=== PATIENT | female | born 1945 | race Caucasian/White ===

== ENCOUNTER 2018-03-18 11:15 | Day surgery (SDC) | payer OTHER ==
--- OUTSIDE RECORDS SUMMARY | 2018-03-18 11:26 | XMS REPORT | Continuity of Care Document ---
:1945 Author Organization Interface Problems Problem Status Onset Classification Date Comments Source Date Reported ACUTE ASTHMA Active 01/16/20 EX[facility]ATION [facility] SOB Active 01/16/20 [facility] DX: Active 07/14/19 [id number] [facility] ED OVARIAN CYST, [place] ABNORMAL LABS Active 07/01/19 17 [facility] ACUTE Active 07/01/19 PANCREATITIS 17 [facility] R10.13 Active 07/01/19 17 [facility] Discharge 03/31/20 04/03/2016 Diagnosis: 16 [facility] Allergic reaction Discharge 03/31/20 04/03/2016 Diagnosis: 16 [facility] Stridor Discharge 03/31/20 04/03/2016 Diagnosis: Acute 16 [facility] dyspnea RASH Active 03/31/20 16 [facility] Esophageal reflux Active Problem 10/09/2017 [facility] Essential Active Problem 10/09/2017 [facility] hypertension [facility] Migraine Active Problem 10/21/2016 [facility] Other and Active Diagnosis 10/09/2017 [facility] unspecified [facility] Peptic ulcer Active Problem 10/09/2017 [facility] disease [facility] Duodenitis Active Problem 10/09/2017 [facility] Mild persistent Active Problem 10/09/2017 [facility] asthma without [facility] complication [facility] Hernia, hiatal Active Problem 10/21/2016 [facility] Seasonal allergic Active Problem 10/21/2016 [facility] conjunctivitis [facility] Hx of colonic Active Problem 10/09/2017 [facility] polyp [facility] BMI Active Problem 10/09/2017 [facility] Migraines Active Problem 04/14/2015 [facility] GERD Active Problem 04/14/2015 [facility] Hypertension Active Problem 04/14/2015 [facility] Hyperlipidemia Active Problem 04/14/2015 [facility] Cough Active Diagnosis 05/03/2017 [facility] Right foot pain Active Diagnosis 05/03/2017 [facility] Right anterior Active Diagnosis 05/03/2017 [facility] Right elbow pain Active Diagnosis 05/03/2017 [facility] Chest pain in Active Diagnosis 05/03/2017 [facility] Bronchitis Active Diagnosis 01/31/2017 [facility] Hospital Active Diagnosis 01/31/2017 [facility] discharge [facility]up [facility] Age-related Active Problem 10/09/2017 [facility] osteoporosis [facility] without current Internal pathological [facility] fracture Frequent falls Active Diagnosis 10/09/2017 [facility] Abdominal aortic Active Problem 10/09/2017 [facility] aneurysm without [facility] rupture [facility] Osteopenia, Active Diagnosis 10/09/2017 [facility] unspecified [facility] location [facility] Screening for Active Diagnosis 10/09/2017 [facility] breast cancer [facility] Screening for Active Diagnosis 10/09/2017 [facility] colon cancer [facility] Encntr for Active Diagnosis 10/09/2017 [facility] adult [facility] medical exam w/o Internal abnormal findings [facility] Rash Active Diagnosis 04/04/2016 [facility] SOB Active Diagnosis 04/04/2016 [facility] Right wrist pain Active Diagnosis 11/17/2015 [facility] Abnormal chest Active Diagnosis 11/17/2015 [facility] Right shoulder Active Diagnosis 11/17/2015 [facility] pain [facility] Hyperlipidemia Active Diagnosis 11/17/2015 [facility] Prediabetes Active Diagnosis 02/22/2016 [facility] Lower respiratory Active Diagnosis 07/02/2016 [facility] infection [facility] Epigastric pain Active Diagnosis 07/02/2016 [facility] Obesity Active Diagnosis 06/23/2015 [facility] Aortic aneurysm Active Diagnosis 06/23/2015 [facility] GERD Active Diagnosis 06/23/2015 [facility] 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 [facility] Acute left-sided Active Diagnosis 08/04/2016 [facility] thoracic back [facility] Breast cancer Active Diagnosis 07/20/2016 [facility] screening [facility] Encntr for shear helper Active Diagnosis 07/20/2016 [facility] exam (routine) Family & w/o abn findings [facility] Cyst of right Active Diagnosis 07/14/2016 [facility] ovary [facility] Acute gastritis Active Diagnosis 07/14/2016 [facility] without Family & hemorrhage, Internal unspecified [facility] gastritis type Acute abdominal Active Diagnosis 07/14/2016 [facility] pain [facility] Brain concussion Resolved Problem 01/21/2017 [facility] hiatal hernia Resolved Problem 01/21/2017 [facility] H/O completed Resolved Problem 01/21/2017 stroke [facility] Asthma Resolved Problem 01/21/2017 [facility] Hypertension Resolved Problem 01/21/2017 [facility] Migraine Resolved Problem 01/21/2017 [facility] ACUTE Active PANCREATITIS [facility] WITHOUT NECROSIS OR I EPIGASTRIC PAIN Active [facility] UNSPECIFIED Active [facility] OVARIAN CYST, [facility] RIGHT SIDE UNSPECIFIED Active ASTHMA WITH [facility] (ACUTE) EXACERBA Medications Medication Details Route Status Patient Ordering Order Source Instructions Provider Date Raloxifene HCl 1 tablet Orally Active 60 MG Orally Martin 10/08/ [facility] Once a day [facility] Pantoprazole 1 tablet Orally Active 40 mg Orally Martin 10/08/ Yadav Sodium Once a day 2018 [facility] Zofran 1-2 tablets Orally Active 4 mg Orally Martin 06/29/ Yadav Q8 PRN 2018 [facility] Levaquin 1 tablet Orally Active 500 MG Orally Martin 04/30/ [facility] Once a day 2018 [facility] predniSONE 10 See Special Active mg oral tablet Instruction 2017 [facility] s, PO, Daily, 12 day regimen: Days 1-4 - 20 mg (2 tabs) daily Days 5-8 - 10 mg (1 tab) daily Days 9-12 - 5 mg (1/2 tab) daily, X 12 day, # 14 tab, 0 Refill(s) Amoxicillin 875 1 tab, PO, Active MG / [id number], X 2017 [facility] Clavulanate 125 7 day, # 14 MG Oral Tablet tab, 0 Refill(s) 120 ACTUAT 2 puff, Active Fluticasone INHALATION, 2017 propionate 0.11 Daily, MG/ACTUAT rinse mouth Metered Dose and throat Inhaler after use, [Flovent] # 12 gm, 0 Refill(s) Tylenol 650 mg, 2 Inactive tab, Route: 2016 [facility] PO, Drug form: TAB, ONCE, Dosing Weight 65.8, kg, PRN Pain Score 1-5, Start date: 01/18/17 0:15:00 CDTNotes: Do not exceed 4 gm/day. (Same as: Tylenol) Tylenol 650 mg, Inactive Route: PO, 2016 [facility] Drug form: TAB, Q6H, Dosing Weight 65.8, kg, PRN Pain Score 1-3, Priority: NOW, Start date: 01/18/17 0:13:00 CDT, Duration: 30 day, Stop date: 02/17/17 0:12:00 CDT Hydrochlorothia 25 mg, 1 No Longer zide 25 MG Oral tab, Route: Active 2016 [facility] Tablet PO, Drug form: TAB, Daily, Dosing Weight 65.8, kg, Start date: 01/17/17 9:00:00 CDT, Duration: 30 day, Stop date: 02/15/17 9:00:00 CDTNotes: (Same as: Hydrodiuril ) With food. Amlodipine 5 mg, 1 No Longer tab, Route: Active 2016 [facility] PO, Drug form: TAB, Daily, Dosing Weight 65.8, kg, Start date: 01/17/17 9:00:00 CDT, Duration: 30 day, Stop date: 02/15/17 9:00:00 CDTNotes: (Same as: Norvasc) Crestor 10 mg, 2 No Longer tab, Route: Active 2016 [facility] PO, Drug form: TAB, Bedtime, Dosing Weight 65.8, kg, Start date: 01/16/17 21:00:00 CDT, Duration: 30 day, Stop date: 02/14/17 21:00:00 CDTNotes: Same as Crestor phenol 1 spray, No Longer Route: TOP, Active 2016 [facility] TID, Drug form: SPRY, PRN Sore Throat, Start date: 01/16/17 20:02:00 CDT, Duration: 30 day, Stop date: 02/15/17 20:01:00 CDTNotes: Chlorasepti c [place] (Same as: Chlorasepti c, Sore Throat [place]) WASTE: F/P - Black; E - Municipal Trash Bin pantoprazole 40 mg, 1 No Longer tab, Route: Active 2016 [facility] PO, Drug form: ECTAB, BID, Dosing Weight 65.8, kg, Start date: 01/16/17 17:00:00 CDT, Duration: 30 day, Stop date: 02/15/17 9:00:00 CDTNotes: Tablet should not be chewed or crushed. (Same as: Protonix) methylPREDNISol 40 mg, 1 No Longer one SODium mL, Route: Active 2016 [facility] SUCCinate IVP, Drug form: INJ, Q8H, Dosing Weight 65.8, kg, Start date: 01/16/17 16:00:00 CDT, Duration: 30 day, Stop date: 02/15/17 8:00:00 CDTNotes: (Same as:Solu-MED ROL, A-Methapred ) Carafate 1 gm, 1 No Longer tab, Route: Active 2016 [facility] PO, Drug form: TAB, QID-Before Meals, Dosing Weight 65.8, kg, Start date: 01/16/17 13:00:00 CDT, Duration: 30 day, Stop date: 02/15/17 11:30:00 CDTNotes: May interfere w/enteral feeds - Take 1 hr before or 2 hr after antacids, dairy pdt, meals & minerals - On empty stomach. For patients unable to swallow tablet, dissolve in 10mL - 30mL of water or juice and stir before giving. (Same As: Carafate) Ventolin HFA 90 2 puff, No Longer mcg/inh Route: Active 2016 [facility] inhalation INHALATION, aerosol with Drug Form: adapter AERO/A, Dosing Weight 65.8, kg, QID, PRN Shortness of breath, Start date: 01/16/17 13:00:00 CDT, Duration: 30 day, Stop date: 02/15/17 12:59:00 CDTNotes: Same as: Ventolin HFA WASTE: Aerosol - Return to Pharmacy potassium 40 mEq, 2 Inactive chloride 20 mEq tab, Route: 2016 [facility] oral tablet, PO, Drug extended form: release ERTAB, ONCE, Dosing Weight 65.8, kg, Start date: 01/16/17 12:47:00 CDT, Stop date: 01/16/17 12:47:00 CDTNotes: (Same as: K-Dur 20) "Do Not Crush" With food and full glass of water Sumatriptan 50 50 mg, 2 Inactive MG Oral Tablet tab, Route: 2016 [facility] [Imitrex] PO, Drug form: TAB, ONCE, Dosing Weight 65.8, kg, PRN Headache 4-6, Start date: 01/16/17 12:45:00 CDT, MIGRAINNote s: (Same As: Imitrex) Tylenol 650 mg, 1 No Longer supp, Active 2016 [facility] Route: GA, Drug form: SUPP, Q6H, Dosing Weight 65.8, kg, PRN For Temp > 100.4 F, Start date: 01/16/17 12:44:00 CDT, Duration: 30 day, Stop date: 02/15/17 12:43:00 CDTNotes: Max acetaminoph zz=[id number] mg/day (4 gm/day). (Same as: Tylenol) Promethazine 25 mg, 1 No Longer tab, Route: Active 2016 [facility] PO, Drug form: TAB, Q4H, Dosing Weight 65.8, kg, PRN as needed for nausea/vomi ting, Start date: 01/16/17 12:44:00 CDT, Duration: 30 day, Stop date: 02/15/17 12:43:00 CDTNotes: (Same as: Phenergan) Prednisone 40 mg, 2 Inactive tab, Route: 2017 [facility] PO, Drug form: TAB, Daily, Dosing Weight 65.909, kg, Start date: 01/16/17 9:00:00 CDT, Duration: 30 day, Stop date: 02/14/17 9:00:00 CDTNotes: Take with food. pneumococcal 0.5 mL, Inactive capsular Route: IM, 2016 [facility] polysaccharide Drug Form: type 1 vaccine INJ, Daily, / pneumococcal Start date: capsular 01/16/17 polysaccharide 9:00:00 type 10A CDT, vaccine / Duration: 1 pneumococcal doses or capsular times, Stop polysaccharide date: type 11A 01/16/17 vaccine / 9:00:00 pneumococcal CDTNotes: capsular (Same as: polysaccharide Pneumovax type 12F 23) vaccine / Refrigerate pneumococcal capsular polysacchar Albuterol 0.833 3 mL, No Longer 10/03/ MH MG/ML / Route: NEB, Active 2016 [facility] Ipratropium Drug Form: [place] 0.167 SOLN, MG/ML Inhalant Dosing Solution Weight 65.909, kg, RQ6H, Start date: 01/16/17 8:00:00 CDT, Duration: 30 day, Stop date: 02/15/17 2:00:00 CDTNotes: (Same as: Duoneb) Amoxicillin 875 1 tab, No Longer 10/ MH MG / Route: PO, Active 2016 [facility] Clavulanate 125 Drug Form: MG Oral Tablet TAB, Dosing Weight 65.909, kg, [id number], For CrCl >/=30, Start date: 01/16/17 3:00:00 CDT, Duration: 30 day, Stop date: 02/14/17 15:00:00 CDTNotes: With food. (Same as: Augmentin 875) Calcium 3 gm, 30 No Longer 10/ MH Gluconate mL, Route: Active 2016 [facility] IVPB, PRN, Dosing Weight 65.909, kg, PRN Abnormal Lab Result, For NON-ICU Patients Only., Start date: 01/16/17 2:29:00 CDT, Duration: 30 day, Stop date: 02/15/17 2:28:00 CDTNotes: WASTE: F/P - Sink; E - [employer] Trash [employer] sodium 15 mmol, 5 No Longer 10/ MH phosphate mL, Route: Active 2016 [facility] IVPB, PRN, Dosing Weight 65.909, kg, PRN Abnormal Lab Result, For NON-ICU Patients Only., Start date: 01/16/17 2:29:00 CDT, Duration: 30 day, Stop date: 02/15/17 2:28:00 CDT Potassium 20 mEq, 15 No Longer 10/03/ MH Chloride mL, Route: Active 2016 [facility] NJ, Drug form: LIQ, PRN, Dosing Weight 65.909, kg, PRN Abnormal Lab Result, For NON-ICU Patients Only, Start date: 01/16/17 2:29:00 CDT, Duration: 30 day, Stop date: 02/15/17 2:28:00 CDTNotes: (Same as: Potassium Chloride) Magnesium 1 gm, 100 No Longer Sulfate mL, Route: Active 2016 [facility] IVPB, Drug form: INJ, PRN, Dosing Weight 65.909, kg, PRN Abnormal Lab Result, For NON-ICU Patients Only., Start date: 01/16/17 2:29:00 CDT, Duration: 30 day, Stop date: 02/15/17 2:28:00 CDTNotes: WASTE: F/P - Sink; E - [employer] Trash Bin potassium 30 mmol, 10 No Longer phosphate mL, Route: Active 2016 [facility] IVPB, PRN, Dosing Weight 65.909, kg, PRN Abnormal Lab Result, For NON-ICU Patients Only., Start date: 01/16/17 2:29:00 CDT, Duration: 30 day, Stop date: 02/15/17 2:28:00 CDTNotes: (Same as: K Phosphate.) 1 mMol phoshate has 1.47 mEq potassium Infuse over 4 hours Magnesium Oxide 800 mg, 2 No Longer tab, Route: Active 2016 [facility] PO, Drug form: TAB, PRN, Dosing Weight 65.909, kg, PRN Abnormal Lab Result, For NON-ICU Patients Only., Start date: 01/16/17 2:29:00 CDT, Duration: 30 day, Stop date: 02/15/17 2:28:00 CDTNotes: (Same as: Mag-Ox 400) Magnesium oxide [id number] elemental magnesium Dose=____mg magnesium oxide (___mg elemental magnesium) potassium 2 pkt, No Longer phosphate-sodiu Route: PO, Active 2016 [facility] m phosphate 250 Drug Form: mg-280 mg-160 PDR/REC, mg oral powder Dosing for Weight reconstitution 65.909, kg, PRN, PRN Abnormal Lab Result, For NON-ICU Patients Only, Start date: 01/16/17 2:29:00 CDT, Duration: 30 day, Stop date: 02/15/17 2:28:00 CDTNotes: (Same as: Phos-NaK) Each 1.5 gm pkt has 250mg phosphorous . Mix w/2.5oz water and stir. Saline Flush 10 ml, No Longer 01/16/ MH 0.9% Route: IVP, Active 2016 [facility] Drug Form: INJ, Dosing Weight 65.909, kg, PRN, PRN Line Flush, Start date: 01/16/17 2:25:00 CDT, Duration: 30 day, Stop date: 02/15/17 2:24:00 CDTNotes: (Same as: BD Posiflush) Albuterol 0.83 2.49 mg, 3 No Longer 01/16/ MH MG/ML Inhalant mL, Route: Active 2016 [facility] Solution NEB, Drug form: SOLN, RQ2H, Dosing Weight 65.909, kg, PRN Wheezing, Priority: Routine, Start date: 01/16/17 2:25:00 CDT, Duration: 30 day, Stop date: 02/15/17 2:24:00 CDTNotes: SEE RT DOCUMENTATI ON (Same as: Proventil) methylPREDNISol 125 mg, 2 Inactive one SODium mL, Route: 2016 [facility] SUCCinate IVP, Drug form: INJ, ONCE, Dosing Weight 65.909, kg, Priority: STAT, Start date: 01/16/17 0:07:00 CDT, Stop date: 01/16/17 0:07:00 CDTNotes: (Same as:Solu-MED ROL, A-Methapred ) Albuterol 0.833 6 mL, Inactive 01/16/ MH MG/ML / Route: 2016 [facility] Ipratropium INHALATION, [place] 0.167 Dosing MG/ML Inhalant Weight Solution 65.909, kg, [DuoNeb] ONCE, Start date: 01/15/17 23:54:00 CDT, Stop date: 01/15/17 23:54:00 CDT Albuterol 0.833 6 mL, Inactive 01/16/ MH MG/ML / Route: 2016 [facility] Ipratropium INHALATION, [place] 0.167 Dosing MG/ML Inhalant Weight Solution 65.909, kg, [DuoNeb] ONCE, Start date: 01/15/17 23:43:00 CDT, Stop date: 01/15/17 23:43:00 CDT Saline Flush 10 mL, No Longer 0.9% Route: IVP, Active 2016 [facility] Drug Form: INJ, Dosing Weight 72.727, kg, PRN, PRN Line Flush, Start date: 01/15/17 23:11:00 CDT, Duration: 30 day, Stop date: 02/14/17 23:10:00 CDTNotes: (Same as: BD Posiflush) Flexeril 1 tablet as Orally Active 10 MG Orally [place] needed daily [facility] Sumatriptan 50 50 mg=1 Active MG Oral Tablet tab, PO, 2016 [Imitrex] ONCE, PRN Headache, may repeat one time after 2 hours, # 9 tab, 0 Refill(s), Pharmacy: [facility] [id number] pantoprazole 40 40 mg=1 Active mg oral enteric tab, PO, 2016 coated tablet BID, # 60 tab, 1 Refill(s), Pharmacy: [facility] [id number] amLODIPine 5 mg 5 mg=1 tab, Active oral tablet PO, Daily, 2016 # 30 tab, 2 Refill(s), Pharmacy: [place] [id number] Sucralfate 1000 1 gm=1 tab, Active MG Oral Tablet PO, QID, # 2017 [facility] [Carafate] 120 tab, 2 Refill(s), Pharmacy: [place] [id number] Imitrex 50 mg, 2 No Longer tab, Route: Active 2016 [facility] PO, Drug form: TAB, Q2H, Dosing Weight 72.727, kg, PRN Headache 4-6, Start date: 07/03/16 22:46:00 CDT, Duration: 30 day, Stop date: 08/02/16 22:45:00 CDTNotes: (Same As: Imitrex) Tylenol 650 mg, 2 No Longer tab, Route: Active 2016 [facility] PO, Drug form: TAB, Q6H, Dosing Weight 72.727, kg, PRN Pain Score 1-3, Start date: 07/03/16 22:36:00 CDT, Duration: 30 day, Stop date: 08/02/16 22:35:00 CDTNotes: Do not exceed 4 gm/day. (Same as: Tylenol) Protonix 40 mg, 1 No Longer tab, Route: Active 2016 [facility] PO, Drug form: ECTAB, BID, Dosing Weight 72.727, kg, Start date: 07/03/16 17:00:00 CDT, Duration: 30 day, Stop date: 08/02/16 9:00:00 CDTNotes: Tablet should not be chewed or crushed. (Same as: Protonix) Sucralfate 100 1 gm, 1 No Longer MG/ML Oral tab, Route: Active 2016 [facility] Suspension PO, Drug [Carafate] form: TAB, QID, Dosing Weight 72.727, kg, Start date: 07/03/16 17:00:00 CDT, Duration: 30 day, Stop date: 08/02/16 13:00:00 CDTNotes: May interfere w/enteral feeds - Take 1 hr before or 2 hr after antacids, dairy pdt, meals & minerals - On empty stomach. For patients unable to swallow tablet, dissolve in 10mL - 30mL of water or juice and stir before giving. (Same As: Carafate) Sodium Chloride 1,000 mL, Inactive [facility] 0.154 MEQ/ML Rate: 2016 [facility] Injectable ml/hr, Solution Infuse over: 40 hr, Route: IV, Dosing Weight 72.727 kg, Total Volume: 1,000, Start date: 07/03/16 13:52:00 CDT, Duration: 1 day, Stop date: 07/04/16 13:51:00 CDT pneumococcal 0.5 mL, Inactive 07/03/ MH 13-valent Route: IM, 2016 [facility] vaccine Drug Form: INJ, Daily, Start date: 07/03/16 12:00:00 CDT, Duration: 1 doses or times, Stop date: 07/03/16 12:00:00 CDTNotes: Lightly roll vial (DO NOT SHAKE) before administrat ion. (Same as: Prevnar 13) pneumococcal 0.5 mL, Inactive 07/03/ MH 13-valent Route: IM, 2016 [facility] vaccine Drug Form: INJ, Daily, Start date: 07/03/16 10:30:00 CDT, Duration: 1 doses or times, Stop date: 07/03/16 10:30:00 CDTNotes: Lightly roll vial (DO NOT SHAKE) before administrat ion. (Same as: Prevnar 13) Imitrex 6 mg, 0.5 Inactive mL, Route: 2016 [facility] SUB-Q, Drug form: INJ, ONCE, Dosing Weight 72.727, kg, PRN Headache 6-10, Start date: 07/02/16 14:39:00 CDTNotes: For SUBCUTANEOU S use only Crestor 10 mg, No Longer Route: PO, Active 2016 [facility] Drug form: TAB, Daily, Dosing Weight 72.727, kg, Start date: 07/02/16 9:00:00 CDT, Duration: 30 day, Stop date: 07/31/16 9:00:00 CDT Hydrochlorothia 25 mg, 1 No Longer zide 25 MG Oral tab, Route: Active 2016 [facility] Tablet PO, Drug form: TAB, Daily, Dosing Weight 72.727, kg, Start date: 07/02/16 9:00:00 CDT, Duration: 30 day, Stop date: 07/31/16 9:00:00 CDTNotes: (Same as: Hydrodiuril ) With food. aspirin 81 mg 81 mg, 1 No Longer tablet, enteric tab, Route: Active 2016 [facility] coated PO, Drug form: ECTAB, Daily, Dosing Weight 72.727, kg, Start date: 07/02/16 9:00:00 CDT, Duration: 30 day, Stop date: 07/31/16 9:00:00 CDTNotes: Do not crush or chew. (Same As: Ecotrin) Norvasc 5 mg, 1 No Longer tab, Route: Active 2016 [facility] PO, Drug form: TAB, Daily, Dosing Weight 72.727, kg, Start date: 07/02/16 9:00:00 CDT, Duration: 30 day, Stop date: 07/31/16 9:00:00 CDTNotes: (Same as: Norvasc) Protonix 40 mg, 1 No Longer tab, Route: Active 2016 [facility] PO, Drug form: ECTAB, Before Breakfast, Dosing Weight 72.727, kg, Start date: 07/02/16 7:30:00 CDT, Duration: 30 day, Stop date: 07/31/16 7:30:00 CDTNotes: Tablet should not be chewed or crushed. (Same as: Protonix) Lipitor 20 mg, 2 No Longer tab, Route: Active 2016 [facility] PO, Drug form: TAB, Bedtime, Start date: 07/01/16 21:00:00 CDT, Duration: 30 day, Stop date: 07/30/16 21:00:00 CDTNotes: (Same As: Lipitor) Acetaminophen 1 tab, No Longer 325 MG / Route: PO, Active 2016 [facility] Hydrocodone Drug Form: Bitartrate 5 MG TAB, Dosing Oral Tablet Weight [Belk 5/325] 72.727, kg, Q6H, PRN Pain Score 1-3, Start date: 07/01/16 17:38:00 CDT, Duration: 30 day, Stop date: 07/31/16 17:37:00 CDTNotes: (Same as: Belk 325/5) Do not exceed 4gm/day of acetaminoph en. Ventolin HFA 90 2 puff, No Longer mcg/inh Route: Active 2016 [facility] inhalation INHALATION, aerosol with Drug Form: adapter AERO/A, Dosing Weight 72.727, kg, QID, Start date: 07/01/16 17:00:00 CDT, Duration: 30 day, Stop date: 07/31/16 13:00:00 CDTNotes: Albuterol 90 microgram/i nh 8gm HFA WASTE: Aerosol - Return to Pharmacy Same as: Ventolin, Proventil Protonix 40 mg, Inactive Route: IV, 2016 [facility] Drug form: INJ, Q12H, Dosing Weight 72.727, kg, Start date: 07/01/16 9:00:00 CDT, Duration: 30 day, Stop date: 07/30/16 21:00:00 CDTNotes: For IV push reconstitut e with 10 ml 0.9% sodium chloride and push over 2 minutes. (Same as: Protonix) Streptococcus 0.5 mL, No Longer pneumoniae Route: IM, Active 2016 [facility] serotype 1 Drug Form: capsular INJ, Daily, antigen Start date: diphtheria 07/01/16 [id number] protein 9:00:00 conjugate CDT, vaccine / Duration: 1 Streptococcus doses or pneumoniae times, Stop serotype 14 date: capsular 07/01/16 antigen 9:00:00 diphtheria CDTNotes: [id number] protein Lightly conjugate roll vial vaccine / (DO NOT Streptococcus SHAKE) pneumoniae before serotype 18C administrat capsular ion. (Same antigen d as: Prevnar 13) Nitroglycerin 0.4 mg, 1 No Longer 0.4 MG tab, Route: Active 2016 [facility] Sublingual SL, Drug Tablet form: TAB, Q5Min, Dosing Weight 72.727, kg, PRN Chest Pain, Start date: 07/01/16 4:03:00 CDT, Duration: 30 day, Stop date: 07/31/16 4:02:00 CDTNotes: (Same as:Nitroqui ck, Nitrostat) "Do Not Crush" Sublingual tablet Atropine 0.5 mg, 5 No Longer mL, Route: Active 2016 [facility] IVP, Drug form: INJ, ONCE, Dosing Weight 72.727, kg, PRN Bradycardia , Start date: 07/01/16 4:03:00 CDT Saline Flush 10 ml, No Longer 0.9% Route: IVP, Active 2016 [facility] Drug Form: INJ, Dosing Weight 72.727, kg, PRN, PRN Line Flush, Start date: 06/30/16 23:56:00 CDT, Duration: 30 day, Stop date: 07/30/16 23:55:00 CDTNotes: (Same as: BD Posiflush) Sodium Chloride 1,000 mL, No Longer 0.154 MEQ/ML Rate: 150 Active 2016 [facility] Injectable ml/hr, Solution Infuse over: 6.7 hr, Route: IV, Dosing Weight 72.727 kg, Total Volume: 1,000, Start date: 06/30/16 23:56:00 CDT, Duration: 30 day, Stop date: 07/30/16 23:55:00 CDT Ondansetron 4 mg, 2 mL, No Longer Route: IVP, Active 2016 [facility] [facility] Drug form: INJ, Q6H, Dosing Weight 72.727, kg, PRN Nausea & Vomiting, Start date: 06/30/16 23:56:00 CDT, Duration: 30 day, Stop date: 07/30/16 23:55:00 CDTNotes: (Same as: Zofran) MEDICATION WASTE Product Size: 4 mg Product Wasted: ___ mg Morphine 4 mg, 1 mL, No Longer Route: IVP, Active 2016 [facility] Drug form: SOLN, Q4H, Dosing Weight 72.727, kg, PRN Pain Score 7-10, Start date: 06/30/16 23:56:00 CDT, Duration: 30 day, Stop date: 07/30/16 23:55:00 CDTNotes: (Same as:MORPhine Sulfate) Famotidine 20 mg, 2 Inactive mL, Route: 2016 [facility] IVP, Drug form: INJ, ONCE, Dosing Weight 72.727, kg, Priority: STAT, Start date: 06/30/16 19:48:00 CDT, Stop date: 06/30/16 19:48:00 CDTNotes: (Same as: Pepcid) Can be dilute in 5-10cc NS IVP: Slow IV push over at least 2 minutes. Ondansetron 4 mg, 2 mL, Inactive Route: IVP, 2016 [facility] Drug form: INJ, ONCE, Dosing Weight 72.727, kg, Priority: STAT, Start date: 06/30/16 19:47:00 CDT, Stop date: 06/30/16 19:47:00 CDTNotes: (Same as: Zofran) MEDICATION WASTE Product Size: 4 mg Product Wasted: ___ mg Sodium Chloride 1,000 mL, Inactive 0.154 MEQ/ML 1000 ml/hr, 2016 [facility] Injectable Infuse Solution Over: 1 hr, Route: IV, 1,000, Drug form: INJ, ONCE, Priority: STAT, Dosing Weight 72.727 kg, Start date: 06/30/16 19:47:00 CDT, Duration: 1 doses or times, Stop date: 06/30/16 19:47:00 CDT Morphine 4 mg, 1 mL, Inactive Route: IVP, 2016 [facility] Drug form: SOLN, ONCE, Dosing Weight 72.727, kg, Priority: STAT, Start date: 06/30/16 19:47:00 CDT, Stop date: 06/30/16 19:47:00 CDTNotes: (Same as:MORPhine Sulfate) Potassium 40 mEq, 30 Inactive Chloride 1.33 mL, Route: 2016 MEQ/ML Oral PO, Drug Solution form: LIQ, ONCE, Dosing Weight 72.727, kg, Priority: STAT, Start date: 06/30/16 19:24:00 CDT, Stop date: 06/30/16 19:24:00 CDTNotes: (Same as: Potassium Chloride) Saline Flush 10 mL, No Longer 0.9% Route: IVP, Active 2016 [facility] Drug Form: INJ, Dosing Weight 72.727, kg, PRN, PRN Line Flush, Start date: 06/30/16 18:01:00 CDT, Duration: 30 day, Stop date: 07/30/16 18:00:00 CDTNotes: (Same as: BD Posiflush) Bromfed DM 10 ml as Orally Active 30-2-10 Cyclone needed MG/5ML Orally 2016 [facility] 6 hrs [facility] Levaquin 1 tablet Orally Active 500 MG Orally Cyclone Yadav Once a day 2016 [facility] Medrol (Wilbert) as directed Orally Active 4 MG Orally Cyclone Yadav as directed 2015 [facility] Famotidine 10 10 mg=1 Active MG Oral Tablet tab, PO, 2015 BID, # 60 tab, 0 Refill(s) Diphenhydramine 25 mg=1 Active Hydrochloride cap, PO, 2015 25 MG Oral Q6H, PRN Capsule Allergic [Benadryl] reaction, X 8 day, # 30 cap, 0 Refill(s) 0.3 ML 0.3 mg, IM, Active Epinephrine 1 ONCE, # 1 2015 MG/ML Prefilled kit, 0 Syringe Refill(s) [Epipen] Albuterol 0.833 3 mL, Inactive MH MG/ML / Route: [facility]2015 [facility] Ipratropium Drug Form: [place] 0.167 SOLN, MG/ML Inhalant Dosing Solution Weight 63.636, kg, ONCE, STAT, Start date: 03/31/16 11:53:00 CUSTOMER SUPPORT COORDINATOR, Stop date: 03/31/16 11:53:00 CSTNotes: (Same as: Duoneb) Sodium Chloride 1,000 mL, Inactive 03/31/ MH 0.154 MEQ/ML 2,000 2015 [facility] Injectable ml/hr, Solution Infuse Over: 30 minutes, Route: IV, ONCE, Priority: STAT, Dosing Weight 63.636 kg, Start date: 03/31/16 11:53:00 CUSTOMER SUPPORT COORDINATOR, Duration: 1 doses or times, Stop date: 03/31/16 11:53:00 CUSTOMER SUPPORT COORDINATOR Saline Flush 10 mL, Inactive 0.9% Route: IVP2015 [facility] Drug Form: INJ, Dosing Weight 63.636, kg, PRN, PRN Line Flush, Start date: 03/31/16 11:53:00 CUSTOMER SUPPORT COORDINATOR, Duration: 30 day, Stop date: 04/30/16 11:52:00 CSTNotes: (Same as: BD Posiflush) Albuterol 0.833 3 mL, Inactive 03/31/ MH MG/ML / Route: 2015 [facility] Ipratropium Dosing [place] 0.167 Weight MG/ML Inhalant 63.636, kg, Solution ONCE, STAT, Start date: 03/31/16 11:50:00 CUSTOMER SUPPORT COORDINATOR, Stop date: 03/31/16 11:50:00 CUSTOMER SUPPORT COORDINATOR Diphenhydramine 50 mg, Inactive MH Route: IVP, 2015 [facility] ONCE, Dosing Weight 63.636, kg, Priority: STAT, Start date: 03/31/16 11:48:00 CUSTOMER SUPPORT COORDINATOR, Stop date: 03/31/16 11:48:00 CUSTOMER SUPPORT COORDINATOR EPINEPHrine 1 0.3 mg, Inactive MH mg/mL (1:1000) Route: IM, 2015 [facility] injectable ONCE, solution Dosing Weight 63.636, kg, Priority: STAT, Start date: 03/31/16 11:47:00 CUSTOMER SUPPORT COORDINATOR, Stop date: 03/31/16 11:47:00 CUSTOMER SUPPORT COORDINATOR methylPREDNISol 125 mg, Inactive one SODium Route: IVP, 2015 Samantha SUCCinate ONCE, Dosing Weight 63.636, kg, Priority: STAT, Start date: 03/31/16 11:47:00 CUSTOMER SUPPORT COORDINATOR, Stop date: 03/31/16 11:47:00 CUSTOMER SUPPORT COORDINATOR Famotidine 20 mg, Inactive Route: IVP, 2015 [place] ONCE, Dosing Weight 63.636, kg, Priority: STAT, Start date: 03/31/16 11:46:00 CUSTOMER SUPPORT COORDINATOR, Stop date: 03/31/16 11:46:00 CUSTOMER SUPPORT COORDINATOR Ventolin HFA 2 puffs as Inhalatio Active 108 (90 Base) Martin Leif needed n MCG/ACT 2016 [facility] Inhalation [facility] every 4 hrs [facility] PRN Ventolin HFA 2 puffs as Inhalatio Active 108 (90 Base) Sloan Leif needed n MCG/ACT 2015 [facility]ation [facility] every 4 hrs [facility] Levaquin 1 tablet Orally Active 500 mg Orally Cyclone Leif Once a day 2015 [facility] Crestor 1 tablet Orally Active 10 MG Orally Sloan Yadav Once a day 2014 [facility] Crestor 2 tablet Orally Active 20 mg Orally Guilherme Leif Once a day 2014 [facility] pneumococcal 0.5 ml, IM No Longer SYSTEM OPID 23-valent Route: IM, Active 2009 [place] vaccine Drug Form: INJ, ONCALL, Start date: 09/12/09 20:00:00, Duration: 1 doses or times Triamterene-HCT 1 capsule Orally Active 25-37.5 MG Martin Yadav Z in the Orally Once a [facility] morning day [facility] Amlodipine 1 tablet Orally Active 5 MG Orally Leif Yadav Besylate Once a day [facility] Sumatriptan 1 tablet as Orally Active 50 MG Orally Martin Yadav Succinate needed Twice a day [facility] Cyclobenzaprine TAKE ONE NA Active 10 Sasha Leif HCl TABLET BY Family & MOUTH DAILY Internal NEEDED [facility] Omeprazole 1 tablet Orally Active 10 MG Orally Martin Yadav Once a day [facility] Carafate 1 tablet on Orally Active 1 GM Orally Martin Yadav an empty four times a Family & stomach day (qid) [facility] Pantoprazole not defined Oral Active 40 MG Oral Martin Yadav Sodium [facility] Rosuvastatin 1 tablet Orally Active 20 mg Orally Martin Yadav Calcium Once a day [facility] EPINEPHrine 1 Injection Active 0.3 MG/DOSE Sasha Yadav Injection prn [facility] Amlodipine 1 tablet Orally Active 5 MG Orally Martin Yadav Besylate Once a day [facility] Crestor TAKE ONE NA Active 20 Sasha Yadav TABLET BY [facility] MOUTH DAILY [facility] Triamterene-HCT take one NA Active 37.5-25 Martin Yadav Z capsule by Family & mouth every Internal morning [facility] Adrianne Allergy 1 tablet Orally Active 180 MG Orally Mary Ellen Yadav Once a day [facility] Vitamin D not defined NA Active Mary Ellen Yadav [facility] Excedrin 2 tablets Orally Active 250-250-65 MG Mary Ellen Yadav Migraine as needed Orally PRN [facility] EPINEPHrine 1 Injection Active 0.3 MG/DOSE Martin Yadav Injection prn [facility] Amlodipine 1 tablet Orally Active 5 Orally Once Martin Yadav Besylate a day [facility] Excedrin 2 tablets Orally Active 250-250-65 MG Sloan Yadav Migraine as needed Orally PRN [facility] Omeprazole 1 tablet Orally Active 10 MG Orally Sloan Yadav Once a day [facility] Adrianne Allergy 1 tablet Orally Active 180 MG Orally Sloan Yadav Once a day [facility] Imitrex 1 tablet as Orally Active 100 MG Orally Cyclonebrandon Yadav needed one Once a day [facility] time [facility] Rosuvastatin 1 tablet Orally Active 20 MG Orally Sloan Yadav Calcium Once a day [facility] Sumatriptan 1 tablet as Orally Active 50 MG Orally Sloan Yadav Succinate needed Twice a day [facility] Carafate 1 tablet on Orally Active 1 GM Orally Sloan Yadav an empty four times a Family & stomach day (qid) [facility] Bromfed DM 5-10 ml as Orally Active 30-2-10 Sloan Yadav needed MG/5ML Orally Family & every 6 hrs, Internal PRN [facility] Hydrochlorothia 1 tablet Orally Active 25 MG Orally Sloan Yadav zide Once a day [facility] Imitrex 1 tablet as Orally Active 50 MG Orally Sloan Yadav needed Twice a day [facility] Levofloxacin 1 tablet Orally Active 500 MG Orally Sloan Yadav Once a day [facility] Pantoprazole 1 tablet Orally Active 40 MG Orally Sloan Yadav Sodium Once a day [facility] Sucralfate 1 tablet on Orally Active 1 GM Orally Sloan Yadav an empty Twice a day [facility] stomach [facility] Promethazine 1 tablet as Orally Active 25 MG Orally Sloan Yadav HCl needed every 12 hrs [facility] Rosuvastatin 1 tablet Orally Active 20 MG Orally Sloan Yadav Calcium Once a day [facility] Allergies, Adverse Reactions, Alerts Substance Category Reaction Severity Reaction Status Date Comments Source type Reported Iodine Adverse anaphylaxis Adverse Active Yadav Reaction Reaction 8 [facility] [place] Adverse rash Adverse Active Yadav Reaction Reaction 8 [facility] iodine Assertion Drug Active allergy [facility] Immunizations Immunization Date Site Status Last Comments Source Given Updated pneumococcal Not Given [facility] 23-valent 7 vaccine pneumococcal Left completed [facility] 13-valent 7 Deltoid vaccine pneumococcal Not Given Breanna OPID 23-valent 0 [place] vaccine Results Order Name Results Value Reference Date Interpretation Comments Source Range CHEM PANEL eGFR 46 01/17 Result Comment: The eGFR is calculated using the CKD-EPI formula. In most young, healthy individuals the eGFR will be >90 mL/ min/1.73m2. The eGFR declines with age. An eGFR of 60-89 may be normal in mL/min/1. some populations, particularly the elderly, for whom the CKD-EPI formula has not been extensively validated. Use of the eGFR is not recommended in the following populations: [facility] 3m2 Individuals with unstable creatinine concentrations, including patients and those with serious co-morbid conditions. Patients with extremes in muscle mass or diet. The data above are obtained from the National Kidney Disease Education Program (NKDEP) which additionally recommends that when the eGFR is used in patients with extremes of body mass index for purposes of drug dosing, the eGFR should be multiplied by the estimated BMI. CHEM PANEL Potassium 3.8 meq/L 3.5 - 5.1 01/17 Lvl /2016 [facility] CHEM PANEL Sodium Lvl 139 meq/L 135 - 145 01/17 [facility] CHEM PANEL Chloride Lvl 105 meq/L 95 - 109 01/17 [facility] CHEM PANEL Calcium Lvl 9.0 mg/dL 8.5 - 10.5 01/17 [facility] CHEM PANEL AGAP 12.8 meq/L 10.0 - 01/17 MH 20.0 /2016 [facility] CHEM PANEL CO2 25 meq/L 24 - 32 01/17 [facility] CHEM PANEL Creatinine 1.20 mg/dL 0.50 - 10 MH Lvl 1.40 /2016 [facility] CHEM PANEL BUN 24 mg/dL 7 - 22 01/17 [facility] CHEM PANEL Glucose Lvl 167 mg/dL 70 - 99 01/17 [facility] ELECTROLYT Potassium 3.2 meq/L 3.5 - 5.1 01/16 ES Lvl [facility] CARDIAC CK MB Index null 0.0 - 2.5 01/16 ENZYMES [facility] CARDIAC CK MB null 0.5 - 3.6 01/16 ENZYMES [facility] CARDIAC Troponin-I null 0.00 - 01/16 ENZYMES 0.40 [facility] CARDIAC Total CK 67 unit/L 12 - 191 01/16 ENZYMES [facility] CARDIAC BNP 1 pg/mL <=100 01/16 ENZYMES pg/mL /2016 [facility] CHEM PANEL eGFR 61 01/16 Result Comment: The eGFR is calculated using the CKD-EPI formula. In most young, healthy individuals the eGFR will be >90 mL/ min/1.73m2. The eGFR declines with age. An eGFR of 60-89 may be normal in mL/min/1.7 /2017 some populations, particularly the elderly, for whom the CKD-EPI formula has not been extensively validated. Use of the eGFR is not recommended in the following populations: [facility] 3m2 Individuals with unstable creatinine concentrations, including patients and those with serious co-morbid conditions. Patients with extremes in muscle mass or diet. The data above are obtained from the National Kidney Disease Education Program (NKDEP) which additionally recommends that when the eGFR is used in patients with extremes of body mass index for purposes of drug dosing, the eGFR should be multiplied by the estimated BMI. CHEM PANEL A/G Ratio 1.1 0.7 - 1.6 01/16 [facility] CHEM PANEL Globulin 3.8 g/dL 2.7 - 4.2 01/16 [facility] CHEM PANEL Potassium 3.1 meq/L 3.5 - 5.1 01/16 [facility] Lvl [facility] CHEM PANEL Sodium Lvl 140 meq/L 135 - 145 01/16 [facility] CHEM PANEL Chloride Lvl 101 meq/L 95 - 109 01/16 [facility] CHEM PANEL Albumin Lvl 4.1 g/dL 3.5 - 5.0 01/16 [facility] CHEM PANEL ALT 23 unit/L 0 - 65 01/16 [facility] CHEM PANEL Total 7.9 g/dL 6.4 - 8.4 01/16 [facility] CHEM PANEL AGAP 13.1 meq/L 10.0 - 01/16 MH 20.0 /2016 [facility] CHEM PANEL B/C Ratio 25 6 - 25 01/16 [facility] CHEM PANEL Calcium Lvl 8.9 mg/dL 8.5 - 10.5 01/16 [facility] CHEM PANEL CO2 29 meq/L 24 - 32 01/16 [facility] CHEM PANEL AST 14 unit/L 0 - 37 01/16 [facility] CHEM PANEL Alk Phos 69 unit/L 39 - 136 01/16 [facility] CHEM PANEL Bili Total 0.2 mg/dL 0.2 - 1.3 01/16 [facility] CHEM PANEL Glucose Lvl 142 mg/dL 70 - 99 01/16 [facility] CHEM PANEL BUN 24 mg/dL 7 - 22 01/16 [facility] CHEM PANEL Creatinine 0.96 mg/dL 0.50 - 01/16 Lvl 1.40 /2016 [facility] HEMATOLOGY Basophils # 0.1 K/CMM 0.0 - 0.2 01/16 [facility] HEMATOLOGY Eosinophils 0.3 K/CMM 0.0 - 0.5 01/16 MH /2016 [facility] HEMATOLOGY Eosinophils 3.1 % 0.0 - 4.0 01/16 [facility] HEMATOLOGY Basophils 1.0 % 0.0 - 1.0 01/16 [facility] HEMATOLOGY Segs-Bands # 4.1 K/CMM 1.5 - 8.1 01/16 [facility] HEMATOLOGY Monocytes 6.2 % 2.0 - 12.0 01/16 [facility] HEMATOLOGY Monocytes # 0.6 K/CMM 0.0 - 0.8 01/16 [facility] HEMATOLOGY Segs 41.6 % 45.0 - 01/16 MH 75.0 /2017 [facility] HEMATOLOGY Lymphocytes 4.8 K/CMM 1.0 - 5.5 10 # /2016 [facility] HEMATOLOGY Lymphocytes 48.1 % 20.0 - 01/16 40.0 /2016 [facility] HEMATOLOGY MCV 81.0 fL 80.0 - 01/16 98.0 /2017 [facility] MCH 27.0 pg 27.0 - 01/16 31.0 /2016 [facility] HEMATOLOGY MCHC 33.4 g/dL 32.0 - 01/16 36.0 /2016 [facility] RDW 13.8 % 11.5 - 01/16 14.5 /2016 [facility] MPV 7.7 fL 7.4 - 10.4 01/16 [facility] Platelet 345 K/CMM 133 - 450 01/16 [facility] WBC 9.9 K/CMM 3.7 - 10.4 01/16 [facility] RBC 4.93 M/CMM 4.20 - 01/16 5.40 /2016 [facility] Hgb 13.3 g/dL 12.0 - 01/16 16.0 [facility] Hct 39.9 % 36.0 - 01/16 48.0 [facility] Chest Chest 1view EXAM: XR CHEST 1 VIEW 01/15 1view DX [facility] DATE: 01/15/2017 11:11 PM CDT Read by: Jose Escobar MD Dictated Date/time: 01/15/17 23:53 Electronically Signed by: Jose Escobar MD 01/15/17 23:53 FINAL REPORT INDICATION: Chest pain. COMPARISON: 03/31/2016 TECHNIQUE: A single AP view of the chest was obtained. FINDINGS: The examination is limited by low lung volumes, with bibasilar subsegmental atelectasis and crowding of the central pulmonary vasculature. No focal consolidation or pneumothorax is identified. The cardi omediastinal silhouette is within normal limits. The costophrenic recesses are sharp and without effusion. No acute osseous abnormality is noted. There is gaseous distention of the stomach. IMPRESSION: No acute cardiopulmonary abnormality. SL: [id number] Pelvis w Pelvis w Patient Name: DWIGHT HUMPHREY 07/18 - Pelvis Pelvis - [facility] Transvagin Transvaginal : 1945; Age: 71 years y/o Female al US US MR: [id number] Read by: Guy Philip MD Dictated Date/time: 07/19/16 07:38 Electronically Signed by: Guy Philip MD 07/19/16 07:45 FINAL REPORT Study: Pelvis w Pelvis Transvaginal US 07/18/2016 6:03 PM CDT Ordering Physician: Sammy Hyde MD Clinical Indication: right pelvic pain, cyst in ovary; Comparison: CT abdomen pelvis 06/30/2016 Transabdominal and transvaginal pelvic ultrasound exam Transabdominal series demonstrates uterus of 5 x 3 x 4.5 cm. Uterus grossly normal. Neither ovary is seen. No adnexal mass or pathologic fluid is demonstrated however. Transvaginal study demonstrates endometrial thickness of 4 mm. There is minimal fluid within the endometrium and there is an oval echogenic nodule within the endometrium measuring 2 x 5 mm. This may rep resent small submucosal leiomyoma or endometrial polyp. Regardless, there is no pathologic endometrial thickening noted currently. Additionally noted is a 9 x 11 mm subserosal leiomyoma in the left side of the uterine body. Right ovary never visualized. Left ovary 2 x 1.6 x 1.2 cm appearing normal. IMPRESSION: No adnexal mass or pathologic fluid. Right ovary is never visualized. Small uterine serosal leiomyoma. Additional small submucosal leiomyoma versus endometrial polyp. No pathologic endometrial thickening, otherwise. The SL: [id number] URINE AND UA Spec Grav 1.013 <=1.030 07/01 [facility] URINE AND UA Turbidity Slight Clear 07/01 [facility] *ABN* (07/01/16 5:58 AM) URINE AND UA Protein Negative Negative 07/01 [facility] mg/dL mg/dL [facility] URINE AND UA Glucose Negative Negative 07/01 [facility] mg/dL mg/dL [facility] URINE AND UA pH 5.0 5.0 - 8.0 07/01 [facility] URINE AND UA Color Ltyellow 07/01 [facility] URINE AND UA <=1.0 0.1 - 1.0 07/01 [facility] Urobilinogen mg/dL /2016 URINE AND UA RBC 1 /HPF 0 - 2 07/01 [facility] URINE AND UA WBC 3 /HPF 0 - 5 07/01 STOOL [facility] URINE AND UA Sq Epi Occasional Few /LPF 07/01 STOOL /LPF /2016 [facility] URINE AND UA Ketones Trace Negative 07/01 [facility] mg/dL mg/dL [facility] URINE AND UA Blood Negative Negative 07/01 [facility] (07/01/16 5:58 AM) URINE AND UA Bili Negative Negative 07/01 [facility] *NA* (07/01/16 5:58 AM) URINE AND UA Nitrite Negative Negative 07/01 [facility] (07/01/16 5:58 AM) URINE AND UA Leuk Est Negative Negative 07/01 STOOL [facility] (07/01/16 5:58 AM) Abdomen Abdomen Patient Name: DWIGHT HUMPHREY 07/01 - complete complete US - [facility] US : 1945; Age: 71 years y/o Female MR: [id number] Read by: Guy Philip MD Dictated Date/time: 07/01/16 11:33 Electronically Signed by: Guy Philip MD 07/01/16 11:35 FINAL REPORT Study: Abdomen complete US 07/01/2016 9:46 AM CDT Ordering Physician: Chey Frazire MD Clinical Indication: Abdominal pain, acute; Comparison: CT abdomen 06/30/2016 TECHNIQUE: Grayscale and limited color sonographic evaluation of the abdomen was performed with standard technique. FINDINGS: LIVER: The visualized liver shows normal contour, size, and morphology with normal parenchymal echo texture. BILE DUCTS: The intrahepatic and extrahepatic bile ducts are not dilated with the common bile duct measuring 5 mm. The distal common bile duct is not well seen. GALLBLADDER: There are no gallstones, gallbladder sludge, pericholecystic fluid or wall thickening. PANCREAS: The visualized pancreas appears unremarkable.. SPLEEN: The spleen is unremarkable and measures 10.8 x 2.4 x 2.7 cm. KIDNEY: The right kidney measures 8.7 x 4.4 x 4.0 cm. The left kidney measures 9.1 x 4.6 x 3.5 cm. No pelvocaliectasis, nephrolithiasis or renal mass lesion identified bilaterally. AORTA AND INFERIOR VENA CAVA: Visualized portions appear unremarkable. ASCITES: There is no abdominal ascites. IMPRESSION: 1. Unremarkable abdominal ultrasound. SL: [id number] CHEM PANEL B/C Ratio 22 6 - 25 07/01 [facility] CHEM PANEL A/G Ratio 1.1 0.7 - 1.6 07/01 [facility] CHEM PANEL Globulin 3.1 g/dL 2.7 - 4.2 07/01 [facility] CHEM PANEL AGAP 11.6 meq/L 10.0 - 07/01 MH 20.0 [facility] CHEM PANEL eGFR 72 07/01 Result Comment: The eGFR is calculated using the CKD-EPI formula. In most young, healthy individuals the eGFR will be >90 mL/ min/1.73m2. The eGFR declines with age. An eGFR of 60-89 may be normal in MH mL/min/1.7 some populations, particularly the elderly, for whom the CKD-EPI formula has not been extensively validated. Use of the eGFR is not recommended in the following populations: [facility] 3m2 Individuals with unstable creatinine concentrations, including patients and those with serious co-morbid conditions. Patients with extremes in muscle mass or diet. The data above are obtained from the National Kidney Disease Education Program (NKDEP) which additionally recommends that when the eGFR is used in patients with extremes of body mass index for purposes of drug dosing, the eGFR should be multiplied by the estimated BMI. CHEM PANEL Alk Phos 47 unit/L 39 - 136 07/01 [facility] CHEM PANEL Bili Total 0.2 mg/dL 0.2 - 1.3 07/01 [facility] CHEM PANEL Calcium Lvl 8.1 mg/dL 8.5 - 10.5 07/01 [facility] CHEM PANEL Total 6.4 g/dL 6.4 - 8.4 07/01 [facility] CHEM PANEL AST 14 unit/L 0 - 37 07/01 [facility] CHEM PANEL ALT 19 unit/L 0 - 65 07/01 [facility] CHEM PANEL Albumin Lvl 3.3 g/dL 3.5 - 5.0 07/01 [facility] CHEM PANEL Sodium Lvl 141 meq/L 135 - 145 07/01 [facility] CHEM PANEL Creatinine 0.83 mg/dL 0.50 - 07/01 MH Lvl 1.40 /2016 [facility] CHEM PANEL CO2 28 meq/L 24 - 32 07/01 [facility] CHEM PANEL Chloride Lvl 105 meq/L 95 - 109 07/01 [facility] CHEM PANEL Potassium 3.6 meq/L 3.5 - 5.1 07/01 MH Lvl /2016 [facility] CHEM PANEL BUN 18 mg/dL 7 - 22 07/01 [facility] CHEM PANEL Glucose Lvl 113 mg/dL 70 - 99 07/01 [facility] CHEM PANEL Magnesium 2.0 mg/dL 1.8 - 2.4 07/01 MH Lvl /2016 [facility] HEMATOLOGY RBC 4.19 M/CMM 4.20 - 07/01 MH 5.40 /2016 [facility] HEMATOLOGY WBC 3.5 K/CMM 3.7 - 10.4 07/01 [facility] HEMATOLOGY Hgb 11.2 g/dL 12.0 - 07/01 MH 16.0 [facility] HEMATOLOGY MCH 26.8 pg 27.0 - 07/01 MH 31.0 [facility] HEMATOLOGY Hct 33.9 % 36.0 - 07/01 MH 48.0 [facility] HEMATOLOGY MCV 81.0 fL 80.0 - 07/01 98.0 [facility] [facility] HEMATOLOGY Platelet 235 K/CMM 133 - 450 07/01 [facility] HEMATOLOGY MCHC 33.1 g/dL 32.0 - 07/01 MH 36.0 /2016 [facility] HEMATOLOGY MPV 7.2 fL 7.4 - 10.4 07/01 [facility] HEMATOLOGY RDW 14.5 % 11.5 - 07/01 MH 14.5 [facility] HEMATOLOGY Monocytes 9.6 % 2.0 - 12.0 07/01 [facility] HEMATOLOGY Monocytes # 0.3 K/CMM 0.0 - 0.8 07/01 [facility] HEMATOLOGY Lymphocytes 29.5 % 20.0 - 07/01 MH 40.0 [facility] HEMATOLOGY Segs 58.8 % 45.0 - 07/01 MH 75.0 [facility] HEMATOLOGY Segs-Bands # 2.1 K/CMM 1.5 - 8.1 07/01 [facility] HEMATOLOGY Eosinophils 1.1 % 0.0 - 4.0 07/01 [facility] HEMATOLOGY Lymphocytes 1.0 K/CMM 1.0 - 5.5 07/01 MH # /2016 [facility] HEMATOLOGY Basophils 1.0 % 0.0 - 1.0 07/01 [facility] URINE AND UA Color Yellow Yellow 07/01 STOOL /2016 [facility] *NA* (07/01/16 12:13 AM) URINE AND UA Protein Negative Negative 07/01 STOOL mg/dL mg/dL [facility] URINE AND UA Glucose Negative Negative 07/01 STOOL mg/dL mg/dL [facility] URINE AND UA pH 5.0 5.0 - 8.0 07/01 [facility] URINE AND UA Turbidity Clear Clear 07/01 [facility] (07/01/16 12:13 AM) URINE AND UA Spec Grav 1.018 <=1.030 07/01 [facility] URINE AND UA Ketones Trace Negative 07/01 STOOL mg/dL mg/dL URINE AND UA Nitrite Negative Negative 07/01 [facility] (07/01/16 12:13 AM) URINE AND UA Leuk Est Negative Negative 07/01 [facility] (07/01/16 12:13 AM) URINE AND UA Bili Negative Negative 07/01 [facility] *NA* (07/01/16 12:13 AM) URINE AND UA Blood Negative Negative 07/01 [facility] (07/01/16 12:13 AM) URINE AND UA Sq Epi Occasional Few /LPF 07/01 STOOL /LPF [facility] URINE AND UA Mucus Few /LPF None Seen 07/01 STOOL /LPF [facility] URINE AND UA <=1.0 0.1 - 1.0 07/01 [facility] Urobilinogen mg/dL [facility] URINE AND UA WBC 2 /HPF 0 - 5 07/01 [facility] URINE AND UA RBC 2 /HPF 0 - 2 07/01 [facility] CHEM PANEL Lipase Lvl 173 unit/L 73 - 393 06/30 [facility] CHEM PANEL eGFR 67 06/30 Result Comment: The eGFR is calculated using the CKD-EPI formula. In most young, healthy individuals the eGFR will be >90 mL/ min/1.73m2. The eGFR declines with age. An eGFR of 60-89 may be normal in mL/min/1.7 some populations, particularly the elderly, for whom the CKD-EPI formula has not been extensively validated. Use of the eGFR is not recommended in the following populations: [facility] 3m2 Individuals with unstable creatinine concentrations, including patients and those with serious co-morbid conditions. Patients with extremes in muscle mass or diet. The data above are obtained from the National Kidney Disease Education Program (NKDEP) which additionally recommends that when the eGFR is used in patients with extremes of body mass index for purposes of drug dosing, the eGFR should be multiplied by the estimated BMI. CHEM PANEL Alk Phos 53 unit/L 39 - 136 06/30 [facility] CHEM PANEL Calcium Lvl 8.7 mg/dL 8.5 - 10.5 06/30 [facility] CHEM PANEL CO2 29 meq/L 24 - 32 06/30 [facility] CHEM PANEL Chloride Lvl 102 meq/L 95 - 109 06/30 [facility] CHEM PANEL AST 18 unit/L 0 - 37 06/30 [facility] CHEM PANEL Potassium 3.2 meq/L 3.5 - 5.1 06/30 MH Lvl [facility] CHEM PANEL ALT 21 unit/L 0 - 65 06/30 [facility] CHEM PANEL Sodium Lvl 139 meq/L 135 - 145 06/30 [facility] CHEM PANEL Albumin Lvl 3.6 g/dL 3.5 - 5.0 06/30 [facility] CHEM PANEL Total 7.4 g/dL 6.4 - 8.4 06/30 [facility] CHEM PANEL Bili Total 0.3 mg/dL 0.2 - 1.3 06/30 [facility] CHEM PANEL BUN 18 mg/dL 7 - 22 06/30 [facility] CHEM PANEL Glucose Lvl 112 mg/dL 70 - 99 06/30 [facility] CHEM PANEL Creatinine 0.88 mg/dL 0.50 - 06/30 Lvl 1.40 [facility] CHEM PANEL A/G Ratio 0.9 0.7 - 1.6 06/30 [facility] CHEM PANEL Globulin 3.8 g/dL 2.7 - 4.2 06/30 [facility] CHEM PANEL B/C Ratio 20 6 - 25 06/30 [facility] CHEM PANEL AGAP 11.2 meq/L 10.0 - 06/30 20.0 [facility] HEMATOLOGY Basophils # 0.1 K/CMM 0.0 - 0.2 06/30 [facility] HEMATOLOGY Lymphocytes 1.9 K/CMM 1.0 - 5.5 06/30 MH /2016 [facility] HEMATOLOGY Segs-Bands # 3.5 K/CMM 1.5 - 8.1 06/30 [facility] HEMATOLOGY Eosinophils 0.1 K/CMM 0.0 - 0.5 06/30 MH # /2017 [facility] HEMATOLOGY Monocytes # 0.5 K/CMM 0.0 - 0.8 06/30 [facility] HEMATOLOGY RBC Morph Normal 06/30 [facility] (06/30/16 6:30 PM) HEMATOLOGY Plt Morph Normal 06/30 [facility] (06/30/16 6:30 PM) HEMATOLOGY Eosinophils 2.3 % 0.0 - 4.0 06/30 [facility] HEMATOLOGY Monocytes 7.6 % 2.0 - 12.0 06/30 [facility] HEMATOLOGY Lymphocytes 31.4 % 20.0 - 06/30 40.0 [facility] HEMATOLOGY Segs 57.7 % 45.0 - 06/30 75.0 [facility] HEMATOLOGY Basophils 1.0 % 0.0 - 1.0 06/30 [facility] HEMATOLOGY RDW 14.6 % 11.5 - 06/30 14.5 [facility] MCHC 27.3 g/dL 32.0 - 06/30 36.0 /2016 [facility] MPV 7.3 fL 7.4 - 10.4 06/30 [facility] HEMATOLOGY Platelet 270 K/CMM 133 - 450 06/30 [facility] MCH 22.0 pg 27.0 - 06/30 31.0 [facility] WBC 6.0 K/CMM 3.7 - 10.4 06/30 [facility] RBC 4.64 M/CMM 4.20 - 06/30 5.40 /2016 [facility] HEMATOLOGY Hgb 10.2 g/dL 12.0 - 06/30 16.0 [facility] HEMATOLOGY MCV 80.6 fL 80.0 - 06/30 98.0 /2016 [facility] HEMATOLOGY Hct 37.4 % 36.0 - 06/30 48.0 [facility] Abdomen Abdomen Patient Name: DWIGHT HUMPHREY 06/30 - acute acute series /2016 - [facility] series w w chest 1 : 1945; Age: 71 years y/o Female chest 1 view DX view DX MR: [id number] Read by: Yoel Esteves MD Dictated Date/time: 06/30/16 20:39 Electronically Signed by: Yoel Esteves MD 06/30/16 20:41 FINAL REPORT ABDOMINAL SERIES, 2 views with FRONTAL VIEW OF THE CHEST HISTORY: Acute generalized abdominal pain. A computed tomography scan of the abdomen and pelvis from today and a chest radiograph from 03/31/2016 were reviewed. TECHNIQUE: Supine and upright radiographs of the abdomen were obtained. A frontal examination chest was also obtained. FINDINGS: The soft tissue outlines and bowel gas pattern are unremarkable. There is no evidence of obstruction or ileus. Contrast material from the computed tomography scan performed earlier today has passed into the colon. There are no unusual intra-abdominal calcifications. A frontal examination of the chest was also obtained. The lungs are clear. There are no pleural effusions. The heart is normal in size. There is no evidence of failure. The regional skeleton is unremarkable. IMPRESSION: 1. Benign appearance the abdomen. 2. No evidence of an active or acute process within the chest. SL: [facility] Abdomen/Pe Abdomen/Pelv Clinical Indication: R10.13 Epigastric pain mid abd pain since Sunday today it got worst 06/30 - lvis wo IV is wo IV /2016 - [facility] contrast contrast CT Comparison: None CT Read by: Oz Rodriguez MD Dictated Date/time: 06/30/16 16:03 Electronically Signed by: Oz Rodriguez MD 06/30/16 16:18 FINAL REPORT TECHNIQUE: Noncontrasted helical imaging was performed from the lung bases through the symphysis. Axial and coronal reformations are available. IV contrast was not administered. CT Radiation Dose DLP: 669 mGy-cm FINDINGS: This examination is limited for the evaluation of solid organs and vascular structures due to lack of intravenous contrast. Lower thorax: Clear. Hepatobiliary: No focal hepatic lesion. No biliary ductal dilatation. Pancreas: No focal mass or ductal dilatation. Minimal fat stranding adjacent to the dorsal pancreatic neck/head Spleen: No splenomegaly. Adrenals: No nodules. Kidneys: No hydronephrosis or renal stones. Pelvic organs: Unremarkable. Peritoneum/Retroperitoneum: No free air or free fluid. Lymph nodes: No lymphadenopathy. Bowel: No significant bowel thickening or dilatation. The appendix is visualized and appears unremarkable. Bones and soft tissues: Unremarkable. IMPRESSION: Minimal nonspecific fat stranding adjacent to the dorsal pancreatic head/ neck, which could be indicative of mild pancreatitis. Correlation can be made with lipase level. SL: [id number] CHEM PANEL eGFR 58 03/31 Result Comment: The eGFR is calculated using the CKD-EPI formula. In most young, healthy individuals the eGFR will be >90 mL/ min/1.73m2. The eGFR declines with age. An eGFR of 60-89 may be normal in mL/min/1.2016 some populations, particularly the elderly, for whom the CKD-EPI formula has not been extensively validated. Use of the eGFR is not recommended in the following populations: [facility] 3m2 Individuals with unstable creatinine concentrations, including patients and those with serious co-morbid conditions. Patients with extremes in muscle mass or diet. The data above are obtained from the National Kidney Disease Education Program (NKDEP) which additionally recommends that when the eGFR is used in patients with extremes of body mass index for purposes of drug dosing, the eGFR should be multiplied by the estimated BMI. CHEM PANEL Calcium Lvl 9.0 mg/dL 8.5 - 10.5 03/31 [facility] CHEM PANEL Glucose Lvl 118 mg/dL 70 - 99 03/31 [facility] CHEM PANEL CO2 27 meq/L 24 - 32 03/31 [facility] CHEM PANEL Creatinine 1.00 mg/dL 0.50 - 03/31 MH Lvl 1.40 /2015 [facility] CHEM PANEL BUN 19 mg/dL 7 - 22 03/31 [facility] CHEM PANEL Potassium 2.9 meq/L 3.5 - 5.1 03/31 Result Lvl /2015 Comment: [facility] Critical Result(s) called to adria at 03/31/2016 12:34 by harish. Read back OK. CHEM PANEL Chloride Lvl 106 meq/L 95 - 109 03/31 [facility] CHEM PANEL Sodium Lvl 143 meq/L 135 - 145 03/31 [facility] CHEM PANEL AGAP 12.9 meq/L 10.0 - 03/31 MH 20.0 [facility] HEMATOLOGY Lymphocytes 4.1 K/CMM 1.0 - 5.5 03/31 MH # /2016 [facility] HEMATOLOGY Segs-Bands # 4.2 K/CMM 1.5 - 8.1 03/31 [facility] HEMATOLOGY Basophils # 0.1 K/CMM 0.0 - 0.2 03/31 [facility] HEMATOLOGY Monocytes # 0.6 K/CMM 0.0 - 0.8 03/31 /2015 [facility] HEMATOLOGY Eosinophils 0.6 K/CMM 0.0 - 0.5 03/31 MH # /2016 [facility] HEMATOLOGY Basophils 1.0 % 0.0 - 1.0 03/31 [facility] HEMATOLOGY Eosinophils 6.5 % 0.0 - 4.0 03/31 MH /2015 [facility] Monocytes 6.7 % 2.0 - 12.0 03/31 [facility] Lymphocytes 42.3 % 20.0 - 03/31 MH 40.0 /2016 [facility] HEMATOLOGY Segs 43.5 % 45.0 - 03/31 75.0 /2015 [facility] RBC 4.85 M/CMM 4.20 - 03/31 5.40 /2015 [facility] WBC 9.7 K/CMM 3.7 - 10.4 03/31 [facility] MCV 81.5 fL 80.0 - 03/31 98.0 /2015 [facility] Hgb 12.8 g/dL 12.0 - 03/31 16.0 [facility] Hct 39.5 % 36.0 - 03/31 48.0 /2015 [facility] Platelet 332 K/CMM 133 - 450 03/31 [facility] MPV 7.5 fL 7.4 - 10.4 03/31 [facility] MCHC 32.5 g/dL 32.0 - 03/31 36.0 /2015 [facility] RDW 14.3 % 11.5 - 03/31 14.5 /2015 [facility] MCH 26.5 pg 27.0 - 03/31 31.0 /2015 [facility] Chest Chest 1view Chest 1view DX 03/31 - 1view DX DX /2015 - [facility] 70 years old Female Clinical Indication: Dyspnea; Read by: Pa Alfredo MD Dictated Date/time: 03/31/16 12:16 Electronically Signed by: Pa Alfredo MD 03/31/16 12:19 FINAL REPORT Comparison: 04/19/2012 FINDINGS: Tubes and lines: None. LUNGS: The volume of the lungs is diminished by shallow inspiration. There is no evidence of consolidation. No pleural effusion is noted. The pulmonary vasculature is within normal limits. MEDIASTINUM: Cardiac silhouette is within normal limits of size. CHEST WALL: Unremarkable. SKELETON: The visualized osseous structures are unremarkable. IMPRESSION: 1. No radiographic evidence of acute cardiopulmonary disease. SL: [id number] Vital Signs Vital Sign Value Date Comments Source Weight 157 10/08/2017 [facility] Height 59 10/08/2017 [facility] Heart Rate 85 10/08/2017 [facility] Diastolic (mm Hg) 80 10/08/2017 [facility] Systolic (mm Hg) 118 10/08/2017 [facility] Weight 153 04/30/2017 [facility] Height 59 04/30/2017 [facility] Heart Rate 86 04/30/2017 [facility] Diastolic (mm Hg) 86 04/30/2017 [facility] Systolic (mm Hg) 120 04/30/2017 [facility] Weight 151 01/25/2017 [facility] Height 59 01/25/2017 [facility] Heart Rate 86 01/25/2017 [facility] Diastolic (mm Hg) 64 01/25/2017 [facility] Systolic (mm Hg) 108 01/25/2017 [facility] Respitory Rate 18 01/18/2017 [facility] Heart Rate 92 01/18/2017 [facility] Temperature Oral (F) 97.7 F 01/18/2017 [facility] Systolic (mm Hg) 116 01/18/2017 [facility] Diastolic (mm Hg) 73 01/18/2017 [facility] Respitory Rate 16 01/18/2017 [facility] Temperature Oral (F) 98.2 F 01/18/2017 [facility] Heart Rate 104 01/18/2017 [facility] Respitory Rate 18 01/18/2017 [facility] Systolic (mm Hg) 110 01/18/2017 [facility] Diastolic (mm Hg) 62 01/18/2017 [facility] Temperature Oral (F) 97.8 F 01/18/2017 [facility] Heart Rate 100 01/18/2017 [facility] Systolic (mm Hg) 112 01/18/2017 [facility] Diastolic (mm Hg) 70 01/18/2017 [facility] Weight 65.8 01/16/2017 [facility] BMI Calculated 24.9 01/16/2017 [facility] Height 162.56 cm 01/16/2017 [facility] Weight 65.909 01/16/2017 [facility] Weight 151 08/01/2016 [facility] Height 59 08/01/2016 [facility] Heart Rate 77 08/01/2016 [facility] Diastolic (mm Hg) 72 08/01/2016 [facility] Systolic (mm Hg) 118 08/01/2016 [facility] Weight 153 07/17/2016 [facility] Height 59 07/17/2016 [facility] Heart Rate 71 07/17/2016 [facility] Diastolic (mm Hg) 78 07/17/2016 [facility] Systolic (mm Hg) 130 07/17/2016 [facility] Weight 153 07/11/2016 [facility] Height 59 07/11/2016 [facility] Heart Rate 80 07/11/2016 [facility] Diastolic (mm Hg) 68 07/11/2016 [facility] Systolic (mm Hg) 116 07/11/2016 [facility] Systolic (mm Hg) 106 07/04/2016 [facility] Diastolic (mm Hg) 68 07/04/2016 [facility] Heart Rate 93 07/04/2016 [facility] Respitory Rate 16 07/04/2016 [facility] Temperature Oral (F) 98.5 F 07/04/2016 [facility] Respitory Rate 16 07/04/2016 [facility] Systolic (mm Hg) 140 07/04/2016 [facility] Diastolic (mm Hg) 83 07/04/2016 [facility] Temperature Oral (F) 98.4 F 07/04/2016 [facility] Heart Rate 70 07/04/2016 [facility] Temperature Oral (F) 98.8 F 07/04/2016 [facility] Heart Rate 65 07/04/2016 [facility] Systolic (mm Hg) 132 07/04/2016 [facility] Diastolic (mm Hg) 83 07/04/2016 [facility] Respitory Rate 16 07/04/2016 [facility] Height 149.86 cm 07/01/2016 [facility] BMI Calculated 32.38 07/01/2016 [facility] Weight 72.727 07/01/2016 [facility] BMI Calculated 32.38 06/30/2016 [facility] Height 149.86 cm 06/30/2016 [facility] Weight 72.727 06/30/2016 [facility] Weight 160 06/30/2016 [facility] Height 59 06/30/2016 [facility] Temperature Oral (F) 98.3 F 06/30/2016 [facility] Heart Rate 72 06/30/2016 [facility] Diastolic (mm Hg) 82 06/30/2016 [facility] Systolic (mm Hg) 110 06/30/2016 [facility] Systolic (mm Hg) 143 03/31/2016 [facility] Diastolic (mm Hg) 72 03/31/2016 [facility] Respitory Rate 18 03/31/2016 [facility] Systolic (mm Hg) 138 03/31/2016 [facility] Diastolic (mm Hg) 76 03/31/2016 [facility] Respitory Rate 19 03/31/2016 [facility] Temperature Oral (F) 97.9 F 03/31/2016 [facility] Respitory Rate 25 03/31/2016 [facility] Height 157.48 cm 03/31/2016 [facility] Weight 63.636 03/31/2016 [facility] BMI Calculated 25.66 03/31/2016 [facility] Heart Rate 106 03/31/2016 [facility] Systolic (mm Hg) 166 03/31/2016 [facility] Diastolic (mm Hg) 79 03/31/2016 [facility] Weight 161 03/31/2016 [facility] Height 59 03/31/2016 [facility] Heart Rate 72 03/31/2016 [facility] Weight 161 02/16/2016 [facility] Height 59 02/16/2016 [facility] Heart Rate 83 02/16/2016 [facility] Diastolic (mm Hg) 83 02/16/2016 [facility] Systolic (mm Hg) 140 02/16/2016 [facility] Weight 157 11/15/2015 [facility] Height 59 11/15/2015 [facility] Heart Rate 80 11/15/2015 [facility] Diastolic (mm Hg) 70 11/15/2015 [facility] Systolic (mm Hg) 118 11/15/2015 [facility] Weight 160 06/21/2015 [facility] Height 59 06/21/2015 [facility] Temperature Oral (F) 98.4 F 06/21/2015 [facility] Heart Rate 66 06/21/2015 [facility] Diastolic (mm Hg) 92 06/21/2015 [facility] Systolic (mm Hg) 154 06/21/2015 [facility] Encounters Location Location Encounter Encounter Reason Attending ADM DC Status Source Details Type Number For Provider Date Date Visit [facility] [id number] 08/13 08/13 [facility] [id number] /2014 [facility] [id number] & and d8d [facility] [id number] 08/13 08/13 [facility] Mc[facility] [id number] /2014 [facility] [id number] & and 365 [facility] [id number] 08/13 08/13 [facility] Mcke[facility] [id number] /2014 [facility] [id number] & and 691 [facility] [id number] 08/13 08/13 [facility] Mckeon [id number] /2014 [facility] [id number] & and 722 [facility] [id number] 08/13 08/13 [facility] Mc[facility] [id number] /2014 [facility] [id number] & and bd8 [facility] [id number] 08/13 08/13 [facility] Mc[facility] [id number] /2014 [facility] [id number] & and e0b [facility] [id number] 08/13 08/13 [facility] [id number] /2014 [facility] [id number] & and f50 [facility] [id number] 08/13 08/13 [facility] [id number] /2014 [facility] [id number] & and b98 [facility] [id number] 08/13 08/13 [facility] [id number] /2014 [facility] [id number] & and 57e [facility] [id number] 08/13 08/13 [facility] [id number] /2014 [facility] [id number] & and fb1 [facility] THYROID [id number] 08/26 08/26 [facility] [id number] /2014 Family Practice [id number] & and 0a5 [facility] THYROID [id number] 08/26 08/26 [facility] [id number] /2014 [facility] Practice [id number] & and carmina [facility] THYROID [id number] 08/26 08/26 [facility] [id number] /2014 [facility] [id number] & and 044 [facility] THYROID [id number] 08/26 08/26 [facility] [id number] /2014 [facility] [id number] & and 79e [facility] LARYNGITIS [id number] 08/26 08/26 [facility] FOLLOW UP [id number] /2014 Family Practice [id number] & and 6c9 [facility] LARYNGITIS [id number] 08/26 08/26 [facility] FOLLOW UP [id number] /2014 Family Practice [id number] & and 1da [facility] LARYNGITIS [id number] 08/26 08/26 [facility] FOLLOW UP [id number] /2014 [facility] Practice [id number] & and 003 [facility] LARYNGITIS [id number] 08/26 08/26 [facility] FOLLOW UP [id number] /2014 [facility] Practice [id number] & and 3e2 [facility] THYROID [id number] 08/26 08/26 [facility] [id number] /2014 [facility] Practice [id number] & and 0c6 [facility] THYROID [id number] 08/26 08/26 [facility] [id number] /2014 [facility] Practice [id number] & and 637 [facility] THYROID [id number] 08/26 08/26 [facility] [id number] /2014 Family Practice [id number] & and fac [facility] THYROID [id number] 08/26 08/26 [facility] [id number] /2014 [facility] Practice [id number] & and 1a8 [facility] THYROID [id number] 08/26 08/26 [facility] [id number] /2014 [facility] Practice [id number] & and 4fb [facility] THYROID [id number] 08/26 08/26 [facility] ac-0s4f-gc4 /2014 [facility] d-[id number] & and c22 [facility] LARYNGITIS [id number] 08/26 08/26 [facility] FOLLOW UP 91-48bc-808 /2014 [facility] 9-829i31827 & and cf8 [facility] LARYNGITIS [id number] 08/26 08/26 [facility] FOLLOW UP fb-3w3h-355 /2014 [facility] b-h7981au06 & and 545 [facility] LARYNGITIS [id number] 08/26 08/26 [facility] FOLLOW UP [id number] /2014 [facility] 5-6c96v9of3 & and 11b [facility] LARYNGITIS [id number] 08/26 08/26 [facility] FOLLOW UP 51-4735-8f7 /2014 [facility] b-nq528st0d & and de5 [facility] LARYNGITIS [id number] 08/26 08/26 [facility] FOLLOW UP [id number]-462a-85b /2014 [facility] e-7pn0583i5 & and ad4 [facility] LARYNGITIS [id number]-73 08/26 08/26 [facility] FOLLOW UP b9-4dad-90b /2014 [facility] 4-n0p826w2t & and 779 [facility] Update [id number] 08/27 08/27 [facility] 05-468a-bf1 /2014 [facility] s - 4-427y334m2 & and Personal a74 [facility] Update [id number] 08/27 08/27 [facility] 42-4883-b4b /2014 [facility] s - 5-q046a1457 & and Personal b44 [facility] Update [id number] 08/27 08/27 [facility] 2d-3ut2-g01 /2014 [facility] s - 9-q9n13wl06 & and Personal 219 [facility] Update [id number] 08/27 08/27 [facility] 94-13w4-450 /2014 [facility] s - 8-93vip3mbv & and Personal b86 [facility] Update [id number] 08/27 08/27 [facility] 22-6w34-833 /2014 [facility] s - d-yq1sb5905 & and Additional 92c [facility] Update [id number] 08/27 08/27 [facility] 59-43fd-927 /2014 [facility] s - b-55w36302k & and Additional 69b [facility] Update [id number] 08/27 08/27 [facility] ac-7we7-231 /2014 [facility] s - e-3m59535z2 & and Additional af5 [facility] Update [id number] 08/27 08/27 [facility] ae-0d12-ygd /2014 [facility] s - d-3i9jm3e3u & and Additional 55f [facility] Update [id number] 08/27 08/27 [facility] 61-47fd-980 /2014 [facility] s - d-356779024 & and Personal 169 [facility] Update [id number]-36 08/27 08/27 [facility]ographic 2f-4566-afb /2014 [facility] s - f-p02ad977g & and Personal jack [facility] Update [id number] 08/27 08/27 [facility] 03-42y6-472 /2014 [facility] s - 5-464470v35 & and Personal 65d [facility] Update [id number] 08/27 08/27 [facility] 5f-6ut4-905 /2014 [facility] s - 0-l99ii8522 & and Personal 1e6 [facility] Update [id number] 08/27 08/27 [facility] 45-4bdd-8f6 /2014 [facility] s - 6-19j2a6578 & and Personal 209 [facility] Update [id number] 08/27 08/27 [facility] 22-43ee-a5f /2014 [facility] s - c-16t807f2w & and Personal 253 [facility] Update [id number] 08/27 08/27 [facility] b4-0t8l-l5s /2014 [facility] s - b-208e9249g & and Additional 8b8 [facility] Update [id number] 08/27 08/27 [facility]ad[facility]ographic 74-4401-a56 /2014 [facility] s - 8-4599vpg71 & and Additional 580 [facility] Update [id number] 08/27 08/27 [facility]ographic 8a-96n5-t06 /2014 [facility] s - 0-ly580a0px & and Additional 3f3 [facility] Update [id number] 08/27 08/27 [facility] Demographic 39-6e1l-wv2 /2014 [facility] s - 6-6a6d1hy40 & and Additional 9b0 [facility] Update [id number] 08/27 08/27 [facility] Demographic 4a-39r6-879 /2014 [facility] s - 8-36d1s4030 & and Additional c03 [facility] Update [id number] 08/27 08/27 [facility] Demographic 13-3x23-i1u /2014 [facility] s - 4-m8ak3ij4e & and Additional 866 [facility] PHYS [id number] 09/17 09/17 [facility] 4e-0l99-22r /2014 [facility] 5-uu30717d4 & and 97b [facility] PHYS [id number] 09/17 09/17 [facility] 9e-95l0-3k4 /2014 [facility] a-m717548g7 & and 0f3 [facility] PHYS [id number] 09/17 09/17 [facility] 7f-4589-ad1 /2014 [facility] 6-7f30p7j7f & and 57b [facility] PHYS [id number] 09/17 09/17 [facility] 12-00q7-y17 /2014 [facility] b-64479u5d8 & and 26d [facility] PHYS [id number] 09/17 09/17 [facility] 5c-413b-8ba /2014 [facility] 1-ap4vn738y & and e43 [facility] PHYS [id number] 09/17 09/17 [facility] 49-9k08-us8 /2014 [facility] e-hy720241b & and c42 [facility] PHYS [id number] 09/17 09/17 [facility] c2-84g1-492 /2014 [facility] 0-3k3784117 & and fe6 [facility] TUNDE [id number] 09/17 09/17 [facility] b8-4490-8f5 /2014 [facility] d-852x8v06v & and 1e2 [facility] yadav [id number] 09/30 09/30 [facility] 87-4732-902 /2014 [facility] 2-57lbjhh80 & and da8 [facility] yadav [id number] 09/30 09/30 [facility] a8-4601-a51 /2014 [facility] a-7726zf80a & and a0f [facility] yadav [id number] 09/30 09/30 [facility] e8-8qm5-k8f /2014 [facility] 3-951z4mpk0 & and 860 [facility] yadav 6u4fr3p3-q3 09/30 09/30 [facility] c0-454e-a72 /2014 [facility] 4-g1fiwo74d & and 467 [facility] yadav [id number] 09/30 09/30 [facility] 72-6z14-rf0 /2014 [facility] 4-s902629a2 & and b80 [facility] yadav [id number] 09/30 09/30 [facility] b3-49df-bee /2014 [facility] f-2f9380876 & and a46 [facility] yadav [id number] 09/30 09/30 [facility] 3c-8z85-x1t /2014 [facility] f-vemk6k193 & and 558 [facility] yadav is00pls7-59 09/30 09/30 [facility] 9f-25o6-2x2 /2014 [facility] 0-x580q3cfh & and f94 [facility] i have a [id number] 10/07 10/07 [facility] problem bb-479e-a02 /2014 [facility] 7-x1x6259cs & and 7fb [facility] i have a [id number] 10/07 10/07 [facility] problem 31-4847-a5d /2014 [facility] c-3okb513h4 & and 0a9 [facility] how do i [id number]-tl 10/07 10/07 [facility] know when 69-469d-a2b /2014 [facility] Practice you get my 7-1362671y4 & and message? de2 [facility] how do i [id number]-n9 10/07 10/07 [facility] know when 75-4fed-ba3 /2014 [facility] Practice you get my 2-v7i1521wn & and message? 93e [facility] i have a [id number] 10/07 10/07 [facility] problem e0-479b-a7c /2014 [facility] 8-19hk18504 & and 29b [facility] i have a 1x7t5l11-df 10/07 10/07 [facility] problem 9f-95g0-x78 /2014 [facility] 7-q4637o7kc & and fc9 [facility] i have a [id number] 10/07 10/07 [facility] problem 83-2r8h-47h /2014 [facility] d-p5272uag7 & and 6eb [facility] i have a [id number] 10/07 10/07 [facility] problem cd-4316-bec /2014 [facility] 7-54e21479t & and 009 [facility] i have a 70av28py-05 10/07 10/07 [facility] problem 46-4934-8ca /2014 [facility] f-5983v98p7 & and 656 [facility] i have a 8w326q27-nr 10/07 10/07 [facility] problem 8f-9e5a-5a9 /2014 [facility] 8-pl9s82x4f & and 286 [facility] how do i 9a9254ce-z6 10/07 10/07 [facility] know when 71-30v6-h2b /2014 [facility] Practice you get my 7-9h76kq015 & and message? 440 [facility] how do i [id number] 10/07 10/07 [facility] know when 87-4903-b50 /2014 [facility] Practice you get my f-9c9by5336 & and message? 1a8 [facility] how do i 42749hr0-75 10/07 10/07 [facility] know when f9-470d-a51 /2014 [facility] you get my 0-879gsooc0 & and message? f2d [facility] how do i [id number] 10/07 10/07 [facility] know when 25-4901-b51 /2014 [facility] Practice you get my a-a31322u85 & and message? lana [facility] how do i hf1986bb-11 10/07 10/07 [facility] know when 83-1qq6-d07 /2014 [facility] Practice you get my 7-wmh577401 & and message? be1 [facility] how do i 16r2k7ta-o3 10/07 10/07 [facility] know when 49-76h8-64x /2014 [facility] Practice you get my 1-n4h14v52j & and message? 1b4 [facility] I wanted to s40sh1t5-7p 10/07 10/07 [facility] know if i 26-2b1a-238 /2014 [facility] should do. f-2wp838yj9 & and 27d [facility] I wanted to xstf4074-07 10/07 10/07 [facility] know if i 24-73s6-76c /2014 [facility] should do. 9-262qd46k3 & and carmina [facility] I wanted to q2hglpjn-w8 10/07 10/07 [facility] know if i 7b-62r1-v9i /2014 [facility] should do. b-jjj2qe1h6 & and ecb [facility] I wanted to [id number] 10/07 10/07 [facility] know if i f7-4730-ae7 /2014 [facility] should do. c-w6u41y5t3 & and 8c0 [facility] I wanted to [id number] 10/07 10/07 [facility] know if i d3-40fd-91b /2014 [facility] should do. 1-337m22d07 & and e62 [facility] I wanted to 0b4772h7-8h 10/07 10/07 [facility] know if i 0b-444d-a03 /2014 [facility] should do. 4-f85vel4h5 & and 268 [facility] I wanted to ad0e2193-eo 10/07 10/07 [facility] know if i 0d-1a3m-sj4 /2014 [facility] should do. f-r910b15rj & and 1c2 [facility] I wanted to [id number]-5n 10/07 10/07 [facility] know if i dc-4656-820 /2014 [facility] Practice should do. 4-2405014hi & and 8ba [facility] Needs call [id number] 01/22 01/22 [facility] back from 41-84p9-2g1 [facility] b-7323m5w81 & and Staff 3e2 [facility] Needs call [id number] 01/22 01/22 [facility] back from 07-4499-a99 /2014 [facility] 7-161w41hdo & and Staff ac1 [facility] Needs call [id number] 01/22 01/22 [facility] back from 0d-1nh7-e7z /2014 [facility] b-5rs09if84 & and Staff 16e [facility] Needs call [id number]-10 01/22 01/22 [facility] back from a5-4111-af9 /2014 [facility] e-5vp5hj2e1 & and Staff 2bf [facility] Needs call [id number] 01/22 01/22 [facility] back from 5f-4061-881 /2014 [facility] c-0t9y6kmw3 & and Staff b13 [facility] Needs call [id number] 01/22 01/22 [facility] back from a2-39a9-188 /2014 [facility] Medical f-7768daafb & and Staff 946 [facility] Needs call [id number] 01/22 01/22 [facility] back from 13-1d88-x47 /2014 [facility] a-359xs1532 & and Staff 388 [facility] Needs call [id number] 01/22 01/22 [facility] back from ac-425c-b21 /2014 [facility] e-1o56199al & and Staff da6 [facility] Statement aadbbda7-00 04/13 04/13 [facility] 90-4497-b5a /2014 [facility] 0-3rh6f9mn0 & and 976 [facility] Statement [id number] 04/13 04/13 [facility] af-4596-aa6 /2014 [facility] 6-060451v84 & and e51 [facility] Statement [id number] 04/13 04/13 [facility] 4b-413e-a6d /2014 [facility] 4-8o22jf45q & and 092 [facility] Statement [id number] 04/13 04/13 [facility] ab-8n83-lb7 /2014 [facility] f-6f388x0ch & and a65 [facility] Statement [id number]-[id number] 04/13 04/13 [facility] e5-479b-a94 /2014 [facility] 2-os31q83ul & and ac7 [facility] Statement [id number] 04/13 04/13 [facility] b7-404c-91d /2014 [facility] f-1400787g5 & and 719 [facility] Statement [id number] 04/13 04/13 [facility] af-473f-b4b /2014 [facility] 3-9u026r371 & and efb [facility] Statement [id number]-96 04/13 04/13 [facility] dc-4735-98d /2014 [facility] a-291262g56 & and 074 [facility] Statement [id number] 04/13 04/13 [facility] a1-4872-aa8 /2014 [facility] 3-235yd8714 & and 044 [facility] Statement [id number] 04/13 04/13 [facility] b3-4717-904 /2014 [facility] f-5125m95ki & and bd9 [facility] Statement [id number] 04/13 04/13 [facility] ac-4cfc-ba3 /2014 [facility] 1-fj7sfu59c & and d92 [facility] Statement [id number]-o1 04/13 04/13 [facility] a8-79e6-wdz /2014 [facility] 1-4o31w5a8e & and 3f7 [facility] Statement nubhz9w2-vg 04/13 04/13 [facility] a0-4375-bb6 /2014 [facility] f-i2k447145 & and 477 [facility] Statement [id number] 04/13 04/13 [facility] 74-42ba-8d8 /2014 [facility] 4-2196dk804 & and 35e [facility] Statement [id number] 04/13 04/13 [facility] 28-9s73-y95 /2014 [facility] c-51ok147sa & and 43c [facility] Statement [id number] 04/13 04/13 [facility] 46-4360-857 /2014 [facility] 9-h4i24uit2 & and 849 [facility] Sinus 9v7l6gc5-86 06/20 06/20 [facility] 53-41bb-8d8 /2015 [facility] 5-4562600h4 & and 877 [facility] Sinus [id number]-[id number] 06/20 06/20 [facility] 32-3hv0-8ay /2015 [facility] 3-48498448j & and 809 [facility] Sinus 69m70r3s-6k 06/20 06/20 [facility] 3c-4843-9ab /2015 [facility] f-n39o5w37j & and 7cc [facility] Sinus 4rt9055k-s6 06/20 06/20 [facility] 12-18p2-8gg /2015 [facility] 6-6duj6q910 & and c7f [facility] Sinus [id number] 06/20 06/20 [facility] 1e-4597-982 /2015 [facility] 7-3s01rz8e0 & and danny [facility] Sinus [id number]-z3 06/20 06/20 [facility] cb-7c24-w88 /2015 [facility] 5-o5wo0b763 & and c06 [facility] right wrist 92599jk3-8z 11/14 11/14 [facility] pain 71-8l93-o6f /2015 [facility] 0-5446dc5cw & and 4fa [facility] right wrist t692p9v2-z5 11/14 11/14 [facility] pain 8d-6k14-am4 /2015 [facility] 0-508200oj2 & and 6f7 [facility] right wrist 47zo7l30-94 11/14 11/14 [facility] pain 6c-8f3f-eit /2015 [facility] a-xfi90m901 & and be8 [facility] right wrist 1yfp9513-f8 11/14 11/14 [facility] pain 0f-4657-bb7 /2015 [facility] b-3y6q55kr4 & and 36f [facility] right wrist 6497bbbb-06 11/14 11/14 [facility] pain f1-4260-900 /2015 [facility] 8-47x9ro23s & and 4ed [facility] medication 39kv0p46-15 02/15 02/15 [facility] refill d4-9qe5-sfg /2015 [facility] b-74jn590w1 & and 555 [facility] medication ek30i4b3-f2 02/15 02/15 [facility] refill 1c-43ff-8aa /2015 [facility] c-5f0155401 & and 00d [facility] medication ync064k9-05 02/15 02/15 [facility] refill 97-7a4d-hc0 /2015 [facility] 7-4sc442k36 & and e33 [facility] medication [id number] 02/15 02/15 [facility] refill 98-7wr3-4p7 /2015 [facility] e-17n7r2omm & and ed0 [facility] Unknown [id number] 02/20 02/20 [facility] f1-45s5-ge9 /2015 [facility] 5-80o2w282v & and aa2 [facility] Unknown [id number] 02/20 02/20 [facility] c3-6g2a-p08 /2015 [facility] 1-dbd2g5eb5 & and e07 [facility] Unknown [id number] 02/20 02/20 [facility] 09-8lo0-80t /2015 [facility] 8-7f9o93p8z & and 1b8 [facility] rash on 9urqoz46-p3 03/31 03/31 [facility] neck and b5-49fb-bf0 /2015 Family Practice chest- pt e-r3t735kzd & and believes it dcb Internal [facility] is poison [facility] Emergency [id number] Juana Smith 03/31 03/31 Adrian [facility] Needs call [id number] 04/03 04/03 [facility] back from 18-26h2-9fi [facility] Medical 8-1z71zo926 & and Staff 434 [facility] Needs call [id number] 04/03 04/03 [facility] back from 2e-4cbe-9de [facility] Medical 9-1g14ea12y & and Staff fe0 [facility] Outpatient [id number] Shiela 06/30 07/01 BOOGIE Campbell 5 Yadav-Fo /2016 [facility] Inpatient [id number] Amir 06/30 07/04 [facility] [id number] Amir 07/18 07/19 BOOGIE Campbell 7 ebranious /2016 [facility] Observation [id number] Amir 01/16 01/18 [facility]IE [facility] Procedures Procedure Code Date Perfomer Comments Source Diagnostic [id number] [facility]
--- OUTSIDE RECORDS SUMMARY | 2018-03-18 11:28 | XMS REPORT ---
:1945 Author Organization [employer] Care Team Providers Name Role Phone Dakotah Lisa Provider Role Unavailable Allergies, Adverse Reactions, Alerts Substance Reaction Event Type Iodine anaphylaxis Drug Allergy poison oak rash Non Drug Allergy Problems Problem Type Condition Code Onset Dates Condition Status Problem Other and unspecified E78.5 Active hyperlipidemia Problem Migraine G43.909 Active Problem Esophageal reflux K21.9 Active Problem Duodenitis K29.80 Active Problem Hx of colonic polyp Z86.010 Active Problem Peptic ulcer disease K27.9 Active Problem Seasonal allergic conjunctivitis 372.14 Active Problem Essential hypertension I10 Active Problem BMI 32.0-32.9,adult Z68.32 Active Problem Hernia, hiatal 553.3 Active Assessment Colon cancer screening Z12.11 Active Assessment Breast cancer screening Z12.39 Active Assessment Encntr for ob gyn exam (general) Z01.419 Active (routine) w/o abn findings Medications Medication Code Code Instructions Start End Status Dosage System Date Date Crestor [facility] 93918-4 10 MG Orally August 26, Active 1 tablet 751-39 Once a day 2014 EPINEPHrine [facility] 94413-3 0.3 MG/DOSE Active not 911-01 Injection defined Bromfed DM [facility] 72790-0 30-2-10 MG/5ML Active 5-10 ml as 978-01 Orally every 6 needed hrs, [place] [address]-2 25 MG Orally Active 1 tablet 083-60 [place] [address]-2 250-250-65 MG Active 2 tablets 128-02 Orally [place] [address]-2 25-37.5 MG Active 1 capsule 537-01 Orally [place] [address]-3 50 MG Orally Active 1 tablet 736-01 Twice [place] [address]-2 500 MG Orally Active 1 tablet 292-53 [place] [address]-4 40 MG Orally Active 1 tablet 607-01 Once a day Sucralfate NDC 40323-3 1 GM Orally Active 1 tablet 210-01 Twice a day on an empty stomach Carafate NDC 42842-1 1 GM Orally Active 1 tablet 534-60 four times a on an day (qid) empty stomach Adrianne Allergy NDC 35822-9 180 MG Orally Active 1 tablet 1214 Once a day Omeprazole NDC 20185-9 10 MG Orally Active 1 tablet 211-93 Once a day Ventolin HFA NDC 38347-0 108 (90 Base) June Active 2 puffs as 682-20 MCG/ACT 2015 needed Inhalation every 4 hrs Vitamin D NDC 17018-3 Active not 7- defined Promethazine HCl NDC 64938-7 25 MG Orally Active 1 tablet 029-01 every 12 hrs as needed Amlodipine Besylate NDC 08609-1 5 MG Orally Active 1 tablet 101-22 Once a day Sumatriptan Succinate NDC 89266-2 50 MG Orally Active 1 tablet 631-59 Twice a day as needed Rosuvastatin Calcium NDC 20102-2 20 MG Orally Active 1 tablet 752-39 Once a day Vital Signs Date/Time: July 17, 2016 BMI 30.90 Index Weight 153 lbs Height 59 in Cardiac Monitoring Heart Rate 71 /min Blood Pressure Diastolic 78 mm Hg Blood Pressure Systolic 130 mm Hg Results No Known Results Summary Purpose [employer] Submission
--- OUTSIDE RECORDS SUMMARY | 2018-03-18 11:28 | XMS REPORT ---
:1945 Author Organization eClinicalWorks Care Team Providers Name Role Phone aDkotah Lisa Provider Role Unavailable Allergies, Adverse Reactions, Alerts Substance Reaction Event Type Iodine anaphylaxis Drug Allergy poison oak rash Non Drug Allergy Problems Problem Type Condition Code Onset Dates Condition Status Problem Esophageal reflux K21.9 Active Problem Essential hypertension I10 Active Problem Migraine G43.909 Active Problem Peptic ulcer disease K27.9 Active Problem Duodenitis K29.80 Active Problem Mild persistent asthma without J45.30 Active complication Problem Hernia, hiatal 553.3 Active Problem Seasonal allergic conjunctivitis 372.14 Active Problem Hx of colonic polyp Z86.010 Active Problem BMI 32.0-32.9,adult Z68.32 Active Assessment Submucous leiomyoma of uterus D25.0 Active Assessment Acute left-sided thoracic back pain M54.6 Active Assessment Mild persistent asthma without J45.30 Active complication Problem Other and unspecified E78.5 Active hyperlipidemia Medications Medication Code Code Instructions Start End Date Status D[place] [address]-53 20 MG Orally Active 1 tablet Calcium 72-98 [place] [address]-75 50 MG Orally Active 1 tablet as Succinate 31-59 [place] [address]-90 250-250-65 MG Active 2 tablets Migraine 28-02 Orally PRN as [place] [address]-93 25-37.5 MG Active 1 capsule 37-01 Orally Once a in [place] [address]-78 108 (90 Base) June 20, Active 2 puffs as 82-20 MCG/ACT 2015 needed Inhalation every 4 hrs Flexeril NDC 0 10 MG Orally August 01, August 31, Active 1 tablet as daily 2016 2016 [place] [address]-12 5 MG Orally Once Active 1 tablet Besylate -22 [place] [address]-33 1 GM Orally four Active 1 tablet on 34-60 times a day an empty (qid) [place] [address]-04 180 MG Orally Active 1 tablet 214 Once a day Vitamin D [facility] 09770-72 Active not defined Omeprazole [facility] 31819-86 10 MG Orally Active 1 tablet Once a day EPINEPHrine [facility] 96755-36 0.3 MG/DOSE Active not defined 02-14 Injection Vital Signs Date/Time: August 01, 2016 BMI 30.49 Index Weight 151 lbs Height 59 in Cardiac Monitoring Heart Rate 77 /min Blood Pressure Diastolic 72 mm Hg Blood Pressure Systolic 118 mm Hg Results No Known Results Summary Purpose eClinicalWorks Submission
--- OUTSIDE RECORDS SUMMARY | 2018-03-18 11:28 | XMS REPORT ---
:1945 Author Organization eClinicalWorks Care Team Providers Name Role Phone Sammy Hyde Provider Role Unavailable Allergies, Adverse Reactions, Alerts Substance Reaction Event Type Iodine anaphylaxis Drug Allergy poison oak rash Non Drug Allergy Problems Problem Type Condition Code Onset Dates Condition Status Assessment Bronchitis J40 Active Problem Other and unspecified E78.5 Active hyperlipidemia Assessment Hospital discharge follow-up Z09 Active Problem Peptic ulcer disease K27.9 Active Problem Duodenitis K29.80 Active Problem Mild persistent asthma without J45.30 Active complication Problem Essential hypertension I10 Active Problem Esophageal reflux K21.9 Active Problem Hx of colonic polyp Z86.010 Active Problem BMI 32.0-32.9,adult Z68.32 Active Medications Medication Code Code Instructions Start End Status Dosage System Date Date Triamterene-HCTZ [facility] [address]-75 25-37.5 MG Active 1 capsule Orally Once a in the day morning Triamterene-HCTZ [facility] 24655031022 37.5-25 Active TAKE ONE CAPSULE BY MOUTH EVERY MORNING Carafate [facility] 04256844537 1 GM Orally Active 1 tablet four times a on an day (qid) empty stomach Crestor [facility] 25759794370 20 Active TAKE ONE TABLET BY MOUTH DAILY Omeprazole ND 12608298274 10 MG Orally Active 1 tablet Once a day Cyclobenzaprine [facility] 78465558851 10 Active TAKE ONE HCl TABLET BY MOUTH DAILY NEEDED Amlodipine [facility] 26776835935 5 MG Orally Active 1 tablet Besylate Once a day Sumatriptan ND 35471103359 50 MG Orally Active 1 tablet Succinate Twice a day as needed Rosuvastatin [facility] 36733615409 20 MG Orally Active 1 tablet Calcium Once a day Ventolin HFA [facility] 62150156774 108 (90 Base) June Active 2 puffs MCG/ACT 07, as needed Inhalation 2016 every 4 hrs [address]ne Allergy [facility] 22665707018 180 MG Orally Active 1 tablet Once a day Vitamin D [facility] [address]-45 Active not defined Excedrin Migraine [facility] 37192218451 250-250-65 MG Active 2 tablets Orally PRN as needed EPINEPHrine [facility] [address]-19 0.3 MG/DOSE Active not Injection defined Vital Signs Date/Time: Jan 25, 2017 BMI 30.49 Index Weight 151 lbs Height 59 in Cardiac Monitoring Heart Rate 86 /min Blood Pressure Diastolic 64 mm Hg Blood Pressure Systolic 108 mm Hg Results No Known Results Summary Purpose eClinicalWorks Submission
--- OUTSIDE RECORDS SUMMARY | 2018-03-18 11:28 | XMS REPORT ---
:1945 Author Organization eClinicalWorks Care Team Providers Name Role Phone Dakotah Lisa Provider Role Unavailable Allergies No Known Allergies Problems Problem Type Condition Code Onset Dates Condition Status Problem Esophageal reflux K21.9 Active Problem Essential hypertension I10 Active Problem Migraine G43.909 Active Problem Other and unspecified E78.5 Active hyperlipidemia Problem Peptic ulcer disease K27.9 Active Problem Duodenitis K29.80 Active Problem Mild persistent asthma without J45.30 Active complication Problem Hernia, hiatal 553.3 Active Problem Seasonal allergic conjunctivitis 372.14 Active Problem Hx of colonic polyp Z86.010 Active Problem BMI 32.0-32.9,adult Z68.32 Active Medications No Known Medications Results No Known Results Summary Purpose eClinicalRevivn Submission
--- OUTSIDE RECORDS SUMMARY | 2018-03-18 11:28 | XMS REPORT ---
:1945 Author Organization eClinicalWorks Care Team Providers Name Role Phone Shiela Irwin Provider Role Unavailable Allergies No Known Allergies [...] BMI 32.0-32.9,adult Z68.32 Active Medications Medication Code System Code Instructions Start End Date Status Dosage Date Amlodipine [facility] 47592-238 5 MG Orally Once Active 1 tablet Besylate 1-22 a day Results No Known Results Summary Purpose eClinicalWorks Submission
--- OUTSIDE RECORDS SUMMARY | 2018-03-18 11:28 | XMS REPORT ---
[...] Active Problem Hernia, hiatal 553.3 Active Assessment Cyst of right ovary N83.201 Active Assessment Hx of colonic polyp Z86.010 Active Assessment Duodenitis K29.80 Active Assessment Peptic ulcer disease K27.9 Active Assessment Breast cancer screening Z12.39 Active Assessment Acute gastritis without hemorrhage, K29.00 Active unspecified gastritis type Assessment Acute abdominal pain R10.9 Active Assessment Hospital discharge follow-up Z09 Active Medications Medication Code Code Instructions Start End Status Dosage System Date Date Vitamin D [facility] 11671-2 Active not defined Ventolin HFA [facility] 79024-6 108 (90 Base) June Active 2 puffs as 682-20 MCG/ACT 2015 needed Inhalation every 4 hrs EPINEPHrine [facility] 26130-6 0.3 MG/DOSE Active not 911- Injection defined Carafate [facility] 85440-6 1 GM Orally Active 1 tablet 534-60 four times a on an day (qid) [place] [address]-6 25 MG Orally Active 1 tablet 083-60 [place] [address]-5 10 MG Orally August 26, Active 1 tablet 751-39 Once a day 2014 Bromfed DM [facility] 79930-4 30-2-10 MG/5ML Active 5-10 ml as 978-01 Orally every 6 needed hrs, PRN Imitrex NDC 83825-1 50 MG Orally Active 1 tablet 736-01 Twice a day as needed Rosuvastatin Calcium NDC 35352-8 20 MG Orally Active 1 tablet 752-39 Once a day Levofloxacin NDC 97730-2 500 MG Orally Active 1 tablet 292-53 Once a day Sumatriptan Succinate NDC 38101-1 50 MG Orally Active 1 tablet 631-59 Twice a day as needed Promethazine HCl NDC 71739-6 25 MG Orally Active 1 tablet 029-01 every 12 hrs as needed Adrianne Allergy NDC 66375-1 180 MG Orally Active 1 tablet 1214 Once a day Excedrin Migraine NDC 23646-8 250-250-65 MG Active 2 tablets 128-02 Orally PRN as needed Pantoprazole Sodium NDC 95096-4 40 MG Orally Active 1 tablet 607-01 Once a day Sucralfate NDC 29978-0 1 GM Orally Active 1 tablet 210-01 Twice a day on an empty stomach Triamterene-HCTZ NDC 82496-2 25-37.5 MG Active 1 capsule 537-01 Orally Once a in the day morning Omeprazole NDC 57023-0 10 MG Orally Active 1 tablet 211-93 Once a day Amlodipine Besylate NDC 43006-1 5 MG Orally Active 1 tablet 101-22 Once a day Vital Signs Date/Time: July 11, 2016 BMI 30.90 Index Weight 153 lbs Height 59 in Cardiac Monitoring Heart Rate 80 /min Blood Pressure Diastolic 68 mm Hg Blood Pressure Systolic 116 mm Hg Results No Known Results Summary Purpose eClinicalWorks Submission
--- OUTSIDE RECORDS SUMMARY | 2018-03-18 11:28 | XMS REPORT ---
[...] Medications Results No Known Results Summary Purpose eClinicalIdeaxis Submission
--- OUTSIDE RECORDS SUMMARY | 2018-03-18 11:28 | XMS REPORT ---
:1945 Author Organization eClinicalWorks Care Team Providers Name Role Phone Sayra Vanegas Provider Role Unavailable Allergies, Adverse Reactions, Alerts Substance Reaction Event Type Iodine anaphylaxis Drug Allergy poison oak rash Non Drug Allergy Problems Problem Type Condition Code Onset Dates Condition Status Assessment Lower respiratory tract infection J22 Active Assessment Cough R05 Active Assessment Epigastric pain R10.13 Active Problem Hernia, hiatal 553.3 Active Problem Seasonal allergic conjunctivitis 372.14 Active Problem BMI 32.0-32.9,adult Z68.32 Active Problem Esophageal reflux K21.9 Active Problem Other and unspecified E78.5 Active hyperlipidemia Problem Essential hypertension I10 Active Problem Migraine G43.909 Active Medications Medication Code Code Instructions Start End Date Status Dosage System Date Bromfed DM [facility] 16625-95 30-2-10 MG/5ML June 30July 10, Active 10 ml as 78-01 Orally every 6 2016 2016 needed hrs Ventolin HFA [facility] 00052-06 108 (90 Base) June 20, Active 2 puffs as 82-20 MCG/ACT 2016 needed Inhalation every 4 hrs Excedrin [facility] 79741-12 250-250-65 MG Active 2 tablets Migraine 28-02 Orally PRN as needed Adrianne Allergy [facility] 08118-23 180 MG Orally Active 1 tablet 214 Once a day Omeprazole [facility] 45389-09 10 MG Orally Active 1 tablet 11-93 Once a day Crestor [facility] 44772-02 10 MG Orally August 26, Active 1 tablet 51-39 Once a day 2014 Triamterene-HCT [facility] 14943-63 25-37.5 MG Active 1 capsule Z 37-01 Orally Once a in the day morning Vitamin D [facility] 67152-92 Active not defined Levaquin [facility] 15148-50 500 MG Orally June 30July 10, Active 1 tablet 26-02 Once a day 2016 2016 Vital Signs Date/Time: June 30, 2016 BMI 32.31 Index Weight 160 lbs Height 59 in Temperature 98.3 F Cardiac Monitoring Heart Rate 72 /min Blood Pressure Diastolic 82 mm Hg Blood Pressure Systolic 110 mm Hg Results Name Result Date Reference Range Unit Abnormality Flag AMYLASE ----AMYLASE 43 [id number] 21-101 U/L N CBC (INCLUDES DIFF/PLT) ----ABSOLUTE 180 [id number] 15-500 cells/uL N EOSINOPHILS ----MCV 82.2 92860322 80.0-100.0 fL N ----HEMATOCRIT 37.8 20241853 35.0-45.0 % N ----ABSOLUTE 508 17147244 200-950 cells/uL N MONOCYTES ----MCHC 33.5 47603507 32.0-36.0 g/dL N ----ABSOLUTE 1548 78501198 850-3900 cells/uL N LYMPHOCYTES ----MCH 27.5 52980993 27.0-33.0 pg N ----ABSOLUTE 1736 64991489 6462-2515 cells/uL N NEUTROPHILS ----MONOCYTES 12.7 72067875 % N ----WHITE BLOOD 4.0 41230295 3.8-10.8 Thousand/u N CELL COUNT L ----LYMPHOCYTES 38.7 18420718 % N ----NEUTROPHILS 43.4 53694409 % N ----HEMOGLOBIN 12.6 97549373 11.7-15.5 g/dL N ----ABSOLUTE 28 28236152 0-200 cells/uL N BASOPHILS ----RED BLOOD CELL 4.59 82167348 3.80-5.10 Million/uL N COUNT ----BASOPHILS 0.7 98734708 % N ----MPV 8.0 39527753 7.5-12.5 fL N ----EOSINOPHILS 4.5 29738558 % N ----RDW 14.6 00012353 11.0-15.0 % N ----PLATELET COUNT 260 79029396 140-400 Thousand/u N L PULSE OXIMETRY Chest 2 views- Xray LIPASE ----LIPASE 23 84025965 7-60 U/L N COMPREHENSIVE METABOLIC PANEL ----CREATININE 0.90 83697223 0.50-0.99 mg/dL N ----UREA NITROGEN 22 68632241 7-25 mg/dL N (BUN) ----eGFR 76 06449216 > OR=60 mL/min/1.7 N TUNISIAN 3m2 ----eGFR NON-AFR. 65 20160630 > OR=60 mL/min/1.7 N TUNISIAN 2 ----SODIUM 142 20160630 135-146 mmol/L N ----BUN/CREATININE NOT APPLICABLE 20160630 6-22 (calc) RATIO ----CHLORIDE 104 20160630 98-110 mmol/L N ----POTASSIUM 4.5 43474278 3.5-5.3 mmol/L N ----CARBON DIOXIDE 29 20160630 20-31 mmol/L N ----PROTEIN, TOTAL 6.8 94858739 6.1-8.1 g/dL N ----CALCIUM 9.2 65017660 8.6-10.4 mg/dL N ----GLOBULIN 2.6 15368157 1.9-3.7 g/dL N (calc) ----ALBUMIN 4.2 53595916 3.6-5.1 g/dL N ----BILIRUBIN, 0.3 77279502 0.2-1.2 mg/dL N TOTAL ----GLUCOSE 95 70029106 65-99 mg/dL N ----ALBUMIN/GLOBULI 1.6 18904899 1.0-2.5 (calc) N N RATIO ----ALT 17 20160630 6-29 U/L N ----ALKALINE 49 20160630 33-130 U/L N PHOSPHATASE ----AST 19 20160630 10-35 U/L N Summary Purpose eClinicalWorks Submission
--- OUTSIDE RECORDS SUMMARY | 2018-03-18 11:29 | XMS REPORT ---
:1945 Author Organization eClinicalWorks Care Team Providers Name Role Phone Martin Yeimi Provider Role Unavailable Allergies, Adverse Reactions, Alerts Substance Reaction Event Type Iodine anaphylaxis Drug Allergy poison oak rash Non Drug Allergy Problems Problem Type Condition Code Onset Dates Condition Status Problem Esophageal reflux K21.9 Active Problem BMI 32.0-32.9,adult Z68.32 Active Problem Essential hypertension I10 Active Problem Age-related osteoporosis without M81.0 Active current pathological fracture Assessment Frequent falls R29.6 Active Problem Abdominal aortic aneurysm (AAA) I71.4 Active without rupture Assessment Abdominal aortic aneurysm (AAA) I71.4 Active without rupture Assessment Osteopenia, unspecified location M85.80 Active Problem Frequent falls R29.6 Active Problem Duodenitis K29.80 Active Problem Hx of colonic polyp Z86.010 Active Problem Mild persistent asthma without J45.30 Active complication Problem Peptic ulcer disease K27.9 Active Assessment Peptic ulcer disease K27.9 Active Assessment Esophageal reflux K21.9 Active Assessment Mild persistent asthma without J45.30 Active complication Assessment Duodenitis K29.80 Active Assessment Screening for breast cancer Z12.39 Active Assessment Screening for colon cancer Z12.11 Active Assessment Other and unspecified E78.5 Active hyperlipidemia Assessment Encntr for general adult medical Z00.00 Active exam w/o abnormal findings Assessment Age-related osteoporosis without M81.0 Active current pathological fracture Assessment Essential hypertension I10 Active Problem Other and unspecified E78.5 Active hyperlipidemia Medications Medication Code Code Instructions Start End Status Dosage System Date Date Levaquin [facility] 44754377821 500 MG Orally Apr 30, Active 1 tablet Once a day 2017 Omeprazole [facility] 39179315544 10 MG Orally Active 1 tablet Once a day Sumatriptan [facility] 20752978692 50 MG Orally Active 1 tablet Succinate Twice a day as needed Triamterene-HCT [facility] [address]-57 25-37.5 MG Active 1 capsule Z Orally Once a in the day morning Raloxifene HCl [facility] 44266869730 60 MG Orally Keerthi 25, Active 1 tablet Once a day 2017 Triamterene-HCT [facility] 92954936390 37.5-25 Active take one Z capsule by mouth every morning EPINEPHrine ND 0 0.3 MG/DOSE Active 1 Injection prn Pantoprazole [facility] 76859452347 40 mg Orally October 08, Active 1 tablet Sodium Once a day 2017 Rosuvastatin [facility] 18615918407 20 mg Orally Active 1 tablet Calcium Once a day Zofran [facility] 98048143642 4 mg Orally Q8 June Active 1-2 PRN 2017 tablets Pantoprazole [facility] 59696758075 40 MG Oral Active not Sodium defined Ventolin HFA [facility] 03337524626 108 (90 Base) June Active 2 puffs as MCG/ACT 2015 needed Inhalation every 4 hrs PRN Carafate [facility] 33164831576 1 GM Orally Active 1 tablet four times a on an day (qid) empty stomach Amlodipine [facility] 48254646766 5 MG Orally Active 1 tablet Besylate Once a day Amlodipine [facility] 34333987250 5 Orally Once a Active 1 tablet Besylate day Vital Signs Date/Time: October 08, 2017 BMI 31.71 Index Weight 157 lbs Height 59 in Cardiac Monitoring Heart Rate 85 /min Blood Pressure Diastolic 80 mm Hg Blood Pressure Systolic 118 mm Hg Results Name Result Date Reference Range Unit Abnormality Flag Chest 2 views- Xray BONE DENSITY EKG Summary Purpose eClinicalWorks Submission
--- OUTSIDE RECORDS SUMMARY | 2018-03-18 11:29 | XMS REPORT ---
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 [facility] I wanted to know if i should do. [facility] and October 07, 2014 [facility] Statement [facility] and Apr 12, 2015 [facility] Needs call back from Medical Staff [facility] and Jan 22, 2015 [facility] Statement [facility] and Apr 12, 2015 [facility] Problems Problem Type Condition ICD-9 Code Onset Dates Condition Status Problem Migraines 346.90 Active Problem GERD (gastroesophageal reflux 530.81 Active disease) Problem Hypertension 401.9 Active Problem Hyperlipidemia 272.4 Active Problem Hernia, hiatal 553.3 Active Problem Seasonal allergic conjunctivitis 372.14 Active Social History Social History Element Qualifiers Date 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 02/2014September 17, 2014 Depression Screening: . negative (2014) September 17, 2014 Ethnicity . Status , Is bahamian September 17, 2014 your primary language? Yes Fall Risk: . 2+ in past year w/o injury September 17, 2014 Tobacco Use: . Are you a: never smoker Former - September 17, 2014 2nd hand smoke (copd) Use of recreational / street drugs? . Answer: No September 17, 2014 Flu Vaccine: . does get flu vaccine but does September 17, 2014 not remember if she got one last year Marital Status: . September 17, 2014 Caffeine intake? . Status: Yes, What type: Coffee 1 September 17, 2014 cup per week Do you exercise? . Answer: Yes, Type: walking September 17, 2014 Last Bone Density: . 2012, Osteopenia September 17, 2014 Pneumoccocal Vaccine . Yes, 2012September 17, 2014 Do you drink alcohol? . Status: No September 17, 2014 Summary Purpose eClinicalWorks Submission
--- OUTSIDE RECORDS SUMMARY | 2018-03-18 11:29 | XMS REPORT ---
[...] Instructions Start End Date Status Dosage Date Zofran [facility] 56620449716 4 mg Orally Q8 June 29, Active 1-2 tablets PRN 2018 Results No Known Results Summary Purpose eClinicalWorks Submission
--- OUTSIDE RECORDS SUMMARY | 2018-03-18 11:29 | XMS REPORT ---
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 [facility] and August 13, 2014 [facility] THYROID US/MCF [facility] and August 26, 2014 [facility] LARYNGITIS FOLLOW UP [facility] and August 26, 2014 [facility] Problems Problem Type Condition ICD-9 Code Onset Dates Condition Status Problem Migraines 346.90 Active Problem GERD (gastroesophageal reflux 530.81 Active disease) Problem Hypertension 401.9 Active Problem Hyperlipidemia 272.4 Active Problem Hernia, hiatal 553.3 Active Problem Seasonal allergic conjunctivitis 372.14 Active Social History Social History Element Qualifiers Date Reported Fall Risk: . 2+ in past year w/o injury August 26, 2014 Depression Screening: . negative (2014) August 26, 2014 Ethnicity . Status , Is tristanian your primary August 26, 2014 language? Yes Tobacco Use: . Are you a: never smoker 2nd hand smoke (copd) August 26, 2014 Marital Status: . 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
--- OUTSIDE RECORDS SUMMARY | 2018-03-18 11:29 | XMS REPORT ---
:1945 Author Organization eClinicalWorks Care Team Providers Name Role Phone Shiela Irwin Provider Role Unavailable Allergies No Known Allergies Problems Problem Type Condition Code Onset Dates Condition Status Problem Other and unspecified E78.5 Active hyperlipidemia Assessment Essential hypertension I10 Active Problem Peptic ulcer disease K27.9 Active Problem Duodenitis K29.80 Active Problem Mild persistent asthma without J45.30 Active complication Problem Essential hypertension I10 Active Problem Esophageal reflux K21.9 Active Problem Hx of colonic polyp Z86.010 Active Problem BMI 32.0-32.9,adult Z68.32 Active Medications Medication Code System Code Instructions Start End Date Status Dosage Date Triamterene-HCT [facility] 15342-18 25-37.5 MG Active 1 capsule Z 37-01 Orally Once a in the day morning Results No Known Results Summary Purpose [employer] Submission
--- OUTSIDE RECORDS SUMMARY | 2018-03-18 11:29 | XMS REPORT ---
[...] Medications Results No Known Results Summary Purpose [employer] Submission
--- OUTSIDE RECORDS SUMMARY | 2018-03-18 11:29 | XMS REPORT ---
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 Status , Is brit[place] island[place] your primary August 26, 2014 language? Yes Tobacco Use: . Are you a: never smoker 2nd hand smoke (copd) August 26, 2014 Marital Status: . 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
--- OUTSIDE RECORDS SUMMARY | 2018-03-18 11:29 | XMS REPORT ---
:1945 Author Organization eClinicalWorks Care Team Providers Name Role Phone Shiela Bell Provider Role Unavailable Encounters Encounter Location Date Update Demographics - Additional [facility] and August 27, 2014 [facility] Update Demographics - Personal Info [facility] and August 27, 2014 [facility] PHYS [facility] and September 17, [address] [facility] [address] correa [facility] and September 30, 2014 [facility] 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 [facility] I wanted to know if i should do. [facility] and October 07, 2014 [facility] Statement [facility] and Apr 12, 2015 [facility] Needs call back from Medical Staff [facility] and Jan 22, 2015 [facility] Statement [facility] and Apr 12, 2015 [facility] [...] 17, 2014 Ethnicity . Status , Is kosovan September 17, 2014 your primary language? Yes [...]
--- OUTSIDE RECORDS SUMMARY | 2018-03-18 11:29 | XMS REPORT ---
:1945 Author Organization eClinicalWorks Care Team Providers Name Role Phone Diamond Baez Provider Role Unavailable Allergies, Adverse Reactions, Alerts Substance Reaction Event Type Iodine anaphylaxis Drug Allergy poison oak rash Non Drug Allergy Problems Problem Type Condition Code Onset Dates Condition Status Assessment Essential hypertension I10 Active Problem Other and unspecified E78.5 Active hyperlipidemia Assessment Cough R05 Active Problem Peptic ulcer disease K27.9 Active Problem Duodenitis K29.80 Active Problem Mild persistent asthma without J45.30 Active complication Problem Essential hypertension I10 Active Problem Esophageal reflux K21.9 Active Problem Hx of colonic polyp Z86.010 Active Problem BMI 32.0-32.9,adult Z68.32 Active Assessment Right foot pain M79.671 Active Assessment Right anterior knee pain M25.561 Active Assessment Right elbow pain M25.521 Active Assessment Chest pain in adult R07.9 Active Medications Medication Code Code Instructions Start End Status Dosage System Date Date Sumatriptan [facility] 40167788875 50 MG Orally Active 1 tablet Succinate Twice a day as needed Cyclobenzaprine [facility] 35571486140 10 Active TAKE ONE HCl TABLET BY MOUTH DAILY NEEDED Omeprazole ND 93320240183 10 MG Orally Active 1 tablet Once a day Ventolin HFA [facility] 69144138591 108 (90 Base) June Active 2 puffs MCG/ACT 07, as needed Inhalation 2015 every 4 hrs Carafate [facility] 37753933045 1 GM Orally Active 1 tablet four times a on an day (qid) empty stomach Levaquin ND 92532116382 500 MG Orally Apr 30, Active 1 tablet Once a day 2017 Pantoprazole [facility] 30151790438 40 MG Oral Active not Sodium defined Rosuvastatin [facility] 90075095565 20 MG Orally Active 1 tablet Calcium Once a day EPINEPHrine [facility] [address]-53 0.3 MG/DOSE Active 1 Injection prn Triamterene-HCTZ [facility] [address]-94 25-37.5 MG Active 1 capsule Orally Once a in the day morning Amlodipine [facility] 00736315708 5 MG Orally Active 1 tablet Besylate Once a day Crestor [facility] 14331554506 20 Active TAKE ONE TABLET BY MOUTH DAILY Vital Signs Date/Time: Apr 30, 2017 BMI 30.90 Index Weight 153 lbs Height 59 in Cardiac Monitoring Heart Rate 86 /min Blood Pressure Diastolic 86 mm Hg Blood Pressure Systolic 120 mm Hg Results Name Result Date Reference Range Unit Abnormality Flag CBC ----Platelets 20170430 ----NEUTROPHILS MID% 10.5 GRA%54.2 20170430 ----MCHC 31.3 20170430 ----MCH 26.1 L 20170430 ----MCV 83.3 20170430 ----WBC 5.7 20170430 ----RDW 13.3 20170430 ----RBC 4.82 20170430 ----Hemoglobin 12.6 20170430 ----Hematocrit 40.2 20170430 Summary Purpose eClinicalWorks Submission
--- OUTSIDE RECORDS SUMMARY | 2018-03-18 11:29 | XMS REPORT ---
:1945 Author Organization eClinicalWorks Care Team Providers Name Role Phone Diamond Baez Provider Role Unavailable Allergies No Known Allergies [...] Start End Date Status Dosage Date Triamterene-HCT [facility] 66339-34 25-37.5 MG Active 1 capsule Z 37-01 Orally Once a in the day morning Results No Known Results Summary Purpose eClinicalWorks Submission
--- OUTSIDE RECORDS SUMMARY | 2018-03-18 11:30 | XMS REPORT ---
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 [facility] I wanted to know if i should do. [facility] and October 07, 2014 [facility] Statement [facility] and Apr 12, 2015 [facility] Sinus [facility] and June 21, 2015 [facility] Needs call back from Medical Staff [facility] and Jan 22, 2015 [facility] Statement [facility] and Apr 12, 2015 [facility] Problems Problem Type Condition ICD-9 Code Onset Dates Condition Status Assessment Hyperlipidemia E78.5 Active Assessment BMI 32.0-32.9,adult Z68.32 Active Assessment Obesity E66.9 Active Problem Seasonal allergic conjunctivitis 372.14 Active Problem Essential hypertension I10 Active Problem Hernia, hiatal 553.3 Active Problem Other and unspecified E78.5 Active hyperlipidemia Assessment Essential hypertension I10 Active Problem Migraine G43.909 Active Problem Esophageal reflux K21.9 Active Assessment Aortic aneurysm I71.9 Active Assessment GERD (gastroesophageal reflux K21.9 Active disease) Assessment Bronchitis J40 Active Medications Medication Code System Code Instructions Start End Date Status Dosage Date Levaquin [facility] 72506-53 500 mg Orally June 20, June 30, Active 1 tablet 26- Once a day 2015 2015 Ventolin HFA [facility] 81716-13 108 (90 Base) June 20, Active 2 puffs as 82-20 MCG/ACT 2016 needed Inhalation every 4 hrs [facility]ced[facility] 06309-78 250-250-65 MG Active 2 tablets Migraine 28- Orally PRN as needed Crestor [facility] 86014-28 20 mg Orally August 26, Active 2 tablet 52-39 Once a day 2014 Triamterene-HC [facility] 19865-47 25-37.5 MG Active 1 capsule TZ 37-01 Orally Once a in the day morning Omeprazole [facility] 97071-26 10 mg Orally Active 1 tablet 11-93 Once a day [facility] 68531-34 180 MG Orally Active 1 tablet Allergy 214 Once a day Triamterene-HC [facility] 71249-97 25-37.5 MG Active 1 capsule TZ 37-01 Orally Once a in the day morning Crestor [facility] 90812-99 20 mg Orally August 26, Active 2 tablet 52-39 Once a day 2014 Omeprazole [facility] 35915-78 10 mg Orally Active 1 tablet 11-93 Once a day Imitrex [facility] 16516-86 100 MG Orally Active 1 tablet 37-01 Once a day as needed one time Social History Social History Element Qualifiers Date 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 02/2014June 21, 2015 Depression Screening: . negative (2014) June 21, 2015 Ethnicity . Status , Is yi June 21, 2015 your primary language? Yes Fall Risk: . 2+ in past year w/o injury June 21, 2015 Tobacco Use: . Are you a: never smoker Former June 21, 2015 - 2nd hand smoke (copd) Use of recreational / street drugs? . Answer: No June 21, 2015 Flu Vaccine: . No, Advised June 21, 2015 Marital Status: . June 21, 2015 Caffeine intake? . Status: Yes, What type: Coffee June 21, 2015 1 cup per week Do you exercise? . Answer: Yes, Type: walking June 21, 2015 Last Bone Density: . 09/2014June 21, 2015 Pneumoccocal Vaccine . Yes, 2012June 21, 2015 Do you drink alcohol? . Status: No June 21, 2015 Vital Signs Date/Time: June 21, 2015 Weight 160 lbs Height 59 in Temperature 98.4 F Cardiac Monitoring Heart Rate 66 /min Blood Pressure Diastolic 92 mm Hg Blood Pressure Systolic 154 mm Hg Results CBC Summary Purpose eClinicalWorks Submission
--- OUTSIDE RECORDS SUMMARY | 2018-03-18 11:30 | XMS REPORT ---
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 [facility] and August 13, 2014 [...] and October 07, 2014 [facility] Unknown [facility] and Feb 21, 2016 [facility] Needs call back from Medical Staff [facility] and Apr 03, 2016 [facility] right wrist pain [facility] and Nov 15, 2015 [facility] medication refill [facility] and Feb 16, 2016 [facility] Statement [facility] and Apr 12, 2015 [facility] Sinus [facility] and June 21, 2015 [facility] Needs call back from Medical Staff [facility] and Jan 22, 2015 [facility] Statement [facility] and Apr 12, 2015 [facility] Problems Problem Type Condition ICD-9 Code Onset Dates Condition Status Problem Hernia, hiatal 553.3 Active Problem Seasonal allergic conjunctivitis 372.14 Active Problem BMI 32.0-32.9,adult Z68.32 Active Problem Esophageal reflux K21.9 Active Problem Other and unspecified E78.5 Active hyperlipidemia Problem Essential hypertension I10 Active Problem Migraine G43.909 Active Medications Medication Code System Code Instructions Start Date End Date Status Dosage Medrol (Wilbert) Unknown 0 4 MG Orally as Apr 03, Apr 09, Active as directed directed 2015 2015 Social History Social History Element Qualifiers Date 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 02/2014Mar 31, 2016 Depression Screening: . negative (2014) Mar 31, 2016 Ethnicity . Status , Is kyrgyz Mar 31, 2016 your primary language? Yes Fall Risk: . 2+ in past year w/o injury Mar 31, 2016 Tobacco Use: . Are you a: never smoker Former - Mar 31, 2016 2nd hand smoke (copd) Use of recreational / street drugs? . Answer: No Mar 31, 2016 Flu Vaccine: . No, Advised Mar 31, 2016 Marital Status: . Mar 31, 2016 Caffeine intake? . Status: Yes, What type: Coffee 1 Mar 31, 2016 cup per week Do you exercise? . Answer: Yes, Type: walking Mar 31, 2016 Last Bone Density: . 09/2014Mar 31, 2016 Pneumoccocal Vaccine . Yes, 2012Mar 31, 2016 Do you drink alcohol? . Status: No Mar 31, 2016 Summary Purpose eClinicalWorks Submission
--- OUTSIDE RECORDS SUMMARY | 2018-03-18 11:30 | XMS REPORT | Summary of Care ---
:1945 Author Organization [facility] Address [address] [place], [place] [address]- Encounter [facility] Patrickntr_karina(FIN) [id number] Date(s): 03/31/16 - 03/31/16 [facility] [address] [place] [address]- Discharge Diagnosis: Allergic reaction Discharge Diagnosis: Stridor Discharge Diagnosis: Acute dyspnea Discharge Disposition: Home or Self Care Attending Physician: Juana Smith MD Vital Signs Most recent to oldest 1 2 3 [Reference Range]: Height 157.48 cm (03/31/16 11:41 AM) Temperature Oral 97.9 DegF [96.4-99.1 DegF] (03/31/16 11:53 AM) Blood Pressure 143/72 mmHg 138/76 mmHg 166/79 mmHg [90-140/60-90 mmHg] *HI* (03/31/16 12:57 PM) *HI* (03/31/16 1:57 PM) (03/31/16 11:41 AM) Respiratory Rate [14-20 18 BRMIN 19 BRMIN 25 BRMIN BRMIN] (03/31/16 1:57 PM) (03/31/16 12:57 PM) *HI* (03/31/16 11:52 AM) Peripheral Pulse Rate 106 bpm [60-100 bpm] *HI* (03/31/16 11:41 AM) Weight 63.636 kg (03/31/16 11:41 AM) Body Mass Index 25.66 m2 (03/31/16 11:41 AM) Problem List Condition Effective Dates Status Health Status Informant Asthma(Confirmed) Resolved Hypertension(Confirmed) Resolved Migraine(Confirmed) Resolved Allergies, Adverse Reactions, Alerts Substance Reaction Severity Status NKDA Active Medications albuterol-ipratropium 2.5-0.5 mg inhalation solution 3 mL, Route: NEB, Drug Form: SOLN, Dosing Weight 63.636, kg, ONCE, STAT, Start date: 03/31/16 11:53:00 DIRECTOR TALENT ACQUISITION, Stop date: 03/31/16 11:53:00 DIRECTOR TALENT ACQUISITION Notes: (Same as: Duoneb) Start Date: 03/31/16 Stop Date: 03/31/16 Status: Orderedalbuterol-ipratropium 2.5-0.5 mg inhalation solution 3 mL, Route: NEB, Dosing Weight 63.636, kg, ONCE, STAT, Start date: 03/31/16 11: 50:00 DIRECTOR TALENT ACQUISITION, Stop date: 03/31/16 11:50:00 DIRECTOR TALENT ACQUISITION Start Date: 03/31/16 Stop Date: 03/31/16 Status: CompletedBenadryl 25 mg oral capsule 25 mg=1 cap, PO, Q6H, PRN Allergic reaction, X 8 day, # 30 cap, 0 Refill(s) Start Date: 03/31/16 Stop Date: 04/08/16 Status: OrdereddiphenhydrAMINE 50 mg, Route: IVP, ONCE, Dosing Weight 63.636, kg, Priority: STAT, Start date: 03/31/16 11:48:00 DIRECTOR TALENT ACQUISITION, Stop date: 03/31/16 11:48:00 DIRECTOR TALENT ACQUISITION Start Date: 03/31/16 Stop Date: 03/31/16 Status: CompletedEPINEPHrine 1 mg/mL (1:1000) injectable solution 0.3 mg, Route: IM, ONCE, Dosing Weight 63.636, kg, Priority: STAT, Start date: 03/31/16 11:47:00 DIRECTOR TALENT ACQUISITION, Stop date: 03/31/16 11:47:00 DIRECTOR TALENT ACQUISITION Start Date: 03/31/16 Stop Date: 03/31/16 Status: CompletedEpiPen Auto-Injector 0.3 mg injectable kit 0.3 mg, IM, ONCE, # 1 kit, 0 Refill(s) Start Date: 03/31/16 Status: Orderedfamotidine 20 mg, Route: IVP, ONCE, Dosing Weight 63.636, kg, Priority: STAT, Start date: 03/31/16 11:46:00 DIRECTOR TALENT ACQUISITION, Stop date: 03/31/16 11:46:00 DIRECTOR TALENT ACQUISITION Start Date: 03/31/16 Stop Date: 03/31/16 Status: Completedfamotidine 10 mg oral tablet 10 mg=1 tab, PO, BID, # 60 tab, 0 Refill(s) Start Date: 03/31/16 Status: OrderedmethylPREDNISolone SODium SUCCinate 125 mg, Route: IVP, ONCE, Dosing Weight 63.636, kg, Priority: STAT, Start date: 03/31/16 11:47:00 DIRECTOR TALENT ACQUISITION, Stop date: 03/31/16 11:47:00 DIRECTOR TALENT ACQUISITION Start Date: 03/31/16 Stop Date: 03/31/16 Status: CompletedSaline Flush 0.9% 10 mL, Route: IVP, Drug Form: INJ, Dosing Weight 63.636, kg, PRN, PRN Line Flush , Start date: 03/31/16 11:53:00 DIRECTOR TALENT ACQUISITION, Duration: 30 day, Stop date: 04/30/16 11:52 :00 DIRECTOR TALENT ACQUISITION Notes: (Same as: BD Posiflush) Start Date: 03/31/16 Stop Date: 03/31/16 Status: DiscontinuedSodium Chloride 0.9% (Bolus) IV 1,000 mL, 2,000 ml/hr, Infuse Over: 30 minutes, Route: IV, ONCE, Priority: STAT , Dosing Weight 63.636 kg, Start date: 03/31/16 11:53:00 DIRECTOR TALENT ACQUISITION, Duration: 1 doses or times, Stop date: 03/31/16 11:53:00 DIRECTOR TALENT ACQUISITION Start Date: 03/31/16 Stop Date: 03/31/16 Status: Completed Results ELECTROLYTES Most recent to oldest [Reference Range]: 1 Sodium Lvl [135-145 mEq/L] 143 mEq/L (03/31/16 11:54 AM) Potassium Lvl [3.5-5.1 mEq/L] 2.9 mEq/L 1 *CRIT* (03/31/16 11:54 AM) Chloride Lvl [95-109 mEq/L] 106 mEq/L (03/31/16 11:54 AM) CO2 [24-32 mEq/L] 27 mEq/L (03/31/16 11:54 AM) AGAP [10.0-20.0 mEq/L] 12.9 mEq/L (03/31/16 11:54 AM) 1Result Comment: Critical Result(s) called to adria at 03/31/2016 12:34 by harish. Read back OK.CHEM PANEL Most recent to oldest [Reference Range]: 1 Creatinine Lvl [0.50-1.40 mg/dL] 1.00 mg/dL (03/31/16 11:54 AM) eGFR 58 mL/min/1.73m2 1 *NA* (03/31/16 11:54 AM) BUN [7-22 mg/dL] 19 mg/dL (03/31/16 11:54 AM) Glucose Lvl [70-99 mg/dL] 118 mg/dL *HI* (03/31/16 11:54 AM) Calcium Lvl [8.5-10.5 mg/dL] 9.0 mg/dL (03/31/16 11:54 AM) 1Result Comment: The eGFR is calculated using the CKD-EPI formula. In most young , healthy individualsthe eGFR will be >90 mL/min/1.73m2. The eGFR declines with age. An eGFR of 60-89 may be normal in some populations, particularly the elderly, for whom the CKD-EPI formula has not been extensively validated. Use of the eGFR is not recommended in the following populations: Individuals with unstable creatinine concentrations, including patients and those with serious co-morbid conditions. Patients with extremes in muscle mass or diet. The data above are obtained from the National Kidney Disease Education Program ( NKDEP) which additionally recommends that when the eGFR is used in patients with extremes of body mass index for purposesof drug dosing, the eGFR should be multiplied by the estimated BMI.HEMATOLOGY Most recent to oldest [Reference Range]: 1 WBC [3.7-10.4 K/CMM] 9.7 K/CMM (03/31/16 11:54 AM) RBC [4.20-5.40 M/CMM] 4.85 M/CMM (03/31/16 11:54 AM) Hgb [12.0-16.0 g/dL] 12.8 g/dL (03/31/16 11:54 AM) Hct [36.0-48.0 %] 39.5 % (03/31/16 11:54 AM) MCV [80.0-98.0 fL] 81.5 fL (03/31/16 11:54 AM) MCH [27.0-31.0 pg] 26.5 pg *LOW* (03/31/16 11:54 AM) MCHC [32.0-36.0 g/dL] 32.5 g/dL (03/31/16 11:54 AM) RDW [11.5-14.5 %] 14.3 % (03/31/16 11:54 AM) Platelet [133-450 K/CMM] 332 K/CMM (03/31/16 11:54 AM) MPV [7.4-10.4 fL] 7.5 fL (03/31/16 11:54 AM) Segs [45.0-75.0 %] 43.5 % *LOW* (03/31/16 11:54 AM) Lymphocytes [20.0-40.0 %] 42.3 % *HI* (03/31/16 11:54 AM) Monocytes [2.0-12.0 %] 6.7 % (03/31/16 11:54 AM) Eosinophils [0.0-4.0 %] 6.5 % *HI* (03/31/16 11:54 AM) Basophils [0.0-1.0 %] 1.0 % (03/31/16 11:54 AM) Segs-Bands # [1.5-8.1 K/CMM] 4.2 K/CMM (03/31/16 11:54 AM) Lymphocytes # [1.0-5.5 K/CMM] 4.1 K/CMM (03/31/16 11:54 AM) Monocytes # [0.0-0.8 K/CMM] 0.6 K/CMM (03/31/16 11:54 AM) Eosinophils # [0.0-0.5 K/CMM] 0.6 K/CMM *HI* (03/31/16 11:54 AM) Basophils # [0.0-0.2 K/CMM] 0.1 K/CMM (03/31/16 11:54 AM) Immunizations No data available for this section Procedures No data available for this section Social History Social History Type Response Smoking Status Never smoker; Exposure to Tobacco Smoke None; Cigarette Smoking Last 365 Days No; Reg Smoking Cessation Counseling No Assessment and Plan No data available for this section
--- OUTSIDE RECORDS SUMMARY | 2018-03-18 11:30 | XMS REPORT ---
:1945 Author Organization eClinicalWorks Care Team Providers Name Role Phone Sayra Vanegas Provider Role Unavailable Allergies, Adverse Reactions, Alerts Substance Reaction Event Type Iodine anaphylaxis Drug Allergy Encounters Encounter Location Date Update Demographics - Additional [facility] and August 27, 2014 [facility] Update Demographics - Personal Info [facility] and August 27, 2014 [facility] PHYS [facility] and September 17, [address] [facility] [address] correa [facility] and September 30, 2014 [facility] 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 [facility] I wanted to know if i should do. [facility] and October 07, 2014 [facility] right wrist pain [facility] and Nov 15, 2015 [facility] Statement [facility] and Apr 12, 2015 [facility] Sinus [facility] and June 21, 2015 [facility] Needs call back from Medical Staff [facility] and Jan 22, 2015 [facility] Statement [facility] and Apr 12, 2015 [facility] Problems Problem Type Condition ICD-9 Code Onset Dates Condition Status Assessment Right wrist pain M25.531 Active Assessment Essential hypertension I10 Active Assessment Abnormal chest x-ray R93.8 Active Assessment Right shoulder pain M25.511 Active Problem Seasonal allergic conjunctivitis 372.14 Active Problem Essential hypertension I10 Active Problem Hernia, hiatal 553.3 Active Problem Other and unspecified E78.5 Active hyperlipidemia Assessment Hyperlipidemia E78.5 Active Problem Migraine G43.909 Active Problem Esophageal reflux K21.9 Active Medications Medication Code System Code Instructions Start End Date Status Dosage Date Ventolin HFA [facility] 88273-55 108 (90 Base) June 20, Active 2 puffs as 82-20 MCG/ACT 2016 needed Inhalation every 4 hrs Omeprazole [facility] 62854-65 10 mg Orally Active 1 tablet 11-93 Once a day Adrianne [facility] 24162-05 180 MG Orally Active 1 tablet Allergy 214 Once a day Vitamin D [facility] 66962-72 Active Unknown Triamterene-HC [facility] 33316-64 25-37.5 MG Active 1 capsule TZ 37-01 Orally Once a in the day morning Crestor [facility] 16415-59 10 MG Orally August 26, Active 2 tablet 51-39 Once a day 2014 Excedrin [facility] 86669-90 250-250-65 MG Active 2 tablets Migraine 28- Orally PRN as needed Social History Social History Element Qualifiers Date 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 02/2014Nov 15, 2015 Depression Screening: . negative (2014) Nov 15, 2015 Ethnicity . Status , Is french Nov 15, 2015 your primary language? Yes Fall Risk: . 2+ in past year w/o injury Nov 15, 2015 Tobacco Use: . Are you a: never smoker Former - Nov 15, 2015 2nd hand smoke (copd) Use of recreational / street drugs? . Answer: No Nov 15, 2015 Flu Vaccine: . No, Advised Nov 15, 2015 Marital Status: . Nov 15, 2015 Caffeine intake? . Status: Yes, What type: Coffee 1 Nov 15, 2015 cup per week Do you exercise? . Answer: Yes, Type: walking Nov 15, 2015 Last Bone Density: . 09/2014Nov 15, 2015 Pneumoccocal Vaccine . Yes, 2012Nov 15, 2015 Do you drink alcohol? . Status: No Nov 15, 2015 Family history Qualifier Description Comment Date Reported Maternal Grandmother Comment not available Nov 15, 2015 Paternal Grandmother Comment not available Nov 15, 2015 Siblings alive 1 brother , diabetes mellitus, heart Nov 15, 2015 disease Maternal Grandfather Comment not available Nov 15, 2015 Children Comment not available Nov 15, 2015 Father Comment not available Nov 15, 2015 Paternal Grandfather Comment not available Nov 15, 2015 Mother colon cancer Nov 15, 2015 Other: Comment not available Nov 15, 2015 Vital Signs Date/Time: Nov 15, 2015 Weight 157 lbs Height 59 in Cardiac Monitoring Heart Rate 80 /min Blood Pressure Diastolic 70 mm Hg Blood Pressure Systolic 118 mm Hg Summary Purpose eClinicalWorks Submission
--- OUTSIDE RECORDS SUMMARY | 2018-03-18 11:30 | XMS REPORT | CCD ---
:1945 Author Organization [facility] [place] Care Team Providers Name Role Phone Oz Plasc[employer] Provider Allergies, Adverse Reactions, Alerts Substance Reaction Status NKDA Active Medications Medication Instructions Start Date End Date Status pneumococcal 23-valent 0.5 ml, Route: IM, Drug 09/12/2009 09/13/2009 Completed vaccine Form: INJ, ONCALL, Start date: 09/12/09 20:00:00, Duration: 1 doses or times Immunizations Vaccine Date Status pneumococcal 23-valent vaccine 09/13/2009 Not Done
--- OUTSIDE RECORDS SUMMARY | 2018-03-18 11:30 | XMS REPORT ---
:1945 Author Organization eClinicalWorks Care Team Providers Name Role Phone Sayra Vanegas Provider Role Unavailable Allergies, Adverse Reactions, Alerts Substance Reaction Event Type Iodine anaphylaxis Drug Allergy Encounters Encounter Location Date Update Demographics - Additional [facility] and August 27, 2014 [facility] Update Demographics - Personal Info [facility] and August 27, 2014 [facility] PHYS [facility] and September 17, [address] [facility] [address] correa [facility] and September 30, 2014 [facility] 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 [facility] I wanted to know if i should do. [facility] and October 07, 2014 [facility] right wrist pain [facility] and Nov 15, 2015 [facility] medication refill [facility] and Feb 16, 2016 [facility] Statement [facility] and Apr 12, 2015 [facility] Sinus [facility] and June 21, 2015 [facility] Needs call back from Medical Staff [facility] and Jan 22, 2015 [facility] Statement [facility] and Apr 12, 2015 [facility] Problems Problem Type Condition ICD-9 Code Onset Dates Condition Status Assessment Esophageal reflux K21.9 Active Assessment Essential hypertension I10 Active Assessment Other and unspecified E78.5 Active hyperlipidemia Assessment BMI 32.0-32.9,adult Z68.32 Active Assessment Screening for breast cancer Z12.39 Active Problem Hernia, hiatal 553.3 Active Problem Seasonal allergic conjunctivitis 372.14 Active Problem BMI 32.0-32.9,adult Z68.32 Active Problem Esophageal reflux K21.9 Active Problem Other and unspecified E78.5 Active hyperlipidemia Problem Essential hypertension I10 Active Problem Migraine G43.909 Active Medications Medication Code System Code Instructions Start End Date Status Dosage Date Adrianne [facility] 69834-18 180 MG Orally Active 1 tablet Allergy 214 Once a day Vitamin D [facility] 00629-37 Active Unknown Crestor [facility] 13405-80 10 MG Orally August 26, Active 2 tablet 51-39 Once a day 2014 Excedrin [facility] 08735-10 250-250-65 MG Active 2 tablets Migraine 28- Orally PRN as needed Triamterene-HC [facility] 21249-93 25-37.5 MG Active 1 capsule TZ 37-01 Orally Once a in the day morning Ventolin HFA [facility] 14872-12 108 (90 Base) June 20, Active 2 puffs as 82-20 MCG/ACT 2015 needed Inhalation every 4 hrs Omeprazole [facility] 72317-27 10 MG Orally Active 1 tablet 11-93 Once a day Social History Social History Element Qualifiers Date 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 02/2014Feb 16, 2016 Depression Screening: . negative (2014) Feb 16, 2016 Ethnicity . Status , Is honduran Feb 16, 2016 your primary language? Yes Fall Risk: . 2+ in past year w/o injury Feb 16, 2016 Tobacco Use: . Are you a: never smoker Former - Feb 16, 2016 2nd hand smoke (copd) Use of recreational / street drugs? . Answer: No Feb 16, 2016 Flu Vaccine: . No, Advised Feb 16, 2016 Marital Status: . Feb 16, 2016 Caffeine intake? . Status: Yes, What type: Coffee 1 Feb 16, 2016 cup per week Do you exercise? . Answer: Yes, Type: walking Feb 16, 2016 Last Bone Density: . 09/2014Feb 16, 2016 Pneumoccocal Vaccine . Yes, 2012Feb 16, 2016 Do you drink alcohol? . Status: No Feb 16, 2016 Family history Qualifier Description Comment Date Reported Maternal Grandmother Comment not available Feb 16, 2016 Paternal Grandmother Comment not available Feb 16, 2016 Siblings alive 1 brother , diabetes mellitus, heart Feb 16, 2016 disease Maternal Grandfather Comment not available Feb 16, 2016 Children Comment not available Feb 16, 2016 Father Comment not available Feb 16, 2016 Paternal Grandfather Comment not available Feb 16, 2016 Mother colon cancer Feb 16, 2016 Other: Comment not available Feb 16, 2016 Vital Signs Date/Time: Feb 16, 2016 Weight 161 lbs Height 59 in Cardiac Monitoring Heart Rate 83 /min Blood Pressure Diastolic 83 mm Hg Blood Pressure Systolic 140 mm Hg Summary Purpose eClinicalWorks Submission
--- OUTSIDE RECORDS SUMMARY | 2018-03-18 11:30 | XMS REPORT ---
:1945 Author Organization eClinicalWorks Care Team Providers Name Role Phone Sayra Vanegas Provider Role Unavailable Allergies, Adverse Reactions, Alerts Substance Reaction Event Type Iodine anaphylaxis Drug Allergy poison oak rash Non Drug Allergy Encounters Encounter Location Date Update Demographics - Additional [facility] and August 27, 2014 [facility] Update Demographics - Personal Info [facility] and August 27, 2014 [facility] PHYS [facility] and September 17, [address] [facility] [address] correa [facility] and September 30, 2014 [facility] 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 [facility] I wanted to know if i should do. [facility] and October 07, 2014 [facility] Unknown [facility] and Feb 21, 2016 [facility] Needs call back from Medical Staff [facility] and Apr 03, 2016 [facility] right wrist pain [facility] and Nov 15, 2015 [facility] medication refill [facility] and Feb 16, 2016 [facility] Statement [facility] and Apr 12, 2015 [facility] Sinus [facility] and June 21, 2015 [facility] Needs call back from Medical Staff [facility] and Jan 22, 2015 [facility] Statement [facility] and Apr 12, 2015 [facility] rash on neck and chest- pt believes [facility] and Mar 31, 2016 it is poison oak [facility] Problems Problem Type Condition ICD-9 Code Onset Dates Condition Status Assessment Rash R21 Active Assessment SOB (shortness of breath) R06.02 Active Problem Hernia, hiatal 553.3 Active Problem Seasonal allergic conjunctivitis 372.14 Active Problem BMI 32.0-32.9,adult Z68.32 Active Problem Esophageal reflux K21.9 Active Problem Other and unspecified E78.5 Active hyperlipidemia Problem Essential hypertension I10 Active Problem Migraine G43.909 Active Medications Medication Code System Code Instructions Start End Date Status Dosage Date Vitamin [facility] 72424-31 Active Unknown [facility] 46382-01 25-37.5 MG Active 1 capsule TZ 37-01 Orally Once a in the day morning Excedrin [facility] 76102-46 250-250-65 MG Active 2 tablets Migraine 28- Orally PRN as needed Crestor [facility] 82038-80 10 MG Orally August 26, Active 2 tablet 51-39 Once a day 2014 Ventolin HFA [facility] 76645-14 108 (90 Base) June 20, Active 2 puffs as 82-20 MCG/ACT 2015 needed Inhalation every 4 hrs [facility]eprazole [facility] 83923-56 10 MG Orally Active 1 tablet 11-93 Once a day Adrianne [facility] 17326-02 180 MG Orally Active 1 tablet Allergy 214 Once a day Social History Social History Element Qualifiers Date 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 02/2014Mar 31, 2016 Depression Screening: . negative (2014) Mar 31, 2016 Ethnicity . Status , Is kiswahili Mar 31, 2016 your primary language? Yes [...] alcohol? . Status: No Mar 31, 2016 Vital Signs Date/Time: Mar 31, 2016 Weight 161 lbs Height 59 in Cardiac Monitoring Heart Rate 72 /min Results [facility] 1MGx4 Summary Purpose eClinicalWorks Submission
--- OUTSIDE RECORDS SUMMARY | 2018-03-18 11:30 | XMS REPORT ---
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 [facility] I wanted to know if i should do. [facility] and October 07, 2014 [facility] Unknown [facility] and Feb 21, 2016 [facility] right wrist pain [facility] and Nov 15, 2015 [facility] medication refill [facility] and Feb 16, 2016 [facility] Statement [facility] and Apr 12, 2015 [facility] Sinus [facility] and June 21, 2015 [facility] Needs call back from Medical Staff [facility] and Jan 22, 2015 [facility] Statement [facility] and Apr 12, 2015 [facility] Problems Problem Type Condition ICD-9 Code Onset Dates Condition Status Assessment Other and unspecified E78.5 Active hyperlipidemia Assessment Essential hypertension I10 Active Assessment Prediabetes R73.03 Active Problem Hernia, hiatal 553.3 Active Problem Seasonal allergic conjunctivitis 372.14 Active Problem BMI 32.0-32.9,adult Z68.32 Active Problem Esophageal reflux K21.9 Active Problem Other and unspecified E78.5 Active hyperlipidemia Problem Essential hypertension I10 Active Problem Migraine G43.909 Active Social History Social History Element Qualifiers Date 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 02/2014Feb 16, 2016 Depression Screening: . negative (2014) Feb 16, 2016 Ethnicity . Status , Is arabic Feb 16, 2016 your primary language? Yes [...] alcohol? . Status: No Feb 16, 2016 Summary Purpose eClinicalWorks Submission
--- OUTSIDE RECORDS SUMMARY | 2018-03-18 11:30 | XMS REPORT | CCD ---
:1945 Author Organization [facility] [place] Care Team Providers Name Role Phone Oz [...]
--- OUTSIDE RECORDS SUMMARY | 2018-03-18 11:31 | XMS REPORT | Summary of Care ---
:1945 Author Organization [facility] Address [address] [place], [place] [address]- Encounter HQ Ara(FIN) [id number] Date(s): 06/30/16 - 07/04/16 [facility] [address] [place] [address]- Discharge Disposition: Home or Self Care Attending Physician: Sammy Hyde MD Admitting Physician: Sammy Hyde MD Vital Signs Most recent to oldest 1 2 3 [Reference Range]: Height 149.86 cm 149.86 cm (07/01/16 3:52 AM) (06/30/16 5:36 PM) Current Weight 71.136 kg (07/04/16 10:12 AM) Temperature Oral [96.4-99.1 98.5 DegF 98.4 DegF 98.8 DegF DegF] (07/04/16 11:46 AM) (07/04/16 7:59 AM) (07/04/16 3:24 AM) Blood Pressure [90-140/60-90 106/68 mmHg 140/83 mmHg 132/83 mmHg mmHg] (07/04/16 11:46 AM) (07/04/16 7:59 AM) (07/04/16 3:24 AM) Respiratory Rate [14-20 BRMIN] 16 BRMIN 16 BRMIN 16 BRMIN (07/04/16 11:46 AM) (07/04/16 7:59 AM) (07/04/16 3:24 AM) Peripheral Pulse Rate [60-100 93 bpm 70 bpm 65 bpm bpm] (07/04/16 11:46 AM) (07/04/16 7:59 AM) (07/04/16 3:24 AM) Weight 72.727 kg 72.727 kg (07/01/16 3:52 AM) (06/30/16 5:36 PM) Body Mass Index 32.38 m2 32.38 m2 (07/01/16 3:52 AM) (06/30/16 5:36 PM) Problem List Condition Effective Dates Status Health Status Informant Brain concussion(Confirmed) Resolved H/O hiatal hernia(Confirmed) Resolved H/O completed stroke(Confirmed) Resolved Asthma(Confirmed) Resolved Hypertension(Confirmed) Resolved Migraine(Confirmed) Resolved Allergies, Adverse Reactions, Alerts Substance Reaction Severity Status iodine Active Medications amLODIPine 5 mg oral tablet 5 mg=1 tab, PO, Daily, # 30 tab, 2 Refill(s), Pharmacy: [facility] [id number] Start Date: 07/04/16 Status: Orderedaspirin 81 mg tablet, enteric coated 81 mg, 1 tab, Route: PO, Drug form: ECTAB, Daily, Dosing Weight 72.727, kg, Start date: 07/02/16 9:00:00 CDT, Duration: 30 day, Stop date: 07/31/16 9:00:00 CDT Notes: Do not crush or chew.(Same As: Ecotrin) Start Date: 07/02/16 Stop Date: 07/04/16 Status: Discontinuedatropine 0.5 mg, 5 mL, Route: IVP, Drug form: INJ, ONCE, Dosing Weight 72.727, kg, PRN Bradycardia, Start date: 07/01/16 4:03:00 CDT Start Date: 07/01/16 Stop Date: 07/04/16 Status: DiscontinuedCarafate 1 g oral tablet 1 gm=1 tab, PO, QID, # 120 tab, 2 Refill(s), Pharmacy: [facility] [id number] Start Date: 07/04/16 Status: OrderedCrestor 10 mg, Route: PO, Drug form: TAB, Daily, Dosing Weight 72.727, kg, Start date: 07/02/16 9:00:00 CDT,Duration: 30 day, Stop date: 07/31/16 9:00:00 CDT Start Date: 07/02/16 Stop Date: 07/01/16 Status: Deletedfamotidine 20 mg, 2 mL, Route: IVP, Drug form: INJ, ONCE, Dosing Weight 72.727, kg, Priority: STAT, Start date:06/30/16 19:48:00 CDT, Stop date: 06/30/16 19:48:00 CDT Notes: (Same as: Pepcid)Can be dilute in 5-10cc NS IVP: Slow IV push over at least 2 minutes. Start Date: 06/30/16 Stop Date: 06/30/16 Status: Completedhydrochlorothiazide 25 mg oral tablet 25 mg, 1 tab, Route: PO, Drug form: TAB, Daily, Dosing Weight 72.727, kg, Start date: 07/02/16 9:00:00 CDT, Duration: 30 day, Stop date: 07/31/16 9:00:00 CDT Notes: (Same as: Hydrodiuril) With food. Start Date: 07/02/16 Stop Date: 07/04/16 Status: DiscontinuedImitrex 6 mg, 0.5 mL, Route: SUB-Q, Drug form: INJ, ONCE, Dosing Weight 72.727, kg, PRN Headache 6-10, Startdate: 07/02/16 14:39:00 CDT Notes: For SUBCUTANEOUS use only Start Date: 07/02/16 Stop Date: 07/02/16 Status: CompletedImitrex 50 mg, 2 tab, Route: PO, Drug form: TAB, Q2H, Dosing Weight 72.727, kg, PRN Headache 4-6, Start date: 07/03/16 22:46:00 CDT, Duration: 30 day, Stop date: 22:45:00 CDT Notes: (Same As: Imitrex) Start Date: 07/03/16 Stop Date: 07/04/16 Status: DiscontinuedImitrex 50 mg oral tablet 50 mg=1 tab, PO, ONCE, PRN Headache, may repeat one time after 2 hours, # 9 tab , 0 Refill(s), Pharmacy: [facility] [id number] Start Date: 07/04/16 Status: OrderedLipitor 20 mg, 2 tab, Route: PO, Drug form: TAB, Bedtime, Start date: 07/01/16 21:00:00 CDT, Duration: 30 day, Stop date: 07/30/16 21:00:00 CDT Notes: (Same As: Lipitor) Start Date: 07/01/16 Stop Date: 07/04/16 Status: Discontinuedmorphine Sulfate 4 mg, 1 mL, Route: IVP, Drug form: SOLN, Q4H, Dosing Weight 72.727, kg, PRN Pain Score 7-10, Start date: 06/30/16 23:56:00 CDT, Duration: 30 day, Stop date : 07/30/16 23:55:00 CDT Notes: (Same as:MORPhine Sulfate) Start Date: 06/30/16 Stop Date: 07/04/16 Status: Discontinuedmorphine Sulfate 4 mg, 1 mL, Route: IVP, Drug form: SOLN, ONCE, Dosing Weight 72.727, kg, Priority: STAT, Start date:06/30/16 19:47:00 CDT, Stop date: 06/30/16 19:47:00 CDT Notes: (Same as:MORPhine Sulfate) Start Date: 06/30/16 Stop Date: 06/30/16 Status: Completednitroglycerin 0.4 mg sublingual tablet 0.4 mg, 1 tab, Route: SL, Drug form: TAB, Q5Min, Dosing Weight 72.727, kg, PRN Chest Pain, Start date: 07/01/16 4:03:00 CDT, Duration: 30 day, Stop date: 07/31 4:02:00 CDT Notes: (Same as:Nitroquick, Nitrostat)"Do Not Crush" Sublingual tablet Start Date: 07/01/16 Stop Date: 07/04/16 Status: DiscontinuedNorco 5/325 oral tablet 1 tab, Route: PO, Drug Form: TAB, Dosing Weight 72.727, kg, Q6H, PRN Pain Score 1-3, Start date: 07/01/16 17:38:00 CDT, Duration: 30 day, Stop date: 07/31/16 17 :37:00 CDT Notes: (Same as: Whitney 325/5) Do not exceed 4gm/day of acetaminophen. Start Date: 07/01/16 Stop Date: 07/04/16 Status: DiscontinuedNorvasc 5 mg, 1 tab, Route: PO, Drug form: TAB, Daily, Dosing Weight 72.727, kg, Start date: 07/02/16 9:00:00 CDT, Duration: 30 day, Stop date: 07/31/16 9:00:00 CDT Notes: (Same as: Vladimir) Start Date: 07/02/16 Stop Date: 07/04/16 Status: Discontinuedondansetron 4 mg, 2 mL, Route: IVP, Drug form: INJ, Q6H, Dosing Weight 72.727, kg, PRN Nausea & Vomiting, Start date: 06/30/16 23:56:00 CDT, Duration: 30 day, Stop date: 07/30/16 23:55:00 CDT Notes: (Same as: Chong) MEDICATION WASTE Product Size: 4 mgProduct Wasted: ___ mg Start Date: 06/30/16 Stop Date: 07/04/16 Status: Discontinuedondansetron 4 mg, 2 mL, Route: IVP, Drug form: INJ, ONCE, Dosing Weight 72.727, kg, Priority : STAT, Start date: 06/30/16 19:47:00 CDT, Stop date: 06/30/16 19:47:00 CDT Notes: (Same as: Chong) MEDICATION WASTE Product Size: 4 mgProduct Wasted: ___ mg Start Date: 06/30/16 Stop Date: 06/30/16 Status: Completedpantoprazole 40 mg oral enteric coated tablet 40 mg=1 tab, PO, BID, # 60 tab, 1 Refill(s), Pharmacy: [facility] [id number] Start Date: 07/04/16 Status: Orderedpneumococcal 13-valent vaccine 0.5 mL, Route: IM, Drug Form: INJ, Daily, Start date: 07/01/16 9:00:00 CDT, Duration: 1 doses or times, Stop date: 07/01/16 9:00:00 CDT Notes: Lightly roll vial (DO NOT SHAKE) before administration. (Same as: Ida 13) Start Date: 07/01/16 Stop Date: 07/03/16 Status: Deletedpneumococcal 13-valent vaccine 0.5 mL, Route: IM, Drug Form: INJ, Daily, Start date: 07/03/16 12:00:00 CDT, Duration: 1 doses or times, Stop date: 07/03/16 12:00:00 CDT Notes: Lightly roll vial (DO NOT SHAKE) before administration. (Same as: Ida Schwab) Start Date: 07/03/16 Stop Date: 07/03/16 Status: Completedpneumococcal 13-valent vaccine 0.5 mL, Route: IM, Drug Form: INJ, Daily, Start date: 07/03/16 10:30:00 CDT, Duration: 1 doses or times, Stop date: 07/03/16 10:30:00 CDT Notes: Lightly roll vial (DO NOT SHAKE) before administration. (Same as: Ida Schwab) Start Date: 07/03/16 Stop Date: 07/03/16 Status: Deletedpotassium chloride 20 mEq/15 mL oral liquid 40 mEq, 30 mL, Route: PO, Drug form: LIQ, ONCE, Dosing Weight 72.727, kg, Priority: STAT, Start date: 06/30/16 19:24:00 CDT, Stop date: 06/30/16 19:24:00 CDT Notes: (Same as: Potassium Chloride) Start Date: 06/30/16 Stop Date: 06/30/16 Status: CompletedProtonix 40 mg, Route: IV, Drug form: INJ, Q12H, Dosing Weight 72.727, kg, Start date: 9:00:00 CDT, Duration: 30 day, Stop date: 07/30/16 21:00:00 CDT Notes: For IV push reconstitute with 10 ml 0.9% sodium chloride and push over 2 minutes. (Same as: Protonix) Start Date: 07/01/16 Stop Date: 07/01/16 Status: DiscontinuedProtonix 40 mg, 1 tab, Route: PO, Drug form: ECTAB, Before Breakfast, Dosing Weight 72.727, kg, Start date: 07/02/16 7:30:00 CDT, Duration: 30 day, Stop date: 07/31 7:30:00 CDT Notes: Tablet should not be chewed or crushed.(Same as: Protonix) Start Date: 07/02/16 Stop Date: 07/03/16 Status: DiscontinuedProtonix 40 mg, 1 tab, Route: PO, Drug form: ECTAB, BID, Dosing Weight 72.727, kg, Start date: 07/03/16 17:00:00 CDT, Duration: 30 day, Stop date: 08/02/16 9:00:00 CDT Notes: Tablet should not be chewed or crushed.(Same as: Protonix) Start Date: 07/03/16 Stop Date: 07/04/16 Status: DiscontinuedSaline Flush 0.9% 10 ml, Route: IVP, Drug Form: INJ, Dosing Weight 72.727, kg, PRN, PRN Line Flush , Start date: 06/30/16 23:56:00 CDT, Duration: 30 day, Stop date: 07/30/16 23:55 :00 CDT Notes: (Same as: BD Posiflush) Start Date: 06/30/16 Stop Date: 07/04/16 Status: DiscontinuedSaline Flush 0.9% 10 mL, Route: IVP, Drug Form: INJ, Dosing Weight 72.727, kg, PRN, PRN Line Flush , Start date: 06/30/16 18:01:00 CDT, Duration: 30 day, Stop date: 07/30/16 18:00 :00 CDT Notes: (Same as: BD Posiflush) Start Date: 06/30/16 Stop Date: 07/01/16 Status: DiscontinuedSodium Chloride 0.9% (Bolus) IV 1,000 mL, 1000 ml/hr, Infuse Over: 1 hr, Route: IV, 1,000, Drug form: INJ, ONCE , Priority: STAT, Dosing Weight 72.727 kg, Start date: 06/30/16 19:47:00 CDT, Duration: 1 doses or times, Stop date: 06/30/16 19:47:00 CDT Start Date: 06/30/16 Stop Date: 06/30/16 Status: Completedsodium chloride 0.9% 1000 ml INJ 1,000 mL 1,000 mL, Rate: 25 ml/hr, Infuse over: 40 hr, Route: IV, Dosing Weight 72.727 kg , Total Volume: 1,000, Start date: 07/03/16 13:52:00 CDT, Duration: 1 day, Stop date: 07/04/16 13:51:00 CDT Start Date: 07/03/16 Stop Date: 07/03/16 Status: Discontinuedsodium chloride 0.9% 1000 ml INJ 1,000 mL 1,000 mL, Rate: 150 ml/hr, Infuse over: 6.7 hr, Route: IV, Dosing Weight 72.727 kg, Total Volume: 1,000, Start date: 06/30/16 23:56:00 CDT, Duration: 30 day, Stop date: 07/30/16 23:55:00 CDT Start Date: 06/30/16 Stop Date: 07/04/16 Status: Discontinuedsucralfate 1 gm, 1 tab, Route: PO, Drug form: TAB, QID, Dosing Weight 72.727, kg, Start date: 07/03/16 17:00:00CDT, Duration: 30 day, Stop date: 08/02/16 13:00:00 CDT Notes: May interfere w/enteral feeds - Take 1 hr before or 2 hr after antacids , dairy pdt, meals & minerals - On empty stomach.For patients unable to swallow tablet, dissolve in 10mL - 30mL of water or juice and stir before giving. (Same As: Carafate) Start Date: 07/03/16 Stop Date: 07/04/16 Status: DiscontinuedTylenol 650 mg, 2 tab, Route: PO, Drug form: TAB, Q6H, Dosing Weight 72.727, kg, PRN Pain Score 1-3, Start date: 07/03/16 22:36:00 CDT, Duration: 30 day, Stop date: 08/02/16 22:35:00 CDT Notes: Do not exceed 4 gm/day. (Same as: Tylenol) Start Date: 07/03/16 Stop Date: 07/04/16 Status: DiscontinuedVentolin HFA 90 mcg/inh inhalation aerosol with adapter 2 puff, Route: INHALATION, Drug Form: AERO/A, Dosing Weight 72.727, kg, QID, Start date: 07/01/16 17:00:00 CDT, Duration: 30 day, Stop date: 07/31/16 13:00: 00 CDT Notes: Albuterol 90 microgram/inh 8gm HFAWASTE: Aerosol - Return to Pharmacy Same as: Ventolin, Proventil Start Date: 07/01/16 Stop Date: 07/04/16 Status: Discontinued Results ELECTROLYTES Most recent to oldest [Reference Range]: 1 2 Sodium Lvl [135-145 mEq/L] 141 mEq/L 139 mEq/L (07/01/16 3:55 AM) (06/30/16 6:30 PM) Potassium Lvl [3.5-5.1 mEq/L] 3.6 mEq/L 3.2 mEq/L (07/01/16 3:55 AM) *LOW* (06/30/16 6:30 PM) Chloride Lvl [95-109 mEq/L] 105 mEq/L 102 mEq/L (07/01/16 3:55 AM) (06/30/16 6:30 PM) CO2 [24-32 mEq/L] 28 mEq/L 29 mEq/L (07/01/16 3:55 AM) (06/30/16 6:30 PM) AGAP [10.0-20.0 mEq/L] 11.6 mEq/L 11.2 mEq/L (07/01/16 3:55 AM) (06/30/16 6:30 PM) CHEM PANEL Most recent to oldest [Reference Range]: 1 2 Creatinine Lvl [0.50-1.40 mg/dL] 0.83 mg/dL 0.88 mg/dL (07/01/16 3:55 AM) (06/30/16 6:30 PM) eGFR 72 mL/min/1.73m2 1 67 mL/min/1.73m2 2 *NA* *NA* (07/01/16 3:55 AM) (06/30/16 6:30 PM) BUN [7-22 mg/dL] 18 mg/dL 18 mg/dL (07/01/16 3:55 AM) (06/30/16 6:30 PM) B/C Ratio [6-25] 22 20 (07/01/16 3:55 AM) (06/30/16 6:30 PM) Glucose Lvl [70-99 mg/dL] 113 mg/dL 112 mg/dL *HI* *HI* (07/01/16 3:55 AM) (06/30/16 6:30 PM) Total Protein [6.4-8.4 g/dL] 6.4 g/dL 7.4 g/dL (07/01/16 3:55 AM) (06/30/16 6:30 PM) Albumin Lvl [3.5-5.0 g/dL] 3.3 g/dL 3.6 g/dL *LOW* (06/30/16 6:30 PM) (07/01/16 3:55 AM) Globulin [2.7-4.2 g/dL] 3.1 g/dL 3.8 g/dL (07/01/16 3:55 AM) (06/30/16 6:30 PM) A/G Ratio [0.7-1.6] 1.1 0.9 (07/01/16 3:55 AM) (06/30/16 6:30 PM) Calcium Lvl [8.5-10.5 mg/dL] 8.1 mg/dL 8.7 mg/dL *LOW* (06/30/16 6:30 PM) (07/01/16 3:55 AM) Magnesium Lvl [1.8-2.4 mg/dL] 2.0 mg/dL (07/01/16 3:55 AM) ALT [0-65 unit/L] 19 unit/L 21 unit/L (07/01/16 3:55 AM) (06/30/16 6:30 PM) AST [0-37 unit/L] 14 unit/L 18 unit/L (07/01/16 3:55 AM) (06/30/16 6:30 PM) Alk Phos [39-136 unit/L] 47 unit/L 53 unit/L (07/01/16 3:55 AM) (06/30/16 6:30 PM) Bili Total [0.2-1.3 mg/dL] 0.2 mg/dL 0.3 mg/dL (07/01/16 3:55 AM) (06/30/16 6:30 PM) Lipase Lvl [73-393 unit/L] 173 unit/L (06/30/16 6:30 PM) 1Result Comment: The eGFR is calculated using [...] eGFR should be multiplied by the estimated BMI.2Result Comment: The eGFR is calculated using the CKD-EPI formula. In most young, healthy individualsthe eGFR will be >90 mL/ min/1.73m2. The [...] eGFR should be multiplied by the estimated BMI.URINE AND STOOL Most recent to oldest [Reference Range]: 1 2 UA Turbidity [Clear] Slight Clear *ABN* (07/01/16 12:13 AM) (07/01/16 5:58 AM) UA Color Ltyellow *NA* (07/01/16 5:58 AM) UA Color [Yellow] Yellow *NA* (07/01/16 12:13 AM) UA pH [5.0-8.0] 5.0 5.0 (07/01/16 5:58 AM) (07/01/16 12:13 AM) UA Spec Grav [<=1.030] 1.013 1.018 (07/01/16 5:58 AM) (07/01/16 12:13 AM) UA Glucose [Negative mg/dL] Negative mg/dL Negative mg/dL *NA* *NA* (07/01/16 5:58 AM) (07/01/16 12:13 AM) UA Blood [Negative] Negative Negative (07/01/16 5:58 AM) (07/01/16 12:13 AM) UA Ketones [Negative mg/dL] Trace mg/dL Trace mg/dL *ABN* *ABN* (07/01/16 5:58 AM) (07/01/16 12:13 AM) UA Protein [Negative mg/dL] Negative mg/dL Negative mg/dL (07/01/16 5:58 AM) (07/01/16 12:13 AM) UA Urobilinogen [0.1-1.0 mg/dL] <=1.0 mg/dL <=1.0 mg/dL *NA* *NA* (07/01/16 5:58 AM) (07/01/16 12:13 AM) UA Bili [Negative] Negative Negative *NA* *NA* (07/01/16 5:58 AM) (07/01/16 12:13 AM) UA Leuk Est [Negative] Negative Negative (07/01/16 5:58 AM) (07/01/16 12:13 AM) UA Nitrite [Negative] Negative Negative (07/01/16 5:58 AM) (07/01/16 12:13 AM) UA WBC [0-5 /HPF] 3 /HPF 2 /HPF (07/01/16 5:58 AM) (07/01/16 12:13 AM) UA RBC [0-2 /HPF] 1 /HPF 2 /HPF (07/01/16 5:58 AM) (07/01/16 12:13 AM) UA Sq Epi [Few /LPF] Occasional /LPF Occasional /LPF *NA* *NA* (07/01/16 5:58 AM) (07/01/16 12:13 AM) UA Mucus [None Seen /LPF] Few /LPF *NA* (07/01/16 12:13 AM) HEMATOLOGY Most recent to oldest [Reference Range]: 1 2 WBC [3.7-10.4 K/CMM] 3.5 K/CMM 6.0 K/CMM *LOW* (06/30/16 6:30 PM) (07/01/16 3:55 AM) RBC [4.20-5.40 M/CMM] 4.19 M/CMM 4.64 M/CMM *LOW* (06/30/16 6:30 PM) (07/01/16 3:55 AM) Hgb [12.0-16.0 g/dL] 11.2 g/dL 10.2 g/dL *LOW* *LOW* (07/01/16 3:55 AM) (06/30/16 6:30 PM) Hct [36.0-48.0 %] 33.9 % 37.4 % *LOW* (06/30/16 6:30 PM) (07/01/16 3:55 AM) MCV [80.0-98.0 fL] 81.0 fL 80.6 fL (07/01/16 3:55 AM) (06/30/16 6:30 PM) MCH [27.0-31.0 pg] 26.8 pg 22.0 pg *LOW* *LOW* (07/01/16 3:55 AM) (06/30/16 6:30 PM) MCHC [32.0-36.0 g/dL] 33.1 g/dL 27.3 g/dL (07/01/16 3:55 AM) *LOW* (06/30/16 6:30 PM) RDW [11.5-14.5 %] 14.5 % 14.6 % (07/01/16 3:55 AM) *HI* (06/30/16 6:30 PM) Platelet [133-450 K/CMM] 235 K/CMM 270 K/CMM (07/01/16 3:55 AM) (06/30/16 6:30 PM) MPV [7.4-10.4 fL] 7.2 fL 7.3 fL *LOW* *LOW* (07/01/16 3:55 AM) (06/30/16 6:30 PM) Segs [45.0-75.0 %] 58.8 % 57.7 % (07/01/16 3:55 AM) (06/30/16 6:30 PM) Lymphocytes [20.0-40.0 %] 29.5 % 31.4 % (07/01/16 3:55 AM) (06/30/16 6:30 PM) Monocytes [2.0-12.0 %] 9.6 % 7.6 % (07/01/16 3:55 AM) (06/30/16 6:30 PM) Eosinophils [0.0-4.0 %] 1.1 % 2.3 % (07/01/16 3:55 AM) (06/30/16 6:30 PM) Basophils [0.0-1.0 %] 1.0 % 1.0 % (07/01/16 3:55 AM) (06/30/16 6:30 PM) Segs-Bands # [1.5-8.1 K/CMM] 2.1 K/CMM 3.5 K/CMM (07/01/16 3:55 AM) (06/30/16 6:30 PM) Lymphocytes # [1.0-5.5 K/CMM] 1.0 K/CMM 1.9 K/CMM (07/01/16 3:55 AM) (06/30/16 6:30 PM) Monocytes # [0.0-0.8 K/CMM] 0.3 K/CMM 0.5 K/CMM (07/01/16 3:55 AM) (06/30/16 6:30 PM) Eosinophils # [0.0-0.5 K/CMM] 0.1 K/CMM (06/30/16 6:30 PM) Basophils # [0.0-0.2 K/CMM] 0.1 K/CMM (06/30/16 6:30 PM) RBC Morph Normal (06/30/16 6:30 PM) Plt Morph Normal (06/30/16 6:30 PM) Immunizations Given and Recorded Vaccine Date Status Refusal Reason pneumococcal 13-valent vaccine 07/03/16 Given Procedures Procedure Date Related Diagnosis Body Site Diagnostic procedure Social History Social History Type Response Alcohol Past, Frequency: 1-2 times per year. Smoking Status Never smoker; Exposure to Tobacco Smoke None; Cigarette Smoking Last 365 Days No; Reg Smoking Cessation Counseling No Assessment and Plan Extracted from: Title: Clinical Document Author: Yony Gotti MD Date: 07/04/16 Progress Note - Daily [facility] Completed: Jun, 15:38 by Yony Gotti MD RM: [address] [place] 71y (: 1945) F Attending: Sammy Hyde MD Service: Internal Medicine Reason for Admission: ACUTE PANCREATITIS Working DRG: None Documented Code status: Full Code [Ordered] Current diet: Isolation: None Documented Allergies: iodine SUBJECTIVE abdominal pain is better OBJECTIVE (no lab data in past 24 hours) [place] still necessary (Yes/No): Line still necessary (Yes/No): Vitals Tmp(F) Pulse BP RR SpO2 FIO2 07/04 11:46 98.5 93 106/68 16 --- --- 07/04 07:59 98.4 70 140/83 16 --- --- 07/04 03:24 98.8 65 132/83 16 --- --- 07/03 22:18 98.7 84 134/78 16 --- --- 07/03 19:25 99 84 137/83 16 --- --- 24 Hr Tmax: 99F (37.22c) at 07/03 19:25 Vital Signs are the last 5 in the past 48 hours. Date Wt(kg) Wt(lb) Ht(cm) Ht(in) Method 07/04 71.14 156.50 Measured 07/01 72.73 160.00 149.86 59.00 Estimated 06/30 (initial) 72.73 160.00 Measured 06/30 149.86 59.00 Stated I&O Record In Out Bal 07/04 24hr Tot 1200 0 1200 07/03 24hr Tot 700 300 400 Medications (14) Active Scheduled Meds (7): 07/01/16 albuterol (Ventolin HFA 90 mcg/inh inhalation aerosol with adapter) 2 puff INHALATION QID 07/02/16 amLODIPine (Norvasc) 5 mg PO Daily 07/02/16 aspirin (aspirin 81 mg tablet, enteric coated) 81 mg PO Daily 07/01/16 atorvastatin (Lipitor) 20 mg PO Bedtime 07/02/16 hydrochlorothiazide (hydrochlorothiazide 25 mg oral tablet) 25 mg PO Daily 07/03/16 pantoprazole (Protonix) 40 mg PO BID 07/03/16 sucralfate 1 gm PO QID Unscheduled Meds: None PRN Meds (6): 07/01/16 acetaminophen-hydrocodone (Whitney 5/325 oral tablet) 1 tab PO Q6H 07/03/16 acetaminophen (Tylenol) 650 mg PO Q6H 06/30/16 morphine Sulfate 4 mg IVP Q4H 07/01/16 nitroglycerin (nitroglycerin 0.4 mg sublingual tablet) 0.4 mg SL Q5Min 06/30/16 ondansetron 4 mg IVP Q6H 06/30/16 sodium chloride (Saline Flush 0.9%) 10 ml IVP PRN One Time Meds: None Continuous Infusions (1): 06/30/16 sodium chloride 0.9% 1000 ml INJ 1,000 mL 1,000 mL 150 ml/hr EXAM HEENT: EOM intact, No scleral icterus NECK: Supple CHEST: CTA B/L, No retractions, CVS: S1 and S2 WNL ABDOMEN: soft, BS +, no rebound, No guarding, No tenderness EXT: No edema, SKIN: No jaundice NEURO: AAO x 3 IMPRESSION 1. Abdominal pain 2. Pylorus Ulcer with gastritis. RECOMMENDATIONS: 1. PPI and carafate 2. Await Bx 3. Office f/u in 2-3 weeks 4. Avoid NSAIDS d/w Family and nurse.
--- OUTSIDE RECORDS SUMMARY | 2018-03-18 11:31 | XMS REPORT | Summary of Care ---
:1945 Author Organization [facility] Address [address] [place], [place] [address]- Encounter HQ Encntr_alias(FIN) [id number] Date(s): 07/18/16 - 07/18/16 [facility] [address] [place] [address]- Discharge Disposition: Home or Self Care Attending Physician: Sammy Hyde MD Referring Physician: Sammy Hyde MD Vital Signs No data available for this section Problem List Condition Effective Dates Status Health Status Informant Brain concussion(Confirmed) Resolved H/O hiatal hernia(Confirmed) Resolved H/O completed stroke(Confirmed) Resolved Asthma(Confirmed) Resolved Hypertension(Confirmed) Resolved Migraine(Confirmed) Resolved Allergies, Adverse Reactions, Alerts Substance Reaction Severity Status iodine Active Medications No data available for this section Results No data available for this section Immunizations Given and Recorded Vaccine Date Status [...]
--- OUTSIDE RECORDS SUMMARY | 2018-03-18 11:31 | XMS REPORT ---
:1945 [facility] Address [address] [place] [address] Dr. Siegel. [address] [place] [id number] Care Team Providers Name Role Phone UNKNOWN, REFFERING Primary Care Provider Unavailable Problems This patient has no known problems. Allergies, Adverse Reactions, Alerts This patient has no known allergies or adverse reactions. Medications This patient has no known medications. Encounters Start End Encounter Admission Attending Care Care Encounter Date/Time Date/Time Type Type Clinicians Facility Department ID 2016-10-30 2016-10-30 Outpatient C [facility] [id number] 06:44:00 06:44:00
--- OUTSIDE RECORDS SUMMARY | 2018-03-18 11:31 | XMS REPORT | Summary of Care ---
:1945 Author Organization [facility] Address [address] [place], [place] [address]- Encounter [facility] Encntr_alimy(FIN) [id number] Date(s): 06/30/16 - 06/30/16 [facility] [address] [place] [address]- Discharge Disposition: Home or Self Care Attending Physician: Shiela Bell DO Referring Physician: Shiela Bell DO Vital Signs No data available for this section Problem List Condition Effective Dates Status Health Status Informant Brain concussion(Confirmed) Resolved H/O hiatal hernia(Confirmed) Resolved H/O completed stroke(Confirmed) Resolved Asthma(Confirmed) Resolved Hypertension(Confirmed) Resolved Migraine(Confirmed) Resolved Allergies, Adverse Reactions, Alerts Substance Reaction Severity Status iodine Active Medications No data available for this section Results No data available for this section Immunizations No data available for this section Procedures Procedure Date Related Diagnosis Body Site Diagnostic procedure Social History Social History Type Response Alcohol Past, Frequency: 1-2 times per year. Smoking Status Never smoker; Exposure to Tobacco Smoke None; Cigarette Smoking Last 365 Days No; Reg Smoking Cessation Counseling No Assessment and Plan No data available for this section
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
[2018-03-18] MEDS ORDERED: NA CHLORIDE 0.9% 500 ML ONE (11:53)
[2018-03-18] MEDS ORDERED: CYCLOPENTOLATE 1% OPTH 2 ML ONE (11:53)
[2018-03-18] MEDS ORDERED: TETRACAINE HCL 0.5% 2ML OPTH ONE (11:53)
[2018-03-18] MEDS ORDERED: LIDOCAINE 2% MPF 5 ML VIAL ONE (11:53)
[2018-03-18] MEDS ORDERED: BUPIVACAINE 0.25% PF 10 ML VIAL ONE (11:53)
[2018-03-18] MEDS ORDERED: PHENYLEPHRINE 10% OPTH 5ML ONE (11:53)
[2018-03-18] MEDS ORDERED: PHENYLEPHRINE 10% OPTH 5ML OPTH ONE ×2 (12:03→12:07)
[2018-03-18] MEDS ORDERED: CYCLOPENTOLATE 1% OPTH 2 ML OPTH ONE ×2 (12:03→12:07)
[2018-03-18] MEDS ORDERED: PROPOFOL 200 MG/20 ML VIAL IV ONE (13:07)
[2018-03-18] MEDS ORDERED: LIDOCAINE 1% MPF 2 ML AMPULE ONE (13:10)
[2018-03-18] MEDS ORDERED: NS 0.9% VIAL 10 ML ONE (13:40)
[2018-03-18] MEDS ORDERED: EPINEPHRINE/PF 1 MG/ML AMP ONE (13:40)
[2018-03-18] MEDS ORDERED: BALANCED SALT IRRIG PLAIN 500 ML BTL IRR ONE (13:40)
[2018-03-18] MEDS ORDERED: DUOVISC 1 KIT OPTH ONE (13:41)
[2018-03-18] MEDS ORDERED: MOXIFLOXACIN HCL 10 DROPS/ML **OR USE OPTH ONE (13:41)
--- NOTE | 2018-03-18 14:15 | P.BOP ---
Preoperative diagnosis: Nuclear sclerotic and posterior subcapsular cataract, regular astigmatism R Postoperative diagnosis: Same Primary procedure: Phacoemulsification with Toric IOL OD Estimated blood loss: None Anesthesia: Local (Subtenon's infusion with anesthesia for cataract surgery) Complications: None Implants: [id number] +16.5 @ 19 degrees Transferred to: Other (Day surgery) Condition: Good
--- NOTE | 2018-03-19 01:29 | OP ---
Date of Procedure: 03/18/2018 Surgeon: Ynes Romeo MD Anesthesiologist: Christiane Abdullahi CRNA, and Christian Higgins M.D. Preoperative Diagnosis: Nuclear sclerotic and posterior subcapsular cataract and regular astigmatism , OD (right eye). Operation Performed: Phacoemulsification with toric intraocular lens implant, right eye. Anesthesia: Per cataract surgery. Complications: None. Description Of Procedure: In day surgery, the patient was prepped with Betadine and draped. A conju nctival incision was made in the inferior nasal quadrant with Luis scissors. A sub-Tenon block c onsisting of a 1:1 mixture of 2% Xylocaine and 0.25% bupivacaine was placed through the conjunctival incision with a blunt cannula. A [place] balloon was placed over the eye and the patient was transferr ed to the operating room. In the operating room the patient was prepped and draped in the usual sterile fashion for ophthalmic surgery. A lid speculum was placed in the right eye. Two paracentesis sites were made superiorly an d inferiorly in the limbal cornea. Viscoat was placed in the anterior chamber and a crescent blade w as used to make a corneal groove and tunnel, and a keratome was used to enter the anterior chamber. Provisc was placed in the anterior chamber and a 360 degree capsulotomy was performed with a cystitom e. The lens was hydrodissected with BSS and rotated freely. The lens was removed with a stop and ch op technique. A 4.04 phaco CDE was used to remove the lens. Residual cortex was removed with the ir rigation and aspiration. Provisc was placed in the capsular bag. A ZHK111 +16.5 at 19 degrees lens was placed in the capsular bag without complications. Irrigation and aspiration was used to remove r esidual viscoelastic. The paracentesis sites were hydrated with BSS. The wound and paracentesis sit es were inspected and found to be watertight. Vigamox 0.07 cc was placed intracamerally at the end o f the procedure. The eye was irrigated with balanced salt solution. The eye was patched with a soft cotton patch and Medrano metal shield. The patient was returned to day surgery in good condition. Comments: Residual PSC remained at the end of the procedure. Discharge Instructions: Ms. Swann is discharged to home in good condition and is to follow up with Inocencia Romeo in the morning. CAROLANN/BLADE Voice ID: [id number] Report ID: [id number]
== END 2018-03-18 14:50 | disposition home or self-care (01) ==
LOC: OR 11:15
PROVIDERS: ATTEND Ophthalmology Retina Specialist
PROC: 08RJ3JZ Replacement of Right Lens with Synthetic Substitute, Percutaneous Approach (ICD-10-PCS; principal; 2018-03-18 11:15)
DX: H25.11 Age-related nuclear cataract, right eye (principal); H25.041 Posterior subcapsular polar age-related cataract, right eye; H52.221 Regular astigmatism, right eye; I10 Essential (primary) hypertension; I25.10 Atherosclerotic heart disease of native coronary artery without angina pectoris; E78.00 Pure hypercholesterolemia, unspecified; J45.909 Unspecified asthma, uncomplicated; M81.0 Age-related osteoporosis without current pathological fracture; Z86.73 Personal history of transient ischemic attack (TIA), and cerebral infarction without residual deficits; Z98.61 Coronary angioplasty status; Z91.041 Radiographic dye allergy status
CPT/HCPCS: 36415; 66984; 84132; J0171; J2001; J2704; V2787

== ENCOUNTER 2019-12-19 15:32 | Emergency (ER) | payer OTHER ==
--- OUTSIDE RECORDS SUMMARY | 2019-12-19 15:38 | XMS REPORT | Continuity of Care Document ---
:1945 Author Organization [employer] Care Team Providers Name Role Phone [employer] Unavailable Un available Problems Problem Status Onset Classification Date Comments Sourc e Date Reported M79.89- OTHER Active 05/14/19 SPECIFIED SOFT 20 [place] TISSUE DISO UNK Active 12/10/19 19 [place] RIGHT KNEE DJD Active 12/10/19 19 [place] SOB Active 01/16/20 17 [place] ACUTE ASTHMA Active 01/16/20 EXACERBATION 17 [facility] st DX: Active 07/14/19 N83.201=UNSPECIFIED 17 [place] OVARIAN CYST, RI ACUTE PANCREATITIS Active 07/01/19 H 17 [place] ABNORMAL LABS Active 07/01/19 [facility] [place] R10.13 Active 07/01/19 17 [place] Discharge 03/31/20 04/03/2016 Diagnosis: Allergic 16 [place] reaction Discharge 03/31/20 04/03/2016 Diagnosis: Stridor 16 [place] Discharge 03/31/20 04/03/2016 Diagnosis: Acute 16 [place] dyspnea RASH Active 03/31/[address] Esophageal reflux Active Problem 12/05/2019 [facility] Essential Active Diagnosis 12/05/2019 [facility] hypertension [facility] Migraine Active Problem 10/21/2016 [facility] Other and Active Problem 12/05/2019 Le[facility] unspecified Family & hyperlipidemia Inter nal [facility] Peptic ulcer Active Problem 12/05/2019 Enrique ll disease [facility] Duodenitis Active Problem 12/05/2019 [facility] Mild persistent Active Problem 12/05/2019 Cam pbell asthma without Famil y & complication Interna l [facility] Hernia, hiatal Active Problem 10/21/2016 Raf jiang [facility] Seasonal allergic Active Problem 10/21/2016 C ampbell conjunctivitis [facility] y & [facility] Hx of colonic polyp Active Problem 12/05/2019 [facility] BMI 32.0-32.9,adult Active Problem 12/05/2019 [facility] Bronchitis Active Diagnosis 01/31/2017 [facility] Hospital discharge Active Diagnosis 01/31/2017 [facility] follow-up [facility] Cough Active Diagnosis 05/03/2017 [facility] Right foot pain Active Diagnosis 05/03/2017 [facility] p[facility] Right anterior knee Active Diagnosis 05/03/2017 [facility] pain [facility] Right elbow pain Active Diagnosis 05/03/2017 Ca mp[facility] Chest pain in adult Active Diagnosis 05/03/2017 [facility] Migraines Active Problem 04/14/2015 [facility] GERD Active Problem 04/14/2015 [facility] (gastroesophageal Fa citlaly & reflux disease) Inte rnal [facility] Hypertension Active Problem 04/14/2015 Enrique linda [facility] Hyperlipidemia Active Problem 04/14/2015 Raf j[facility] Age-related Active Diagnosis 05/03/2019 Ese floyd osteoporosis Family & without current Inte rnal pathological Med Ass oc fracture Frequent falls Active Problem 12/05/2019 Raf jiang [facility] Abdominal aortic Active Problem 11/22/2019 Fior cagle aneurysm (AAA) Famil y & without rupture Inte rnal Med [facility] Osteopenia, Active Diagnosis 10/09/2017 Ese l unspecified Family & location [facility] Screening for Active Diagnosis 10/13/2018 Yeni taylor breast cancer [facility] Screening for colon Active Diagnosis 10/13/2018 [facility] cancer [facility] Encntr for general Active Diagnosis 10/13/2018 [facility] adult medical exam F amily & w/o abnormal Interna l findings Med Assoc Hyperlipidemia Active Diagnosis 11/17/2015 Raf jiang [facility] Obesity Active Diagnosis 06/23/2015 [facility] Aortic aneurysm Active Diagnosis 06/23/2015 Huey pbell [facility] GERD Active Diagnosis 06/23/2015 Le[facility] (gastroesophageal Fa citally & reflux disease) Inte rnal [facility] Rash Active Diagnosis 04/04/2016 [facility] SOB (shortness of Active Diagnosis 08/28/2018 C ampbell breath) [facility] Lower respiratory Active Diagnosis 07/02/2016 C ampbell tract infection Fami ly & [facility] Epigastric pain Active Diagnosis 07/02/2016 [facility]uey pbell [facility] Prediabetes Active Diagnosis 02/22/2016 Ese floyd [facility] Right wrist pain Active Diagnosis 11/17/2015 Ca mpbell [facility] Abnormal chest Active Diagnosis 11/17/2015 Raf jiang x-ray [facility] Right shoulder pain Active Diagnosis 11/17/2015 [facility] Age-related Active Problem 12/05/2019 Ese floyd cataract of both Fam padmaja & eyes, unspecified In ternal age-related Med Asso c cataract type Sciatica, right Active Problem 12/05/2019 Huey pbell side [facility] History of total Active Problem 12/05/2019 Fior cagle right knee Family & replacement (TKR) In ternal Med Assoc Osteopenia of Active Problem 12/05/2019 Yeni taylor multiple sites Famil y & [facility] Sciatica, left side Active Problem 12/05/2019 [facility] Primary Active Problem 12/05/2019 [facility] osteoarthritis of Fa citlaly & both knees [facility] Submucous leiomyoma Active Diagnosis 08/04/2016 [facility] of uterus [facility] Acute left-sided Active Diagnosis 08/04/2016 Fior cagle thoracic back pain F amily & [facility] Asymptomatic Active Diagnosis 10/13/2018 Enrique linda postmenopausal Famil y & estrogen deficiency [facility] Breast cancer Active Diagnosis 07/20/2016 Yeni taylor screening [facility] 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 Active Diagnosis 07/20/2016 Lief (general) (routine) Family & w/o abn findings Int ernal Med Assoc Cyst of right ovary Active Diagnosis 07/14/2016 [facility] Acute gastritis Active Diagnosis 07/14/2016 Cam pbell without hemorrhage, Family & unspecified Internal gastritis type Med A ssoc Acute abdominal Active Diagnosis 07/14/2016 Huey pbell pain [facility] Preop testing Active Diagnosis 10/17/2018 Yeni taylor [facility] Urinary tract Active Diagnosis 11/12/2018 Yeni taylor infection without Fa citlaly & hematuria, site Inte rnal unspecified Med Asso c Poison rin Active Diagnosis 07/31/2018 [facility] Mild intermittent Active Problem 08/28/2018 C ampbell asthma with Family & exacerbation [facility] Tremor of both Active Diagnosis 04/26/2019 Camp jiang hands [facility] Musculoskeletal Active Diagnosis 04/26/2019 Cam pbell chest pain [facility] Acute pain of right Active Diagnosis 04/26/2019 Yadav knee [facility] Pain in right leg Active Diagnosis 05/23/2019 C [facility] Swelling of right Active Diagnosis 05/23/2019 C ampbell lower extremity Fami ly & [facility] Other specified Active Diagnosis 05/23/2019 Cam pbell soft tissue Family & disorders [facility] OM (onychomycosis) Active Diagnosis 05/23/2019 [facility] Anemia, unspecified Active Diagnosis 12/05/2019 Yadav type [facility] Pleurisy Active Diagnosis 12/05/2019 Yadav [facility] Lower extremity Active Diagnosis 12/05/2019 Cam pbell edema [facility] Thoracic aortic Active Problem 12/05/2019 Cam pbell aneurysm without Fam padmaja & rupture [facility] Pneumonia of left Active Diagnosis 12/05/2019 C ampbell lower lobe due to Fa citlaly & infectious organism [facility] Acute pain of left Active Diagnosis 12/05/2019 Yadav shoulder [facility] Acute kidney injury Active Diagnosis 12/05/2019 [facility] Asthma (disorder) Resolved Problem 01/21/2017 [facility] [place] Hypertensive Active Problem 05/17/2019 MH disorder, systemic [place] arterial (disorder) Migraine (disorder) Resolved Problem 01/21/2017 [facility] [place] Concussion injury Resolved Problem 01/21/2017 M H of brain (disorder) [place] History of - Resolved Problem 01/21/2017 MH abdominal hernia Rain[place] theast (context-dependent category) History of - CVA Resolved Problem 01/21/2017 MH (context-dependent [place] category) Arthritis Active Problem 05/17/2019 [facility] (disorder) [place] Coronary Active Problem 05/17/2019 MH arteriosclerosis Raina theast (disorder) Gastroesophageal Active Problem 05/17/2019 MH reflux disease [place] (disorder) Hearing loss Active Problem 05/17/2019 [facility] (finding) [place] Transient ischemic Resolved Problem 05/17/2019 MH attack (disorder) [place] ACUTE PANCREATITIS Active M H WITHOUT NECROSIS OR [place] I EPIGASTRIC PAIN Active [facility] [place] UNSPECIFIED OVARIAN Active MH CYST, RIGHT SIDE Raina theast UNSPECIFIED ASTHMA Active M H WITH (ACUTE) [facility] EXACERBA UNILATERAL PRIMARY Active M H OSTEOARTHRITIS, [place] RIGHT Medications Medication Details Route Status Patient Ordering Order Source Instructions Provider Date Furosemide 1 tablet Orally Active 20 MG Orally Sundeep 12/02/ Rafbel l Once a day 2019 [facility] Potassium 1 capsule Orally Active 10 MEQ Orally Sundeep 12/02/ [place] Chloride with food Once a day 2019 [facility] Tessalon Perles 1 capsule Orally Active 100 MG Orally Yadav Medrano Yadav as needed Three times a 2019 [facility] day [facility] Zithromax Z-Wilbert 2 tablets Orally Active 250 MG Orally Yadav Medrano Yadav day 1 then as directed 2019 Family & 1 tab each Internal day for the Med Assoc next 4 days Famotidine 1 tablet at Orally Active 40 MG Orally Sundeep 11/11/ [place] jiang bedtime Once a day 2019 [facility] Acetaminophen 1 tab, PO, Active 325 MG / Q6H, PRN 2018 [facility] Hydrocodone Pain Score Bitartrate 7.5 7-10, # 40 MG Oral Tablet tab, 0 [[place] 7.5/325] Refill(s), given to patient Protonix Notes: Inactive Tablet 2018 [facility] should not be chewed or crushed. (Same as: Protonix) Acetaminophen Notes: Same No Longer 325 MG / as [place] Active 2018 [facility] Hydrocodone 325-7.5mg Bitartrate 7.5 Do not MG Oral Tablet exceed [[place] 7.5/325] 4gm/day of acetaminoph en. Aspirin 325 MG 325 mg, PO, Active Enteric Coated Q12H, # 60 2018 [facility] ast Tablet tab, 0 Refill(s) Hydrochlorothia Notes: No Longer zide 25 MG / (triamteren Active 2018 [facility] Triamterene e-hydrochlo 37.5 MG Oral rothiazide Tablet 37.5-25 mg TAB) (Same As: Maxzide-25) Omeprazole 40 mg, No Longer Route: PO, Active 2018 [facility] Drug form: DRC, Daily, Dosing Weight 71.818, kg, Start date: 01/07/19 9:00:00 CDT, Duration: 30 day, Stop date: 02/05/19 9:00:00 CDT Raloxifene Notes: No Longer (Same Active 2018 [facility] as:[place]) "Do Not Crush" rosuvastatin Notes: Same No Longer as Crestor Active 2018 [facility] Mupirocin 1 appl, No Longer Route: Active 2018 [facility] NASAL, Q12H, Drug form: OINT, Start date: 01/06/19 21:00:00 CDT, Duration: 30 day, Stop date: 02/05/19 9:00:00 CDT, 0 sennosides, FPC Notes: No Longer (Same as: Active 2018 [facility] Senokot) gabapentin 300 Notes: No Longer MG Oral Capsule (Same as: Active [facility] Neurontin) Aspirin 325 MG 325 mg, Inactive Enteric Coated Route: PO, 2018 [place] [facility] Tablet Drug form: ECTAB, BID, Dosing Weight 71.818, kg, Start date: 01/06/19 17:00:00 CDT, Duration: 30 day, Stop date: 02/05/19 9:00:00 CDT Docusate Notes: No Longer (Same as: Active 2018 [facility] Colace) (Do Not Crush) Protonix Notes: No Longer Tablet Active 2018 [facility] should not be chewed or crushed. (Same as: Protonix) Cefazolin Notes: No Longer (Same As: Active 2018 [facility] Ancef, Kefzol) MEDICATION WASTE Product Size: 1000 mg Product Wasted: ___ mg Aspirin Notes: Take No Longer with food. Active 2018 [facility] Oxycodone 5 mg, Inactive Hydrochloride 5 Route: PO, 2018 [place] [facility] Oral Tablet Drug form: TAB, Q4H, Dosing Weight 71.818, kg, PRN Pain Score 4-6, Start date: 01/06/19 9:47:00 CDT, Duration: 30 day, Stop date: 02/05/19 9:46:00 CDT Fentanyl 25 Inactive microgram, 2018 [facility] Route: IVP, Q5Min, Dosing Weight 71.818, kg, PRN Pain Score 4-6, Priority: Routine, Start date: 01/06/19 9:47:00 CDT, Duration: 4 doses or times, Stop date: Limited # of times Hydromorphone 0.5 mg, Inactive Route: IVP, 2018 [facility] Q5Min, Dosing Weight 71.818, kg, PRN Pain Score 7-10, Start date: 01/06/19 9:47:00 CDT, Duration: 4 doses or times, Stop date: Limited # of times Flumazenil 0.2 mg, Inactive Route: IVP, 2018 [facility] PRN, Dosing Weight 71.818, kg, PRN Benzodiazep ine Reversal, Initial dose, Start date: 01/06/19 9:47:00 CDT, Duration: 30 day, Stop date: 02/05/19 9:46:00 CDT Naloxone 0.4 mg, Inactive Route: IVP, 2018 [facility] Q2MIN, Dosing Weight 71.818, kg, PRN Narcotic Reversal, Start date: 01/06/19 9:47:00 CDT, Duration: 8 doses or times, Stop date: Limited # of times Ondansetron 4 mg, Inactive Route: IVP, 2018 [facility] ONCE, Dosing Weight 71.818, kg, PRN Nausea & Vomiting, Start date: 01/06/19 9:47:00 CDT 1/2 NS 1,000 mL 1,000 mL, No Longer Rate: 75 Active 2018 [facility] ml/hr, Infuse over: 13.3 hr, Route: IV, Dosing Weight 71.818 kg, Total Volume: 1,000, Start date: 01/06/19 9:36:00 CDT, Duration: 30 day, Stop date: 02/05/19 9:35:00 CDT, 1.76, m2, 0 Tramadol Notes: Not No Longer to exceed Active 2018 [facility] 400mg/day. (Same As: Ultram) Oxycodone Notes: No Longer Hydrochloride 5 (Same as: Active 2019 [place] Oral Tablet Roxicodone) Naloxone Notes: Same No Longer as Narcan Active 2018 [facility] tizanidine Notes: No Longer (Same As: Active 2018 [facility] Zanaflex) Ondansetron Notes: No Longer (Same as: Active 2018 [facility] Zofran) MEDICATION WASTE Product Size: 4 mg Product Wasted: ___ mg Diphenhydramine 12.5 mg, No Longer 0.5 tab, Active 2018 [facility] Route: PO, Drug form: TAB, Q6H, Dosing Weight 71.818, kg, PRN Itching, Start date: 01/06/19 9:36:00 CDT, Duration: 30 day, Stop date: 02/05/19 9:35:00 CDT, 0 ondansetron Route: IV, Inactive (ANES) Drug form: 2018 [facility] INJ, ONCE, Stop date: 01/06/19 9:33:00 CDT glycopyrrolate Route: IV, Inactive (ANES) Drug form: 2018 [facility] INJ, ONCE, Stop date: 01/06/19 9:33:00 CDT neostigmine Route: IV, Inactive (ANES) Drug form: 2018 [facility] INJ, ONCE, Stop date: 01/06/19 9:33:00 CDT tranexamic acid Route: IV, Inactive (ANES) Drug form: 2018 [facility] INJ, ONCE, Stop date: 01/06/19 9:28:00 CDT metoclopramide Route: IV, Inactive (ANES) Drug form: 2018 [facility] INJ, ONCE, Stop date: 01/06/19 9:03:00 CDT dexamethasone Route: IV, Inactive (ANES) Drug form: 2018 [facility] INJ, ONCE, Stop date: 01/06/19 8:58:00 CDT ceFAZolin Route: IV, Inactive (ANES) Drug form: 2018 [facility] INJ, ONCE, Stop date: 01/06/19 8:53:00 CDT lidocaine Route: IV, Inactive (ANES) Drug form: 2018 [facility] INJ, ONCE, Stop date: 01/06/19 8:53:00 CDT fentaNYL (ANES) Route: IV, Inactive Drug form: 2018 [facility] INJ, ONCE, Stop date: 01/06/19 8:53:00 CDT propofol (ANES) Route: IV, Inactive Drug form: 2018 [facility] INJ, ONCE, Stop date: 01/06/19 8:53:00 CDT rocuronium Route: IV, Inactive (ANES) Drug form: 2018 [facility] INJ, ONCE, Stop date: 01/06/19 8:53:00 CDT Lactated Route: IV, Inactive Ringers Total 2018 [facility] Injection IV Volume: (ANES) 1000 mL 1,000, Start date: 01/06/19 7:57:00 CDT, Stop date: 01/06/19 8:57:00 CDT Zofran 4 mg, Inactive Route: IVP, 2018 [facility] ONCE, Dosing Weight 71.818, kg, Start date: 01/06/19 7:16:00 CDT, Stop date: 01/06/19 7:16:00 CDT Calcium 1,000 mL, Inactive Chloride 0.0014 Rate: [address] MEQ/ML / ml/hr, Potassium Infuse Chloride 0.004 over: 13.3 MEQ/ML / Sodium hr, Route: Chloride 0.103 IV, Dosing MEQ/ML / Sodium Weight Lactate 0.028 71.818 kg, MEQ/ML Total Injectable Volume: Solution 1,000, Start date: 01/06/19 5:26:00 CDT, Duration: 30 day, Stop date: 02/05/19 5:25:00 CDT, 1.76, m2, 0 ropivacaine Notes: No Longer NOT FOR Active 2018 [facility] IV use Each mL contains: Ropivacaine 2.46 mg, Epinephrine 0.005 mg, Clonidine 0.0008 mg and Ketorolac 0.3 mg in Sodium Chloride rosuvastatin 20 20 mg = 1 Active mg oral tablet tab, PO, 2018 [place] Daily, 0 Refill(s) gabapentin 300 300 mg = 1 Active MG Oral Capsule cap, PO, [address] [place] BID, 0 Refill(s) omeprazole 40 40 mg = 1 Active mg oral delayed cap, PO, [address] [place] release capsule Daily, 0 Refill(s) Hydrochlorothia 1 tab, PO, Active zide 25 MG / Daily, 0 2018 [facility] Triamterene Refill(s) 37.5 MG Oral Tablet raloxifene 60 60 mg = 1 Active mg oral tablet tab, PO, 2018 [place] Daily, 0 Refill(s) Calcium 600 +D 1 tab, PO, Active oral tablet TID, 0 2018 Refill(s) cetirizine 10 10 mg = 1 Active mg oral tablet tab, PO, 2018 [place] Daily, 0 Refill(s) Bactrim DS 1 tablet Orally Active 800-160 MG Martin Leif Orally Twice 2019 [facility] a [facility] Macrobid 1 capsule Orally Active 100 mg Orally Martin 10/21/ Ese l with food every 12 hrs 2018 [facility] Gabapentin 1 capsule by mouth Active 300 MG by Sundeep 10/10/ Leif mouth twice a 2019 Family & day (bid) Internal [facility] Dexilant 1 capsule Orally Active 60 MG Orally Martin Leif Once a day 2018 [facility] Medrol (Wilbert) as directed Orally Active 4 mg Orally Martin 08/26/ Huey pbell as directed 2018 [facility] Levaquin 1 tablet Orally Active 500 mg Orally Martin Leif Once a day 2018 [facility] Triamcinolone 1 Externall Active 0.5 % Martin Acetonide application y Externally 2019 Family & to affected Twice a day Internal area Med Assoc PredniSONE 1 tablet Orally Active 10 mg Orally Martin 07/29/ Rafbel l 2 tablet PO 2019 Family & BID x 3 days, Internal 2 tablet in Med Assoc am and 1 in pm x 3 days, 1 tablet PO BID x 3 days, 1 tablet QD x 3 days Raloxifene HCl 1 tablet Orally Active 60 MG Orally Martin 10/08/ Cam pbell Once a day 2018 [facility] Pantoprazole 1 tablet Orally Active 40 mg Orally Martin 10/08/ Rafb ell Sodium Once a day 2018 [facility] Zofran 1-2 tablets Orally Active 4 mg Orally Martin Q8 PRN 2018 [facility] Levaquin 1 tablet Orally Active 500 MG Orally Martin Once a day 2018 [facility] predniSONE 10 See Special Active mg oral tablet Instruction 2016 [facility] s, PO, Daily, 12 day regimen: Days 1-4 - 20 mg (2 tabs) daily Days 5-8 - 10 mg (1 tab) daily Days 9-12 - 5 mg (1/2 tab) daily, X 12 day, # 14 tab, 0 Refill(s) Amoxicillin 875 1 tab, PO, Active MG / [id number], X 2016 [facility] Clavulanate 125 7 day, # 14 MG Oral Tablet tab, 0 Refill(s) 120 ACTUAT 2 puff, Active Fluticasone INHALATION, 2016 [facility] t propionate 0.11 Daily, MG/ACTUAT rinse mouth Metered Dose and throat Inhaler after use, [Flovent] # 12 gm, 0 Refill(s) Tylenol Notes: Do Inactive not exceed 2016 [facility] 4 gm/day. (Same as: Tylenol) Tylenol 650 mg, Inactive Route: PO, 2016 Drug form: TAB, Q6H, Dosing Weight 65.8, kg, PRN Pain Score 1-3, Priority: NOW, Start date: 01/18/17 0:13:00 CDT, Duration: 30 day, Stop date: 02/17/17 0:12:00 CDT Hydrochlorothia Notes: No Longer zide 25 MG Oral (Same as: Active 2016 [facility] ast Tablet Hydrodiuril ) With food. Amlodipine Notes: No Longer (Same as: Active 2016 [facility] Norvasc) Crestor Notes: Same No Longer as Crestor Active 2016 [facility] phenol Notes: No Longer Chlorasepti Active 2016 [facility] c [place] (Same as: Chlorasepti c, Sore Throat [place]) WASTE: F/P - Black; E - Municipal Trash Bin pantoprazole Notes: No Longer Tablet Active 2016 [facility] should not be chewed or crushed. (Same as: Protonix) methylPREDNISol Notes: No Longer one SODium (Same Active 2016 [facility] SUCCinate as:Solu-MED ROL, A-Methapred ) Carafate Notes: May No Longer interfere Active 2016 [facility] w/enteral feeds - Take 1 hr before or 2 hr after antacids, dairy pdt, meals & minerals - On empty stomach. For patients unable to swallow tablet, dissolve in 10mL - 30mL of water or juice and stir before giving. (Same As: Carafate) Ventolin HFA 90 Notes: Same No Longer mcg/inh as: Active 2016 [facility] inhalation Ventolin aerosol with HFA WASTE: adapter Aerosol - Return to Pharmacy potassium Notes: Inactive chloride 20 mEq (Same as: 2016 [facility] ast oral tablet, K-Dur 20) extended "Do Not release Crush" With food and full glass of water Sumatriptan 50 Notes: Inactive MG Oral Tablet (Same As: 2016 [facility] st [Imitrex] Imitrex) Tylenol Notes: Max No Longer acetaminoph Active 2016 [facility] en = 4000 mg/day (4 gm/day). (Same as: Tylenol) Promethazine Notes: No Longer (Same as: Active 2016 [facility] Phenergan) Prednisone Notes: Take Inactive with food. 2016 pneumococcal Notes: Inactive capsular (Same as: 2016 polysaccharide Pneumovax type 1 vaccine 23) / pneumococcal Refrigerate capsular polysaccharide type 10A vaccine / pneumococcal capsular polysaccharide type 11A vaccine / pneumococcal capsular polysaccharide type 12F vaccine / pneumococcal capsular polysacchar Albuterol 0.833 Notes: No Longer MG/ML / (Same as: Active 2016 [facility] Ipratropium Duoneb) [place] 0.167 MG/ML Inhalant Solution Amoxicillin 875 Notes: With No Longer MG / food. (Same Active 2016 [facility] Clavulanate 125 as: MG Oral Tablet Augmentin 875) Calcium Notes: No Longer Gluconate WASTE: F/P Active 2016 [facility] - Sink; E - [employer] Trash Bin sodium 15 mmol, 5 No Longer phosphate mL, Route: Active 2016 [facility] IVPB, PRN, Dosing Weight 65.909, kg, PRN Abnormal Lab Result, For NON-ICU Patients Only., Start date: 01/16/17 2:29:00 CDT, Duration: 30 day, Stop date: 02/15/17 2:28:00 CDT Potassium Notes: No Longer Chloride (Same as: Active 2016 [facility] Potassium Chloride) Magnesium Notes: No Longer Sulfate WASTE: F/P Active 2016 [facility] - Sink; E - [employer] Trash [facility] potassium Notes: No Longer phosphate (Same as: K Active 2016 [facility] Phosphate.) 1 mMol phoshate has 1.47 mEq potassium Infuse over 4 hours Magnesium Oxide Notes: No Longer (Same as: Active 2016 [facility] Mag-Ox 400) Magnesium oxide [id number] elemental magnesium Dose=____mg magnesium oxide (___mg elemental magnesium) potassium Notes: No Longer phosphate-sodiu (Same as: Active 2016 [facility] ast m phosphate 250 Phos-NaK) mg-280 mg-160 Each 1.5 gm mg oral powder pkt has for 250mg reconstitution phosphorous . Mix w/2.5oz water and stir. Saline Flush Notes: No Longer 0.9% (Same as: Active 2016 [facility] BD Posiflush) Albuterol 0.83 Notes: SEE No Longer MG/ML Inhalant RT Active 2016 [facility] Solution DOCUMENTATI ON (Same as: Proventil) methylPREDNISol Notes: Inactive one SODium (Same 2016 [facility] SUCCinate as:Solu-MED ROL, A-Methapred ) Albuterol 0.833 6 mL, Inactive MG/ML / Route: 2016 [facility] Ipratropium INHALATION, [place] 0.167 Dosing MG/ML Inhalant Weight Solution 65.909, kg, [DuoNeb] ONCE, Start date: 01/15/17 23:54:00 CDT, Stop date: 01/15/17 23:54:00 CDT Albuterol 0.833 6 mL, Inactive MG/ML / Route: 2016 [facility] Ipratropium INHALATION, [place] 0.167 Dosing MG/ML Inhalant Weight Solution 65.909, kg, [DuoNeb] ONCE, Start date: 01/15/17 23:43:00 CDT, Stop date: 01/15/17 23:43:00 CDT Saline Flush Notes: No Longer 0.9% (Same as: Active 2016 [facility] BD Posiflush) Flexeril 1 tablet as Orally Active 10 MG Orally [place] needed daily 2016 [facility] Sumatriptan 50 50 mg = 1 Active MG Oral Tablet tab, PO, 2016 [facility] t [Imitrex] ONCE, PRN Headache, may repeat one time after 2 hours, # 9 tab, 0 Refill(s), Pharmacy: [place] [id number] pantoprazole 40 40 mg = 1 Active mg oral enteric tab, PO, [address] [facility] coated tablet BID, # 60 tab, 1 Refill(s), Pharmacy: [place] [address] amLODIPine 5 mg 5 mg = 1 Active oral tablet tab, PO, 2016 Daily, # 30 tab, 2 Refill(s), Pharmacy: [place] [address] Sucralfate 1000 1 gm = 1 Active MG Oral Tablet tab, PO, 2016 [facility] t [Carafate] QID, # 120 tab, 2 Refill(s), Pharmacy: [place] [id number] Imitrex Notes: No Longer (Same As: 2016 [facility] Imitrex) Tylenol Notes: Do No Longer not exceed Active 2016 [facility] 4 gm/day. (Same as: Tylenol) Protonix Notes: No Longer Tablet 2016 [facility] should not be chewed or crushed. (Same as: Protonix) Sucralfate 100 Notes: May No Longer MG/ML Oral interfere 2016 [facility] Suspension w/enteral [Carafate] feeds - Take 1 hr before or 2 hr after antacids, dairy pdt, meals & minerals - On empty stomach. For patients unable to swallow tablet, dissolve in 10mL - 30mL of water or juice and stir before giving. (Same As: Carafate) Sodium Chloride 1,000 mL, Inactive 0.154 MEQ/ML Rate: 2016 Injectable ml/hr, Solution Infuse over: 40 hr, Route: IV, Dosing Weight 72.727 kg, Total Volume: 1,000, Start date: 07/03/16 13:52:00 CDT, Duration: 1 day, Stop date: 07/04/16 13:51:00 CDT pneumococcal Notes: Inactive 13-valent Lightly 2016 [facility] vaccine roll vial (DO NOT SHAKE) before administrat ion. (Same as: Prevnar 13) pneumococcal Notes: Inactive 13-valent Lightly 2016 [facility] vaccine roll vial (DO NOT SHAKE) before administrat ion. (Same as: Prevnar ) Imitrex Notes: Inactive For 2016 [facility] SUBCUTANEOU S use only Crestor 10 mg, No Longer Route: PO, Active 2016 [facility] Drug form: TAB, Daily, Dosing Weight 72.727, kg, Start date: 07/02/16 9:00:00 CDT, Duration: 30 day, Stop date: 07/31/16 9:00:00 CDT Hydrochlorothia Notes: No Longer zide 25 MG Oral (Same as: Active 2016 [facility] ast Tablet Hydrodiuril ) With food. aspirin 81 mg Notes: Do No Longer tablet, enteric not crush Active 2016 [facility] ast coated or chew. (Same As: Ecotrin) Norvasc Notes: No Longer (Same as: Active 2016 [facility] Norvasc) Protonix Notes: No Longer Tablet 2016 [facility] should not be chewed or crushed. (Same as: Protonix) Lipitor Notes: No Longer (Same As: Active 2016 [facility] Lipitor) Acetaminophen Notes: No Longer 325 MG / (Same as: Active 2016 [facility] Hydrocodone [place] Bitartrate 5 MG 325/5) Do Oral Tablet not exceed [[place] 5/325] 4gm/day of acetaminoph en. Ventolin HFA 90 Notes: No Longer mcg/inh Albuterol Active 2016 [facility] inhalation 90 aerosol with microgram/i adapter nh 8gm HFA WASTE: Aerosol - Return to Pharmacy Same as: Ventolin, Proventil Protonix Notes: For Inactive IV push 2016 [facility] reconstitut e with 10 ml 0.9% sodium chloride and push over 2 minutes. (Same as: Protonix) Streptococcus Notes: No Longer pneumoniae Lightly Active 2016 [facility] serotype 1 roll vial capsular (DO NOT antigen SHAKE) diphtheria before [id number] protein administrat conjugate ion. (Same vaccine / as: Prevnar Streptococcus 13) pneumoniae serotype 14 capsular antigen diphtheria [id number] protein conjugate vaccine / Streptococcus pneumoniae serotype 18C capsular antigen d Nitroglycerin Notes: No Longer 0.4 MG (Same Active 2016 [facility] Sublingual as:Nitroqui Tablet ck, Nitrostat) "Do Not Crush" Sublingual tablet Atropine 0.5 mg, 5 No Longer mL, Route: Active 2016 [facility] IVP, Drug form: INJ, ONCE, Dosing Weight 72.727, kg, PRN Bradycardia , Start date: 07/01/16 4:03:00 CDT Saline Flush Notes: No Longer 0.9% (Same as: Active 2016 [facility] BD Posiflush) Sodium Chloride 1,000 mL, No Longer 0.154 MEQ/ML Rate: 150 Active 2016 [facility] Injectable ml/hr, Solution Infuse over: 6.7 hr, Route: IV, Dosing Weight 72.727 kg, Total Volume: 1,000, Start date: 06/30/16 23:56:00 CDT, Duration: 30 day, Stop date: 07/30/16 23:55:00 CDT Ondansetron Notes: No Longer (Same as: Active 2016 [facility] Zofran) MEDICATION WASTE Product Size: 4 mg Product Wasted: ___ mg Morphine Notes: No Longer (Same Active 2016 [facility] as:MORPhine Sulfate) Famotidine Notes: Inactive (Same as: 2016 [facility] Pepcid) Can be dilute in 5-10cc NS IVP: Slow IV push over at least 2 minutes. Ondansetron Notes: Inactive (Same as: 2016 [facility] Zofran) MEDICATION WASTE Product Size: 4 mg Product Wasted: ___ mg Sodium Chloride 1,000 mL, Inactive 0.154 MEQ/ML 1000 ml/hr, 2016 [facility] Injectable Infuse Solution Over: 1 hr, Route: IV, 1,000, Drug form: INJ, ONCE, Priority: STAT, Dosing Weight 72.727 kg, Start date: 06/30/16 19:47:00 CDT, Duration: 1 doses or times, Stop date: 06/30/16 19:47:00 CDT Morphine Notes: Inactive (Same 2016 [facility] as:MORPhine Sulfate) Potassium Notes: Inactive Chloride 1.33 (Same as: 2016 [facility] t MEQ/ML Oral Potassium Solution Chloride) Saline Flush Notes: No Longer 0.9% (Same as: Active 2016 [facility] BD Posiflush) Bromfed DM 10 ml as Orally Active 30-2-10 [place] needed MG/5ML Orally 2016 [facility] Levaquin 1 tablet Orally Active 500 MG Orally [place] Yadav Once a day 2017 [facility] Medrol (Wilbert) as directed Orally Active 4 MG Orally Guilherme 04/03/ [facility] pbell as directed 2015 [facility] Famotidine 10 10 mg = 1 Active MG Oral Tablet tab, PO, 2015eas t BID, # 60 tab, 0 Refill(s) Diphenhydramine 25 mg = 1 Active Hydrochloride cap, PO, 2015 25 MG Oral Q6H, PRN Capsule Allergic [Benadryl] reaction, X 8 day, # 30 cap, 0 Refill(s) 0.3 ML 0.3 mg, IM, Active Epinephrine 1 ONCE, # 1 2015eas t MG/ML Prefilled kit, 0 Syringe Refill(s) [Epipen] Albuterol 0.833 Notes: Inactive MG/ML / (Same as: 2015 Ipratropium Duoneb) [place] 0.167 MG/ML Inhalant Solution Sodium Chloride 1,000 mL, Inactive 0.154 MEQ/ML 2,000 2015 [facility] Injectable ml/hr, Solution Infuse Over: 30 minutes, Route: IV, ONCE, Priority: STAT, Dosing Weight 63.636 kg, Start date: 03/31/16 11:53:00 BILLING SUPERVISOR, Duration: 1 doses or times, Stop date: 03/31/16 11:53:00 BILLING SUPERVISOR Saline Flush Notes: Inactive 0.9% (Same as: 2015 [facility] BD Posiflush) Albuterol 0.833 3 mL, Inactive MG/ML / Route: NEB, 2015 [facility] Ipratropium Dosing [place] 0.167 Weight MG/ML Inhalant 63.636, kg, Solution ONCE, STAT, Start date: 03/31/16 11:50:00 BILLING SUPERVISOR, Stop date: 03/31/16 11:50:00 BILLING SUPERVISOR Diphenhydramine 50 mg, Inactive Route: IVP, 2015 [facility] ONCE, Dosing Weight 63.636, kg, Priority: STAT, Start date: 03/31/16 11:48:00 BILLING SUPERVISOR, Stop date: 03/31/16 11:48:00 BILLING SUPERVISOR EPINEPHrine 1 0.3 mg, Inactive mg/mL (1:1000) Route: IM, 2015 [facility] ast injectable ONCE, solution Dosing Weight 63.636, kg, Priority: STAT, Start date: 03/31/16 11:47:00 BILLING SUPERVISOR, Stop date: 03/31/16 11:47:00 BILLING SUPERVISOR methylPREDNISol 125 mg, Inactive one SODium Route: IVP2015 [facility] SUCCinate ONCE, Dosing Weight 63.636, kg, Priority: STAT, Start date: 03/31/16 11:47:00 BILLING SUPERVISOR, Stop date: 03/31/16 11:47:00 BILLING SUPERVISOR Famotidine 20 mg, Inactive Route: IVP, 2015 [facility] ONCE, Dosing Weight 63.636, kg, Priority: STAT, Start date: 03/31/16 11:46:00 BILLING SUPERVISOR, Stop date: 03/31/16 11:46:00 BILLING SUPERVISOR Ventolin HFA 2 puffs as Inhalatio Active 108 (90 Base) Martin needed n MCG/ACT 2016 [facility] every 4 hrs [facility] PRN Levaquin 1 tablet Orally Active 500 mg Orally Chaffee Once a day [facility] Ventolin HFA 2 puffs as Inhalatio Active 108 (90 Base) Sloan needed n MCG/ACT 2016 [facility] 4 [facility] Crestor 2 tablet Orally Active 20 mg Orally [place] Once a day 2014 [facility] Crestor 1 tablet Orally Active 10 MG Orally Sloan Leif Once a day 2014 [facility] pneumococcal 0.5 ml, IM No Longer SYSTEM OPID 23-valent Route: IM, Active 2009 [place] vaccine Drug Form: INJ, ONCALL, Start date: 09/12/09 20:00:00, Duration: 1 doses or times Triamterene-HCT 1 capsule Orally Active 25-37.5 MG Martin Cam pbell Z in the Orally Once a [facility] morning day [facility] Triamterene-HCT 1 tablet by mouth Active 37.5-25 by Sundeep Cam pbell Z mouth Once a Family [facility] day [facility] Carafate 1 tablet on Orally Active 1 GM Orally Martin Campbel l an empty four times a Family & stomach day (qid) [facility] Crestor TAKE ONE NA Active 20 Sasha Yadav TABLET BY Family [facility] MOUTH DAILY [facility] Omeprazole 1 tablet Orally Active 10 MG Orally Martin Campbel l Once a day [facility] Cyclobenzaprine TAKE ONE NA Active 10 Sasha Campbel l HCl TABLET BY Family & MOUTH DAILY Internal NEEDED [facility] Amlodipine 1 tablet Orally Active 5 MG Orally Martin Yadav Besylate Once a day [facility] Sumatriptan 1 tablet as Orally Active 50 MG Orally Martin Cam pbell Succinate needed Twice a day [facility] Rosuvastatin 1 tablet by mouth Active 20 mg by Sloan Carbonebel l Calcium mouth Once a [facility] day [facility] Adrianne Allergy 1 tablet Orally Active 180 MG Orally Ghebranious Yadav Once a day [facility] Vitamin D not defined NA Active Ghebranious [place] [facility] Excedrin 2 tablets Orally Active 250-250-65 MG Ghebranious Cam pbell Migraine as needed Orally PRN [facility] EPINEPHrine 1 Injection Active 0.3 MG/DOSE Sasha Campbe ll Injection prn [facility] Amlodipine 1 tablet Orally Active 5 MG Orally Yadav Medrano Cam pbell Besylate Once a day [facility] Pantoprazole not defined Oral Active 40 MG Oral Martin Camp jiang Sodium [facility] EPINEPHrine 1 Injection Active 0.3 MG/DOSE Martin Saragos[place] Injection prn [facility] Amlodipine 1 tablet Orally Active 5 Orally Once Martin Sar[place] Besylate a day [facility] Excedrin 2 tablets Orally Active 250-250-65 MG Sloan Saragosamagnolia Migraine as needed Orally PRN [facility] Omeprazole 1 tablet Orally Active 10 MG Orally Sloan Enrique linda Once a day [facility] Adrianne Allergy 1 tablet Orally Active 180 MG Orally Sloan Yadav Once a day [facility] Imitrex 1 tablet as Orally Active 100 MG Orally Guilhermebrandon Nunez ll needed one Once a day [facility] time [facility] Rosuvastatin 1 tablet Orally Active 20 MG Orally Sloan jiang Calcium Once a day [facility] Sumatriptan 1 tablet as Orally Active 50 MG Orally Sloan Childress mpapolinar Succinate needed Twice a day [facility] Carafate 1 tablet on Orally Active 1 GM Orally Sloan Enrique an empty four times a Family & stomach day (qid) [facility] Rolaids as directed Orally Active 334 MG Orally Martin Rafmagnolia [facility] Cinnamon 2 capsules by mouth Active 500 mg by Martin Yadav mouth daily [facility] Cetirizine HCl 1 tablet Orally Active 10 MG Orally Sundeep Huey chauhan Once a day [facility] Raloxifene HCl 1 tablet by mouth Active 60 MG by Sloan taylor mouth Once a Family & day [facility] Vitamin B12 1 tablet by mouth Active 5000 mg by Martin floyd mouth Once a Family & day [facility] Calcium + D3 1 tablet by mouth Active 600-200 Martin Yadav with a meal MG-UNIT by Family & mouth Once a Internal day [facility] EPINEPHrine 1 Injection Active 0.3 MG/DOSE Martin Saragos[place] Injection prn [facility] Aleve 1 tablet by mouth Active 220 MG by Martin Yadav with food mouth 2-4 Family & or milk as daily Internal needed [facility] Omeprazole 1 capsule by mouth Active 40 mg by Sloan Yadav mouth Once a Family & day [facility] Bromfed DM 5-10 ml as Orally Active 30-2-10 Sloan Yadav needed MG/5ML Orally Family & every 6 hrs, Internal PRN [facility] Hydrochlorothia 1 tablet Orally Active 25 MG Orally Sloan Mack ampapolinar zide Once a day [facility] Imitrex 1 tablet as Orally Active 50 MG Orally [place] Camp[place] needed Twice a day [facility] Levofloxacin 1 tablet Orally Active 500 MG Orally Sloan Cam pbell Once a day [facility] Pantoprazole 1 tablet Orally Active 40 MG Orally [place] Camp jiang Sodium Once a day [facility] Sucralfate 1 tablet on Orally Active 1 GM Orally [place] jiang an empty Twice a day Family [facility] stomach [facility] Promethazine 1 tablet as Orally Active 25 MG Orally Sloan C ampbell HCl needed every 12 hrs [facility] Rosuvastatin 1 tablet Orally Active 20 MG Orally S[place] Camp jiang Calcium Once a day [facility] Pantoprazole TAKE ONE NA Active 40 Martin Yadav Sodium TABLET BY Family & MOUTH DAILY [facility] Gabapentin 1 tablet by mouth Active 100 mg by Martin Yadav mouth twice a Family & day (bid) [facility] Cinnamon 2 capsules by mouth Active 500 mg by Martin Yaadv mouth daily [facility] Calcium + D3 1 tablet by mouth Active 600-200 Sloan Yadav with a meal MG-UNIT by Family & mouth Once a Internal day [facility] Rosuvastatin 1 tablet Orally Active 20 mg Orally Martin Camp[place] ell Calcium Once a day [facility] Raloxifene HCl 1 tablet by mouth Active 60 MG by Sundeep Carbonebe ll mouth Once a Family & day [facility] Gabapentin 1 tablet by mouth Active 100 mg by Martin Yadav mouth twice a Family & day (bid) [facility] Pantoprazole TAKE ONE NA Active 40 MG Sloan Yadav Sodium TABLET BY Family & MOUTH DAILY [facility] Gabapentin 1 tablet by mouth Active 100 mg by Martin Yadav mouth twice a Family & day (bid) [facility] Rosuvastatin 1 tablet Orally Active 20 MG Orally Sundeep Camp[place] ell Calcium Once a day [facility] Benzonatate 1 capsule Orally Active 200 MG Orally Sundeep Camp jiang Three times a Family & day [facility] Tramadol HCl 1 tablet as Orally Active 50 mg Orally Sundeep Ca mpbell needed Every 6 hours Family & as needed [facility] Tizanidine HCl 1 capsule Orally Active 6 MG Orally Sundeep Cam pbell as needed daily [facility] Vitamin B12 1 tablet Orally Active 500 MCG Sundeep Yadav Orally Once a Family [facility] day [facility] Pantoprazole TAKE ONE NA Active 40 MG Sundeep Yadav Sodium TABLET BY Family & MOUTH DAILY [facility] Allergies, Adverse Reactions, Alerts Substance Category Reaction Severity Reaction Status Date Comments S ource type Reported Iodine Adverse anaphylaxis Adverse Active Ca mpbell Reaction Reaction 0 [facility] [place] Adverse rash Adverse Active Cam pbell Reaction Reaction 0 [facility] iodine Assertion Drug Active allergy [place] [facility] contrast Assertion Drug Active media allergy [place] [facility] (iodine-ba sed) Immunizations Immunization Date Site Status Last Comments Source Given Updated pneumococcal Not Given [place] 23-valent 7 vaccine pneumococcal Left completed [facility] [place] 13-valent 7 Deltoid vaccine pneumococcal Not Given [place] OPID 23-valent 0 [place] vaccine Results Order Name Results Value Reference Date Interpretation Comments Raina rce Range HEMATOLOGY Hgb 10.1 12.0 - 01/07 16.0 [facility] HEMATOLOGY Hct 28.5 36.0 - 01/07 48.0 [facility] URINE CHEM U Preg Negative Negative 01/06 (01/06/19 6:52 PM) [facility] CHEM PANEL Glucose Lvl 157 70 - 99 01/06 [facility] CHEM PANEL BUN 18 7 - 22 01/06 [facility] CHEM PANEL Creatinine 1.10 0.50 - 01/06 Lvl 1.40 [facility] CHEM PANEL Sodium Lvl 140 135 - 145 01/06 [facility] CHEM PANEL Potassium 3.3 3.5 - 5.1 01/06 Lvl /2018 [facility] CHEM PANEL Chloride Lvl 106 95 - 109 01/06 [facility] CHEM PANEL CO2 28 24 - 32 01/06 [facility] CHEM PANEL Calcium Lvl 8.3 8.5 - 10.5 01/06 [facility] CHEM PANEL eGFR 51 01/06 Result Comment: The [facility] eGFR is calculated using the CKD-EPI formula. In most young, healthy individuals the eGFR will be >90 mL/min/1.73m2 . The eGFR declines with age. An eGFR of 60-89 may be normal in some populations, particularly the elderly, for whom the CKD-EPI formula has not been extensively validated. Use of the eGFR is not recommended in the following populations:< br/>
Pretty viduals with unstable creatinine concentration s, including patients and those with serious co-morbid conditions.<b r/>
Patie nts with extremes in muscle mass or diet.

The data above are obtained from the National Kidney Disease Education Program (NKDEP) which additionally recommends that when the eGFR is used in patients with extremes of body mass index for purposes of drug dosing, the eGFR should be multiplied by the estimated BMI. CHEM PANEL AGAP 9.3 10.0 - 01/06 MH 20.0 /2018 [facility] HEMATOLOGY WBC 7.9 3.7 - 10.4 01/06 /2018 [facility] HEMATOLOGY RBC 4.01 4.20 - 01/06 MH 5.40 /2018 [facility] HEMATOLOGY Hgb 11.2 12.0 - 01/06 MH 16.0 [facility] HEMATOLOGY Hct 33.9 36.0 - 01/06 MH 48.0 /2018 [facility] HEMATOLOGY MCV 84.6 80.0 - 01/06 MH 98.0 /2018 [facility] HEMATOLOGY MCH 28.0 27.0 - 01/06 MH 31.0 /2018 [facility] HEMATOLOGY MCHC 33.2 32.0 - 01/06 MH 36.0 /2018 [facility] HEMATOLOGY RDW 13.7 11.5 - 01/06 MH 14.5 /2018 [facility] HEMATOLOGY Platelet 222 133 - 450 01/06 /2018 [facility] HEMATOLOGY MPV 7.6 7.4 - 10.4 01/06 /2018 [facility] HEMATOLOGY INR 0.94 0.85 - 01/06 MH 1.17 /2018 [facility] HEMATOLOGY PT 12.4 12.0 - 01/06 MH 14.7 [facility] HEMATOLOGY Segs 87.4 45.0 - 01/06 MH 75.0 /2019 [facility] HEMATOLOGY Lymphocytes 10.2 20.0 - 01/06 MH 40.0 /2018 [facility] HEMATOLOGY Monocytes 1.7 2.0 - 12.0 01/06 [facility] HEMATOLOGY Eosinophils 0.3 0.0 - 4.0 01/06 /2018 [facility] HEMATOLOGY Basophils 0.4 0.0 - 1.0 01/06 /2018 [facility] HEMATOLOGY Neutrophils 6.9 1.5 - 8.1 01/06 MH # /2019 [facility] HEMATOLOGY Lymphocytes 0.8 1.0 - 5.5 01/06 MH # /2018 [facility] HEMATOLOGY Monocytes # 0.1 0.0 - 0.8 01/06 MH [facility] SPECIAL Hgb A1C 6.2 <=5.6 % 01/06 CHEMISTRY /2018 [facility] BLOOD BANK ABO/Rh A POS 01/06 RESULTS /2018 [facility] BLOOD BANK Antibody Negative 01/06 RESULTS Scrn (01/06/19 5:45 AM) [place] [facility] URINE AND UA Color Yellow Yellow 12/26 STOOL *NA* /2018 [facility] (12/26/18 2:10 PM) URINE AND UA Turbidity Clear Clear 12/26 STOOL (12/26/18 2:10 PM) /2018 [facility] URINE AND UA Spec Grav 1.010 <=1.030 12/26 STOOL /2018 [facility] URINE AND UA pH 5.0 5.0 - 8.0 12/26 STOOL /2018 [facility] URINE AND UA Protein Negative Negative 12/26 STOOL (12/26/18 2:10 PM) /2018 [facility] URINE AND UA Glucose Negative Negative 12/26 STOOL (12/26/18 2:10 PM) [facility] URINE AND UA Ketones Negative Negative 12/26 STOOL *NA* /2018 [facility] (12/26/18 2:10 PM) URINE AND UA Bili Negative Negative 12/26 STOOL *NA* /2018 [facility] (12/26/18 2:10 PM) URINE AND UA Blood Large Negative 12/26 STOOL *ABN* /2018 [facility] (12/26/18 2:10 PM) URINE AND UA 0.2 0.1 - 1.0 12/26 STOOL Urobilinogen /2018 [facility] URINE AND UA Nitrite Negative Negative 12/26 STOOL (12/26/18 2:10 PM) /2018 [facility] URINE AND UA Leuk Est Small Negative 12/26 STOOL *ABN* /2018 [facility] (12/26/18 2:10 PM) URINE AND UA Sq Epi Occasional Few /LPF 12/26 STOOL /LPF /2018 [facility] URINE AND UA WBC <1 0 - 5 12/26 STOOL [facility] URINE AND UA RBC 6 0 - 2 12/26 STOOL [facility] URINE AND UA Bacteria Occasional None Seen 12/26 STOOL /HPF /HPF /2018 [facility] BLOOD BANK RBC product Product available 12/26 RESULTS (12/26/18 2:02 PM) /2018 [place] [facility] BLOOD BANK ABO/Rh A POS 12/26 RESULTS /2019 [facility] BLOOD BANK Antibody Negative 12/26 RESULTS Scrn (12/26/18 1:56 PM) /2019 [facility] IMMUNOLOGY HIV Ag/Ab Negative Negative 12/26 4th Gen *NA* /2018 [facility] (12/26/18 1:56 PM) CHEM PANEL eGFR 46 01/17 Result Comment: The [facility] eGFR is calculated using the CKD-EPI formula. In most young, healthy individuals the eGFR will be >90 mL/min/1.73m2 . The eGFR declines with age. An eGFR of 60-89 may be normal in some populations, particularly the elderly, for whom the CKD-EPI formula has not been extensively validated. Use of the eGFR is not recommended in the following populations:< br/>
Pretty viduals with unstable creatinine concentration s, including patients and those with serious co-morbid conditions.<b r/>
Patie nts with extremes in muscle mass or diet.

The data above are obtained from the National Kidney Disease Education Program (NKDEP) which additionally recommends that when the eGFR is used in patients with extremes of body mass index for purposes of drug dosing, the eGFR should be multiplied by the estimated BMI. CHEM PANEL Potassium 3.8 3.5 - 5.1 01/17 Lvl [facility] CHEM PANEL Sodium Lvl 139 135 - 145 01/17 [facility] CHEM PANEL Chloride Lvl 105 95 - 109 01/17 [facility] CHEM PANEL Calcium Lvl 9.0 8.5 - 10.5 01/17 [facility] CHEM PANEL AGAP 12.8 10.0 - 01/17 MH 20.0 /2016 [facility] CHEM PANEL CO2 25 24 - 32 01/17 [facility] CHEM PANEL Creatinine 1.20 0.50 - 01/17 Lvl 1.40 /2017 [facility] CHEM PANEL BUN 24 7 - 22 01/17 [facility] CHEM PANEL Glucose Lvl 167 70 - 99 01/17 [facility] ELECTROLYT Potassium 3.2 3.5 - 5.1 01/16 ES Lvl /2016 [facility] CARDIAC CK MB Index <0.7 0.0 - 2.5 01/16 ENZYMES /2016 [facility] CARDIAC CK MB <0.5 0.5 - 3.6 01/16 ENZYMES [facility] CARDIAC Troponin-I <0.02 0.00 - 10 ENZYMES 0.40 /2017 [facility] CARDIAC Total CK 67 12 - 191 01/16 ENZYMES /2016 [facility] CARDIAC BNP 1 <=100 01/16 ENZYMES pg/mL /2016 [facility] CHEM PANEL eGFR 61 01/16 [facility] Comment: The [facility] eGFR is calculated using the CKD-EPI formula. In most young, healthy individuals the eGFR will be >90 mL/min/1.73m2 . The eGFR declines with age. An eGFR of 60-89 may be normal in some populations, particularly the elderly, for whom the CKD-EPI formula has not been extensively validated. Use of the eGFR is not recommended in the following populations:< br/>
Pretty viduals with unstable creatinine concentration s, including patients and those with serious co-morbid conditions.<b r/>
Patie nts with extremes in muscle mass or diet.

The data above are obtained from the National Kidney Disease Education Program (NKDEP) which additionally recommends that when the eGFR is used in patients with extremes of body mass index for purposes of drug dosing, the eGFR should be multiplied by the estimated BMI. CHEM PANEL A/G Ratio 1.1 0.7 - 1.6 01/16 [facility] CHEM PANEL Globulin 3.8 2.7 - 4.2 01/16 [facility] CHEM PANEL Potassium 3.1 3.5 - 5.1 01/16 [facility] CHEM PANEL Sodium Lvl 140 135 - 145 01/16 [facility] CHEM PANEL Chloride Lvl 101 95 - 109 01/16 [facility] CHEM PANEL Albumin Lvl 4.1 3.5 - 5.0 01/16 [facility] CHEM PANEL ALT 23 0 - 65 01/16 [facility] CHEM PANEL Total 7.9 6.4 - 8.4 01/16 Protein [facility] CHEM PANEL AGAP 13.1 10.0 - 01/16 20.0 /2016 [facility] CHEM PANEL B/C Ratio 25 6 - 25 01/16 [facility] CHEM PANEL Calcium Lvl 8.9 8.5 - 10.5 01/16 [facility] CHEM PANEL CO2 29 24 - 32 01/16 [facility] CHEM PANEL AST 14 0 - 37 01/16 [facility] CHEM PANEL Alk Phos 69 39 - 136 01/16 [facility] CHEM PANEL Bili Total 0.2 0.2 - 1.3 01/16 [facility] CHEM PANEL Glucose Lvl 142 70 - 99 01/16 [facility] CHEM PANEL BUN 24 7 - 22 01/16 [facility] CHEM PANEL Creatinine 0.96 0.50 - 01/16 Lvl 1.40 [facility] HEMATOLOGY Basophils # 0.1 0.0 - 0.2 01/16 [facility] HEMAT[facility]Y Eosinophils 0.3 0.0 - 0.5 01/16 MH # /2017 [facility] HEMATOLOGY Eosinophils 3.1 0.0 - 4.0 01/16 [facility] HEMATOLOGY Basophils 1.0 0.0 - 1.0 01/16 [facility] HEMATOLOGY Segs-Bands # 4.1 1.5 - 8.1 01/16 [facility] HEMATOLOGY Monocytes 6.2 2.0 - 12.0 01/16 [facility] HEMATOLOGY Monocytes # 0.6 0.0 - 0.8 01/16 [facility] HEMATOLOGY Segs 41.6 45.0 - 01/16 MH 75.0 /2016 [facility] HEMATOLOGY Lymphocytes 4.8 1.0 - 5.5 01/16 MH # /2017 [facility] HEMATOLOGY Lymphocytes 48.1 20.0 - 01/16 MH 40.0 /2017 [facility] HEMATOLOGY MCV 81.0 80.0 - 01/16 98.0 /2016 [facility] HEMATOLOGY MCH 27.0 27.0 - 01/16 31.0 /2016 [facility] HEMATOLOGY MCHC 33.4 32.0 - 01/16 36.0 /2016 [facility] HEMATOLOGY RDW 13.8 11.5 - 01/16 14.5 /2016 [facility] HEMATOLOGY MPV 7.7 7.4 - 10.4 01/16 [facility] HEMATOLOGY Platelet 345 133 - 450 01/16 [facility] HEMATOLOGY WBC 9.9 3.7 - 10.4 01/16 [facility] HEMATOLOGY RBC 4.93 4.20 - 01/16 5.40 /2016 [facility] HEMATOLOGY Hgb 13.3 12.0 - 01/16 16.0 /2017 [facility] HEMATOLOGY Hct 39.9 36.0 - 01/16 MH 48.0 /2017 [facility] URINE AND UA Spec Grav 1.013 <=1.030 07/01 STOOL /2017 [facility] URINE AND UA Turbidity Slight Clear 07/01 STOOL *ABN* /2016 [facility] (07/01/16 5:58 AM) URINE AND UA Protein Negative Negative 07/01 STOOL mg/dL mg/dL [facility] URINE AND UA Glucose Negative Negative 07/01 [facility] mg/dL mg/dL [facility] URINE AND UA pH 5.0 5.0 - 8.0 07/01 [facility] URINE AND UA Color Ltyellow 07/01 STOOL [facility] URINE AND UA <=1.0 0.1 - 1.0 07/01 [facility] Urobilinogen mg/dL [facility] URINE AND UA RBC 1 0 - 2 07/01 [facility] URINE AND UA WBC 3 0 - 5 07/01 [facility] URINE AND UA Sq Epi Occasional Few /LPF 07/01 [facility] /LPF [facility] URINE AND UA Ketones Trace Negative 07/01 STOOL mg/dL mg/dL [facility] URINE AND UA Blood Negative Negative 07/01 [facility] (07/01/16 5:58 AM) [facility] URINE [facility] UA Bili Negative Negative 07/01 STO[facility] *NA* /2016 [facility] (07/01/16 5:58 AM) URINE AND UA Nitrite Negative Negative 07/01 [facility] (07/01/16 5:58 AM) [facility] URINE AND UA Leuk Est Negative Negative 07/01 [facility] (07/01/16 5:58 AM) [facility] CHEM PANEL B/C Ratio 22 6 - 25 07/01 [facility] CHEM PANEL A/G Ratio 1.1 0.7 - 1.6 07/01 [facility] CHEM PANEL Globulin 3.1 2.7 - 4.2 07/01 [facility] CHEM PANEL AGAP 11.6 10.0 - 07/01 MH 20.0 [facility] CHEM PANEL eGFR 72 07/01 Result Comment: The [facility] eGFR is calculated using the CKD-EPI formula. In most young, healthy individuals the eGFR will be >90 mL/min/1.73m2 . The eGFR declines with age. An eGFR of 60-89 may be normal in some populations, particularly the elderly, for whom the CKD-EPI formula has not been extensively validated. Use of the eGFR is not recommended in the following populations:< br/>
Pretty viduals with unstable creatinine concentration s, including patients and those with serious co-morbid conditions.<b r/>
Patie nts with extremes in muscle mass or diet.

The data above are obtained from the National Kidney Disease Education Program (NKDEP) which additionally recommends that when the eGFR is used in patients with extremes of body mass index for purposes of drug dosing, the eGFR should be multiplied by the estimated BMI. CHEM PANEL Alk Phos 47 39 - 136 07/01 [facility] CHEM PANEL Bili Total 0.2 0.2 - 1.3 07/01 [facility] CHEM PANEL Calcium Lvl 8.1 8.5 - 10.5 07/01 [facility] CHEM PANEL Total 6.4 6.4 - 8.4 07/01 [facility] CHEM PANEL AST 14 0 - 37 07/01 [facility] CHEM PANEL ALT 19 0 - 65 07/01 [facility] CHEM PANEL Albumin Lvl 3.3 3.5 - 5.0 07/01 [facility] CHEM PANEL Sodium Lvl 141 135 - 145 07/01 [facility] CHEM PANEL Creatinine 0.83 0.50 - 07/01 MH Lvl 1.40 [facility] CHEM PANEL CO2 28 24 - 32 07/01 [facility] CHEM PANEL Chloride Lvl 105 95 - 109 07/01 [facility] CHEM PANEL Potassium 3.6 3.5 - 5.1 07/01 [facility] CHEM PANEL BUN 18 7 - 22 07/01 [facility] CHEM PANEL Glucose Lvl 113 70 - 99 07/01 [facility] CHEM PANEL Magnesium 2.0 1.8 - 2.4 07/01 MH Lvl [facility] HEMATOLOGY RBC 4.19 4.20 - 07/01 MH 5.40 /2016 [facility] HEMATOLOGY WBC 3.5 3.7 - 10.4 07/01 [facility] HEMATOLOGY Hgb 11.2 12.0 - 07/01 MH 16.0 [facility] HEMATOLOGY MCH 26.8 27.0 - 07/01 MH 31.0 [facility] HEMATOLOGY Hct 33.9 36.0 - 07/01 MH 48.0 [facility] HEMATOLOGY MCV 81.0 80.0 - 07/01 MH 98.0 [facility] HEMATOLOGY Platelet 235 133 - 450 07/01 [facility] HEMATOLOGY MCHC 33.1 32.0 - 07/01 MH 36.0 /2016 [facility] HEMATOLOGY MPV 7.2 7.4 - 10.4 07/01 MH /2016 [facility] HEMATOLOGY RDW 14.5 11.5 - 07/01 MH 14.5 /2016 [facility] HEMATOLOGY Monocytes 9.6 2.0 - 12.0 07/01 [facility] HEMATOLOGY Monocytes # 0.3 0.0 - 0.8 07/01 [facility] HEMATOLOGY Lymphocytes 29.5 20.0 - 07/01 MH 40.0 /2016 [facility] HEMATOLOGY Segs 58.8 45.0 - 07/01 MH 75.0 /2016 [facility] HEMATOLOGY Segs-Bands # 2.1 1.5 - 8.1 07/01 [facility] HEMATOLOGY Eosinophils 1.1 0.0 - 4.0 07/01 [facility] HEMATOLOGY Lymphocytes 1.0 1.0 - 5.5 07/01 MH # /2016 [facility] HEMATOLOGY Basophils 1.0 0.0 - 1.0 07/01 [facility] URINE AND UA Color Yellow Yellow 07/01 STOOL *NA* /2016 [facility] (07/01/16 12:13 AM) URINE AND UA Protein Negative Negative 07/01 STOOL mg/dL mg/dL /2016 [facility] URINE AND UA Glucose Negative Negative 07/01 STOOL mg/dL mg/dL /2016 [facility] URINE AND UA pH 5.0 5.0 - 8.0 07/01 STOOL /2016 [facility] URINE AND UA Turbidity Clear Clear 07/01 STO[facility] (07/01/16 12:13 AM) [facility] URINE AND UA Spec Grav 1.018 <=1.030 07/01 STOOL [facility] URINE AND UA Ketones Trace Negative 07/01 STOOL mg/dL mg/dL /2016 [facility] URINE AND UA Nitrite Negative Negative 07/01 [facility] (07/01/16 12:13 AM) /2016 [facility] URINE AND UA Leuk Est Negative Negative 07/01 [facility] (07/01/16 12:13 AM) /2016 [facility] URINE AND UA Bili Negative Negative 07/01 STOOL *NA* /2016 [facility] (07/01/16 12:13 AM) URINE AND UA Blood Negative Negative 07/01 [facility] (07/01/16 12:13 AM) /2016 [facility] URINE AND UA Sq Epi Occasional Few /LPF 07/01 MH STOOL /LPF /2016 [facility] URINE AND UA Mucus Few /LPF None Seen 07/01 STOOL /LPF [facility] URINE AND UA <=1.0 0.1 - 1.0 07/01 STOOL Urobilinogen mg/dL /2016 [facility] URINE AND UA WBC 2 0 - 5 07/01 STOOL [facility] URINE AND UA RBC 2 0 - 2 07/01 [facility] CHEM PANEL Lipase Lvl 173 73 - 393 06/30 [facility] CHEM PANEL eGFR 67 06/30 [facility] Comment: The [facility] eGFR is calculated using the CKD-EPI formula. In most young, healthy individuals the eGFR will be >90 mL/min/1.73m2 . The eGFR declines with age. An eGFR of 60-89 may be normal in some populations, particularly the elderly, for whom the CKD-EPI formula has not been extensively validated. Use of the eGFR is not recommended in the following populations:< br/>
Pretty viduals with unstable creatinine concentration s, including patients and those with serious co-morbid conditions.<b r/>
Patie nts with extremes in muscle mass or diet.

The data above are obtained from the National Kidney Disease Education Program (NKDEP) which additionally recommends that when the eGFR is used in patients with extremes of body mass index for purposes of drug dosing, the eGFR should be multiplied by the estimated BMI. CHEM PANEL Alk Phos 53 39 - 136 06/30 [facility] CHEM PANEL Calcium Lvl 8.7 8.5 - 10.5 06/30 [facility] CHEM PANEL CO2 29 24 - 32 06/30 [facility] CHEM PANEL Chloride Lvl 102 95 - 109 06/30 [facility] CHEM PANEL AST 18 0 - 37 06/30 [facility] CHEM PANEL Potassium 3.2 3.5 - 5.1 06/30 [facility] CHEM PANEL ALT 21 0 - 65 06/30 [facility] CHEM PANEL Sodium Lvl 139 135 - 145 06/30 [facility] CHEM PANEL Albumin Lvl 3.6 3.5 - 5.0 06/30 [facility] CHEM PANEL Total 7.4 6.4 - 8.4 06/30 [facility] CHEM PANEL Bili Total 0.3 0.2 - 1.3 06/30 [facility] CHEM PANEL BUN 18 7 - 22 06/30 [facility] CHEM PANEL Glucose Lvl 112 70 - 99 06/30 [facility] CHEM PANEL Creatinine 0.88 0.50 - 06/30 Lvl 1.40 /2016 [facility] CHEM PANEL A/G Ratio 0.9 0.7 - 1.6 06/30 [facility] CHEM PANEL Globulin 3.8 2.7 - 4.2 06/30 [facility] CHEM PANEL B/C Ratio 20 6 - 25 06/30 [facility] CHEM PANEL AGAP 11.2 10.0 - 06/30 MH 20.0 [facility] HEMATOLOGY Basophils # 0.1 0.0 - 0.2 06/30 [facility] HEMATOLOGY Lymphocytes 1.9 1.0 - 5.5 06/30 # /2016 [facility] HEMATOLOGY Segs-Bands # 3.5 1.5 - 8.1 06/30 [facility] HEMATOLOGY Eosinophils 0.1 0.0 - 0.5 06/30 /2016 [facility] HEMATOLOGY Monocytes # 0.5 0.0 - 0.8 06/30 [facility] HEMATOLOGY RBC Morph Normal 06/30 (06/30/16 6:30 PM) [facility] HEMATOLOGY Plt Morph Normal 06/30 (06/30/16 6:30 PM) /2016 [facility] HEMATOLOGY Eosinophils 2.3 0.0 - 4.0 06/30 [facility] HEMATOLOGY Monocytes 7.6 2.0 - 12.0 06/30 [facility] HEMATOLOGY Lymphocytes 31.4 20.0 - 06/30 MH 40.0 [facility] HEMATOLOGY Segs 57.7 45.0 - 06/30 MH 75.0 [facility] HEMATOLOGY Basophils 1.0 0.0 - 1.0 06/30 [facility] HEMATOLOGY RDW 14.6 11.5 - 06/30 MH 14.5 /2016 [facility] HEMATOLOGY MCHC 27.3 32.0 - 06/30 MH 36.0 [facility] HEMATOLOGY MPV 7.3 7.4 - 10.4 06/30 [facility] HEMATOLOGY Platelet 270 133 - 450 06/30 [facility] HEMATOLOGY MCH 22.0 27.0 - 06/30 MH 31.0 [facility] HEMATOLOGY WBC 6.0 3.7 - 10.4 06/30 [facility] HEMATOLOGY RBC 4.64 4.20 - 06/30 MH 5.40 /2016 [facility] HEMATOLOGY Hgb 10.2 12.0 - 06/30 MH 16.0 /2017 [facility] HEMATOLOGY MCV 80.6 80.0 - 06/30 MH 98.0 /2017 [facility] HEMATOLOGY Hct 37.4 36.0 - 06/30 MH 48.0 /2017 [facility] CHEM PANEL eGFR 58 03/31 Result Comment: The [facility] eGFR is calculated using the CKD-EPI formula. In most young, healthy individuals the eGFR will be >90 mL/min/1.73m2 . The eGFR declines with age. An eGFR of 60-89 may be normal in some populations, particularly the elderly, for whom the CKD-EPI formula has not been extensively validated. Use of the eGFR is not recommended in the following populations:< br/>
Pretty viduals with unstable creatinine concentration s, including patients and those with serious co-morbid conditions.<b r/>
Patie nts with extremes in muscle mass or diet.

The data above are obtained from the National Kidney Disease Education Program (NKDEP) which additionally recommends that when the eGFR is used in patients with extremes of body mass index for purposes of drug dosing, the eGFR should be multiplied by the estimated BMI. CHEM PANEL Calcium Lvl 9.0 8.5 - 10.5 03/31 [facility] CHEM PANEL Glucose Lvl 118 70 - 99 03/31 /2015 [facility] CHEM PANEL CO2 27 24 - 32 03/31 /2015 [facility] CHEM PANEL Creatinine 1.00 0.50 - 03/31 Lvl 1.40 [facility] CHEM PANEL BUN 19 7 - 22 03/31 [facility] CHEM PANEL Potassium 2.9 3.5 - 5.1 03/31 Result Lvl /2015 Comment: [facility] Critical Result(s) called to adria at 03/31/2016 12:34 by harish. Read back OK. CHEM PANEL Chloride Lvl 106 95 - 109 03/31 /2015 [facility] CHEM PANEL Sodium Lvl 143 135 - 145 03/31 [facility] CHEM PANEL AGAP 12.9 10.0 - 03/31 MH 20.0 2016 [facility] HEMATOLOGY Lymphocytes 4.1 1.0 - 5.5 03/31 MH # /2016 [facility] HEMATOLOGY Segs-Bands # 4.2 1.5 - 8.1 / MH /2016 [facility] HEMATOLOGY Basophils # 0.1 0.0 - 0.2 / MH /2015 [facility] HEMATOLOGY Monocytes # 0.6 0.0 - 0.8 / MH /2015 [facility] HEMATOLOGY Eosinophils 0.6 0.0 - 0.5 12/16 MH # /2016 [facility] HEMATOLOGY Basophils 1.0 0.0 - 1.0 03/31 /2015 [facility] HEMATOLOGY Eosinophils 6.5 0.0 - 4.0 03/31 MH /2015 [facility] HEMATOLOGY Monocytes 6.7 2.0 - 12.0 / /2015 [facility] HEMATOLOGY Lymphocytes 42.3 20.0 - 03/31 MH 40.0 /2016 [facility] HEMATOLOGY Segs 43.5 45.0 - 03/31 MH 75.0 /2016 [facility] HEMATOLOGY RBC 4.85 4.20 - 03/31 MH 5.40 /2015 [facility] WBC 9.7 3.7 - 10.4 03/31 /2015 [facility] HEMATOLOGY MCV 81.5 80.0 - 03/31 98.0 /2015 [facility] HEMATOLOGY Hgb 12.8 12.0 - 03/31 16.0 /2015 [facility] HEMATOLOGY Hct 39.5 36.0 - 03/31 MH 48.0 /2016 [facility] Platelet 332 133 - 450 03/31 MH /2015 [facility] [place] MPV 7.5 7.4 - 10.4 03/31 [facility] MCHC 32.5 32.0 - 03/31 36.0 /2015 [facility] RDW 14.3 11.5 - 03/31 14.5 /2015 [facility] MCH 26.5 27.0 - 03/31 31.0 /2015 [facility] Pathology Reports No Data Provided for This Section Diagnostic Reports Report Value Date Source Ext Lower Venous Doppler Addendum dated 11:56 a.m. on 05/15/2019 : 05/14/2019 [facility] Unilat US 3.1 x 0.5 x 2.7 cm Lema's cyst. Rusty Zapata MD On 05/15/2019 11:57:24; VR-CR [id number] PROCEDURE INFORMATION: Exam: US Duplex Right Lower Extremity Veins, Limited Exam date and time: 05/14/2019 1:57 PM Age: 74 years old Clinical indication: /swelling TECHNIQUE: Imaging protocol: Real-time Duplex ultrasound of the Right Lower Extremity with 2-D garcia scale, color Doppler flow and spec tral waveform analysis with image documentation. Limited exam was focused on the right lower extremity veins. COMPARISON: No relevant prior studies available . Right deep veins: The common femoral vei n, superficial femoral vein, popliteal vein and visualized posterio r tibial veins are patent without thrombus. Normal Doppler waveforms. Normal compressibility and/or augmentation response. Right superficial veins: Saphenofemoral junction is patent without thrombus. Soft tissues: 3.1 x 0.5 x 2.7 cm IMPRESSION: No evidence of deep vein thrombosis. Rusty Zapata MD On 05/14/2019 15:11:03; VR-CR [id number] Abdomen RUQ US EXAM: US ABDOMEN RIGHT UPPER QUADRANT 01/07/2019 [facility] CLINICAL INDICATION: 73 years old Female with - nausea COMPARISON: None TECHNIQUE: Grayscale and limited color sonographic evaluation of the right upper quadrant of the abdomen and gallbladder region was performed with standard technique. FINDINGS: LIVER: Normal size of the liver is noted at 14.2 cm craniocaudal dimension with normal echogenicity. No focal hepatic lesion is appreciated. Hepatopedal flow is demonstrated in the main portal vein. The intrahepatic IVC is patent. BILE DUCTS: The intrahepatic and extrahe patic bile ducts are not dilated with the common bile duct measuring 3 mm. GALLBLADDER: There are no gallstones or g allbladder sludge. There is no pericholecystic fluid or wall thickening. Negative sonographic Osuna's sign. PANCREAS: The visualized pancreas appe ars unremarkable. Portions of the body and tail are obscured by bowel gas. KIDNEY: The right kidney measures 7.6 cm. Normal cortical echogenicity is noted. No calculus, hydronephrosis, or mass is appreciated. Small hypoechoic region is noted in the upper pole measuring 1.0 x 0.9 x 1.1 cm, not definitively cystic. ASCITES: There is no right upper quadrant abdominal ascit es. IMPRESSION: 1. Small right kidney. 2. Small hypoechoic focus in the upper pole of the right kidney. Consider further evaluation with nonemergent renal protocol CT/MRI. SL: [id number] Knee 1-2 Views Patient Name: DWIGHT PRINCE DARLING 01/06/2019 [facility] unilateral DX : 1945; Age: 73 years y/o Female MR: [id number] * RIGHT KNEE, postoperative 2 views HISTORY: Right knee arthritis, status post right knee arthroplasty. Technique: Postoperative por table frontal and lateral radiographs of the right knee were obtained. FINDINGS: The right total kn ee prosthesis is in good position. There is no evidence of unexpected fracture or other complication. There is postoperative soft tissue gas. There are anterior surgical skin tanesha. IMPRESSION: 1. Status post right knee ar throplasty. The prosthesis is in good position without evidence of complication. SL: [id number] Bone length scanogram DX Bone length right lower extr emity: Standing AP radiographs of the right lower extremity were done for operative planning. There are moderate degenerative changes in the knee which are further discussed 12/26/2018 [facility] in the right knee report on same date. Mild varus of the right leg is noted. There are no other significant osseous, articular or soft tissue abnormalities. [facility] Knee 3 views DX Right knee 3 views: An axial view of the patella was included. There is narrowing of the medial tibiofemoral compartment with mild articular irregularity and spur formation involving the medial compartm 12/26/2018 [facility] ent there are no other signi ficant osseous or articular abnormalities. A small joint effusion is seen in the suprapatellar bursa. IMPRESSION: Moderate degenerative changes in the right knee. [facility] Chest 1view DX EXAM: XR CHEST 1 VIEW 01/15/2017 [facility] DATE: 01/15/2017 11:11 PM CDT INDICATION: Chest pain. COMPARISON: 03/31/2016 TECHNIQUE: A single AP view of the chest was obt ained. FINDINGS: The examination is limited b y low lung volumes, with bibasilar subsegmental atelectasis and crowding of the central pulmonary vasculature. No focal consolidation or pneumothorax is identified. The cardi omediastinal silhouette is w ithin normal limits. The costophrenic recesses are sharp and without effusion. No acute osseous abnormality is noted. There is gaseous distention of the stomach. IMPRESSION: No acute cardiopulmonary abnormality. SL: [id number] Pelvis w Pelvis Patient Name: DWIGHT HUMPHREY 7 [facility] Transvaginal US : 1945; Age: 71 years y/o Female MR: [id number] Study: Pelvis w Pelvis Transvaginal US 07/18/2016 6:03 PM CDT Ordering Physician: Sammy Hyde MD Clinical Indication: right pelvic pain, cyst in ovary; Comparison: CT abdomen pelvis 06/30/2016 Transabdominal and transvaginal pelvic ultrasoun d exam Transabdominal series demons trates uterus of 5 x 3 x 4.5 cm. Uterus grossly normal. Neither ovary is seen. No adnexal mass or pathologic fluid is demonstrated however. Transvaginal study demonstra janelle endometrial thickness of 4 mm. There is minimal fluid within the endometrium and there is an oval echogenic nodule within the endometrium measuring 2 x 5 mm. This may rep resent small submucosal leio myoma or endometrial polyp. Regardless, there is no [...] No pathologic endometrial thickening, otherwise. The SL: [id number] Abdomen complete US Patient Name: DWIGHT HUMPHREY 07/01 [facility] : 1945; Age: 71 years y/o Female MR: [id number] Study: Abdomen complete US 07/01/2016 9:46 AM CDT Ordering Physician: Chey Frazier MD Clinical Indication: Abdominal pain, acute; Comparison: CT abdomen 06/30/2016 TECHNIQUE: Grayscale and limited color sonographic evaluation of the abdomen was performed with standard technique. FINDINGS: LIVER: The visualized liver shows n ormal contour, size, and morphology with normal parenchymal echo texture. BILE DUCTS: The intrahepatic and extrahe patic bile ducts are not dilated with the common bile duct measuring 5 mm. The distal common bile duct is not well seen. GALLBLADDER: There are no gallstones, gal lbladder sludge, pericholecystic fluid or wall thickening. PANCREAS: The visualized pancreas appears unremarkable.. SPLEEN: The spleen is unremarkable and measures 10.8 x 2 .4 x 2.7 cm. KIDNEY: The right kidney measures 8.7 x 4.4 x 4.0 cm. The left kidney measures 9.1 x 4.6 x 3.5 cm. No pelvocaliectasis, nephrol ithiasis or renal mass lesion identified bilaterally. AORTA AND INFERIOR VENA CAVA: Visualized portions appear unremarkable. ASCITES: There is no abdominal ascites. IMPRESSION: 1. Unremarkable abdominal ultrasound. SL: [id number] Abdomen acute series w Patient Name: DWIGHT HUMPHREY [facility] chest 1 view DX : 1945; Age: 71 years y/o Female MR: [id number] ABDOMINAL SERIES, 2 views with FRONTAL VIEW OF T HE CHEST HISTORY: Acute generalized abdominal pain. A computed tomography scan o f the abdomen and pelvis from today and a chest radiograph from 03/31/2016 were reviewed. TECHNIQUE: Supine and uprigh t radiographs of the abdomen were obtained. A frontal examination chest was also obtained. FINDINGS: The soft tissue outlines and bowel gas pattern are unremarkable. There is no evidence of obstruction or ileus. Contrast material from the computed tomography scan performed earlier today has passed into the colon. There are no unusual intra-abdominal calcificati ons. A frontal examination of the chest was also obtained. The lungs are clear. There are no pleural effusions. The heart is normal in size. There is no evidence of failure. The regional skeleton is unremarkable. IMPRESSION: 1. Benign appearance the abdomen. 2. No evidence of an active or acute process wit hin the chest. SL: [id number]-[facility] Abdomen/Pelvis wo IV Clinical Indication: R10.13 Epigastric pain mid abd pain since Sunday today it got worst 06/30/[address] [facility] [address] Comparison: None TECHNIQUE: Noncontrasted hel ical imaging was performed from the lung bases through the symphysis. Axial and coronal reformations are available. IV contrast was not administered. CT Radiation Dose DLP: 669 mGy-cm FINDINGS: This examination is limited for the evaluation of solid organs and vascular structures due to lack of intravenous contrast. Lower thorax: Clear. Hepatobiliary: No focal hepatic lesion. No bilia ry ductal dilatation. Pancreas: No focal mass or d uctal dilatation. Minimal fat stranding adjacent to the dorsal pancreatic neck/head Spleen: No splenomegaly. Adrenals: No nodules. Kidneys: No hydronephrosis or renal stones. Pelvic organs: Unremarkable. Peritoneum/Retroperitoneum: No free air or free fluid. Lymph nodes: No lymphadenopathy. Bowel: No significant bowel thickening or dilatation. The appendix is visualized and appears unremarkable. Bones and soft tissues: Unremarkable. IMPRESSION: Minimal nonspecific fat stra nding adjacent to the dorsal pancreatic head/neck, which could be indicative of mild pancreatitis. Correlation can be made with lipase level. SL: [id number] Chest 1view DX Chest 1view DX 03/31/2016 [facility] 70 years old Female Clinical Indication: Dyspnea; Comparison: 04/19/2012 FINDINGS: Tubes and lines: None. LUNGS: The volume of the lungs is diminished by shallow inspiration. There is no evidence of consolidation. No pleural effusion is noted. The pulmonary vasculature is within normal limi ts. MEDIASTINUM: Cardiac silhouette is within normal limits of size. CHEST WALL: Unremarkable. SKELETON: The visualized osseous structures are unremarkable. IMPRESSION: 1. No radiographic evidence of acute cardiopulmo nary disease. SL: [id number] Consultation Notes No Data Provided for This Section Discharge Summaries No Data Provided for This Section History and Physicals No Data Provided for This Section Vital Signs Vital Sign Value Date Comments Source Weight 164.4 12/03/2019 [facility] Height 59 12/03/2019 [facility] Heart Rate 68 12/03/2019 [facility] Diastolic (mm Hg) 74 12/03/2019 [facility] Systolic (mm Hg) 122 12/03/2019 [facility] Weight 165 05/14/2019 [facility] Height 59 05/14/2019 [facility] Heart Rate 60 05/14/2019 [facility] Diastolic (mm Hg) 86 05/14/2019 [facility] Systolic (mm Hg) 122 05/14/2019 [facility] Weight 160 04/22/2019 [facility] Height 59 04/22/2019 [facility] Temperature Oral (F) 98.2 F 04/22/2019 [facility] Heart Rate 69 04/22/2019 [facility] Diastolic (mm Hg) 94 04/22/2019 [facility] Systolic (mm Hg) 136 04/22/2019 [facility] Temperature Oral (F) 98.5 F 01/08/2019 [facility] Heart Rate 82 01/08/2019 [facility] Systolic (mm Hg) 106 01/08/2019 [facility] Diastolic (mm Hg) 70 01/08/[address] [facility] [address] Respitory Rate 18 01/08/2019 [facility] Temperature Oral (F) 98.6 F 01/08/2019 [facility] Heart Rate 92 01/08/2019 [facility] Systolic (mm Hg) 95 01/08/2019 [facility] Diastolic (mm Hg) 61 01/08/[address] [facility] [address] Temperature Oral (F) 98.4 F 01/08/2019 [facility] Heart Rate 83 01/08/2019 [facility] Resp[facility] Rate 16 01/08/2019 [facility] Systolic (mm Hg) 139 01/08/2019 [facility] Diastolic (mm Hg) 77 01/08/[address] [facility] [address] Respitory Rate 16 01/08/2019 [facility] Height 149.86 cm 12/26/2018 [facility] Weight 71.818 12/26/2018 [facility] BMI Calculated 31.98 12/26/2018 [facility] Weight 158 12/11/2018 [facility] Height 59 12/11/2018 [facility] Heart Rate 70 12/11/2018 [facility] Diastolic (mm Hg) 70 12/11/2018 [facility] Systolic (mm Hg) 138 12/11/2018 [facility] Weight 157 10/11/2018 [facility] Height 59 10/11/2018 [facility] Heart Rate 72 10/11/2018 [facility] Diastolic (mm Hg) 78 10/11/2018 [facility] Systolic (mm Hg) 114 10/11/2018 [facility] Weight 159 08/26/2018 [facility] Height 59 08/26/2018 [facility] Heart Rate 71 08/26/2018 [facility] Diastolic (mm Hg) 86 08/26/2018 [facility] Systolic (mm Hg) 118 08/26/2018 [facility] Weight 159 07/29/2018 [facility] Height 59 07/29/2018 [facility] Heart Rate 61 07/29/2018 [facility] Diastolic (mm Hg) 86 07/29/2018 [facility] Systolic (mm Hg) 120 07/29/2018 [facility] Weight 157 10/08/2017 [facility] Height 59 10/08/2017 [facility] Heart Rate 85 10/08/2017 [facility] Diastolic (mm Hg) 80 10/08/2017 [facility] Systolic (mm Hg) 118 10/08/2017 [facility] Weight 153 04/30/2017 [facility] Height 59 04/30/2017 [facility] Heart Rate 86 04/30/2017 [facility] Diastolic (mm Hg) 86 04/30/2017 [facility] Systolic (mm Hg) 120 04/30/2017 [facility] Weight 151 01/25/2017 [facility] Height 59 01/25/2017 [facility] Heart Rate 86 01/25/2017 [facility] Diastolic (mm Hg) 64 01/25/2017 [facility] Systolic (mm Hg) 108 01/25/2017 [facility] Respitory Rate 18 01/18/2017 [facility] Heart Rate 92 01/18/2017 [facility] Temperature Oral (F) 97.7 F 01/18/2017 [facility] Systolic (mm Hg) 116 01/18/2017 [facility] Diastolic (mm Hg) 73 01/18/[address] [address] Respitory Rate 16 01/18/2017 [facility] Temperature Oral (F) 98.2 F 01/18/2017 [facility] Heart Rate 104 01/18/2017 [facility] Resp[facility] Rate 18 01/18/2017 [facility] Systolic (mm Hg) 110 01/18/2017 [facility] Diastolic (mm Hg) 62 [facility] Oral (F) 97.8 F 01/18/2017 [facility] Heart Rate 100 01/18/2017 [facility] Systolic (mm Hg) 112 01/18/2017 [facility] Diastolic (mm Hg) 70 01/18/[address] [facility] [address] Weight 65.8 01/16/2017 [facility] BMI Calculated 24.9 01/16/2017 [facility] Height 162.56 cm 01/16/2017 [facility] Weight 65.909 01/16/2017 [facility] Weight 151 08/01/2016 [facility] Height 59 08/01/2016 [facility] Heart Rate 77 08/01/2016 [facility] Diastolic (mm Hg) 72 08/01/2016 [facility] Systolic (mm Hg) 118 08/01/2016 [facility] Weight 153 07/17/2016 [facility] Height 59 07/17/2016 [facility] Heart Rate 71 07/17/2016 [facility] Diastolic (mm Hg) 78 07/17/2016 [facility] Systolic (mm Hg) 130 07/17/2016 [facility] Weight 153 07/11/2016 [facility] Height 59 07/11/2016 [facility] Heart Rate 80 07/11/2016 [facility] Diastolic (mm Hg) 68 07/11/2016 [facility] Systolic (mm Hg) 116 07/11/2016 [facility] Systolic (mm Hg) 106 07/04/2016 [facility] Diastolic (mm Hg) 68 07/04/[address] [facility] [address] Heart Rate 93 07/04/2016 [facility] Respitory Rate 16 07/04/2016 [facility] Temperature Oral (F) 98.5 F 07/04/2016 [facility] Resp[facility] Rate 16 07/04/2016 [facility] Systolic (mm Hg) 140 07/04/2016 [facility] Diastolic (mm Hg) 83 07/04/[address] [facility] [address] Temperature Oral (F) 98.4 F 07/04/2016 [facility] Heart Rate 70 07/04/2016 [facility] Temperature Oral (F) 98.8 F 07/04/2016 [facility] Heart Rate 65 07/04/2016 [facility] Systolic (mm Hg) 132 07/04/2016 [facility] Diastolic (mm Hg) 83 07/04/[address] Respitory Rate 16 07/04/2016 [facility] Height 149.86 cm 07/01/2016 [facility] BMI Calculated 32.38 07/01/2016 [facility] Weight 72.727 07/01/2016 [facility] BMI Calculated 32.38 06/30/2016 [facility] Height 149.86 cm 06/30/2016 [facility] Weight 72.727 06/30/2016 [facility] Weight 160 06/30/2016 [facility] Height 59 06/30/2016 [facility] Temperature Oral (F) 98.3 F 06/30/2016 [facility] Heart Rate 72 06/30/2016 [facility] Diastolic (mm Hg) 82 06/30/2016 [facility] Systolic (mm Hg) 110 06/30/2016 [facility] Systolic (mm Hg) 143 03/31/2016 [facility] Diastolic (mm Hg) 72 03/31/[address] Respitory Rate 18 03/31/2016 [facility] Systolic (mm Hg) 138 03/31/2016 [facility] Diastolic (mm Hg) 76 03/31/[address] Respitory Rate 19 03/31/2016 [facility] Temperature Oral (F) 97.9 F 03/31/2016 [facility] Resp[facility] Rate 25 03/31/2016 [facility] Height 157.48 cm 03/31/2016 [facility] Weight 63.636 03/31/2016 [facility] BMI Calculated 25.66 03/31/2016 [facility] Heart Rate 106 03/31/2016 [facility] Systolic (mm Hg) 166 03/31/2016 [facility] Diastolic (mm Hg) 79 03/31/[address] Weight 161 03/31/2016 [facility] Height 59 03/31/2016 [facility] Heart Rate 72 03/31/2016 [facility] Weight 161 02/16/2016 [facility] Height 59 02/16/2016 [facility] Heart Rate 83 02/16/2016 [facility] Diastolic (mm Hg) 83 02/16/2016 [facility] Systolic (mm Hg) 140 02/16/2016 [facility] Weight 157 11/15/2015 [facility] Height 59 11/15/2015 [facility] Heart Rate 80 11/15/2015 [facility] Diastolic (mm Hg) 70 11/15/2015 [facility] Systolic (mm Hg) 118 11/15/2015 [facility] Weight 160 06/21/2015 [facility] Height 59 06/21/2015 [facility] Temperature Oral (F) 98.4 F 06/21/2015 [facility] Heart Rate 66 06/21/2015 [facility] Diastolic (mm Hg) 92 06/21/2015 [facility] Systolic (mm Hg) 154 06/21/2015 [facility] Encounters Location Location Encounter Encounter Reason Attending ADM DC Stat us Source Details Type Number For Provider Date Date Visit [facility] [employer] MACH[employer] OPERATOR-est pcp [id number] 08/13 08/13 [facility] [id number] /[facility] [id number] & and 365 [facility] [employer] D[employer] MACHINE OPERATOR-est pcp [id number] 08/13 08/13 [facility] [id number] /2014 [facility] 9-[id number] & and d8d [facility] [employer] D[employer] MACHINE OPERATOR-est pcp [id number] 08/13 08/13 [facility] [id number] /2014 [facility] [id number] & and 722 [facility] [employer] D[employer] MACHINE OPERATOR-est pcp [id number] 08/13 08/13 [facility] [id number] /2014 [facility] [id number] & and 691 [facility] [employer] D[employer] MACHINE OPERATOR-est pcp [id number] 08/13 08/13 [facility] [id number] /2014 [facility] [id number] & and bd8 [facility] [employer]REL D[employer] MACHINE OPERATOR-est pcp [id number] 08/13 08/13 [facility] [id number] /2014 [facility] 3-[id number] & and f50 [facility] Y[facility] BARREL DED[employer]ING MACHINE OPERATOR-est pcp [id number] 08/13 08/13 [facility] [id number] /2014 [facility] [id number] & and fb1 [facility] BARREL DED[employer]ING MACHINE OPERATOR-est pcp [id number] 08/13 08/13 [facility] [id number] /2014 [facility] [id number] & and b98 [facility] Y[facility]av BARREL DEDENTING MACHINE OPERATOR-est pcp [id number] 08/13 08/13 [facility] [id number] /2014 [facility] [id number] & and e0b [facility] BARREL DEDENTING MACHINE OPERATOR-est pcp [id number] 08/13 08/13 [facility] [id number] /2014 [facility] f-[id number] & and 57e [facility] THYROID [id number] 08/26 08/[facility] [place] [id number] /2014 [facility] [id number] & and carmina [facility] THYROID [id number] 08/26 08/26 [facility] [place] [id number] /2014 [facility] c-[id number] & and 0a5 [facility] THYROID [id number] 08/26 08/26 [facility] [place] [id number] /2014 [facility] a-[id number] & and 79e [facility] THYROID [id number] 08/26 08/26 [facility] [id number] /2014 [facility] 2-[id number] & and 044 [facility] LARYNGITIS [id number] 08/26 08/26 [facility] FOLLOW UP [id number] /2014 [facility] a-[id number] & and 1da [facility] LARYNGITIS [id number] 08/26 08/26 [facility] [id number] /2014 [facility] 2-80wl376q7 & and 6c9 [facility] LARYNGITIS [id number] 08/26 08/26 [facility] [id number] /2014 [facility] [id number] & and 3e2 [facility] LARYNGITIS [id number] 08/26 08/26 [facility] [id number] /2014 [facility] [id number] & and 003 [facility] THYROID [id number] 08/26 08/26 [facility] [place] [id number] /2014 [facility] 3-[id number] & and 0c6 [facility] THYROID [id number] 08/26 08/26 [facility] [place] [id number] /2014 [facility] c-[id number] & and fac [facility] THYROID [id number] 08/26 08/26 [facility] [employer] [place] [id number] /2014 [facility] d-[id number] & and c22 [facility] THYROID [id number] 08/26 08/26 [facility] [place] [id number] /2014 [facility] [id number] & and 1a8 [facility] THYROID [id number] 08/26 08/26 [facility] [place] [id number] /2014 [facility] 2-[id number] & and 637 [facility] THYROID [id number] 08/26 08/26 [facility] [place] [id number] /2014 [facility] e-[id number] & and 4fb [facility] LARYNGITIS [id number] 08/26 08/26 [facility] FOLLOW UP [id number] /2014 [facility] [id number] & and cf8 [facility] LARYNGITIS [id number] 08/26 08/26 [facility] [id number] /2014 [facility] [id number] & and 11b [facility] LARYNGITIS [id number] 08/26 08/26 [facility] [id number] /2014 [facility] 4-[id number] & and 779 [facility] LARYNGITIS [id number] 08/26 08/26 [facility] [id number] /2014 [facility] b-[id number] & and de5 [facility] LARYNGITIS [id number] 08/26 08/26 [facility] [id number] /2014 [facility] b-[id number] & and 545 [facility] LARYNGITIS [id number] 08/26 08/26 [facility] [id number] /2014 [facility] e-[id number] & and ad4 [facility] Update [id number] 08/27 08/27 [facility] [id number] /2014 [facility] s - 5-c427c2509 & and Personal b44 [facility] [place] Update [id number] 08/27 08/27 [facility] [id number] /2014 [facility] - 4-248n578y8 & and Personal a74 [facility] Update [id number] 08/27 08/27 [facility] [id number] /2014 [facility] s - 8-20ifl1wss & and Personal b86 [facility] Update [id number] 08/27 08/27 [facility] [id number] /2014 [facility] - 9-g7h18up49 & and Personal 219 [facility] Update [id number] 08/27 08/27 [facility] [id number] /2014 [facility] s - b-[id number] & and Additional 69b [employer] Set Up Operator al [facility] Update [id number] 08/27 08/27 [facility] [id number] /2014 [facility] - d-tp5zl9129 & and Additional 92c [employer] Set Up Operator al [facility] Update [id number] 08/27 08/27 [facility] [id number] /2014 [facility] - d-[id number] & and Additional 55f [employer] Machine Set Up Operator al [facility] Update [id number] 08/27 08/27 [facility] [id number] /2014 [facility] s - e-8c45296s9 & and Additional af5 [employer] Set Up Operator al [facility] Update [id number] 08/27 08/27 [facility] [id number] /2014 [facility] - d-774536599 & and Personal 169 [facility] Update [id number] 08/27 08/27 [facility] [id number] /2014 [facility] s - 5-987258b37 & and Personal 65d [facility] Update [id number] 08/27 08/27 [facility] [id number] /2014 [facility] - c-[id number] & and Personal 253 [facility] Update [id number] 08/27 08/27 [facility] [id number] /2014 [facility] s - 0-[id number] & and Personal 1e6 [facility] Update [id number] 08/27 08/27 [facility] [id number] /2014 [facility] - f-[id number] & and Personal jack [facility] Update [id number] 08/27 08/27 [facility] [id number] /2014 [facility] - 6-40q0y2806 & and Personal 209 [facility] Update [id number] 08/27 08/27 [facility] [id number] /2014 [facility] - b-[id number] & and Additional 8b8 [employer] Set Up Operator al [facility] Update [id number] 08/27 08/27 [facility] [id number] /2014 [facility] s - 0-ir638u3qk & and Additional 3f3 [employer] Set Up Operator al [facility] Update [id number] 08/27 08/27 [facility] [id number] /2014 [facility] s - 4-[id number] & and Additional 866 [employer] Machine Set Up Operator al [facility] Update [id number] 08/27 08/27 [facility] [id number] /2014 [facility] Practice s - 6-8o7q4ta30 & and Additional 9b0 [employer] Machine Set Up Operator al [facility] Update [id number] 08/27 08/27 [facility] [id number] /2014 [facility] - 8-6101mru22 & and Additional 580 [employer] Machine Set Up Operator al [facility] Update [id number] 08/27 08/27 [facility] [id number] /2014 [facility] - 8-02p5y9718 & and Additional c03 [employer] Machine Set Up Operator al [facility] PHYS [id number] 09/17 09/17 [facility] [id number] /2014 [facility] a-[id number] & and 0f3 [facility] PHYS [id number] 09/17 09/17 [facility] [id number] /2014 [facility] 5-[id number] & and 97b [facility] PHYS [id number] 09/17 09/17 [facility] [id number] /2014 [facility] [id number] & and 57b [facility] PHYS [id number] 09/17 09/17 [facility] [id number] /2014 [facility] 1-[id number] & and e43 [facility] PHYS [id number] 09/17 09/17 [facility] [id number] /2014 [facility] d-[id number] & and 1e2 [facility] PHYS [id number] 09/17 09/17 [facility] [id number] /2014 [facility] e-[id number] & and c42 [facility] PHYS [id number] 09/17 09/17 [facility] [id number] /2014 [facility] b-[id number] & and 26d [facility] PHYS [id number] 09/17 09/17 [facility] t[facility] [id number] /2014 [facility] [id number] & and fe6 [facility] yadav [id number] 09/30 09/30 [facility] [id number] /2014 [facility] a-[id number] & and a0f [facility] yadav [id number] 09/30 09/30 [facility] [id number] /2014 [facility] [id number] & and da8 [facility] yadav [id number] 09/30 09/30 [facility] [id number] /2014 [facility] [id number] & and 860 [facility] yadav [id number] 09/30 09/30 [facility] [id number] /2014 [facility] 4-[id number] & and b80 [facility] yadav [id number] 09/30 09/30 [facility] [id number] /2014 [facility] 0-[id number] & and f94 [facility] yadav [id number] 09/30 09/30 [facility] [id number] /2014 [facility] f-[id number] & and a46 [facility] yadav [id number] 09/30 09/30 [facility] [id number] /2014 [facility] 4-[id number] & and 467 [facility] yadav [id number] 09/30 09/30 [facility] [id number] /2014 [facility] f-[id number] & and 558 [facility] i have a [id number] 10/07 10/07 [facility] problem [id number] /2014 [facility] c-[id number] & and 0a9 [facility] i have a [id number] 10/07 10/07 [facility] problem [id number] /2014 [facility] 7-[id number] & and 7fb [facility] how do i [id number] 10/07 10/07 [facility] know when [id number]-ba3 /2014 [facility] you get my 2-[id number] & and message? 93e [facility] how do i [id number] 10/07 10/07 [facility] know when [id number] /2014 [facility] you get my [id number] & and message? de2 [facility] i have a [id number] 10/07 10/07 [facility] problem [id number] /[facility] [id number] & and 29b [facility] i have a [id number] 10/07 10/07 [facility] problem 83-2l0c-31g /2014 [facility] d-[id number] & and 6eb [facility] i have a [id number] 10/07 10/07 [facility] problem 8f-2h1s-3b1 /2014 [facility] 8-[id number] & and 286 [facility] i have a [id number] 10/07 10/07 [facility] problem cd-4316-bec /2014 [facility] [id number] & and 009 [facility] i have a [id number] 10/07 10/07 [facility] problem [id number]-e76 /2014 [facility] 7-[id number] & and fc9 [facility] i have a [id number]-62 10/07 10/07 [facility] problem [id number] /2014 [facility] f-5588d02a8 & and 656 [facility] how do i [id number] 10/07 10/07 [facility] Family know when 71-46g4-n8n /2014 [facility] get my 7-8j22mf686 & and message? 440 [facility] how do i [id number] 10/07 10/07 [facility] know when f9-470d-a51 /2014 [facility] get my 0-184trirn9 & and message? f2d [facility] how do i [id number]-d2 10/07 10/07 [facility] know when 49-14c7-16j /2014 [facility] get my 1-m8e23l35z & and message? 1b4 [facility] how do i [id number] 10/07 10/07 [facility] know when 25-4901-b51 /2014 [facility] get my a-[id number] & and message? lana [facility] how do i [id number] 10/07 10/07 C gus Family know when 87-4903-b50 /2014 [facility] get my f-3t2to5470 & and message? 1a8 [facility] how do i [id number] 10/07 10/07 [facility] know when 83-3gr5-n54 /2014 [facility] get my 7-[id number] & and message? be1 [facility] I wanted to [id number] 10/07 10/07 [facility] know if i 24-31e6-96c /2014 [facility] should do. 9-575xw02l2 & and carmina [facility] I wanted to [id number] 10/07 10/07 [facility] know if i 26-4k0z-209 /2014 [facility] do. f-[id number] & and 27d [facility] I wanted to [id number] 10/07 10/07 [facility] know if i 7b-90g7-h0a /2014 [facility] do. b-pcf1su4g3 & and ecb [facility] I wanted to [id number] 10/07 10/07 [facility] know if i d3-40fd-91b /2014 [facility] do. 1-913c67n35 & and e62 [facility] I wanted to [id number] 10/07 10/07 [facility] know if i dc-4656-820 /2014 [facility] do. [id number] & and 8ba [facility] I wanted to [id number] 10/07 10/07 [facility] know if i [id number]-444d-a03 /2014 [facility] do. 4-[id number] & and 268 [facility] I wanted to [id number] 10/07 10/07 [facility] Mckeon know if i f7-4730-ae7 /2014 [facility] should do. c-[id number] & and 8c0 [facility] I wanted to [id number] 10/07 10/07 [facility] Mckeon know if i 0d-9o2r-nh4 /2014 [facility] should do. f-[id number] & and 1c2 [facility] Needs call [id number] 01/22 01/22 [facility] back from 07-4499-a99 [facility] 7-589d50lxz & and Staff ac1 [facility] Needs call [id number] 01/22 01/22 [facility] back from 41-77u7-0x0 [facility] b-[id number] & and Staff 3e2 [facility] Needs call [id number] 01/22 01/22 [facility] back from 0d-0rn4-d8x [facility] b-3uy49jy30 & and Staff 16e [facility] Needs call [id number] 01/22 01/22 [facility] Family back from [id number] /2014 [facility] c-[id number] & and Staff b13 [facility] Needs call [id number] 01/22 01/22 [facility] back from ac-425c-b21 /2014 [facility] e-[id number] & and Staff da6 [facility] Needs call [id number] 01/22 01/22 [facility] back from a2-31n0-423 [facility] f-7768daafb & and Staff 946 [facility] Needs call [id number] 01/22 01/22 [facility] back from a5-4111-af9 [facility] e-[id number] & and Staff 2bf [facility] Yad[facility] Needs call [id number] 01/22 01/22 [facility] Mckeon back from [id number]-e42 /2014 [facility] a-[id number] & and Staff 388 [facility] Statement [id number] 04/13 04/13 [facility] [id number]-a6d /2014 [facility] [id number] & and 092 [facility] Statement [id number] 04/13 04/13 [facility] ab-[id number] /2014 [facility] f-[id number] & and a65 [facility] Statement [id number] 04/13 04/13 [facility] [id number]-b5a /2014 [facility] [id number] & and 976 [facility] Statement [id number] 04/13 04/13 [facility] af-[id number] /2014 [facility] [id number] & and e51 [facility] Statement [id number] 04/13 04/13 [facility] Mc[facility] [id number]-a94 /2014 [facility] 2-[id number] & and ac7 [facility] Statement [id number] 04/13 04/13 [facility] [id number]-91d /2014 [facility] f-[id number] & and 719 [facility] Statement [id number] 04/13 04/13 [facility] Mc[facility] a1-4872-aa8 /2014 [facility] [id number] & and 044 [facility] Statement [id number] 04/13 04/13 [facility] Mc[facility] b3-4717-904 /2014 [facility] f-[id number] & and bd9 [facility] Statement [id number] 04/13 04/13 [facility] Mc[facility] 28-3g90-p28 /2014 [facility] c-[id number] & and 43c [facility] Statement [id number] 04/13 04/13 [facility] Mc[facility]on 46-4360-857 /2014 [facility] 9-[id number] & and 849 [facility] Statement [id number] 04/13 04/13 [facility] ac-4cfc-ba3 /2014 [facility] 1-[id number] & and d92 [facility] Statement [id number] 04/13 04/13 [facility] Mc[facility] a8-14c3-gjo /2014 [facility] [id number] & and 3f7 [facility] Statement [id number] 04/13 04/13 [facility] Mc[facility] af-473f-b4b /2014 [facility] [id number] & and efb [facility] Statement [id number] 04/13 04/13 [facility] Mckeon dc-[id number] /2014 [facility] a-[id number] & and 074 [facility] Statement [id number] 04/13 04/13 [facility] Mc[facility] [id number]-bb6 /2014 [facility] f-[id number] & and 477 [facility] Statement [id number] 04/13 04/13 [facility] 74-42ba-8d8 /2014 [facility] [id number] & and 35e [facility] Sinus [id number] 06/20 06/20 [facility] [id number] /2015 [facility] 3-08533291p & and 809 [facility] Sinus [id number] 06/20 06/20 [facility] 53-41bb-8d8 /2015 [facility] 5-0273607m1 & and 877 [facility] Sinus [id number] 06/20 06/20 [facility] cb-[id number] /2015 [facility] 5-[id number] & and c06 [facility] Sinus [id number] 06/20 06/20 [facility] 12-07w9-9hu /2015 [facility] [id number] & and c7f [facility] Sinus [id number] 06/20 06/20 [facility] [id number] /2015 [facility] f-[id number] & and 7cc [facility] Sinus [id number] 06/20 06/20 [facility] [id number] /2015 [facility] [id number] & and danny [facility] right wrist [id number] 11/14 11/14 [facility] pain 8d-3x95-ye6 /2015 [facility] [id number] & and 6f7 [facility] right wrist [id number] 11/14 11/14 [facility] pain 71-9g75-r0f /2015 [facility] [id number] & and 4fa [facility] right wrist [id number] 11/14 11/14 [facility] 0f-4657-bb7 /2015 [facility] b-[id number] & and 36f [facility] right wrist [id number] 11/14 11/14 [facility] pain 6c-2i4p-yha /2015 [facility] a-[id number] & and be8 [facility] right wrist [id number] 11/14 11/14 [facility] pain [id number] /2015 [facility] [id number] & and 4ed [facility] medication [id number] 02/15 02/15 [facility] refill [id number]-tnb /2015 [facility] b-[id number] & and 555 [facility] medication [id number] 02/15 02/15 [facility] refill [id number]-fl6 /2015 [facility] [id number] & and e33 [facility] medication [id number] 02/15 02/15 [facility] refill [id number]-43ff-8aa /2015 [facility] c-[id number] & and 00d [facility] medication [id number] 02/15 02/15 [facility] refill 98-7em8-8c1 /2015 [facility] e-[id number] & and ed0 [facility] Unknown [id number] 02/20 02/20 Ca gurjit Family [id number]-t75 /2015 [facility] 1-[id number] & and e07 [facility] Unknown [id number] 02/20 02/20 [facility] gurjit Family f1-96j4-sr8 /2015 [facility] [id number] & and aa2 [facility] Unknown [id number] 02/20 02/20 Ca gurjit Family 09-7gg5-42p /2015 [facility] [id number] & and 1b8 [facility] rash on [id number] 03/31 03/31 Ca gurjit Family neck and b5-49fb-bf0 /2015 [facility] chest- pt [id number] & and believes it dcb Inter nal Internal is [facility] Emergency [id number] Juana Smith 03/31 03/31 BOOGIE Campbell [facility] Needs call [id number] 04/03 04/03 [facility] Mckeon back from 2e-4cbe-9de /2015 [facility] 9-7s75od35n & and Staff fe0 [facility] Needs call [id number] 04/03 04/03 [facility] Family back from 18-81j5-5ow [facility] [id number] & and Staff 434 [facility] Outpatient [id number] Shiela 06/30 07/01 BOOGIE Campbell 5 Leif-Fo /2016 [facility] Inpatient [id number] Amir 06/30 07/04 Nicholson 6 Ghebranious /2016 [facility] Outpatient [id number] Amir 07/18 07/19 Adrian 7 Ghebranious /2016 [facility] Observation [id number] Amir 01/16 01/18 Adrian 8 Peggyebranious /2016 [facility] Inpatient [id number] Markus 01/07 01/08 Adrian 0 Lucita /2018 [facility] Outpatient [id number] Shiela 05/14 05/15 Nicholson 1 Yadav [facility] Procedures Procedure Code Date Perfomer Comments Source Colonoscopy<sup>1</sup> [id number] 11/15/19 and 2013 [facility] 19 Esophagogastroduodenoscopy [id number] 07/04/19 [facility] 17 Angioplasty [id number] 04/16/19 [facility] 00 Hemorrhoidectomy [id number] 04/16/18 [facility] 98 Tubal ligation [id number] 04/16/[address] [facility] [address] 97 Diagnostic procedure [id number] [facility] outheast Assessment and Plan Assessment and Plan Date Source Extracted from:Title: Clinical Document 01/08/2019 [facility] Author: Markus Landrum MD Date: 01/07/19 POD#1 Plan to D/C in AM post PT F/U in 2 weeks D/C meds [place] Out[facility] PT arranged Extracted from:Title: Clinical Document Author: Sammy Hyde MD Date: 01/06/19 Consult Chief Complaint History of Present Illness Admitted for knee surgery office consult ed for medical management status seen status post surgery denies any chest pain any shortness of breath Past Medical History Hypertension Migraine GERD Hiatal hernia Past surgical history Tubal ligation Angioplasty Hemorrhoidectomy 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 Allergies Iodine Medication See reconciliation form Social history does not smoke does not drink Family history Mother colon cancer Siblings diabetes hypertension Review Of Systems Nervous: no neurological symptoms Endocrine: none Skin: no skin rash Cardiovascular no chest pain, no shortness of breath, no palpitation Hematology/Coagulation: no bleeding Urinary: no burning with urination Genital: none Metabolic: stable Musculoskeletal: no pain GI: no nausea no vomiting no diarr hea no constipation no blood in the stools Respiratory: no shortness of breath, no wheezing Infection: no fever no chills Physical Exam Vitals Blood pressure 103/62, pulse 75 sats 98 Head : PERRLA EOMI Neck : no JVD no bruit, thyroid within normal, no lymph node s Chest: Clear to auscultation and percussion, no adventurou s sounds Heart: RRR S1-S2 normal, no murmurs. Abdomen: positive for bowel sounds, no t enderness no rebound, no rigidity, no guarding. Lower limbs: no edema, no cyanosis, pul ses intact. Bandages right knee, SCDs bilateral Neurological exam: grossly intact sensory or motor. Skin: No rash Assessment Status post right knee replacement Hypertension Hyperlipidemia Neuropathy Plan Physical therapy Aspirin Renew home meds Labs in a.m. Discussed with patient questions answered Extracted from:Title: Discharge Summary * 01/18/2017 [facility] Author: Aly Gauthier MD Date: 01/18/17 Discharge Information Disposition to home Condition stable medications: See med reconciliation form Diet: Heart healthy Discharge Plan Follow-up with your primary care physician in 3-5 days In evaluating worsening symptoms patient was to come back to the ED for further evaluation Discharge summary took greater than 35 minutes Extracted from:Title: Clinical Document Author: Sammy Hyde MD Date: 01/17/17 Progress Note - Daily [facility] Completed: Sunday, JAN 17, 2017, 14:12 by Sammy Hyde MD RM: CCDU - 14, SE CCDU CHRISTOPHER HUMPHREY 71y (: 1945) F Attending: Sammy [...] 46 [place] still necessary (Yes/No): Line still alpesh caputo (Yes/No): Vitals Tmp(F) Pulse BP RR SpO2 FIO2 01/17 10:45 98.7 109 117/70 18 96 --- 01/17 08:05 ---- --- ----- -- 92 --- 01/17 06:54 97.6 100 109/68 18 93 --- 01/17 03:49 98.0 112 100/61 18 94 --- 01/16 22:59 98.1 106 99/69 16 93 --- 24 Hr Tmax: 98.7F (37.06c) at 01/17 10:4 5 Vital Signs are the last 5 in the past 48 hours. Date Wt(kg) Wt(lb) Ht(cm) Ht(in) Method 01/16 65.80 144.76 162.56 64.00 Measured 01/15 (initial) 65.91 145.00 Estimated 01/16 162.56 64.00 Stated I&O Record In Out Bal 01/17 24hr Tot 1 0 1 01/16 24hr Tot 702 0 702 Medications (28) Active Scheduled Meds (8): 01/16/17 albuterol-ipratropium (albutero l-ipratropium 2.5-0.5 mg inhalation solution) 3 mL NEB RQ6H 01/17/17 amLODIPine 5 mg PO Daily 01/16/17 amoxicillin-clavulanate (amoxic illin-clavulanate 875 mg-125 mg oral tablet) 1 tab PO [id number] 01/17/17 hydrochlorothiazide (hydrochlor othiazide 25 mg oral tablet) 25 mg PO Daily 01/16/17 methylPREDNISolone (methylPREDNISolone SODium SUCCinate) 40 mg IVP Q8H 01/16/17 pantoprazole 40 mg PO BID 01/16/17 rosuvastatin (Crestor) 10 mg PO Bedtime 01/16/17 sucralfate (Carafate) 1 gm PO QID-Before Meals Unscheduled Meds: None PRN Meds (19): 01/16/17 acetaminophen (Tylenol) 650 mg NC Q6H 01/16/17 albuterol (albuterol 0.083% inhalation solution) 2. 49 mg NEB RQ2H 01/16/17 albuterol (Ventolin HFA 90 mcg/ inh inhalation aerosol with adapter) 2 puff INHALATION QID 01/16/17 calcium gluconate + sodium chlo ride 0.9% INJ 100 mL 2 gm IVPB PRN 240 ml/hr 01/16/17 calcium gluconate + sodium chlo ride 0.9% INJ 150 mL 3 gm IVPB PRN 360 ml/hr 01/16/17 magnesium oxide 800 mg PO PRN 01/16/17 magnesium sulfate 1 gm IVPB PRN 100 ml/hr 01/16/17 magnesium sulfate 2 gm IVPB PRN 25 ml/hr 01/16/17 phenol topical (Chloraseptic 1.4% spray) 1 spray TO P TID 01/16/17 potassium chloride 20 mEq PO PRN 01/16/17 potassium chloride 20 mEq NJ PRN 01/16/17 potassium chloride 10 mEq IVPB PRN 100 ml/hr 01/16/17 potassium phosphate + sodium ch loride 0.9% INJ 250 mL 15 mmol IVPB PRN 63.75 ml/hr 01/16/17 potassium phosphate + sodium ch loride 0.9% INJ 250 mL 30 mmol IVPB PRN 65 ml/hr 01/16/17 potassium phosphate-sodium phos phate (potassium phosphate-sodium phosphate 250 mg-280 mg-160 mg oral powder for reconstitution) 2 pkt PO PRN 01/16/17 promethazine 25 mg PO Q4H 01/16/17 sodium chloride (Saline Flush 0.9%) 10 ml IVP PRN 01/16/17 sodium phosphate + D5W 250 mL 15 mmol IVPB PRN 63.7 5 ml/hr 01/16/17 sodium phosphate + D5W 250 mL 30 mmol IVPB PRN 65 m l/hr One Time Meds (1): 01/16/17 (Completed) potassium chloride (potassium chloride 20 mEq oral tablet, extended release) 40 mEq PO ONCE Continuous Infusions: None ASSESSMENT and EXAM GENERAL: alert and oriented x 3. no obvious distress HEENT: PERRLA. EOMI. Normocephalic, Atraumatic NECK: No jugular venous distention, no bruit. Thyroid is n ormal. LUNGS: Improved air entry from yesterday , but still some wheezing and some rhonchi minimal bilateral HEART: RRR. S1, S2 is normal. ABDOMEN: Positive bowel sounds, no organomegaly. No tender ness appreciated EXTREMITIES: No tenderness. Lower limbs, no edema and no c yanosis. NEUROLOGIC: Grossly intact sensory and motor. SKIN: no rashes noted PLAN and TREATMENT Continue IV steroids Continue antibiotics Not ready to go home today Continue breathing treatments Home in a.m. discussed in details with patient and questions answered DIAGNOSES and PROBLEMS Asthmatic bronchitis Shortness of breath secondary to above Hyperlipidemia Hypokalemia Ready for Discharge (Yes/No)? TEACHING ATTESTATION Extracted from:Title: Clinical Document 07/04/2016 [facility] Author: Yony Gotti MD Date: 07/04/16 Progress Note - Daily [facility] Completed: Jun, 15:38 by Yony Gotti MD RM: 421 - 2W, SE C4B BASSEMCamille DWIGHTGABRIEL PRINCE 71y (: 1945) F Attending: Sammy Hyde MD Service: Internal Medicine Reason for Admission: ACUTE PANCREATITIS Working DRG: None Documented Code status: Full Code [Ordered] Current diet: Isolation: None Documented Allergies: iodine SUBJECTIVE abdominal pain is better OBJECTIVE (no lab data in past 24 hours) Oreilly still necessary (Yes/No): Line still neces patito (Yes/No): Vitals Tmp(F) Pulse BP RR SpO2 [...] Meds (7): 07/01/16 albuterol (Ventolin HFA 90 mcg/ inh inhalation aerosol with adapter) 2 puff INHALATION QID 07/02/16 amLODIPine (Norvasc) 5 mg PO Daily 07/02/16 aspirin (aspirin 81 mg tablet, enteric coated) 81 m g PO Daily 07/01/16 atorvastatin (Lipitor) 20 mg PO Bedtime 07/02/16 hydrochlorothiazide (hydrochlor othiazide 25 mg oral tablet) 25 mg PO Daily 07/03/16 pantoprazole (Protonix) 40 mg PO BID 07/03/16 sucralfate 1 gm PO QID Unscheduled Meds: None PRN Meds (6): 07/01/16 acetaminophen-hydrocodone ([place] 5/325 oral tablet) 1 tab PO Q6H 07/03/16 acetaminophen (Tylenol) 650 mg PO Q6H 06/30/16 morphine Sulfate 4 mg IVP Q4H 07/01/16 nitroglycerin (nitroglycerin 0.4 mg sublingua l tablet) 0.4 mg SL Q5Min 06/30/16 ondansetron [...] 4. Avoid NSAIDS d/w Family and nurse. Plan of Care No Data Provided for This Section Social History Social History Date Source Social History TypeResponse 01/06/2019 [facility] Alcohol Never Substance Abuse Use: None. 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 02/2014Mar 31, 2016 Depression Screening: . negative (2014) Mar 31, 2016 Ethnicity . Status , Is french your primary language? Yes Mar 31, 2016 Fall Risk: . 2+ in past year w/o injury Mar 31, 2016 Tobacco Use: . Are you a: never smoker Former - 2nd hand smoke (copd) Mar 31, 2016 Use of recreational / street drugs? . Answer: No Mar 31, 2016 Flu Vaccine: . No, Advised Mar 31, 2016 Marital Status: . Mar 31, 2016 Caffeine intake? . Status: Yes, What type: Coffee 1 cup per week Mar 31, 2016 Do you exercise? . Answer: Yes, Type: walking Mar 31, 2016 Last Bone Density: . 09/2014Mar 31, 2016 Pneumoccocal Vaccine . Yes, 2012Mar 31, 2016 Do you drink alcohol? . Status: No Mar 31, 2016 Family History Value Date Source QualifierDescriptionCommentDate Reported 02/18/2016 [facility] Family & Maternal Grandmother [facility] Comment not available Feb 16, 2016 Paternal Grandmother Comment not available Feb 16, 2016 Siblings alive 1 brother , diabetes mellitus, heart disease Feb 16, 2016 Maternal Grandfather Comment not available Feb 16, 2016 Children Comment not available Feb 16, 2016 Father Comment not available Feb 16, 2016 Paternal Grandfather Comment not available Feb 16, 2016 Mother colon cancer Feb 16, 2016 Other: Comment not available Feb 16, 2016 QualifierDescriptionCommentDate Reported 11/17/2015 [facility] & Maternal Grandmother [facility] Comment not available Nov 15, 2015 Paternal Grandmother Comment not available Nov 15, 2015 Siblings alive 1 brother , diabetes mellitus, heart disease Nov 15, 2015 Maternal Grandfather Comment not available Nov 15, 2015 Children Comment not available Nov 15, 2015 Father Comment not available Nov 15, 2015 Paternal Grandfather Comment not available Nov 15, 2015 Mother colon cancer Nov 15, 2015 Other: Comment not available Nov 15, 2015 Advance Directives No Data Provided for This Section Functional Status No Data Provided for This Section
--- OUTSIDE RECORDS SUMMARY | 2019-12-19 15:38 | XMS REPORT ---
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) Problem Osteopenia of multiple sites M85.89 Active Problem Abdominal aortic aneurysm (AAA) I71.4 Active without rupture Problem Sciatica, left side M54.32 Active Problem Primary osteoarthritis of both M17.0 Active knees Problem Essential hypertension I10 Activ e Problem BMI 32.0-32.9,adult Z68.32 Active Problem Other and unspecified E78.5 Active hyperlipidemia Problem Duodenitis K29.80 Active Problem Esophageal reflux K21.9 Active Problem Peptic ulcer disease K27.9 Active Medications Medication Code Code Instructions Start End Status Dosage System Date Date Tessalon [facility] 11147256788 100 MG Orally Nov 20, Nov 17, Active 1 cap rishi Perles Three times a 2019 2019 as needed day Zithromax [facility] 56067874180 250 MG Orally as Nov 20, Nov 25, Active 2 tablets Z-Wilbert directed 2019 2019 day 1 then 1 tab each day for the next 4 days Results No Known Results Summary Purpose eClinicalWorks Submission
--- OUTSIDE RECORDS SUMMARY | 2019-12-19 15:38 | XMS REPORT ---
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) Assessment Anemia, unspecified type D64.9 Act robert Problem Age-related cataract of both eyes, H25.9 Active unspecified age-related cataract type Assessment Pleurisy R09.1 Active Assessment Lower extremity edema R60.0 Active Problem Thoracic aortic aneurysm without I71.2 Active rupture Problem Primary osteoarthritis of both M17.0 Active knees Problem Osteopenia of multiple sites M85.89 Active Problem Sciatica, right side M54.31 Active Problem Sciatica, left side M54.32 Active Assessment Pneumonia of left lower lobe due to J18.9 Active infectious organism Assessment Acute pain of left shoulder M25.512 Active Assessment Essential hypertension I10 Activ e Problem Essential hypertension I10 Activ e Problem BMI 32.0-32.9,adult Z68.32 Active Problem Other and unspecified E78.5 Active hyperlipidemia Problem Duodenitis K29.80 Active Assessment Acute kidney injury N17.9 Active Problem Esophageal reflux K21.9 Active Problem Peptic ulcer disease K27.9 Active Medications Medication Code Code Instructions Start End Status Dosage System Date Date Furosemide ND 80494929585 20 MG Orally Dec 02, Active 1 ta blet Once a day prn 2019 Raloxifene HCl ND 96633250335 60 MG by mouth Active 1 tablet Once a day Triamterene-HCT ND 50338343186 37.5-25 by Active 1 tablet Z mouth Once a day Rosuvastatin ND 61841148262 20 MG Orally Active 1 tablet Calcium Once a day Cetirizine HCl ND 19191113276 10 MG Orally Active 1 tablet Once a day Gabapentin ND 42066424017 300 MG by mouth October 10, Active 1 capsule twice a day 2018 (bid) Famotidine ND 66298358885 40 MG Orally November 11, Active 1 t ablet Once a day 2019 at bedtime Benzonatate [facility] 08488934152 200 MG Orally Active 1 capsule Three times a day Potassium [facility] [address]-84 10 MEQ Orally Dec 02Dec Active 1 capsule Chloride Once a day 2019 08, with food 2019 Tramadol HCl [facility] [address]-41 50 mg Orally Active 1 tablet Every 6 hours as needed as needed Tizanidine HCl [facility] [address]-98 6 MG Orally Active 1 capsule daily as needed Vitamin B12 [facility] 09912158593 500 MCG Orally Active 1 tablet Once a day Pantoprazole [facility] 67978329885 40 MG Active TAKE ON E Sodium TABLET BY MOUTH DAILY Vital Signs Date/Time: Dec 03, 2019 BMI 33.20 Index Weight 164.4 lbs Height 59 in Cardiac Monitoring Heart Rate 68 /min Blood Pressure Diastolic 74 mm Hg Blood Pressure Systolic 122 mm Hg Results No Known Results Summary Purpose eClinicalWorks Submission
--- OUTSIDE RECORDS SUMMARY | 2019-12-19 15:41 | XMS REPORT | Summary of Care ---
:1945 Author Organization [facility] Address [address] [place] [id number] Care Team Providers Name Role Phone Camille Bell Primary Care Provider Reason for Visit Reason Comments Exposure LAB Encounter Details Date Type Department Care Team Description 11/14/2019 Laboratory Only [facility] Ligia Alvarado, [employer] [address] [place] [address] Suspected 2019 [facility], [facility] Fam Pob I Coronavirus [address] [place] [address] Infection ([address] Dx) [place] [address] Allergies Active Allergy Reactions Severity Noted Date Comments Iodine Other - See comments 10/26/2018 documented as of this encounter (statuses as of 11/14/2019) Medications Medication Sig Dispensed Refills Start Date End Date Status cephALEXin (KEFLEX) Take 1 capsule by 28 capsule 0 10/26/2018 Active 500 mg mouth 4 (four) capsuleIndications: times daily. Cellulitis, unspecified cellulitis site, Infected insect bite of forearm, initial encounter acetaminophen-codeine Take 1 tablet by 20 tablet 0 10/26/2018 Active (TYLENOL-CODEINE #3) mouth every 6 300-30 mg (six) hours as tabletIndications: needed for Pain Cellulitis, (scale 7-10). unspecified cellulitis site, Infected insect bite of forearm, initial encounter documented as of this encounter (statuses as of 11/14/2019) Active Problems No known active problemsdocumented as of this encounter (statuses as of 11/14/2019) Social History Tobacco Use Types Packs/Day Years Used Date Never Assessed Sex Assigned at Date Recorded Not on file Job Start Date Occupation Industry Not on file Not on file Not on file Travel History Travel Start Travel End No recent travel history available. COVID-19 Exposure Response Date Recorded In the last month, have you been in contact with No / Unsure 11/14/2019 10:43 AM CDT someone who was confirmed or suspected to have Coronavirus / COVID-19? documented as of this encounter Last Filed Vital Signs Not on filedocumented in this encounter Plan of Treatment Name Type Priority Associated Diagnoses Order S arash COVID-19 (PCR MOLECULAR LAB Routine Suspected 2019 No keila Ordered: 11/14/2019 TESTING) Coronavirus Infection Health Maintenance Due Date Last Done Comments HEPATITIS C (HCV) SCREEN 1945 DTaP,Tdap,and Td Vaccines (1 - Tdap) 1958 Depression Screening 1959 Breast Cancer Screening (MAMMOGRAM) 1987 COLONOSCOPY 1997 Zoster Recombinant Vaccine (SHINGRIX) (1 of 2) 1997 Medicare Wellness Visit 2012 Osteoporosis Screening 2012 PNEUMOCOCCAL VACCINES 65+ (1 of 2 - PCV13) 2012 INFLUENZA VACCINE (#1) 2019 documented as of this encounter Results Not on filedocumented in this encounter Visit Diagnoses Diagnosis Suspected 2018 Novel Coronavirus Infecti on - Primary documented in this encounter Insurance Payer Benefit Plan Subscriber ID Effective Dates Phone Address Type / Group HUMANA - HUMANA GOLD [id number] 2019-Presen Me dicare Adv MANAGED PLS HMO t O MEDICARE documented as of this encounter
--- OUTSIDE RECORDS SUMMARY | 2019-12-19 15:41 | XMS REPORT | Continuity of Care Document ---
:1945 Author Organization [facility] t Address [address] [place] [address] Care Team Providers Name Role Phone UNKNOWN Primary Care Physician Unavailable Vince SALINAS, S Attending Clinician Dez EWING, T Attending Clinician Unavailable Lab, Fam Pob I Attending Clinician Unavailable Camille Irwin Attending Clinician Martin Landrum Attending Clinician Doctor Unassigned, Name Attending Clinician Unavailable Mikaela Hyde Attending Clinician Camille Bell Attending Clinician Tracy Smith Attending Clinician Martin Landrum Admitting Clinician Mikaela Hyde Admitting Clinician Problems Condition Condition Condition Status Onset Resolution Last Treating Co mments Source Name Details Category Date Date Treatment Clinician Date M79.89- Diagnosis Active 2019-05-14 Me moria OTHER 05-14 12:06:00 l SPECIFIED M79.89- 00:00: Herm samuel SOFT OTHER 00 TISSUE SPECIFIED DISO SOFT TISSUE DISO Active 05/14/2019 [facility] UNK Diagnosis Active 2019-01-06 Mem oria 12-09 05:02:00 l UNK 00:00: [place] 00 Active 12/09/2018 [facility] RIGHT KNEE Diagnosis Active 2019-01-28 Memoria DJD 12-09 09:48:00 l RIGHT 00:00: Adrian KNEE DJD 00 Active 12/09/2018 [facility] SOB Diagnosis Active 2016-042017-01-16 Mem oria 0-02 00:52:00 l SOB 00:00: [place] 00 Active 01/15/2017 [facility] ACUTE Diagnosis Active 2016-042017-01-19 Mem oria ASTHMA 0-02 06:39:00 l EXACERBATI ACUTE 00:00: Mitali nn ON ASTHMA 00 EXACERBATI ON Active 7 [facility] DX: Diagnosis Active 2016-07-18 Mem oria N83.201=UN 3-30 17:37:00 l SPECIFIED DX: 00:00: Adrian OVARIAN N83.201=UN 00 CYST, RI SPECIFIED OVARIAN CYST, RI Active 07/13/2016 [facility] ACUTE Diagnosis Active 2016-07-05 Mem oria PANCREATIT 3- 09:26:00 l IS ACUTE 17:00: [place] PANCREATIT 00 IS Active 7 [facility] ABNORMAL Diagnosis Active 2016-06-30 M emoria LABS -17 19:15:00 l ABNORMAL 17:00: Jerome n LABS 00 Active 06/30/2016 [facility] R10.13 Diagnosis Active 2016-06-30 Mem oria 3-17 14:16:00 l R10.13 00:00: Adrian 00 Active 06/30/2016 [facility] RASH Diagnosis Active 2015-042016-03-31 Mem oria 2-16 13:08:00 l RASH 00:00: [place] 00 Active 03/31/2016 [facility] Asthma Problem Resolve 2017-01-21 Nick tyree (disorder) d 03:03:08 l Asthma Adrian (disorder) Resolved Problem 01/21/2017 [facility] Migraine Problem Resolve 2017-01-21 Me moria (disorder) d 03:03:08 l Migraine Jerome n (disorder) Resolved Problem 01/21/2017 [facility] Concussion Problem Resolve 2017-01-21 Memoria injury of d 03:03:08 l brain Adrian (disorder) Concussion injury of brain (disorder) Resolved Problem 01/21/2017 [facility] History of Problem Resolve 2017-01-21 Memoria - d 03:03:08 l abdominal History Herm samuel hernia of - (context-d abdominal ependent hernia category) (context-d ependent category) Resolved Problem 01/21/2017 [facility] History of Problem Resolve 2017-01-21 Memoria - CVA d 03:03:08 l (context-d History Her ram ependent of - CVA category) (context-d ependent category) Resolved Problem 01/21/2017 [facility] Transient Problem Resolve 2019-05-17 M emoria ischemic d 00:00:42 l attack [place] (disorder) Transient ischemic attack (disorder) Resolved Problem 05/17/2019 [facility] Esophageal Problem Active 2019-12-05 M emoria reflux 02:04:39 l [place] Esophageal reflux Active Problem 12/05/2019 [facility] Essential Diagnosis Active 2019-12-05 Memoria hypertensi 02:04:39 l on Adrian Essential hypertensi on Active Diagnosis 12/05/2019 [facility] Migraine Problem Active 2016-10-21 Mem oria 02:02:54 l Migraine Jerome n Active Problem 10/21/2016 [facility] Other and Problem Active 2019-12-05 Me moria unspecifie 02:04:39 l d Other Adrian hyperlipid and emia unspecifie d hyperlipid emia Active Problem 12/05/2019 [facility] Peptic Problem Active 2019-12-05 Memor ia ulcer 02:04:39 l disease Peptic Adrian ulcer disease Active Problem 12/05/2019 [facility] Duodenitis Problem Active 2019-12-05 M emoria 02:04:39 l [place] Duodenitis Active Problem 12/05/2019 [facility] Mild Problem Active 2019-12-05 Memor ia persistent 02:04:39 l asthma Mild [place] without persistent complicati asthma on without complicati on Active Problem 0 [facility] Hernia, Problem Active 2016-10-21 Nick tyree hiatal 02:02:54 l Hernia, [place] hiatal Active Problem 10/21/2016 [facility] Seasonal Problem Active 2016-10-21 Mem oria allergic 02:02:54 l conjunctiv Seasonal He rmann itis allergic conjunctiv itis Active Problem 10/21/2016 [facility] Hx of Problem Active 2019-12-05 Memor ia colonic 02:04:39 l polyp Hx of [place] colonic polyp Active Problem 12/05/2019 [facility] BMI Problem Active 2019-12-05 Memor ia 32.0-32.9, 02:04:39 l adult BMI [place] 32.0-32.9, adult Active Problem 12/05/2019 [facility] Bronchitis Diagnosis Active 2017-01-31 Memoria 02:02:04 l Adrian Bronchitis Active Diagnosis 01/31/2017 [facility] Hospital Diagnosis Active 2017-01-31 M emoria discharge 02:02:04 l follow-up Hospital Her ram discharge follow-up Active Diagnosis 01/31/2017 [facility] Cough Diagnosis Active 2017-05-03 Mem oria 03:01:34 l Cough Adrian Active Diagnosis 05/03/2017 [facility] Right foot Diagnosis Active 2017-05-03 Memoria pain 03:01:34 l Right [place] foot pain Active Diagnosis 05/03/2017 [facility] Right Diagnosis Active 2017-05-03 Mem oria elbow pain 03:01:34 l Right [place] elbow pain Active Diagnosis 05/03/2017 [facility] Chest pain Diagnosis Active 2017-05-03 Memoria in adult 03:01:34 l Chest Adrian pain in adult Active Diagnosis 05/03/2017 [facility] Migraines Problem Active 2015-04-14 Me moria 03:17:20 l [place] Migraines Active Problem 04/14/2015 [facility] GERD Problem Active 2015-04-14 Memor ia (gastroeso 03:17:20 l phageal GERD [place] reflux (gastroeso disease) phageal reflux disease) Active Problem 04/14/2015 [facility] Hypertensi Problem Active 2015-04-14 M emoria on 03:17:20 l Adrian Hypertensi on Active Problem 5 [facility] Hyperlipid Problem Active 2015-04-14 M emoria emia 03:17:20 l Adrian Hyperlipid emia Active Problem 04/14/2015 [facility] Age-relate Diagnosis Active 2019-05-03 Memoria d 03:04:10 l osteoporos Jerome n is without Age-relate current d pathologic osteoporos al is without fracture current pathologic al fracture Active Diagnosis 05/03/2019 [facility] Frequent Problem Active 2019-12-05 Mem oria falls 02:04:39 l Frequent Jerome n falls Active Problem 12/05/2019 [facility] Abdominal Problem Active 2019-11-22 Me moria aortic 02:03:05 l aneurysm Adrian (AAA) 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 Active Problem 11/22/2019 [facility] Osteopenia Diagnosis Active 2017-10-09 Memoria , 02:04:33 l unspecifie Jerome n d location Osteopenia , unspecifie d location Active Diagnosis 10/09/2017 [facility] Screening Diagnosis Active 2018-10-13 Memoria for breast 02:00:24 l cancer Adrian Screening for breast cancer Active Diagnosis 10/13/2018 [facility] Screening Diagnosis Active 2018-10-13 Memoria for colon 02:00:24 l cancer [place] Screening for colon cancer Active Diagnosis 10/13/2018 [facility] Encntr for Diagnosis Active 2018-10-13 Memoria general 02:00:24 l adult Encntr [place] medical for exam w/o general abnormal adult findings medical exam w/o abnormal findings Active Diagnosis 10/13/2018 [facility] Hyperlipid Diagnosis Active 2015-11-17 Memoria emia 02:24:15 l [place] Hyperlipid emia Active Diagnosis 11/17/2015 [facility] Obesity Diagnosis Active 2015-06-23 Me moria 03:22:23 l Obesity [place] Active Diagnosis 06/23/2015 [facility] Aortic Diagnosis Active 2015-06-23 Mem oria aneurysm 03:22:23 l Aortic Adrian aneurysm Active Diagnosis 06/23/2015 [facility] GERD Diagnosis Active 2015-06-23 Mem oria (gastroeso 03:22:23 l phageal GERD Adrian reflux (gastroeso disease) phageal reflux disease) Active Diagnosis 06/23/2015 [facility] Rash Diagnosis Active 2016-04-04 Mem oria 03:23:17 l Rash Adrian Active Diagnosis 04/04/2016 [facility] SOB Diagnosis Active 2018-08-28 Mem oria (shortness 02:01:07 l of breath) SOB Jerome n (shortness of breath) Active Diagnosis 08/28/2018 [facility] Lower Diagnosis Active 2016-07-02 Mem oria respirator 02:00:22 l y tract Lower Adrian infection respirator y tract infection Active Diagnosis 07/02/2016 [facility] Epigastric Diagnosis Active 2016-07-02 Memoria pain 02:00:22 l [place] Epigastric pain Active Diagnosis 07/02/2016 [facility] Prediabete Diagnosis Active 2016-02-22 Memoria s 03:11:09 l [place] Prediabete s Active Diagnosis 02/22/2016 [facility] Right Diagnosis Active 2015-11-17 Mem oria wrist pain 02:24:15 l Right Adrian wrist pain Active Diagnosis 11/17/2015 [facility] Abnormal Diagnosis Active 2015-11-17 M emoria chest 02:24:15 l x-ray Abnormal Jerome n chest x-ray Active Diagnosis 11/17/2015 [facility] Right Diagnosis Active 2015-11-17 Mem oria shoulder 02:24:15 l pain Right Adrian shoulder pain Active Diagnosis 11/17/2015 [facility] Age-relate Problem Active 2019-12-05 M emoria d cataract 02:04:39 l of both Adrian eyes, Age-relate unspecifie d cataract d of both age-relate eyes, d cataract unspecifie type d age-relate d cataract type Active Problem 12/05/2019 [facility] Sciatica, Problem Active 2019-12-05 Me moria right side 02:04:39 l Adrian Sciatica, right side Active Problem 12/05/2019 [facility] History of Problem Active 2019-12-05 M emoria total 02:04:39 l right knee History Her ram replacemen of total t (TKR) right knee replacemen t (TKR) Active Problem 12/05/2019 [facility] Osteopenia Problem Active 2019-12-05 M emoria of 02:04:39 l multiple [place] sites Osteopenia of multiple sites Active Problem 12/05/2019 [facility] Sciatica, Problem Active 2019-12-05 Me moria left side 02:04:39 l [place] Sciatica, left side Active Problem 12/05/2019 [facility] Primary Problem Active 2019-12-05 Nick tyree osteoarthr 02:04:39 l itis of Primary Jerome n both knees osteoarthr itis of both knees Active Problem 12/05/2019 [facility] Submucous Diagnosis Active 2016-08-04 Memoria leiomyoma 02:00:15 l of uterus Adrian Submucous leiomyoma of uterus Active Diagnosis 08/04/2016 [facility] Acute Diagnosis Active 2016-08-04 Mem oria left-sided 02:00:15 l thoracic Acute Adrian back pain left-sided thoracic back pain Active Diagnosis 08/04/2016 [facility] Asymptomat Diagnosis Active 2018-10-13 Memoria ic 02:00:24 l postmenopa Jerome n usal Asymptomat estrogen ic deficiency postmenopa usal estrogen deficiency Active Diagnosis 10/13/2018 [facility] Encntr for Diagnosis Active 2016-07-20 Memoria flexographic press helper exam 02:00:59 l (general) Encntr Mitali nn (routine) for flexographic press helper w/o abn exam findings (general) (routine) w/o abn findings Active Diagnosis 07/20/2016 [facility] Cyst of Diagnosis Active 2016-07-14 Me moria right 02:03:08 l ovary Cyst of Adrian right ovary Active Diagnosis 07/14/2016 [facility] Acute Diagnosis Active 2016-07-14 Mem oria gastritis 02:03:08 l without Acute Adrian hemorrhage gastritis , without unspecifie hemorrhage d , gastritis unspecifie type d gastritis type Active Diagnosis 07/14/2016 [facility] Acute Diagnosis Active 2016-07-14 Mem oria abdominal 02:03:08 l pain Acute [place] abdominal pain Active Diagnosis 07/14/2016 [facility] Preop Diagnosis Active 2018-10-17 Mem oria testing 02:01:22 l Preop Adrian testing Active Diagnosis 10/17/2018 [facility] Urinary Diagnosis Active 2018-11-12 Me moria tract 02:03:02 l infection Urinary Herm samuel without tract hematuria, infection site without unspecifie hematuria, d site unspecifie d Active Diagnosis 11/12/2018 [facility] Poison rin Diagnosis Active 2018-07-31 Memoria 02:01:37 l Poison Adrian rin Active Diagnosis 07/31/2018 [facility] Mild Problem Active 2018-08-28 Memor ia intermitte 02:01:07 l nt asthma Mild Adrian with intermitte exacerbati nt asthma on with exacerbati on Active Problem 9 [facility] Tremor of Diagnosis Active 2019-04-26 Memoria both hands 03:02:09 l Tremor Adrian of both hands Active Diagnosis 04/26/2019 [facility] Musculoske Diagnosis Active 2019-04-26 Memoria letal 03:02:09 l chest pain Jerome n Musculoske letal chest pain Active Diagnosis 04/26/2019 [facility] Acute pain Diagnosis Active 2019-04-26 Memoria of right 03:02:09 l knee Acute Adrian pain of right knee Active Diagnosis 04/26/2019 [facility] Pain in Diagnosis Active 2019-05-23 Me moria right leg 03:03:45 l Pain in Adrian right leg Active Diagnosis 05/23/2019 [facility] Swelling Diagnosis Active 2019-05-23 M emoria of right 03:03:45 l lower Swelling Jerome n extremity of right lower extremity Active Diagnosis 05/23/2019 [facility] OM Diagnosis Active 2019-05-23 Mem oria (onychomyc 03:03:45 l osis) OM [place] (onychomyc osis) Active Diagnosis 05/23/2019 [facility] Anemia, Diagnosis Active 2019-12-05 Me moria unspecifie 02:04:39 l d type Anemia, [place] unspecifie d type Active Diagnosis 12/05/2019 [facility] Pleurisy Diagnosis Active 2019-12-05 M emoria 02:04:39 l Pleurisy Jerome n Active Diagnosis 12/05/2019 [facility] Lower Diagnosis Active 2019-12-05 Mem oria extremity 02:04:39 l edema Lower Adrian extremity edema Active Diagnosis 12/05/2019 [facility] Thoracic Problem Active 2019-12-05 Mem oria aortic 02:04:39 l aneurysm Thoracic Herm samuel without aortic rupture aneurysm without rupture Active Problem 12/05/2019 [facility] Pneumonia Diagnosis Active 2019-12-05 Memoria of left 02:04:39 l lower lobe Jerome n due to Pneumonia infectious of left organism lower lobe due to infectious organism Active Diagnosis 12/05/2019 [facility] Acute pain Diagnosis Active 2019-12-05 Memoria of left 02:04:39 l shoulder Acute Adrian pain of left shoulder Active Diagnosis 12/05/2019 [facility] Acute Diagnosis Active 2019-12-05 Mem oria kidney 02:04:39 l injury Acute Adrian kidney injury Active Diagnosis 12/05/2019 [facility] Hypertensi Problem Active 2019-05-17 M emoria ve 00:00:42 l disorder, Adrian systemic Hypertensi arterial ve (disorder) disorder, systemic arterial (disorder) Active Problem 05/17/2019 [facility] Arthritis Problem Active 2019-05-17 Me moria (disorder) 00:00:42 l [place] Arthritis (disorder) Active Problem 05/17/2019 [facility] Coronary Problem Active 2019-05-17 Mem oria arterioscl 00:00:42 l erosis Coronary Jerome n (disorder) arterioscl erosis (disorder) Active Problem 05/17/2019 [facility] Gastroesop Problem Active 2019-05-17 M emoria hageal 00:00:42 l reflux [place] disease Gastroesop (disorder) hageal reflux disease (disorder) Active Problem 05/17/2019 [facility] Hearing Problem Active 2019-05-17 Nick tyree loss 00:00:42 l (finding) Hearing Herm samuel loss (finding) Active Problem 05/17/2019 [facility] ACUTE Diagnosis Active 2016-07-05 Mem oria PANCREATIT 09:26:00 l IS WITHOUT ACUTE Mitali nn NECROSIS PANCREATIT OR I IS WITHOUT NECROSIS OR I Active [facility] EPIGASTRIC Diagnosis Active 2016-06-30 Memoria PAIN 14:16:00 l Adrian EPIGASTRIC PAIN Active [facility] UNSPECIFIE Diagnosis Active 2016-07-18 Memoria D OVARIAN 17:37:00 l CYST, Adrian RIGHT SIDE UNSPECIFIE D OVARIAN CYST, RIGHT SIDE Active [facility] UNSPECIFIE Diagnosis Active 2017-01-19 Memoria D ASTHMA 06:39:00 l WITH [place] (ACUTE) UNSPECIFIE EXACERBA D ASTHMA WITH (ACUTE) EXACERBA Active [facility] UNILATERAL Diagnosis Active 2019-01-28 Memoria PRIMARY 09:48:00 l OSTEOARTHR Jerome n ITIS, UNILATERAL RIGHT PRIMARY OSTEOARTHR ITIS, RIGHT Active [facility] Discharge Problem 2015-042016-04-03 2016-04-03 Memoria Diagnosis: 2-16 04:21:20 04:21:20 l Allergic 06:00: Adrian reaction Discharge 00 Diagnosis: Allergic reaction 6 04/03/2016 [facility] Discharge Problem 2015-042016-04-03 2016-04-03 Memoria Diagnosis: 2- 04:21:20 04:21:20 l Stridor 06:00: [place] Discharge 00 Diagnosis: Stridor 03/31/2016 04/03/2016 [facility] Discharge Problem 2015-042016-04-03 2016-04-03 Memoria Diagnosis: 2- 04:21:20 04:21:20 l Acute 06:00: Adrian dyspnea Discharge 00 Diagnosis: Acute dyspnea 03/31/2016 04/03/2016 [facility] Allergies, Adverse Reactions, Alerts Allergy Allergy Status Severity Reaction(s) Onset Inactive Treating Comm ents Source Name Type Date Date Clinician Iodine Iodine Active anaphylaxis 2019-0 Memor ia 8-19 l 00:00: Adrian 00 poison poison Active rash 2019-0 Memoria oak oak 8-19 l 00:00: Adrian 00 iodine iodine Active Memoria l Adrian contrast contrast Active Memori a media media l (iodine- (iodine- Jerome n based) based) Family History Family Member Diagnosis Comments Start Date Stop Date Source Unknown Family Family History 2015-11-17 2015-11-17 Memori al Adrian Member 02:24:15 02:24:15 Social History Social Habit Start Date Stop Date Quantity Comments Source Social History 2019-01-06 2019-01-06 [facility] 20:47:49 20:47:49 Occupation: 2016-03-31 2016-03-31 [facility] 00:00:00 00:00:00 Medications Ordered Filled Start Stop Current Ordering Indication Dosage Frequency Signature Comments Components Source Medication Medication Date Date Medication? Clinician (SIG) Name Name Triamterene 2019-0 Yes Yeimi 1 tablet Memoria -HCTZ 12-04 Sundeep l 02:04: Adrian 39 Cetirizine 2019-0 Yes Yeimi 1 tablet M emoria HCl 12-04 Sundeep l 02:04: Adrian 39 Raloxifene 2020-0 Yes Yeimi 1 tablet M emoria HCl 8-21 Sundeep l 02:04: 39 Rosuvastati 2020-0 Yes Yeimi 1 tablet Memoria n Calcium 8-21 Sundeep l 02:04: 39 Benzonatate 2020-0 Yes Yeimi 1 capsule Memoria 8-21 Sundeep l 02:04: 39 Tramadol 2020-0 Yes Yeimi 1 tablet Mem oria HCl 8-21 Sundeep as needed l 02:04: 39 Tizanidine 2020-0 Yes Yeimi 1 capsule Memoria HCl 8-21 Sundeep as needed l 02:04: 39 Vitamin B12 2020-0 Yes Yeimi 1 tablet Memoria 8-21 Sundeep l 02:04: 39 Pantoprazol 2020-0 Yes Yeimi TAKE ONE Memoria e Sodium 8-21 Sundeep TABLET BY l 02:04: MOUTH [place] 39 DAILY Furosemide 2020-0 Yes Yeimi 1 tablet M emoria 8-19 Sundeep l 00:00: 00 Potassium 2020-0 Yes Yeimi 1 capsule M emoria Chloride 8-19 Sundeep with food l 00:00: Tessalon 2020-0 Yes Shiela 1 capsule Nick tyree Perles 8 Leif as needed l 00:00: Medrano 00 Zithromax 2020-0 Yes Shiela 2 tablets Mem oria Z-Wilbert 8- Yadav day 1 then l 00:00: Medrano 1 tab each day for the next 4 days Famotidine 2020-0 Yes Yeimi 1 tablet M emoria 7-29 Sundeep at bedtime l 00:00: 00 Rosuvastati 2020-0 Yes Dakotah 1 tablet Me moria n Calcium 2-07 Sloan l 03:03: 45 Raloxifene 2020-0 Yes Dakotah 1 tablet Mem oria HCl 2-07 Sloan l 03:03: 45 Omeprazole 2020-0 Yes Dakotah 1 capsule Me moria 2-07 Sloan l 03:03: 45 Calcium + 2020-0 Yes Dakotah 1 tablet Nick tyree D3 2-07 Sloan with a l 03:03: meal 45 Pantoprazol 2020-0 Yes Dakotah TAKE ONE Me moria e Sodium 2-07 Sloan TABLET BY l 03:03: MOUTH Adrian 45 DAILY Acetaminoph Yes 1 tab, PO, Memoria en 325 MG / 9-25 Q6H, PRN l Hydrocodone 15:01: Pain Score Adrian Bitartrate 00 7-10, # 40 7.5 MG Oral tab, 0 Tablet Refill(s), [[place] given to 7.5/325] patient Protonix No Notes: Memoria 9-25 Tablet l 14:00: should not [place] 00 be chewed or crushed. (Same as: Protonix) Acetaminoph No Notes: Nick tyree en 325 MG / 9-24 Same as l Hydrocodone 17:00: [place] Mitali nn Bitartrate 00 325-7.5mg 7.5 MG Oral Do not Tablet exceed [[place] 4gm/day of 7.5/325] acetaminop hen. Aspirin 325 Yes 325 mg, Mem oria MG Enteric 924 PO, Q12H, l Coated 17:00: # 60 tab, Jerome n Tablet 00 0 Refill(s) Hydrochloro No Notes: Nick tyree thiazide 25 24 (triamtere l MG / 14:00: ne-hydroch [place] Triamterene 00 lorothiazi 37.5 MG de 37.5-25 Oral Tablet mg TAB) (Same As: Maxzide-25 ) Omeprazole No 40 mg, Memor ia 01-07 Route: PO, l 14:00: Drug form: Adrian 00 DRC, Daily, Dosing Weight 71.818, kg, Start date: 01/07/19 9:00:00 CDT, Duration: 30 day, Stop date: 02/05/19 9:00:00 CDT Raloxifene No Notes: Memor ia 24 (Same l 14:00: as:Evista) [place] 00 "Do Not Crush" rosuvastati No Notes: Nick tyree n 24 Same as l 14:00: Crestor [place] 00 Mupirocin No 1 appl, Memor ia 01-07 Route: l 02:00: NASAL, [place] 00 Q12H, Drug form: OINT, Start date: 01/06/19 21:00:00 CDT, Duration: 30 day, Stop date: 02/05/19 9:00:00 CDT, 0 sennosides, No Notes: Nick tyree [facility] 01-07 (Same as: l 02:00: Senokot) [place] gabapentin No Notes: Memor ia 300 MG Oral 01-07 (Same as: l Capsule 02:00: Neurontin) Herm samuel Aspirin 325 No 325 mg, Mem oria MG Enteric 01-06 Route: PO, l Coated 22:00: Drug form: Mitali nn Tablet 00 ECTAB, BID, Dosing Weight 71.818, kg, Start date: 01/06/19 17:00:00 CDT, Duration: 30 day, Stop date: 02/05/19 9:00:00 CDT Docusate No Notes: Memoria 01-06 (Same as: l 22:00: Colace) Adrian (Do Not Crush) Protonix No Notes: Memoria - Tablet l 21:30: should not [place] 00 be chewed or crushed. (Same as: Protonix) Cefazolin No Notes: Memori a 01-06 (Same As: l 21:00: Ancef, Adrian 00 Kefzol) MEDICATION WASTE Product Size: 1000 mg Product Wasted: ___ mg Aspirin No Notes: Memoria - Take with l 18:45: food. Adrian Oxycodone 0 No 5 mg, Memoria Hydrochlori 01-06 Route: PO, l de 5 MG 14:47: Drug form: Herm samuel Oral Tablet 00 TAB, Q4H, Dosing Weight 71.818, kg, PRN Pain Score 4-6, Start date: 01/06/19 9:47:00 CDT, Duration: 30 day, Stop date: 02/05/19 9:46:00 CDT Fentanyl No 25 Memoria - microgram, l 14:47: Route: Adrian 00 IVP, Q5Min, Dosing Weight 71.818, kg, PRN Pain Score 4-6, Priority: Routine, Start date: 01/06/19 9:47:00 CDT, Duration: 4 doses or times, Stop date: Limited # of times Hydromorpho 2019-0 No 0.5 mg, Mem oria ne 01-06 Route: l 14:47: IVP, Adrian Q5Min, Dosing Weight 71.818, kg, PRN Pain Score 7-10, Start date: 01/06/19 9:47:00 CDT, Duration: 4 doses or times, Stop date: Limited # of times Flumazenil 2018-0 No 0.2 mg, Nick tyree 01-06 Route: l 14:47: IVP, PRN, Dosing Weight 71.818, kg, PRN Benzodiaze pine Reversal, Initial dose, Start date: 01/06/19 9:47:00 CDT, Duration: 30 day, Stop date: 02/05/19 9:46:00 CDT Naloxone 2018-0 No 0.4 mg, Memori a 01-06 Route: l 14:47: IVP, Adrian Q2MIN, Dosing Weight 71.818, kg, PRN Narcotic Reversal, Start date: 01/06/19 9:47:00 CDT, Duration: 8 doses or times, Stop date: Limited # of times Ondansetron 2018-0 No 4 mg, Memor ia 01-06 Route: l 14:47: IVP, ONCE, Dosing Weight 71.818, kg, PRN Nausea & Vomiting, Start date: 01/06/19 9:47:00 CDT 1/2 NS 0 No 1,000 mL, Memori a 1,000 mL 01-06 Rate: 75 l 14:36: ml/hr, Infuse over: 13.3 hr, Route: IV, Dosing Weight 71.818 kg, Total Volume: 1,000, Start date: 01/06/19 9:36:00 CDT, Duration: 30 day, Stop date: 02/05/19 9:35:00 CDT, 1.76, m2, 0 Tramadol 0 No Notes: Not Mem oria 01-06 to exceed l 14:36: 400mg/day. Adrian 00 (Same As: Ultram) Oxycodone 0 No Notes: Memori a Hydrochlori 01-06 (Same as: l de 5 MG 14:36: Roxicodone Herm samuel Oral Tablet ) Naloxone No Notes: Memoria 01-06 Same as l 14:36: Narcan tizanidine No Notes: Memor ia 01-06 (Same As: l 14:36: Zanaflex) Ondansetron No Notes: Nick tyree 01-06 (Same as: l 14:36: Zofran) MEDICATION WASTE Product Size: 4 mg Product Wasted: ___ mg Diphenhydra No 12.5 mg, Me moria mine 01-06 0.5 tab, l 14:36: Route: PO, Drug form: TAB, Q6H, Dosing Weight 71.818, kg, PRN Itching, Start date: 01/06/19 9:36:00 CDT, Duration: 30 day, Stop date: 02/05/19 9:35:00 CDT, 0 ondansetron No Route: IV, Memoria (ANES) 01-06 Drug form: l 14:33: INJ, ONCE, Stop date: 01/06/19 9:33:00 CDT glycopyrrol No Route: IV, Memoria ate (ANES) 01-06 Drug form: l 14:33: INJ, ONCE, Stop date: 01/06/19 9:33:00 CDT neostigmine No Route: IV, Memoria (ANES) 01-06 Drug form: l 14:33: INJ, ONCE, Stop date: 01/06/19 9:33:00 CDT tranexamic No Route: IV, M emoria acid (ANES) 01-06 Drug form: l 14:28: INJ, ONCE, Stop date: 01/06/19 9:28:00 CDT metoclopram No Route: IV, Memoria erwin (ANES) 01-06 Drug form: l 14:03: INJ, ONCE, Stop date: 01/06/19 9:03:00 CDT dexamethaso No Route: IV, Memoria ne (ANES) 01-06 Drug form: l 13:58: INJ, ONCE, Stop date: 01/06/19 8:58:00 CDT ceFAZolin No Route: IV, moria (ANES) 01-06 Drug form: l 13:53: INJ, ONCE, Stop date: 01/06/19 8:53:00 CDT lidocaine 2018- No Route: IV, Me moria (ANES) 01-06 Drug form: l 13:53: INJ, ONCE, Stop date: 01/06/19 8:53:00 CDT fentaNYL 2018- No Route: IV, Mem oria (ANES) 01-06 Drug form: l 13:53: INJ, ONCE, Stop date: 01/06/19 8:53:00 CDT propofol No Route: IV, Mem oria (ANES) 01-06 Drug form: l 13:53: INJ, ONCE, Stop date: 01/06/19 8:53:00 CDT rocuronium No Route: IV, Christine aguiarria (ANES) 01-06 Drug form: l 13:53: INJ, ONCE, Stop date: 01/06/19 8:53:00 CDT Lactated No Route: IV, Mem oria Ringers 01-06 Total l Injection 12:57: Volume: Mitali nn IV (ANES) 00 1,000, 1000 mL Start date: 01/06/19 7:57:00 CDT, Stop date: 01/06/19 8:57:00 CDT Zofran No 4 mg, Memoria 01-06 Route: l 12:16: IVP, ONCE, Dosing Weight 71.818, kg, Start date: 01/06/19 7:16:00 CDT, Stop date: 01/06/19 7:16:00 CDT Calcium 2018- No 1,000 mL, Memor ia Chloride 01-06 Rate: 75 l 0.0014 10:26: ml/hr, MEQ/ML / 00 Infuse Potassium over: 13.3 Chloride hr, Route: 0.004 IV, Dosing MEQ/ML / Weight Sodium 71.818 kg, Chloride Total 0.103 Volume: MEQ/ML / 1,000, Sodium Start Lactate date: 0.028 01/06/19 MEQ/ML 5:26:00 Injectable CDT, Solution Duration: 30 day, Stop date: 02/05/19 5:25:00 CDT, 1.76, m2, 0 ropivacaine 2019- No Notes: Nick tyree 01-06 NOT FOR l 10:00: IV use Adrian 00 Each mL contains: Ropivacain e 2.46 mg, Epinephrin e 0.005 mg, Clonidine 0.0008 mg and Ketorolac 0.3 mg in Sodium Chloride rosuvastati Yes 20 mg = 1 M emoria n 20 mg 9-12 tab, PO, l oral tablet 17:36: Daily, 0 He rm Refill(s) gabapentin 2018- Yes 300 mg = 1 M emoria 300 MG Oral 9-12 cap, PO, l Capsule 17:36: BID, 0 Adrian Refill(s) omeprazole 2019- Yes 40 mg = 1 Me moria 40 mg oral 9-12 cap, PO, l delayed 17:36: Daily, 0 Jerome n release 00 Refill(s) capsule Hydrochloro 2019-0 Yes 1 tab, PO, Memoria thiazide 25 9-12 Daily, 0 l MG / 17:35: Refill(s) [place] Triamterene 00 37.5 MG Oral Tablet raloxifene Yes 60 mg = 1 Me moria 60 mg oral 9-12 tab, PO, l tablet 17:35: Daily, 0 Adrian 00 Refill(s) Calcium 600 2019-0 Yes 1 tab, PO, Memoria +D oral 9-12 TID, 0 l tablet 17:34: Refill(s) Jerome n 00 cetirizine 2018- Yes 10 mg = 1 Me moria 10 mg oral 9-12 tab, PO, l tablet 17:33: Daily, 0 Adrian 00 Refill(s) Pantoprazol 2018-0 Yes Yeimi TAKE ONE Memoria e Sodium 12-20 Martin TABLET BY l 02:22: MOUTH Adrian 37 DAILY Gabapentin 2018-0 Yes Yeimi 1 tablet M emoria 12-20 Martin l 02:22: Adrian 37 Bactrim DS 2019-0 Yes Yeimi 1 tablet M emoria 8-31 Martin l 00:00: Rolaids 2019-0 Yes Yeimi as Memoria 8-30 Martin directed l 02:02: Vitamin B12 2019-0 Yes Yeimi 1 tablet Memoria 8-30 Martin l 02:02: Aleve 2019-0 Yes Yeimi 1 tablet Memori a 8-30 Martin with food l 02:02: or milk as needed Cinnamon 2019-0 Yes Yeimi 2 capsules M emoria 8-30 Martin l 02:02: Macrobid 2019-0 Yes Yeimi 1 capsule Me moria 7-08 Martin with food l 00:00: Sumatriptan 2019-0 Yes Yeimi 1 tablet Memoria Succinate 6-30 Martin as needed l 02:00: Cinnamon 2019-0 Yes Yeimi 2 capsules M emoria 6-30 Martin l 02:00: Calcium + 2019-0 Yes Yeimi 1 tablet Me moria D3 6-30 Martin with a l 02:00: meal EPINEPHrine 2019-0 Yes Yeimi 1 Nick tyree 6-30 Martin l 02:00: Gabapentin 2019-0 Yes Yeimi 1 tablet M emoria 6-28 Martin l 02:05: Gabapentin 2019-0 Yes Yeimi 1 capsule Memoria 6-27 Sundeep l 00:00: Dexilant 2019-0 Yes Yeimi 1 capsule Me moria 5-13 Martin l 00:00: Medrol 2019-0 Yes Yeimi as Memoria (Wilbert) 5-13 Martin directed l 00:00: Levaquin 2019-0 Yes Yeimi 1 tablet Mem oria 5-13 Martin l 00:00: Rosuvastati 2019-0 Yes Yeimi 1 tablet Memoria n Calcium 4-17 Martin l 02:01: Gabapentin 2019-0 Yes Yeimi 1 tablet M emoria 4-17 Martin l 02:01: Triamcinolo 2019-0 Yes Yeimi 1 Nick tyree ne 4-15 Martin applicatio l Acetonide 00:00: n to affected area PredniSONE 2019-0 Yes Yeimi 1 tablet M emoria 4-15 Martin l 00:00: Triamterene 2018-0 Yes Yeimi 1 capsule Memoria -HCTZ 6-26 Martin in the l 02:04: morning Carafate 2018-0 Yes Yeimi 1 tablet Mem oria 6-26 Martin on an l 02:04: empty stomach Omeprazole 2018-0 Yes Yeimi 1 tablet M emoria 6-26 Martin l 02:04: Amlodipine 2018-0 Yes Yeimi 1 tablet M emoria Besylate 6-26 Martin l 02:04: Pantoprazol 2018-0 Yes Yeimi not Nick tyree e Sodium 6-26 Martin defined l 02:04: EPINEPHrine 2018-0 Yes Yeimi 1 Nick tyree 6-26 Martin l 02:04: Amlodipine 2018-0 Yes Yeimi 1 tablet M emoria Besylate 6-26 Martin l 02:04: Raloxifene 2018-0 Yes Yeimi 1 tablet M emoria HCl 6-25 Martin l 00:00: Pantoprazol 2018-0 Yes Yeimi 1 tablet Memoria e Sodium 6-25 Martin l 00:00: Zofran 2018-0 Yes Yeimi 1-2 Memoria 3-16 Martin tablets l 00:00: Crestor 2018-0 Yes Diamond TAKE ONE Me moria 1-18 Sasha TABLET BY l 03:01: MOUTH 34 DAILY Cyclobenzap 2018-0 Yes Diamond TAKE ONE Memoria rine HCl 1-18 Sasha TABLET BY l 03:01: MOUTH 34 DAILY NEEDED EPINEPHrine 2018-0 Yes Diamond 1 Me moria 1-18 Sasha l 03:01: 34 Levaquin 2018-0 Yes Yeimi 1 tablet Mem oria 1-15 Martin l 00:00: Adrianne 2017- Yes Amir 1 tablet Memori a Allergy 0-18 Ghebraniou l 02:02: s Adrian Vitamin D 2016- Yes Amir not Memoria 0-18 Ghebraniou defined l 02:02: s [place] 04 Excedrin 2016- Yes Amir 2 tablets Nick tyree Migraine 0-18 Ghebraniou as needed l 02:02: s [place] 04 predniSONE 2016-04 Yes See Memoria 10 mg oral 0-05 Special l tablet 14:28: Instructio Mitali nn 00 ns, PO, Daily, 12 day regimen: Days 1-4 - 20 mg (2 tabs) daily Days 5-8 - 10 mg (1 tab) daily Days 9-12 - 5 mg (1/2 tab) daily, X 12 day, # 14 tab, 0 Refill(s) Amoxicillin 2016-04 Yes 1 tab, PO, Memoria 875 MG / 0-05 [id number], X l Clavulanate 14:28: 7 day, # He rmann 125 MG Oral 00 14 tab, 0 Tablet Refill(s) 120 ACTUAT 2016-04 Yes 2 puff, Nick tyree Fluticasone 0-05 INHALATION l propionate 14:28: , Daily, Her ram 0.11 00 rinse MG/ACTUAT mouth and Metered throat Dose after use, Inhaler # 12 gm, 0 [Flovent] Refill(s) Tylenol 2016-04 No Notes: Do Memor ia 0-05 not exceed l 05:15: 4 gm/day. [place] 00 (Same as: Tylenol) Tylenol 2016-04 No 650 mg, Memoria 0-05 Route: PO, l 05:13: Drug form: Adrian 00 TAB, Q6H, Dosing Weight 65.8, kg, PRN Pain Score 1-3, Priority: NOW, Start date: 01/18/17 0:13:00 CDT, Duration: 30 day, Stop date: 02/17/17 0:12:00 CDT Hydrochloro 2016-04 No Notes: Nick tyree thiazide 25 0-04 (Same as: l MG Oral 14:00: Hydrodiuri Herm samuel Tablet 00 l) With food. Amlodipine 2016-04 No Notes: Memor ia 0-04 (Same as: l 14:00: Norvasc) Crestor 2016-04 No Notes: Memoria 0-04 Same as l 02:00: Crestor phenol 2016-04 No Notes: Memoria 0-04 Chlorasept l 01:02: ic [place] (Same as: Chlorasept ic, Sore Throat [place]) WASTE: F/P - Black; E - Municipal Trash Bin pantoprazol 2016-04 No Notes: Nick tyree e 0-03 Tablet l 22:00: should not [place] 00 be chewed or crushed. (Same as: Protonix) methylPREDN 2016-04 No Notes: Nick tyree ISolone 0-03 (Same l SODium 21:00: as:Solu-ME Mitali nn SUCCinate 00 DROL, A-Methapre d) Carafate 2016-04 No Notes: May Mem oria 0-03 interfere l 18:00: w/enteral [place] 00 feeds - Take 1 hr before or 2 hr after antacids, dairy pdt, meals & minerals - On empty stomach. For patients unable to swallow tablet, dissolve in 10mL - 30mL of water or juice and stir before giving. (Same As: Carafate) Ventolin 2016-04 No Notes: Memoria HFA 90 0-03 Same as: l mcg/inh 18:00: Ventolin Jerome n inhalation 00 HFA aerosol WASTE: with Aerosol - adapter Return to Pharmacy potassium 2016-04 No Notes: Memori a chloride 20 0-03 (Same as: l mEq oral 17:47: K-Dur 20) Herm samuel tablet, 00 "Do Not extended Crush" release With food and full glass of water Sumatriptan 2016-04 No Notes: Nick tyree 50 MG Oral 0-03 (Same As: l Tablet 17:45: Imitrex) [place] [Imitrex] 00 Tylenol 2016-04 No Notes: Max Nick tyree 0-03 acetaminop l 17:44: hen = 4000 Adrian 00 mg/day (4 gm/day). (Same as: Tylenol) Promethazin 2016-04 No Notes: Nick tyree e 0-03 (Same as: l 17:44: Phenergan) Adrian 00 Prednisone 2016-04 No Notes: Memor ia 0-03 Take with l 14:00: food. [place] 00 pneumococca 2016-04 No Notes: Nick tyree l capsular 0-03 (Same as: l polysacchar 14:00: Pneumovax H ermann erwin type 1 00 23) vaccine / Refrigerat pneumococca e l capsular polysacchar erwin type 10A vaccine / pneumococca l capsular polysacchar erwin type 11A vaccine / pneumococca l capsular polysacchar erwin type 12F vaccine / pneumococca l capsular polysacchar Albuterol 2016-04 No Notes: Memori a 0.833 MG/ML 0-03 (Same as: l 13:00: Duoneb) Adrian Ipratropium 00 Boyce 0.167 MG/ML Inhalant Solution Amoxicillin 2016-04 No Notes: Nick tyree 875 MG / 0-03 With food. l Clavulanate 08:00: (Same as: H ermann 125 MG Oral 00 Augmentin Tablet 875) Calcium 2016-04 No Notes: Memoria Gluconate 0-03 WASTE: F/P l 07:29: - Sink; E - Municipal Trash Bin sodium 2016-04 No 15 mmol, 5 Memor ia phosphate 0-03 mL, Route: l 07:29: IVPB, PRN, Dosing Weight 65.909, kg, PRN Abnormal Lab Result, For NON-ICU Patients Only., Start date: 01/16/17 2:29:00 CDT, Duration: 30 day, Stop date: 02/15/17 2:28:00 CDT Potassium 2016-04 No Notes: Memori a Chloride 0-03 (Same as: l 07:29: Potassium Chloride) Magnesium 2016-04 No Notes: Memori a Sulfate 0-03 WASTE: F/P l 07:29: - Sink; E - Municipal Trash Bin potassium 2016-04 No Notes: Memori a phosphate 0-03 (Same as: l 07:29: K [place] 00 Phosphate. ) 1 mMol phoshate has 1.47 mEq potassium Infuse over 4 hours Magnesium 2016-04 No Notes: Memori a Oxide 0-03 (Same as: l 07:29: Mag-Ox Adrian 00 400) Magnesium oxide [id number] g elemental magnesium Dose=____m g magnesium oxide (___mg elemental magnesium) potassium 2016-04 No Notes: Memori a phosphate-s 0-03 (Same as: l odium 07:29: Phos-NaK) [place] phosphate 00 Each 1.5 250 mg-280 gm pkt has mg-160 mg 250mg oral powder phosphorou for s. Mix reconstitut w/2.5oz ion water and stir. Saline 2016-04 No Notes: Memoria Flush 0.9% 0-03 (Same as: l 07:25: BD Adrian 00 Posiflush) Albuterol 2016-04 No Notes: SEE Me moria 0.83 MG/ML 0-03 RT l Inhalant 07:25: DOCUMENTAT Her ram Solution 00 ION (Same as: Proventil) methylPREDN 2016-04 No Notes: Nick tyree ISolone 0-03 (Same l SODium 05:07: as:Solu-ME Mitali nn SUCCinate 00 DROL, A-Methapre d) Albuterol 2016-04 No 6 mL, Memoria 0.833 MG/ML 0-03 Route: l / 04:54: INHALATION Adrian Ipratropium 00 , Dosing Boyce Weight 0.167 MG/ML 65.909, Inhalant kg, ONCE, Solution Start [DuoNeb] date: 01/15/17 23:54:00 CDT, Stop date: 01/15/17 23:54:00 CDT Albuterol 2016-04 No 6 mL, Memoria 0.833 MG/ML 0-03 Route: l / 04:43: INHALATION [place] Ipratropium 00 , Dosing Boyce Weight 0.167 MG/ML 65.909, Inhalant kg, ONCE, Solution Start [DuoNeb] date: 01/15/17 23:43:00 CDT, Stop date: 01/15/17 23:43:00 CDT Saline 2016-04 No Notes: Memoria Flush 0.9% 0-03 (Same as: l 04:11: BD [place] 00 Posiflush) Amlodipine Yes Shiela 1 tablet Mem oria Besylate 7 Leif l 02:02: Mitchell Campbell 54 Excedrin Yes [place] 2 tablets Nick tyree Migraine 08-04 Sloan as needed l 02:00: Adrian 15 Omeprazole Yes [place] 1 tablet Mem oria - Sloan l 02:00: Adrian 15 Adrianne Yes [place] 1 tablet Memori a Allergy 08-04 Sloan l 02:00: Adrain 15 Rosuvastati Yes [place] 1 tablet Me moria n Calcium - Sloan l 02:00: Adrian 15 Sumatriptan Yes [place] 1 tablet Me moria Succinate - [place] as needed l 02:00: [place] 15 Carafate Yes [place] 1 tablet Memor ia 08-04 on an l 02:00: empty [place] 15 stomach Flexeril Yes [place] 1 tablet Memor ia 08-01 as needed l 00:00: Adrian 00 Bromfed DM Yes [place] 5-10 ml as M emoria 07-20 needed l 02:00: Adrian 59 Hydrochloro Yes [place] 1 tablet Me moria thiazide 07-20 l 02:00: Adrian 59 Imitrex Yes [place] 1 tablet Memori a 07-20 as needed l 02:00: Adrian 59 Levofloxaci Yes [place] 1 tablet Me moria n 07-20 l 02:00: Adrian 59 Pantoprazol Yes [place] 1 tablet Me moria e Sodium 07-20 l 02:00: [place] 59 Sucralfate Yes [place] 1 tablet Mem oria 07-20 on an l 02:00: empty [place] 59 stomach Promethazin Yes [place] 1 tablet Me moria e HCl 07-20 as needed l 02:00: [place] 59 Rosuvastati Yes [place] 1 tablet Me moria n Calcium 07-20 Sloan l 02:00: [place] 59 Sumatriptan Yes 50 mg = 1 M emoria 50 MG Oral 3-21 tab, PO, l Tablet 18:30: ONCE, PRN Jerome n [Imitrex] 00 Headache, may repeat one time after 2 hours, # 9 tab, 0 Refill(s), Pharmacy: [facility] [id number] pantoprazol Yes 40 mg = 1 M emoria e 40 mg 3-21 tab, PO, l oral 18:30: BID, # 60 [place] enteric 00 tab, 1 coated Refill(s), tablet Pharmacy: [facility] [id number] amLODIPine Yes 5 mg = 1 Mem oria 5 mg oral 3-21 tab, PO, l tablet 18:30: Daily, # [place] 00 30 tab, 2 Refill(s), Pharmacy: [facility] [address] Sucralfate Yes 1 gm = 1 Mem oria 1000 MG 3-21 tab, PO, l Oral Tablet 18:30: QID, # 120 [place] [Carafate] 00 tab, 2 Refill(s), Pharmacy: [facility] [id number] Imitrex No Notes: Memoria 3-21 (Same As: l 03:46: Imitrex) Adrian 00 Tylenol No Notes: Do Memor ia 3-21 not exceed l 03:36: 4 gm/day. Adrian 00 (Same as: Tylenol) Protonix No Notes: Memoria 3-20 Tablet l 22:00: should not [place] 00 be chewed or crushed. (Same as: Protonix) Sucralfate No Notes: May M emoria 100 MG/ML 3-20 interfere l Oral 22:00: w/enteral [place] Suspension 00 feeds - [Carafate] Take 1 hr before or 2 hr after antacids, dairy pdt, meals & minerals - On empty stomach. For patients unable to swallow tablet, dissolve in 10mL - 30mL of water or juice and stir before giving. (Same As: Carafate) Sodium No 1,000 mL, Memori a Chloride 3-20 Rate: 25 l 0.154 18:52: ml/hr, [place] MEQ/ML 00 Infuse Injectable over: 40 Solution hr, Route: IV, Dosing Weight 72.727 kg, Total Volume: 1,000, Start date: 07/03/16 13:52:00 CDT, Duration: 1 day, Stop date: 07/04/16 13:51:00 CDT pneumococca No Notes: Nick tyree l 13-valent 3-20 Lightly l vaccine 17:00: roll vial Mitali nn 00 (DO NOT SHAKE) before administra tion. (Same as: Prevnar 13) pneumococca No Notes: Nick tyree l 13-valent 3-20 Lightly l vaccine 15:30: roll vial Mitali nn 00 (DO NOT SHAKE) before administra tion. (Same as: Prevnar 13) Imitrex No Notes: Memoria 3-19 For l 19:39: SUBCUTANEO [place] 00 US use only Crestor No 10 mg, Memoria 3-19 Route: PO, l 14:00: Drug form: [place] 00 TAB, Daily, Dosing Weight 72.727, kg, Start date: 07/02/16 9:00:00 CDT, Duration: 30 day, Stop date: 07/31/16 9:00:00 CDT Hydrochloro No Notes: Nick tyree thiazide 25 3-19 (Same as: l MG Oral 14:00: Hydrodiuri Herm samuel Tablet 00 l) With food. aspirin 81 No Notes: Do Me moria mg tablet, 3-19 not crush l enteric 14:00: or chew. Jerome n coated 00 (Same As: Ecotrin) Norvasc No Notes: Memoria 3-19 (Same as: l 14:00: Norvasc) [place] 00 Protonix No Notes: Memoria 3-19 Tablet l 12:30: should not Adrian 00 be chewed or crushed. (Same as: Protonix) Lipitor No Notes: Memoria 3-19 (Same As: l 02:00: Lipitor) Adrian 00 Acetaminoph No Notes: Nick tyree en 325 MG / 3-18 (Same as: l Hydrocodone 22:38: [place] Mitali nn Bitartrate 00 325/5) Do 5 MG Oral not exceed Tablet 4gm/day of [[place] acetaminop 5/325] hen. Ventolin No Notes: Memoria HFA 90 3-18 Albuterol l mcg/inh 22:00: 90 Adrian inhalation 00 microgram/ aerosol inh 8gm with HFA adapter WASTE: Aerosol - Return to Pharmacy Same as: Delmy Avitia Protonix No Notes: For Mem oria 3-18 IV push l 14:00: reconstitu Adrian 00 te with 10 ml 0.9% sodium chloride and push over 2 minutes. (Same as: Protonix) Streptococc No Notes: Nick tyree us 3-18 Lightly l pneumoniae 14:00: roll vial He rmann serotype 1 00 (DO NOT capsular SHAKE) antigen before diphtheria administra [id number] tion. protein (Same as: conjugate Prevnar vaccine / 13) Streptococc us pneumoniae serotype 14 capsular antigen diphtheria [id number] protein conjugate vaccine / Streptococc us pneumoniae serotype 18C capsular antigen d Nitroglycer 2016- No Notes: Nick tyree in 0.4 MG 3-18 (Same l Sublingual 09:03: as:Nitroqu H ermann Tablet 00 ick, Nitrostat) "Do Not Crush" Sublingual tablet Atropine No 0.5 mg, 5 Nick tyree 3-18 mL, Route: l 09:03: IVP, Drug [place] 00 form: INJ, ONCE, Dosing Weight 72.727, kg, PRN Bradycardi a, Start date: 07/01/16 4:03:00 CDT Saline No Notes: Memoria Flush 0.9% 3-18 (Same as: l 04:56: BD [place] 00 Posiflush) Sodium No 1,000 mL, Memori a Chloride 3-18 Rate: 150 l 0.154 04:56: ml/hr, Adrian MEQ/ML 00 Infuse Injectable over: 6.7 Solution hr, Route: IV, Dosing Weight 72.727 kg, Total Volume: 1,000, Start date: 06/30/16 23:56:00 CDT, Duration: 30 day, Stop date: 07/30/16 23:55:00 CDT Ondansetron No Notes: Nick tyree 3-18 (Same as: l 04:56: Zofran) [place] 00 MEDICATION WASTE Product Size: 4 mg Product Wasted: ___ mg Morphine No Notes: Memoria 3-18 (Same l 04:56: as:MORPhin [place] 00 e Sulfate) Famotidine No Notes: Memor ia 3-18 (Same as: l 00:48: Pepcid) Adrian 00 Can be dilute in 5-10cc NS IVP: Slow IV push over at least 2 minutes. Ondansetron No Notes: Nick tyree 3-18 (Same as: l 00:47: Zofran) Adrian 00 MEDICATION WASTE Product Size: 4 mg Product Wasted: ___ mg Sodium 2017- No 1,000 mL, Memori a Chloride 3-18 1000 l 0.154 00:47: ml/hr, [place] MEQ/ML 00 Infuse Injectable Over: 1 Solution hr, Route: IV, 1,000, Drug form: INJ, ONCE, Priority: STAT, Dosing Weight 72.727 kg, Start date: 06/30/16 19:47:00 CDT, Duration: 1 doses or times, Stop date: 06/30/16 19:47:00 CDT Morphine No Notes: Memoria 3-18 (Same l 00:47: as:MORPhin e Sulfate) Potassium No Notes: Memori a Chloride 3-18 (Same as: l 1.33 MEQ/ML 00:24: Potassium H ermann Oral 00 Chloride) Solution Saline No Notes: Memoria Flush 0.9% 3-17 (Same as: l 23:01: BD Posiflush) Bromfed DM Yes Sayra 10 ml as Me moria 3-17 Guilherme needed l 00:00: Levaquin Yes Sayra 1 tablet Nick tyree 3-17 Guilherme l 00:00: Medrol 2015-04 Yes Sayra as Memoria (Wilbert) 2-19 [place] directed l 00:00: Famotidine 2015-04 Yes 10 mg = 1 Me moria 10 MG Oral 2-16 tab, PO, l Tablet 19:51: BID, # 60 Jerome n 00 tab, 0 Refill(s) Diphenhydra 2015-04 Yes 25 mg = 1 M emoria mine 2-16 cap, PO, l Hydrochlori 19:51: Q6H, PRN He ann de 25 MG 00 Allergic Oral reaction, Capsule X 8 day, # [Benadryl] 30 cap, 0 Refill(s) 0.3 ML 2015-04 Yes 0.3 mg, Memoria Epinephrine 2-16 IM, ONCE, l 1 MG/ML 19:46: # 1 kit, 0 Herm samuel Prefilled 00 Refill(s) Syringe [Epipen] Albuterol 2015-04 Yes Notes: Memori a 0.833 MG/ML 2-16 (Same as: l / 17:53: Duoneb) Ipratropium 00 Boyce 0.167 MG/ML Inhalant Solution Sodium 2015-04 No 1,000 mL, Memori a Chloride 2-16 2,000 l 0.154 17:53: ml/hr, Adrian MEQ/ML 00 Infuse Injectable Over: 30 Solution minutes, Route: IV, ONCE, Priority: STAT, Dosing Weight 63.636 kg, Start date: 03/31/16 11:53:00 ANALYTICS DIRECTOR, Duration: 1 doses or times, Stop date: 03/31/16 11:53:00 ANALYTICS DIRECTOR Saline 2015-04 No Notes: Memoria Flush 0.9% 06-01 (Same as: l 17:53: BD [place] 00 Posiflush) Albuterol 2015-04 No 3 mL, Memoria 0.833 MG/ML 06-01 Route: l / 17:50: NEB, Adrian Ipratropium 00 Dosing Boyce Weight 0.167 MG/ML 63.636, Inhalant kg, ONCE, Solution STAT, Start date: 03/31/16 11:50:00 ANALYTICS DIRECTOR, Stop date: 03/31/16 11:50:00 ANALYTICS DIRECTOR Diphenhydra 2015-04 No 50 mg, Nick tyree mine 06-01 Route: l 17:48: IVP, ONCE, [place] 00 Dosing Weight 63.636, kg, Priority: STAT, Start date: 03/31/16 11:48:00 ANALYTICS DIRECTOR, Stop date: 03/31/16 11:48:00 ANALYTICS DIRECTOR EPINEPHrine 2015-04 No 0.3 mg, Mem oria 1 mg/mL 06-01 Route: IM, l (1:1000) 17:47: ONCE, Adrian injectable 00 Dosing solution Weight 63.636, kg, Priority: STAT, Start date: 03/31/16 11:47:00 ANALYTICS DIRECTOR, Stop date: 03/31/16 11:47:00 ANALYTICS DIRECTOR methylPREDN 2015-04 No 125 mg, Mem [facility] ISolone 06-01 Route: l SODium 17:47: IVP, ONCE, Mitali nn SUCCinate 00 Dosing Weight 63.636, kg, Priority: STAT, Start date: 03/31/16 11:47:00 ANALYTICS DIRECTOR, Stop date: 03/31/16 11:47:00 ANALYTICS DIRECTOR Famotidine 2015-04 No 20 mg, Memor ia 06-01 Route: l 17:46: IVP, ONCE, [place] 00 Dosing Weight 63.636, kg, Priority: STAT, Start date: 03/31/16 11:46:00 ANALYTICS DIRECTOR, Stop date: 03/31/16 11:46:00 ANALYTICS DIRECTOR Imitrex 0 Yes Sayra 1 tablet Memor ia 3-09 [place] as needed l 03:22: one time Adrian 23 Ventolin Yes Yeimi 2 puffs as M emoria HFA 3-07 Martin needed l 00:00: [place] Levaquin Yes Sayra 1 tablet Nick tyree 3-07 Ken[place] l 00:00: Adrian Ventolin Yes Dakotah 2 puffs as Mem oria HFA 3-07 Sloan needed l 00:00: [place] Crestor Yes Sayra 2 tablet Mem[facility] ia 5-13 [place] l 00:00: [place] Crestor Yes Dakotah 1 tablet Memori a 5-13 Sloan l 00:00: [place] pneumococca 2009-0 No SYSTEM 0.5 ml, M emoria l 23-valent 5-31 SYSTEM Route: IM, l vaccine 01:00: Drug Form: Herm samuel 00 INJ, ONCALL, Start date: 09/12/09 20:00:00, Duration: 1 doses or times Vital Signs Vital Name Observation Time Observation Value Comments Source Weight 2019-12-03 16:00:00 [facility] [place] Height 2019-12-03 16:00:00 [facility] Heart Rate 2019-12-03 16:00:00 [facility] [place] Diastolic (mm Hg) 2019-12-03 16:00:00 Mem [facility] [place] Systolic (mm Hg) 2019-12-03 16:00:00 Nick tyree [place] Weight 2019-05-14 15:15:00 [facility] [place] Height 2019-05-14 15:15:00 [facility] [place] Heart Rate 2019-05-14 15:15:00 [facility] [place] Diastolic (mm Hg) 2019-05-14 15:15:00 Mem orial [place] Systolic (mm Hg) 2019-05-14 15:15:00 Nick rial [place] Weight 2019-04-22 15:30:00 [facility] [place] Height 2019-04-22 15:30:00 [facility] [place] Temperature Oral (F) 2019-04-22 15:30:00 98.2 F [facility] Heart Rate 2019-04-22 15:30:00 [facility] [place] Diastolic (mm Hg) 2019-04-22 15:30:00 [facility] Systolic (mm Hg) 2019-04-22 15:30:00 [facility] [place] Temperature Oral (F) 2019-01-08 16:39:00 98.5 F [facility] [place] Heart Rate 2019-01-08 16:39:00 [facility] Systolic (mm Hg) 2019-01-08 16:39:00 [facility] [place] Diastolic (mm Hg) 2019-01-08 16:39:00 [facility] [place] Respitory Rate 2019-01-08 13:53:00 [facility] [place] Temperature Oral (F) 2019-01-08 13:01:00 98.6 F [facility] [place] Heart Rate 2019-01-08 13:01:00 [facility] [place] Systolic (mm Hg) 2019-01-08 13:01:00 [facility] [place] Diastolic (mm Hg) 2019-01-08 13:01:00 [facility] Temperature Oral (F) 2019-01-08 09:25:00 98.4 F [facility] [place] Heart Rate 2019-01-08 09:25:00 [facility] Respitory Rate 2019-01-08 09:25:00 [facility] Systolic (mm Hg) 2019-01-08 09:25:00 [facility] Diastolic (mm Hg) 2019-01-08 09:25:00 [facility] Respitory Rate 2019-01-08 05:05:00 [facility] Height 2018-12-26 17:11:00 149.86 cm [facility] [place] Weight 2018-12-26 17:11:00 [facility] BMI Calculated 2018-12-26 17:11:00 [facility] Weight 2018-12-11 19:00:00 [facility] [place] Height 2018-12-11 19:00:00 [facility] Heart Rate 2018-12-11 19:00:00 [facility] [place] Diastolic (mm Hg) 2018-12-11 19:00:00 [facility] Systolic (mm Hg) 2018-12-11 19:00:00 [facility] Weight 2018-10-11 15:30:00 [facility] [place] Height 2018-10-11 15:30:00 [facility] [place] Heart Rate 2018-10-11 15:30:00 [facility] [place] Diastolic (mm Hg) 2018-10-11 15:30:00 [facility] Systolic (mm Hg) 2018-10-11 15:30:00 [facility] [place] Weight 2018-08-26 16:45:00 [facility] [place] Height 2018-08-26 16:45:00 [facility] [place] Heart Rate 2018-08-26 16:45:00 [facility] [place] Diastolic (mm Hg) 2018-08-26 16:45:00 [facility] [place] Systolic (mm Hg) 2018-08-26 16:45:00 [facility] [place] Weight 2018-07-29 20:15:00 [facility] [place] Height 2018-07-29 20:15:00 [facility] Heart Rate 2018-07-29 20:15:00 [facility] Diastolic (mm Hg) 2018-07-29 20:15:00 [facility] Systolic (mm Hg) 2018-07-29 20:15:00 Nick riamariel [place] Weight 2017-10-08 15:00:00 [facility] Height 2017-10-08 15:00:00 [facility] Heart Rate 2017-10-08 15:00:00 [facility] [place] Diastolic (mm Hg) 2017-10-08 15:00:00 [facility] [place] Systolic (mm Hg) 2017-10-08 15:00:00 [facility] Weight 2017-04-30 14:15:00 [facility] Height 2017-04-30 14:15:00 [facility] [place] Heart Rate 2017-04-30 14:15:00 [facility] Diastolic (mm Hg) 2017-04-30 14:15:00 [facility] Systolic (mm Hg) 2017-04-30 14:15:00 [facility] Weight 2017-01-25 19:00:00 [facility] Height 2017-01-25 19:00:00 [facility] [place] Heart Rate 2017-01-25 19:00:00 [facility] Diastolic (mm Hg) 2017-01-25 19:00:00 [facility] [place] Systolic (mm Hg) 2017-01-25 19:00:00 Nick tyreel [place] Respitory Rate 2017-01-18 12:50:00 [facility] [place] Heart Rate 2017-01-18 12:50:00 [facility] [place] Temperature Oral (F) 2017-01-18 12:50:00 97.7 F [facility] [place] Systolic (mm Hg) 2017-01-18 12:50:00 [facility] [place] Diastolic (mm Hg) 2017-01-18 12:50:00 [facility] Respitory Rate 2017-01-18 12:29:00 [facility] [place] Temperature Oral (F) 2017-01-18 08:10:00 98.2 F [facility] Heart Rate 2017-01-18 08:10:00 [facility] Respitory Rate 2017-01-18 08:10:00 [facility] [place] Systolic (mm Hg) 2017-01-18 08:10:00 [facility] [place] Diastolic (mm Hg) 2017-01-18 08:10:00 [facility] [place] Temperature Oral (F) 2017-01-18 04:38:00 97.8 F [facility] Heart Rate 2017-01-18 04:38:00 [facility] Systolic (mm Hg) 2017-01-18 04:38:00 [facility] [place] Diastolic (mm Hg) 2017-01-18 04:38:00 [facility] Weight 2017-01-16 07:57:00 [facility] BMI Calculated 2017-01-16 07:57:00 [facility] Height 2017-01-16 07:57:00 162.56 cm [facility] [place] Weight 2017-01-16 04:10:00 [facility] Weight 2016-08-01 13:00:00 [facility] [place] Height 2016-08-01 13:00:00 [facility] [place] Heart Rate 2016-08-01 13:00:00 [facility] [place] Diastolic (mm Hg) 2016-08-01 13:00:00 [facility] Systolic (mm Hg) 2016-08-01 13:00:00 [facility] [place] Weight 2016-07-17 16:00:00 [facility] [place] Height 2016-07-17 16:00:00 [facility] [place] Heart Rate 2016-07-17 16:00:00 [facility] [place] Diastolic (mm Hg) 2016-07-17 16:00:00 [facility] [place] Systolic (mm Hg) 2016-07-17 16:00:00 [facility] Weight 2016-07-11 15:30:00 [facility] Height 2016-07-11 15:30:00 [facility] [place] Heart Rate 2016-07-11 15:30:00 [facility] [place] Diastolic (mm Hg) 2016-07-11 15:30:00 [facility] [place] Systolic (mm Hg) 2016-07-11 15:30:00 [facility] [place] Systolic (mm Hg) 2016-07-04 16:46:00 [facility] [place] Diastolic (mm Hg) 2016-07-04 16:46:00 [facility] [place] Heart Rate 2016-07-04 16:46:00 [facility] [place] Respitory Rate 2016-07-04 16:46:00 [facility] Temperature Oral (F) 2016-07-04 16:46:00 98.5 F [facility] Respitory Rate 2016-07-04 12:59:00 [facility] Systolic (mm Hg) 2016-07-04 12:59:00 [facility] [place] Diastolic (mm Hg) 2016-07-04 12:59:00 [facility] [place] Temperature Oral (F) 2016-07-04 12:59:00 98.4 F [facility] [place] Heart Rate 2016-07-04 12:59:00 [facility] [place] Temperature Oral (F) 2016-07-04 08:24:00 98.8 F [facility] Heart Rate 2016-07-04 08:24:00 [facility] Systolic (mm Hg) 2016-07-04 08:24:00 [facility] Diastolic (mm Hg) 2016-07-04 08:24:00 [facility] Respitory Rate 2016-07-04 08:24:00 [facility] Height 2016-07-01 08:52:00 149.86 cm [facility] BMI Calculated 2016-07-01 08:52:00 [facility] [place] Weight 2016-07-01 08:52:00 [facility] [place] BMI Calculated 2016-06-30 22:36:00 [facility] Height 2016-06-30 22:36:00 149.86 cm [facility] Weight 2016-06-30 22:36:00 [facility] Weight 2016-06-30 16:45:00 [facility] Height 2016-06-30 16:45:00 [facility] [place] Temperature Oral (F) 2016-06-30 16:45:00 98.3 F [facility] [place] Heart Rate 2016-06-30 16:45:00 [facility] Diastolic (mm Hg) 2016-06-30 16:45:00 [facility] [place] Systolic (mm Hg) 2016-06-30 16:45:00 [facility] [place] Systolic (mm Hg) 2016-03-31 19:57:00 [facility] [place] Diastolic (mm Hg) 2016-03-31 19:57:00 [facility] [place] Respitory Rate 2016-03-31 19:57:00 [facility] [place] Systolic (mm Hg) 2016-03-31 18:57:00 [facility] [place] Diastolic (mm Hg) 2016-03-31 18:57:00 [facility] [place] Respitory Rate 2016-03-31 18:57:00 [facility] Temperature Oral (F) 2016-03-31 17:53:00 97.9 F [facility] [place] Respitory Rate 2016-03-31 17:52:00 [facility] [place] Height 2016-03-31 17:41:00 157.48 cm [facility] [place] Weight 2016-03-31 17:41:00 [facility] BMI Calculated 2016-03-31 17:41:00 [facility] [place] Heart Rate 2016-03-31 17:41:00 [facility] [place] Systolic (mm Hg) 2016-03-31 17:41:00 [facility] Diastolic (mm Hg) 2016-03-31 17:41:00 [facility] [place] Weight 2016-03-31 16:45:00 [facility] Height 2016-03-31 16:45:00 [facility] [place] Heart Rate 2016-03-31 16:45:00 [facility] [place] Weight 2016-02-16 13:45:00 [facility] Height 2016-02-16 13:45:00 [facility] Heart Rate 2016-02-16 13:45:00 [facility] [place] Diastolic (mm Hg) 2016-02-16 13:45:00 [facility] [place] Systolic (mm Hg) 2016-02-16 13:45:00 [facility] Weight 2015-11-15 14:15:00 [facility] Height 2015-11-15 14:15:00 [facility] [place] Heart Rate 2015-11-15 14:15:00 [facility] Diastolic (mm Hg) 2015-11-15 14:15:00 [facility] Systolic (mm Hg) 2015-11-15 14:15:00 [facility] [place] Weight 2015-06-21 14:30:00 [facility] [place] Height 2015-06-21 14:30:00 [facility] Temperature Oral (F) 2015-06-21 14:30:00 98.4 F [facility] Heart Rate 2015-06-21 14:30:00 [facility] Diastolic (mm Hg) 2015-06-21 14:30:00 [facility] Systolic (mm Hg) 2015-06-21 14:30:00 [facility] [place] Procedures Procedure Date / Time Performing Clinician Source Performed Colonoscopy<sup>1</sup> 2018-11-14 00:00:00 [facility] [place] Esophagogastroduodenoscopy 2016-07-03 05:00:00 [facility] [place] [facility] 1999-04-16 00:00:00 [facility] Her ram Hemorrhoidectomy 1997-04-16 00:00:00 [facility] Ricardo rmann Tubal ligation 1996-04-16 00:00:00 [facility] Her ram Diagnostic procedure [facility] Ricardo rmann Encounters Start End Encounter Admission Attending Care Care Encounter Source Date/Time Date/Time Type Type Clinicians Facility Department ID 2019-12-03 2019-12-03 Outpatient Leif Yadav [id number] [facility]inic 11:00:00 11:00:00 [facility] Practice 2019-11-27 2019-11-27 [place] [id number] 19:23:00 22:29:00 Yue Ledesma [id number] [place] [id number] Portal [id number] 2019-11-21 2019-11-21 Outpatient Leif Yadav [id number] [facility]Clinic 16:57:00 16:57:00 [facility] Practice 2019-11-18 2019-11-18 Letter JW Garces [id number] 00:00:00 00:00:00 (Out) Radha SANDY [id number] [facility] [id number] 2019-11-14 2019-11-14 Laboratory Lab, [facility] [id number] 10:38:24 10:58:24 Only Fam [facility] [id number] [place] [id number] [facility] [id number] nal [id number] 2019-05-21 2019-05-21 Outpatient Leif Yadav [id number] eClinic 12:44:00 12:44:00 [facility] Practice 2019-05-16 2019-05-16 Outpatient Leif Yadav [id number] eClinic 15:01:00 15:01:00 [facility] Practice 2019-05-14 2019-05-14 Outpatient Yadav MHSE MHSE [id number] 12:06:00 23:59:00 Shiela Medrano 2019-05-14 2019-05-14 Outpatient MHSE MHSE [id number] MH 12:06:00 12:06:[address] [facility] 2019-05-14 2019-05-14 Outpatient Leif Yadav [id number] eClinic 09:15:00 09:15:00 [facility] Practice 2019-05-12 2019-05-12 Outpatient Leif Yadav [id number] eClinic 12:15:00 12:15:00 [facility] Practice 2019-05-02 2019-05-02 Outpatient Leif Yadav [id number] eClinic 10:40:00 10:40:00 [facility] Practice 2019-04-22 2019-04-22 Outpatient Leif Yadav [id number] eClinic 09:30:00 09:30:00 [facility] Practice 2019-01-07 2019-01-08 Outpatient Lucita, MHSE MHSE [id number] 16:07:00 11:40:[address] [place] [address] 2019-01-07 2019-01-06 Inpatient E MHSE MHSE [id number] MH 16:07:00 10:04:[address] [facility] [facility] 2018-12-14 2018-12-14 Outpatient Leif Yadav [id number] eClinic 14:03:00 14:03:00 [facility] Practice 2018-12-11 2018-12-11 Outpatient Leif Yadav [id number] eClinic 14:00:00 14:00:00 [facility] Practice 2018-11-22 2018-11-22 Nerissa ESCALERA [id number] 00:00:00 00:00:00 Only Unassigned, DU 350.1.13.10 Palomas [facility] [id number] [id number] 2018-11-15 2018-11-15 Outpatient Yadav Yadav [id number] eClinic 16:35:00 16:35:00 [facility] Practice 2018-11-04 2018-11-04 Outpatient Leif Yadav [id number] eClinic 10:15:00 10:15:00 [facility] Practice 2018-10-28 2018-10-28 Outpatient Leif Yadav [id number] eClinic 18:07:00 18:07:00 [facility] Practice 2018-10-21 2018-10-21 Outpatient Leif Yadav [id number] eClinic 10:07:00 10:07:00 [facility] Practice 2018-10-16 2018-10-16 Outpatient Leif Yadav [id number] eClinic 12:24:00 12:24:00 [facility] Practice 2018-10-15 2018-10-15 Outpatient Leif Yadav [id number] eClinic 16:37:00 16:37:00 [facility] Practice 2018-10-11 2018-10-11 Outpatient Leif Yadav [id number] eClinic 10:30:00 10:30:00 [facility] Practice 2018-10-10 2018-10-10 Outpatient Leif Yadav [id number] eClinic 12:20:00 12:20:00 [facility] Practice 2018-08-26 2018-08-26 Outpatient Leif Yadav [id number] eClinic 11:45:00 11:45:00 [facility] Practice 2018-08-20 2018-08-20 Outpatient Leif Yadav [id number] eClinic 10:37:00 10:37:00 [facility] Practice 2018-07-29 2018-07-29 Outpatient Leif Yadav [id number] eClinic 15:15:00 15:15:00 [facility] Practice 2017-10-08 2017-10-08 Outpatient Leif Yadav [id number] eClinic 10:00:00 10:00:00 [facility] Practice 2017-09-24 2017-09-24 Outpatient Leif Yadav [id number] eClinic 13:50:00 13:50:00 [facility] Practice 2017-09-24 2017-09-24 Outpatient Leif Yadav [id number] eClinic 11:56:00 11:56:00 [facility] Practice 2017-06-29 2017-06-29 Outpatient Leif Yadav [id number] eClinic 14:20:00 14:20:00 [facility] Practice 2017-05-18 2017-05-18 Outpatient Leif Yadav [id number] eClinic 12:34:00 12:34:00 [facility] Practice 2017-04-30 2017-04-30 Outpatient Leif Yadav [id number] eClinic 08:15:00 08:15:00 [facility] Practice 2017-01-25 2017-01-25 Outpatient Leif Yadav [id number] eClinic 14:00:00 14:00:00 [facility] Practice 2017-01-15 2017-01-18 Outpatient Ghebranious MHSE MHSE [id number] 23:08:00 11:59:00 , Amir 08 [place] 2016-10-30 2016-10-30 Outpatient [facility] [id number] 06:44:00 06:44:00 [facility] 2016-10-20 2016-10-20 Outpatient Leif Yadav [id number] eClinic 11:14:00 11:14:00 [facility] Practice 2016-10-11 2016-10-11 Outpatient Leif Yadav [id number] eClinic 08:15:00 08:15:00 [facility] Practice 2016-08-28 2016-08-28 Outpatient Leif Yadav [id number] eClinic 13:08:00 13:08:00 [facility] Practice 2016-08-01 2016-08-01 Outpatient Leif Yadav [id number] eClinic 08:00:00 08:00:00 [facility] Practice 2016-07-18 2016-07-18 Outpatient Ghebranious MHSE MHSE [id number] 17:30:00 23:59:00 , Amir 07 [place] 2016-07-17 2016-07-17 Outpatient Leif Yadav [id number] eClinic 11:00:00 11:00:00 [facility] Practice 2016-07-11 2016-07-11 Outpatient Leif Yadav [id number] eClinic 10:30:00 10:30:00 [facility] Practice 2016-06-30 2016-07-04 Outpatient Ghebranious MHSE MHSE [id number] 17:34:00 15:34:00 Sammy [place] 2016-06-30 2016-06-30 Outpatient Yadav-Fo MHSE MHSE [id number] 14:16:00 23:59:00 Shiela holliday 2016-06-30 2016-06-30 Outpatient Lief Yadav [id number] eClinic 11:45:00 11:45:00 [facility] Practice 2016-04-03 2016-04-03 Outpatient Leif Yadav [id number] eClinic 09:09:00 09:09:00 [facility] 2016-03-31 2016-03-31 Outpatient Sarah, MHSE MHSE [id number] 11:33:00 16:00:00 Juana Molina 04 2016-03-31 2016-03-31 Outpatient Leif Yadav [id number] eClinic 10:45:00 10:45:00 [facility] 2016-02-21 2016-02-21 Outpatient Leif Yadav [id number] eClinic 08:56:00 08:56:00 [facility] 2016-02-16 2016-02-16 Outpatient Leif Yadav [id number] eClinic 08:45:00 08:45:00 [facility] 2015-11-15 2015-11-15 Outpatient Leif Yadav [id number] eClinic 09:15:00 09:15:00 [facility] Practice [facility] 2015-06-21 2015-06-21 Outpatient Leif Yadav [id number] eClinic 08:30:00 08:30:00 [facility] Practice [facility] 2015-04-12 2015-04-12 Outpatient Leif Yadav [id number] eClinic 19:48:00 19:48:00 [facility] 2015-04-12 2015-04-12 Outpatient Leif Yadav [id number] eClinic 19:48:00 19:48:00 [facility] Practice [facility] 2014-08-27 2014-08-27 Outpatient Leif Yadav [id number] eClinic 14:02:00 14:02:00 [facility] Practice [facility] 2014-08-27 2014-08-27 Outpatient Leif Yadav [id number] eClinic 13:56:00 13:56:00 [facility] Results Test Description Test Time Test Comments Results Result Sour e Comments HEMATOLOGY 2019-01-07 10.1 [facility] 09:19:00 [place] HEMATOLOGY 2019-01-07 28.5 [facility] 09:19:00 [place] URINE CHEM 2019-01-06 Negative [facility] 23:52:00 (01/06/19 6:52 [place] PM) CHEM PANEL 2019-01-06 157 [facility] 16:02:00 [place] CHEM PANEL 2019-01-06 18 [facility] 16:02:00 [place] CHEM PANEL 2019-01-06 1.10 [facility] 16:02:00 [place] CHEM PANEL 2019-01-06 140 [facility] 16:02:00 [place] CHEM PANEL 2019-01-06 3.3 [facility] 16:02:00 [place] CHEM PANEL 2019-01-06 106 [facility] 16:02:00 [place] CHEM PANEL 2019-01-06 28 [facility] 16:02:00 [place] CHEM PANEL 2019-01-06 8.3 [facility] 16:02:00 [place] CHEM PANEL 2019-01-06 51 [facility] 16:02:00 [place] CHEM PANEL 2019-01-06 9.3 [facility] 16:02:00 [place] HEMATOLOGY 2019-01-06 7.9 [facility] 16:02:00 [place] HEMATOLOGY 2019-01-06 4.01 [facility] 16:02:00 [place] HEMATOLOGY 2019-01-06 11.2 [facility] 16:02:00 [place] HEMATOLOGY 2019-01-06 33.9 [facility] 16:02:00 [place] HEMATOLOGY 2019-01-06 84.6 [facility] 16:02:00 [place] HEMATOLOGY 2019-01-06 16:02:00 Test Item Value Reference Range Interpretation Comme nts MCH (test code = MCH) 28.0 pg 27.0-31.0 [facility] UprwgewWQDTVVLNRW3692-18-09 16:02:0033.2[facility]annHEMATOLOGY 2019-01-06 16:02:0013.7[facility] IgcnwiqKMLFTYNZJD3828-12-46 16:02:24591Mzqymbyl HbbfpvaKVLLDCUTZB8909-82-88 16:02:007.6[facility] VxsxntgQYHDGZTTZX9242-88-60 16:02:00 Test Item Value Reference Range Interpretation Comments INR (test code = INR) 0.94 1 0.85-1.17 [facility] QwwtpwpATCVUJAGKN1514-57-45 16:02:00 Test Item Value Reference Range Interpretation Comments PT (test code = PT) 12.4 s 12.0-14.7 [facility] EdqdsrkPFCVISOQOY4262-57-67 16:02:0087.4[facility]annHEMATOLOGY 2019-01-06 16:02:0010.2[facility] KjnalewOSSBTHVFJA2736-62-59 16:02:001.7[facility] UxjytfvSONANUNRNR2711-34-77 16:02:000.3[facility] SwovruvGWWVLDGOAQ3015-31-06 16:02:000.4[facility] SxbwrbjDJRYVLFTKN3913-70-12 16:02:006.9[facility] WGITDDNLKE0340-09-15 16:02:000.8[facility] GcbgdbxZSEQRXQZES1872-01-51 16:02:000.1 [facility]annSPECIAL ZWNCFJTVY7891-28-15 16:02:006.2[facility]annBLOOD BANK AJJNLTM7997-90-44 10:45:00Negative (01/06/19 5:45 AM)[facility] BQMVR8927-96-55 19:10:00Yellow *NA*(12/26/18 2:10 PM)[facility] [id number] 19:10:00Clear (12/26/18 2:10 PM)[facility] [id number] 19:10:00 Test Item Value Reference Range Interpretation Comments UA Spec Grav (test code = UA Spec 1.010 1 Grav) [facility] [id number] 19:10:00 Test Item Value Reference Range Interpretation Comments UA pH (test code = UA pH) 5.0 1 5.0-8.0 [facility] [id number] 19:10:00Negative (12/26/18 2:10 PM) [facility] [id number] 19:10:00Negative (12/26/18 2:10 PM) [facility] [id number] 19:10:00Negative *NA*(12/26/18 2:10 PM) [facility] [id number] 19:10:00Negative *NA*(12/26/18 2:10 PM) [facility] [id number] 19:10:00Large *ABN*(12/26/18 2:10 PM) [facility] QACYH6518-22-90 19:10:000.2[facility] SZKHD2828-66-07 19:10:00Negative (12/26/18 2:10 PM)[facility] IUTOM3450-28-06 19:10:00Small *ABN*(12/26/18 2:10 PM)[facility] PFPCL2865-48-17 19:10:00<1[facility] IBZWG5222-68-03 19:10:006 [facility] [employer] BANK [id number] 19:02:00Product available (12/26/18 2:02 PM)[facility] HermannBLOOD BANK [id number] 18:56:00Negative (12/26/18 1:56 PM)[facility] OfuklpyZELIEPZXJY3733-20-89 18:56:00Negative *NA*(12/26/18 1:56 PM)[facility] HermannSCR MAMM BILATERAL SPENCER CAD [id number] 10:41:07 - SCR MAMM BILATERAL SPENCER CAD DIGITALBILATERAL DIGITAL SCREENING MAMMOGRAM 3D/2D WITH CAD: 11/09/2018CLINICAL: Asymptomatic. Digital breast tomosynthesis was performed in addition to routine CC and MLO views. Current mammographic images were evaluated by either a [employer] M-Vu or a [employer] ImageChecker CAD (computer aided detection system). Comparison is made to exams dated 10/12/2017 mammogram, 07/27/2016 mammogram, and 11/05/2013 mammogram - [facility]. There are scattered fibroglandular tissues in both breasts. No suspicious mass, architectural distortion, malignant type calcification, or lymph node abnormality detected. Breast architecture is stable compared to prior exams.IMPRESSION: NEGATIVEThere is no mammographic evidence of malignancy. Resume annual screening mammography in one year. Marycarmen Burdick M.D. sf/penrad:11/09/2018 10:41:07 Ground Wirer: Carlota Hernandez, [facility] sent: BIRADS 1-2 Normal Mammogram BI-RADS: 1 NegativeCHEM [id number] 08:38:0046[facility] HermannCHEM MDJPM0885-57-62 08:38:003.8[facility] HermannCHEM KYHOY4465-49-20 08:38:03725Cfxbgjfg HermannCHEM QFMLO4756-76-21 08:38:93539Tmtzlqil HermannCHEM AFVLC5601-55-05 08:38:009.0 [facility]annCHEM ORYCR1498-44-12 08:38:0012.8[facility] HermannCHEM PANEL 2017-01-17 08:38:0025[facility] HermannCHEM [id number] 08:38:001.20[facility] HermannCHEM GJTVI2284-47-43 08:38:0024[facility] HermannCHEM [id number] 08:38:24938Ltkdlsjo RamhkonSRFJYTRANKUT9796-92-07 13:46:003.2[facility] CARDIAC UZLDIEG5800-25-26 05:26:00<0.7[facility] HermannCARDIAC ENZYMES 2017-01-16 05:26:00<0.5[facility] HermannCARDIAC DTARQTA1722-48-94 05:26:00 <0.02[facility] HermannCARDIAC YCETRRV0525-69-70 05:26:0067[facility] [place] CARDIAC DEGMTOX9523-06-12 05:26:001[facility] HermannCHEM [id number] 05:26:00 61[facility] HermannCHEM DXGSG8823-06-34 05:26:001.1[facility] HermannCHEM PANEL 2017-01-16 05:26:003.8[facility] HermannCHEM QYUXH9564-53-97 05:26:003.1[facility] HermannCHEM BVKGE9878-13-01 05:26:96968Dvkekmoj HermannCHEM IQPQM7091-96-36 05:26:92084Raetnebr HermannCHEM YLBMQ5064-27-73 05:26:004.1[facility] HermannCHEM PSVOX3998-96-21 05:26:0023[facility] HermannCHEM DISTP2039-76-63 05:26:007.9 [facility]annCHEM LXALS6625-64-00 05:26:0013.1[facility] HermannCHEM PANEL 2017-01-16 05:26:0025[facility] HermannCHEM RMMKB8123-57-20 05:26:008.9[facility] HermannCHEM HNYTJ6974-11-16 05:26:0029[facility] HermannCHEM NTHXE9548-89-92 05:26:0014[facility] HermannCHEM MQLQT7303-79-01 05:26:0069[facility] HermannCHEM DEPCH2777-30-09 05:26:000.2[facility] HermannCHEM RJWWS8539-03-81 05:26:47678 [facility] HermannCHEM [id number] 05:26:0024[facility] HermannCHEM PANEL 2017-01-16 05:26:000.96[facility] AffbqanYVLKTKNRID4455-97-98 05:26:000.1[facility] KbsslnpKYKOPWKVQY3199-04-88 05:26:000.3[facility] YjoxecdWEKSDOCJKU9964-73-73 05:26:003.1[facility] KdhoktzFZRQRJSWDN2044-51-56 05:26:001.0[facility] [place] FTAYUHXVGX6386-48-12 05:26:004.1[facility] ZsygxnqFDEPLWWTTN4883-66-02 05:26:006.2 [facility] FeutalvIKKUOTSNZB2342-06-89 05:26:000.6[facility]annHEMATOLOGY 2017-01-16 05:26:0041.6[facility] NlfwxqzTJTJJHDEQO2449-63-86 05:26:004.8[facility] XuydidtBGKTUSPMGE6910-22-90 05:26:0048.1[facility] MkethfxRYAQIQLZMG3757-00-24 05:26:0081.0[facility] YmzvhglPTUYXZKCQV0419-30-18 05:26:00 Test Item Value Reference Range Interpretation Comments MCH (test code = MCH) 27.0 pg 27.0-31.0 [facility] KdxjstzZIGAIHCGSO2158-85-65 05:26:0033.4[facility]annHEMATOLOGY 2017-01-16 05:26:0013.8[facility] WxkpojcIQEXQZJTSH0100-82-26 05:26:007.7[facility] ListrhiCNZDPBPIHY9015-32-81 05:26:54867Iwpitcjf VkxmjueRUPAWPEXQU5406-98-65 05:26:009.9[facility] PfwtwdnFEIVUFBGGO8394-19-58 05:26:004.93[facility] ATSOKAJSKY2927-40-25 05:26:0013.3[facility] CxvskuoCQOCUYMEJF2517-24-04 05:26:00 39.9[facility] AND CNEJC2522-03-79 10:58:001.013[facility] IACYM9193-27-13 10:58:00Slight *ABN*(07/01/16 5:58 AM)[facility] AKLSY6604-98-28 10:58:005.0[facility] KTXUE7344-14-06 10:58:001[facility] YKRCJ5111-66-41 10:58:003[facility] AND XTIMZ3826-55-65 10:58:00Negative (07/01/16 5:58 AM)[facility] AND LTODT7347-68-80 10:58:00Negative *NA*(07/01/16 5:58 AM)[facility] PLSZH7721-25-49 10:58:00Negative (07/01/16 5:58 AM)[facility] AND NWAMD1802-25-10 10:58:00Negative (07/01/16 5:58 AM)[facility] LCYAW6898-81-66 08:55:0022[facility] XZRGN3317-84-06 08:55:001.1 [facility] COKHL3330-80-46 08:55:003.1[facility] PANEL 2016-07-01 08:55:0011.6[facility] BDRXJ1818-77-20 08:55:0072[facility] XIOPS6330-88-37 08:55:0047[facility] JTDBU6464-86-61 08:55:000.2[facility] COKPE6403-11-79 08:55:008.1[facility] DLBBH2488-78-74 08:55:006.4[facility] HOAWS9925-80-94 08:55:0014 [facility] TBTEQ5873-78-16 08:55:0019[facility]annCHE[facility] PANEL 2016-07-01 08:55:003.3[facility] SGJFR7902-76-95 08:55:97016Oewbdyfr HermannCHEM MWAZO6534-51-19 08:55:000.83[facility] XRZAY7220-66-72 08:55:0028[facility] YTCOY2694-92-14 08:55:98577Lydhaong HermannCHEM DYSMD2951-84-43 08:55:003.6[facility] RCUBV3314-42-40 08:55:0018 [facility] VGLAL6059-34-58 08:55:77671Xuiexomw HermannCHEM PANEL 2016-07-01 08:55:002.0[facility] CuhqrlbKRKQROGZZJ7585-75-14 08:55:004.19[facility] ExgjrllGAXMNYINKU3761-82-34 08:55:003.5[facility] UffrlamVVARLJFKTX3073-38-39 08:55:0011.2[facility] RjiwwupTVWHJOFDBZ8499-07-51 08:55:00 Test Item Value Reference Range Interpretation Comments MCH (test code = MCH) 26.8 pg 27.0-31.0 [facility] CmvnxyjRDZBZZOOKZ4256-15-24 08:55:0033.9[facility] HermannHEMATOLOGY 2016-07-01 08:55:0081.0[facility] AjdoeirGEFTZDCJDE4901-86-57 08:55:48429Opjcfitz DxgfxkrYTTVJDIXJY5221-52-39 08:55:0033.1[facility] XlocyrfOFEIWKIZYE7345-24-90 08:55:007.2[facility] UaryfihPXKXOLTHBJ6266-38-61 08:55:0014.5[facility] QYQHYFQTFN2229-98-09 08:55:009.6[facility] PqboophUNQIODJJIK1947 08:55:000.3 [facility] UumxwloKXZCBJHPVF0696-49-03 08:55:0029.5[facility] HermannHEMATOLOGY 2016-07-01 08:55:0058.8[facility] UrqzmjqJFTNXKJNYO1419-83-62 08:55:002.1[facility] HrutfbkZSFMYDIOQI6432-34-54 08:55:001.1[facility] PmjuucoQJPBTJLNMX3060-29-60 08:55:001.0[facility] CfmigxmTNUOZSHKNJ9091-10-61 08:55:001.0[facility] AND YYLHP3034-22-66 05:13:00Yellow *NA*(07/01/16 12:13 AM)[facility] MNJND0566-17-19 05:13:005.0[facility] USBSC6951-55-19 05:13:00Clear (07/01/16 12:13 AM)[facility] HBBTK0157-85-70 05:13:001.018[facility] RLIDG0678-18-41 05:13:00Negative (07/01/16 12:13 AM)[facility] VFYNQ5508-88-86 05:13:00Negative (07/01/16 12:13 AM)[facility] IWUQG6294-60-87 05:13:00Negative *NA*(07/01/16 12:13 AM)[facility] YABIA1310-47-87 05:13:00Negative (07/01/16 12:13 AM)[facility] LELKG2311-66-74 05:13:002[facility] URINE AND SRXFZ3073-24-97 05:13:002[facility] SAMOU5540-94-74 23:30:00 173[facility] GDFRY6519-16-71 23:30:0067[facility]CHE[facility] PANEL 2016-06-30 23:30:0053[facility] SOCTN2510-57-98 23:30:008.7[facility] BLWWN5313-95-27 23:30:0029[facility] QMQTU3505-50-68 23:30:91862Jpywbmsk HermannCHEM CNFOO5378-25-23 23:30:0018[facility] XKVQH7167-57-20 23:30:003.2[facility] NEXDP1359-18-41 23:30:0021 [facility] EYNVG0857-36-34 23:30:65463Ezcsozjn HermannCHEM PANEL 2016-06-30 23:30:003.6[facility] BESCP1829-46-70 23:30:007.4[facility] JPHVF7996-23-75 23:30:000.3[facility] JCJID0051-36-49 23:30:0018[facility] KPHHZ8409-27-81 23:30:00118Wxjnytek HermannCHEM NYQGU3447-99-76 23:30:000.88[facility] LNDIW1291-45-60 23:30:000.9 [facility] XGIKW4527-36-20 23:30:003.8[facility]annCHE[facility] PANEL 2016-06-30 23:30:0020[facility] QDOMX3963-92-93 23:30:0011.2[facility] HjzsvmgHPBVZNSZCF9641-16-95 23:30:000.1[facility] DsjlymaBDFINJGMAM4101-36-60 23:30:001.9[facility] XfyiadbHAJWIDKPKC8086-01-57 23:30:003.5[facility] OUWYBDJHSE0820-82-62 23:30:000.1[facility] RqffccrMDAJXQVPZD4729-06-59 23:30:000.5 [facility] BislczuYZJAJWCFVU2807-76-82 23:30:00Normal (06/30/16 6:30 PM)[facility] AuazdorNBFVMGMLFM3705-06-49 23:30:00Normal (06/30/16 6:30 PM)[facility] MYNPKJKETU8563-08-34 23:30:002.3[facility] SxyhifoHQEGXJKXKC3279-40-32 23:30:007.6 [facility] IaouhozMVPDHDUHCB1267-02-86 23:30:0031.4[facility] HermannHEMATOLOGY 2016-06-30 23:30:0057.7[facility] SvpkcjiYMETQPRXGC2645-91-88 23:30:001.0[facility] FiqgcmqQENBXQKWOL9430-55-73 23:30:0014.6[facility] ZpnxnmfTMRJQCKKAB9033-88-59 23:30:0027.3[facility] DzoqiwpQVKXKTAXWH6467-54-83 23:30:007.3[facility] XNDKPEDECK1674-15-24 23:30:31875Teymizll YbykdapJKXSWJMDPR1088-81-20 23:30:00 Test Item Value Reference Range Interpretation Comments MCH (test code = MCH) 22.0 pg 27.0-31.0 [facility] OleebxdVXLQZGDQDS2140-81-04 23:30:006.0[facility] HermannHEMATOLOGY 2016-06-30 23:30:004.64[facility] ElcsunhQGDUIGSDJB3732-88-02 23:30:0010.2[facility] CbqcnqnXFBKMISDCT3870-96-18 23:30:0080.6[facility] IewyoiiZZWGFHSQRH0441-78-34 23:30:0037.4[facility]annCHEM KCGJN1902-44-86 17:54:0058[facility]annCHE[facility] ZHAGO4435-82-69 17:54:009.0[facility]annCHE[facility] GLWNR8244-02-05 17:54:65755 [facility] NBVND5354-34-06 17:54:0027[facility]annCHEM PANEL 2016-03-31 17:54:001.00[facility]annCHE[facility] GWGTD1387-52-98 17:54:0019[facility]annCHEM HOWPL6326-48-77 17:54:002.9[facility]annCHE[facility] VNFYF9594-24-63 17:54:60238Fgfsinlg HermannCHEM GJMVW3880-50-55 17:54:22495Vegmlrmo HermannCHEM XTJBU1512-43-47 17:54:0012.9[facility] InxythzWLBRHERSOC4679-71-02 17:54:004.1 [facility] QvpvrqcVPRWPRUHJX4880-81-93 17:54:004.2[facility] HermannHEMATOLOGY 2016-03-31 17:54:000.1[facility] AmlvwadWUEUHQGASO9528-44-34 17:54:000.6[facility] WwjhjsjLQHYRSBCUK1251-07-50 17:54:000.6[facility] KkwcahaWGYJKXFRES4604-57-28 17:54:001.0[facility] ZahdfdaZECBGKZMAU8611-94-70 17:54:006.5[facility] JPRELIMEFD7409-36-52 17:54:006.7[facility] DpcjrjlEBOYBSUUMQ3415-16-48 17:54:00 42.3[facility] UixyhinSPWKMFLWDQ8968-30-98 17:54:0043.5[facility] HermannHEMATOLOGY 2016-03-31 17:54:004.85[facility] FzmsugiNHWXLCZBMJ0404-95-25 17:54:009.7[facility] DmjnwmwXIRAJEBVGC8500-74-07 17:54:0081.5[facility] JqfkfkjFXFTOKLYTR4946-15-03 17:54:0012.8[facility] PoeucvlXLZSEENTYS8262-06-02 17:54:0039.5[facility] GAMTTYLVII8839-23-28 17:54:03053Ulhccjyl XlufmtaJRCDCRQRAC8599-68-17 17:54:007.5 [facility] WazhxfqYZBWGCJYSD1880-17-22 17:54:0032.5[facility] HermannHEMATOLOGY 2016-03-31 17:54:0014.3[facility] EmeyihwGYGDYNHSJL1342-10-41 17:54:00 Test Item Value Reference Range Interpretation Comments MCH (test code = MCH) 26.5 pg 27.0-31.0 Sameer Campbell
--- OUTSIDE RECORDS SUMMARY | 2019-12-19 15:42 | XMS REPORT | Summary of Care ---
:1945 Author Organization [facility] Address [address] [place], [place] [id number] Care Team Providers Name Role Phone Camille Bell Primary Care Provider Reason for Referral Radiology Services (STAT) Status Reason Specialty Diagnoses / Referred By Referred To Procedures Contact Contact New Request Diagnostic Diagnoses Chest pain, unspecified type Yue Clarke Radiology Procedures XR CHEST 1 AZUL Vital MD [address] [facility] [id number] [place] [address] Reason for Visit Reason Comments Shoulder Pain left Neck Pain left Auth/Cert Status Reason Specialty Diagnoses / Referred By Referred To Procedures Contact Contact Emergency Medicine [facility] Em ergency Dept [address] [place] [id number] Fax: Encounter Details Date Type Department Care Team Description 11/27/2019 Emergency ADC-Emergency Yue Clarke S, Pleurisy (Primary Dx); Department Chest pain, unspecified type; [address] [place] [address] Dr jones [address] [facility] Mild anemia; [place] [address] [id number] ADY (acute kidney injury) [phone] [place], [place] [address] Allergies Active Allergy Reactions Severity Noted Date Comments Iodine Other - See comments 10/26/2018 documented as of this encounter (statuses as of 11/27/2019) Medications Medication Sig Dispensed Refills Start Date [...] Infected insect bite of forearm, initial encounter benzonatate 200 mg Take 1 capsule by 21 capsule 0 11/27/2019 Active capsuleIndications: mouth 3 (three) Pleurisy times daily as needed for Cough. traMADol (ULTRAM) 50 Take 1 tablet by 20 tablet 0 11/27/2019 Active mg tabletIndications: mouth every 6 acute pain (six) hours as needed for Pain (scale 7-10). Indications: acute pain documented as of this encounter (statuses as of 11/27/2019) Active Problems No known active problemsdocumented as of this encounter (statuses as of 11/27/2019) Social History Tobacco Use Types Packs/Day Years Used Date Never Assessed Sex Assigned at Date Recorded Not on file COVID-19 Exposure Response Date Recorded In the last month, have you been in contact with No / Unsure 11/27/2019 7:37 PM CDT someone who was confirmed or suspected to have Coronavirus / COVID-19? documented as of this encounter Last Filed Vital Signs Vital Sign Reading Time Taken Comments Blood Pressure 137/70 11/27/2019 10:00 PM CDT Pulse 60 11/27/2019 10:00 PM CDT Temperature 36.8 C (98.2 F) 11/27/2019 10:00 PM CDT Respiratory Rate 18 11/27/2019 10:00 PM CDT Oxygen Saturation 97% 11/27/2019 10:00 PM CDT Inhaled Oxygen Concentration - - Weight 73 kg (161 lb) 11/27/2019 7:22 PM CDT Height 142.2 cm (4' 8") 11/27/2019 7:22 PM CDT Body Mass Index 36.1 11/27/2019 7:22 PM CDT documented in this encounter Discharge Instructions Yue Thorne MD - 11/27/2019 DIAGNOSIS Diagnoses that have been ruled out: None Diagnoses that are still under consideration: None Final diagnoses: Chest pain, unspecified type Pleurisy Mild anemia ADY (acute kidney injury) NO LIFE-THREATENING FINDINGS ON TODAY'S EXAM. PROCEDURES IN THE ER TODAY: Orders Placed This Encounter Procedures XR CHEST 1 VW TROPONIN I aPTT PROTHROMBIN TIME / INR COMP. METABOLIC PANEL (80540) LIPASE, SERUM CBC WITH DIFF URINALYSIS MEDICATIONS ADMINISTERED IN THE ER TODAY AND DISCHARGE MEDICATIONS: Orders Placed This Encounter Medications FENTanyl PF (SUBLIMAZE (PF)) injection 25 mcg ondansetron (ZOFRAN (PF)) injection 4 mg FOLLOW-UP RECOMMENDATIONS: RECOMMEND FOLLOW-UP WITH YOUR PRIMARY CARE PROVIDER OR DR TRINIDAD, KEYBOARD SPECIALIST IN 2-5 DAYS, ESPECIALLY IF NO IMPROVEMENT IN SYMPTOMS. RETURN TO ER FOR WORSENING OF SYMPTOMS AttachmentsThe following attachments cannot be sent through Care Everywhere. Kidney Injury, Acute, Discharge Instructions for (Bhutanese)Anemia (Bhutanese) Pleurisy (Bhutanese)documented in this encounter ED Notes Sonja Amezcua RN - 11/27/2019 7:21 PM CDTPatient states that she is having left shoulder, left side oh her neck, left rib pain that go into her left breast. Denies any COVID exposure. documented in this encounter Miscellaneous Notes ED Nurse Note - Alaina Yadav RN - 11/27/2019 10:28 PM CDTPt given printed and verbal discharge instructions regarding pleurisy, , encouraged hydration, Prescriptions provided Benzonate, Tramadol Discussed ibuprofen and to take with food to avoid GI distress. Discussed tramadol/phenergan/Tylenol # 3 side affects and to avoid driving/operating machinery/or engaging in activities requiring alertness while taking. Pt verbalized understanding of instructions, pt awake alert oriented, resp reg unlabored, skin w/d, color appropriate for race, moves all ext well,pt encouraged to follow up with PCP. Advised to seek medical attention for new/prolonged/worsening of symptoms, Symptoms improved No adverse reaction to meds given in ER noted upon discharge PIV d'cd, dressing to site, catheter in tact. Awake, alert oriented, resp reg unlabored, skin w/d, pt leaving amb with steady gait, in no apparent distress, D Nurse Note - Eufemia Brian RN - 11/27/2019 9:38 PM CDTPt medicated per MD order, tolerated it well documented in this encounter Plan of Treatment Name Type Priority Associated Diagnoses Date/Ti me XR CHEST 1 VW IMAGING STAT Chest pain, unspecified typ e 11/27/2019 9:28 PM CDT Health Maintenance Due Date Last Done Comments HEPATITIS C (HCV) SCREEN 1945 Depression Screening 1959 DTaP,Tdap,and Td Vaccines (1 - Tdap) 1966 Breast Cancer Screening (MAMMOGRAM) 1987 COLON CANCER SCREENING ANNUAL FIT/FOBT 1997 COLON CANCER SCREENING FIT DNA EVERY 3 YEARS 1997 COLON CANCER SCREENING SIGMOIDOSCOPY EVERY 5 YEARS 1997 COLONOSCOPY 1997 Colorectal Cancer Screening 1997 Zoster Recombinant Vaccine (SHINGRIX) (1 of 2) 1997 Medicare Wellness Visit 2012 Osteoporosis Screening 2012 PNEUMOCOCCAL VACCINES 65+ (1 of 1 - PPSV23) 2012 INFLUENZA VACCINE (#1) 2019 documented as of this encounter Procedures Procedure Name Priority Date/Time Associated Diagnosis Comme nts XR CHEST 1 VW STAT 11/27/2019 9:28 PM CDT Chest pain, unsp ecified type Procedure Note - [facility], Radia nt Results Inft User - 11/27/2019 9:37 PM CDT XR CHEST 1 VW Comparison: None available History: Chest Pain Findings: Blunting of the left costoph renic angle, similar to prior radiograph suggestive of trace pleural effusion or pleural thickening. Punctate calcified density in the lef t lung base likely a superficial breast calcification, best characte rized on prior radiograph lateral view. No focal consolidation, or pneu mothorax is identified. The cardiomediastinal silhou ette is normal in size. No acute osseous abnormality is present. IMPRESSION Suspected left trace pleural effusion or mild pleural thickening. Preliminary Report Dictated by Resident: Sarika Hansen URINALYSIS STAT 11/27/2019 8:31 PM Chest pain, Results for this CDT unspecified type procedure a re in the results section. ACTIVATED PARTIAL STAT 11/27/2019 8:24 PM Chest pain, Res ults for this THRMPLAS GRADY CDT unspecified type procedure a re in the results section. PROTHROMBIN TIME / STAT 11/27/2019 8:24 PM Chest pain, Re sults for this INR CDT unspecified type procedure a re in the results section. CBC WITH DIFF STAT 11/27/2019 8:23 PM Chest pain, Results for this CDT unspecified type procedure a re in the results section. COMP. METABOLIC STAT 11/27/2019 8:23 PM Chest pain, Resul ts for this PANEL (70648) CDT unspecified type procedure are in the results section. TROPONIN I STAT 11/27/2019 8:23 PM Chest pain, Results for this CDT unspecified type procedure a re in the results section. LIPASE STAT 11/27/2019 8:23 PM Chest pain, Results for this CDT unspecified type procedure a re in the results section. EKG-12 LEAD STAT 11/27/2019 8:17 PM CDT NOTICE OF PRIVACY Routine 11/27/2019 7:10 PM PRACTICES CDT CONSENT/REFUSAL FOR Routine 11/27/2019 7:09 PM DIAGNOSIS AND CDT TREATMENT CONSENT/REFUSAL FOR Routine 11/27/2019 7:09 PM DIAGNOSIS AND CDT TREATMENT documented in this encounter Results URINALYSIS (11/27/2019 8:31 PM CDT) Pathologist Sig nature APPEARANCE Clear Clear [facility] COLOR Yellow Yellow [facility] PH 5.0 4.8 - 8.0 [facility] SP GRAVITY 1.014 1.003 - 1.030 [facility] GLU U QUAL Normal Normal [facility] BLOOD Negative Negative [facility] KETONES Negative Negative [facility] PROTEIN Negative Negative [facility] UROBILIN Normal Normal [facility] BILIRUBIN Negative Negative [facility] NITRITE Negative Negative [facility] LEUK CRISTOBAL 25/uL (A) Negative [facility] RBC/HPF <1 0 - 3 HPF [facility] WBC/HPF 3 0 - 5 HPF [facility] BACTERIA Few (A) Negative [facility] MUCOUS Slight (A) Negative LPF [facility] SQ EPITH 3 HPF [facility] HYAL CAST 9 (H) <=2 LPF [facility] Specimen Urine - URINE, CLEAN CATCH Performing Organization Address [facility]ode Phone Number [facility] CLIA: [id number] [place] [address] PROTHROMBIN TIME / INR (11/27/2019 8:24 PM CDT) PROTIME PATIENT 11.4 (L) 12.0 - 14.7 [facility] LABORATORY INR 0.9Comment: Normal [facility] INR <1.1; Warfarin [facility] Therapeutic range LABORATORY 2.0 to 3.0 or 2.5 to 3.5, depending upon the indications. Specimen Blood - VENOUS Performing Organization Address [facility] Centercoky Phone Number [facility] CLIA: [id number] [place] [address] aPTT (11/27/2019 8:24 PM CDT) Pathologist Sig nature APTT Patient 25 23 - 38 Seconds [facility] Specimen Blood - VENOUS Narrative Performed At The [facility] patient population mean normal value [facility] for aPTT is 30 seconds. Performing Organization Address [facility]oky Phone Number [facility] CLIA: [id number] [place] [address] CBC WITH DIFF (11/27/2019 8:23 PM CDT) Pathologist Sig nature WBC 5.63 4.30 - 11.10 [facility] 10*3/L [facility]ORY RBC 4.22 3.93 - 5.25 [facility] 10*6/L [facility] HGB 11.3 (L) 11.6 - 15.0 [facility] g/dL [facility] HCT 35.9 35.7 - 45.2 % [facility] MCV 85.1 80.6 - 95.5 fL [facility] MCH 26.8 25.9 - 32.8 pg [facility] MCHC 31.5 (L) 31.6 - 35.1 [facility] g/dL [facility] RDW-SD 49.6 39.0 - 49.9 fL [facility] RDW-CV 15.9 (H) 12.0 - 15.5 % [facility] PLT 246 166 - 358 [facility] 10*3/L HOSPITAL LABORATORY MPV 10.1 9.5 - 12.9 fL [facility] NRBC/100 WBC 0.0 0.0 - 10.0 /100 [facility] WBCs [facility]ATORY NRBC x10^3 <0.01 10*3/L [facility] GRAN MAT (NEUT) % 49.9 % [facility] IMM GRAN % 0.50 % [facility] LYMPH % 33.6 % [facility] MONO % 9.2 % [facility] EOS % 5.7 % [facility] BASO % 1.1 % [facility] GRAN MAT x10^3(ANC) 2.81 1.88 - 7.09 [facility] 10*3/uL HOSPITAL LABORATORY IMM GRAN x10^3 0.03 0.00 - 0.06 [facility] 10*3/uL [facility]OSPITAL LAB[facility]ORY LYMPH x10^3 1.89 1.32 - 3.29 [facility] 10*3/uL [facility]ITAL LAB[facility]ORY MONO x10^3 0.52 0.33 - 0.92 [facility] 10*3/uL HOSPITAL LAB[facility]ATORY EOS x10^3 0.32 0.03 - 0.39 [facility] 10*3/uL HOSPITAL LAB[facility]ORY BASO x10^3 0.06 0.01 - 0.07 [facility] 10*3/uL [facility]ORATORY Specimen Blood - VENOUS Performing Organization Address City/[facility]/Zipcode Phone Number [facility] CLIA: [id number] [place] [address] LIPASE, SERUM (11/27/2019 8:23 PM CDT) [facility] LIPASE 165 0 - 220 U/L [facility] Specimen Blood - VENOUS Performing Organization Address City/[facility]/Zipcode Phone Number [facility] CLIA: [id number] [place] [address] COMP. METABOLIC PANEL (84756) (11/27/2019 8:23 PM CDT) NA 137 135 - 145 [facility] mmol/L [facility] K 4.4 3.5 - 5.0 [facility] mmol/L [facility] CL 107 98 - 108 mmol/L [facility] CO2 TOTAL 25 23 - 31 mmol/L [facility] AGAP 5 2 - 16 [facility] BUN 24 (H) 7 - 23 mg/dL [facility] GLUCOSE 116 (H) 70 - 110 mg/dL [facility] CREATININE 1.42 (H) 0.50 - 1.04 [facility] mg/dL [facility] TOTAL BILI 0.4 0.1 - 1.1 mg/dL [facility] CALCIUM 8.7 8.6 - 10.6 [facility] mg/dL [facility] T PROTEIN 7.0 6.3 - 8.2 g/dL [facility] ALBUMIN 4.0 3.5 - 5.0 g/dL [facility] ALK PHOS 45 34 - 122 U/L [facility] ALTv 13 5 - 35 U/L [facility] AST(SGOT) 24 13 - 40 U/L [facility] eGFR Calculation 36.4 mL/min/1.73m2 [facility] ([facility] [place]) eGFR Calculation 44.1 mL/min/1.73m2 [facility] ([facility]ORAT[facility] Specimen Blood - VENOUS Narrative Performed At [facility] of Glomerular Filtration Rate (GFR) [facility] and Staging of Kidney Disease* + + +- + | GFR (mL/min/1.73 m2) | With Kidney Damage | Without Kidney Damage + + +- + | >90 | Stage one | Normal + + +- + | 60-89 | Stage two | Decreased GFR + + +- + | 30-59 | Stage three | Stage three + + +- + | 15-29 | Stage four | Stage four + + +- + | <15 (or dialysis) | Stage five | Stage five + + +- + *Each stage assumes the associated GFR level has been in effect for at least three months. Stages 1 to 5, with or without kidney disease, indicate chronic kidney disease. Notes: Determination of stages one and two (with eGFR >59mL/min/1.73 m2) requires estimation of kidney damage for at least three months as defined by structural or functional abnormalities of the kidney, manifested by either: Pathological abnormalities or Markers of kidney damage (including abnormalities in the composition of the blood or urine or abnormalities in imaging tests). Performing Organization Address [facility] Centercode Phone Number [facility] CLIA: [id number] [place] [address] TROPONIN I (11/27/2019 8:23 PM CDT) Pathologist Sig nature TROPONIN I <0.012 <=0.034 ng/mL [facility] Specimen Blood - VENOUS Narrative Performed At Equal or Less than 0.034 ng/ml---Normal [facility] Note: Cardiac troponin begins to rise 3-4 hours after the onset of ischemia. Repeat in 4-6 hours if the sample was drawn within 3-4 hours of the onset of the symptom and found normal. Between 0.035 and 0.120 ng/mL--- Borderline. Questionable myocardial injury or necros is Note: Serial measurement may be necessary to confirm or exclude the diagnosis of myocardial injury or necrosis; Clinical correlation (symptoms, EKGs, imaging studies, and others) required; Repeat in 4-6 hours if clinically indicated. Equal or Higher than 0.121 ng/mL---Abnormal. Myocardial Injury or Necrosis Likely Biotin has been reported to cause a negative bias, interpret results relative to patient's use of biotin. Performing Organization Address [facility]ercoky Phone Number [facility] CLIA: [id number] [place] [address] documented in this encounter Visit Diagnoses Diagnosis Pleurisy - Primary Pleurisy without mention of effusion or current tuberculosis Chest pain, unspecified type Mild anemia Anemia, unspecified ADY (acute kidney injury) Acute kidney failure, unspecified documented in this encounter Administered Medications Medication Order MAR Action Action Date Dose Rate Site FENTanyl PF (SUBLIMAZE (PF)) Given 11/27/2019 9:32 PM CDT 25 mc g injection 25 mcg 25 mcg, Slow IV Push, ONCE, 1 dose, Nicole 11/27/19 at 2230, STAT ondansetron (ZOFRAN (PF)) injection 4 mg Given 11/27/2019 9:31 PM CDT 4 mg 4 mg, Slow IV Push, ONCE, 1 dose, Nicole 11/27/19 at 2230, KEITH documented in this encounter Insurance Payer Benefit Plan / Subscriber ID Effective Dates Phone Addre ss Type Group MEDICARE MEDICARE PART [id number] 2012-Layne [phone] [address] Medicare [address] t [address] [id number] JESSE MARSH [id number] documented as of this encounter
--- OUTSIDE RECORDS SUMMARY | 2019-12-19 15:42 | XMS REPORT | Summary of Care ---
:1945 Author Organization [facility] Address [address] [place], [place] [address] Care Team Providers Name Role Phone RayCamille Primary Care Provider Encounter Details Date Type Department Care Team Description 11/18/2019 Letter (Out) [facility] Radha Garces RN [address] [id number] [place] [address] Allergies Active Allergy Reactions Severity Noted Date Comments Iodine Other - See comments 10/26/2018 documented as of this encounter (statuses as of 11/18/2019) Medications Medication Sig Dispensed Refills Start Date [...] as of this encounter (statuses as of 11/18/2019) Active Problems No known active problemsdocumented as of this encounter (statuses as of 11/18/2019) Social History Tobacco Use Types Packs/Day Years [...] filedocumented in this encounter Plan of Treatment Health Maintenance Due Date Last Done Comments [...] Results Not on filedocumented in this encounter Insurance Payer Benefit Plan Subscriber ID Effective Phone Address Typ e / Group Dates HUMANA - HUMANA GOLD [id number] 2019-Pres [facility] care Adv MANAGED PLS HMO ent HMO MEDICARE MEDICARE MEDICARE PART [id number] 2012-Pres [phone] Medicare A & B ent [id number] [place] [id number] documented as of this encounter
[2019-12-19] MEDS ORDERED: NA CHLORIDE 0.9% 1,000 ML ONE (16:37)
[2019-12-19 17:03] LABS: Absolute Lymphocytes (CBC) 1.7 K/uL (0.7-4.9); Basophils % 0.2 % (0-1.3); Hematocrit 37.7 % (36.0-45.0); Lymphocytes % 29.5 % (15.3-44.8); MPV 7.8 fL (7.6-11.3); RBC Red Blood Cell Count 4.55 M/uL (3.86-4.86)
[2019-12-19] MEDS ORDERED: FAMOTIDINE 20 MG/2 ML VIAL IV ONE ×2 (17:12→17:30)
[2019-12-19] MEDS ORDERED: METHYLPREDNISOLONE 125 MG INJ ONE (17:12)
[2019-12-19] MEDS ORDERED: DIPHENHYDRAMINE 50 MG/ML VIAL ONE (17:12)
[2019-12-19 17:25] LABS: ALT/SGPT 23 U/L (12-78); AST/SGOT 17 U/L (15-37); Albumin 3.9 g/dL (3.4-5.0); Alkaline Phosphatase 53 U/L (45-117); BUN Blood Urea Nitrogen 25 mg/dL (7-18); Bicarbonate 30 mmol/L (21-32); Bilirubin Direct < 0.1 mg/dL (0-0.2); Bilirubin Total 0.4 mg/dL (0.2-1.0); Glucose Level 96 mg/dL (74-106); Magnesium 2.5 mg/dL (1.8-2.4); NT PRO-BNP 66 pg/mL (<125); Potassium 3.5 mmol/L (3.5-5.1); Protein, Total 7.5 g/dL (6.4-8.2); Sodium Level 141 mmol/L (136-145); Troponin (Emerg Dept Use Only) < 0.02 ng/mL (0.0-0.045)
--- NOTE | 2019-12-19 17:56 | RAD REPORT ---
EXAM DESCRIPTION: USExtrem Venous W Compress Bil12/19/2019 5:27 pm CLINICAL HISTORY: Bilateral leg swelling COMPARISON: none FINDINGS: The common femoral, superficial femoral, popliteal and posterior tibial veins bilaterally are compressible and demonstrate augmentation. Doppler demonstrates good flow. IMPRESSION: No evidence of deep venous thrombosis involving either lower extremity.
--- NOTE | 2019-12-19 18:13 | RAD REPORT ---
EXAM DESCRIPTION: CT - Chest For Pe Angio - 12/19/2019 5:34 pm CLINICAL HISTORY: Chest pain COMPARISON: June 2019 TECHNIQUE: Dynamically enhanced axial 3 mm thick images of the chest were obtained during administra tion of <100> mL Isovue 370 IV contrast. Coronal and oblique reconstruction images were generated and reviewed. Exam utilizes a protocol for optimal evaluation of pulmonary arterial tree. Maximum intensity projections 3D imaging was utilized All CT scans are performed using dose optimization technique as appropriate and may include automated exposure control or mA/KV adjustment according to patient size. FINDINGS: A pulmonary embolus is not seen. The ascending thoracic aorta measures 4 centimeters AP diameter. A pleural effusion is not seen. A pericardial effusion is not seen. A lung consolidation is not present. IMPRESSION: Negative for a pulmonary embolism.
--- NOTE | 2019-12-19 18:14 | RAD REPORT ---
EXAM DESCRIPTION: Lynette Single View12/19/2019 4:42 pm CLINICAL HISTORY: Chest pain COMPARISON: none FINDINGS: The lungs appear clear of acute infiltrate. The heart is normal size IMPRESSION: No acute abnormalities displayed
[2019-12-19] MEDS ORDERED: ASPIRIN 81 MG CHEWABLE TABLET ONE (18:51)
[2019-12-19] MEDS ORDERED: METOPROLOL XL 50 MG TAB PO ONE (19:00)
--- NOTE | 2019-12-19 21:59 | EDPHYS ---
Physician Documentation [facility] Name: Rosy Swann Age: 74 yrs Sex: Female : 1945 Arrival Date: 12/19/2019 Time: 15:35 Bed 4 Private MD: Niraj Li HPI: 12/18 16:28 This 74 yrs old Female presents to ER via Ambulatory with complaints of chayito Abnormal Lab Results. 16:28 The patient has shortness of breath with light activity. Onset: The symptoms/episode chayito began/occurred 3 day(s) ago. Duration: The symptoms are intermittent, with episodes lasting seconds at a time. The patient's shortness of breath has no apparent modifying factors. The patient or guardian reports chest pain that is located primarily in the anterior chest wall. Onset: 3 day(s) ago. The pain does not radiate. Associated signs and symptoms: The patient has no apparent associated signs or symptoms. Severity of symptoms: At their worst the symptoms were mild moderate in the emergency department the symptoms are unchanged. Associated signs and symptoms: The patient has no apparent associated signs or symptoms. The chest pain is described as dull. Historical: - Allergies: 15:42 Iodine; sv - PMHx: 15:42 ADY; aortic aneurysm; Asthma; Arthritis; sv 15:42 DVT; sv 15:43 CVA; Pre [place]; sv 15:45 Pancreatitis; sv - PSHx: 15:42 Knee surgery; Tubal ligation; Angioplasty; sv - Immunization history:: Adult Immunizations. - Social history:: Smoking status: . - Family history:: not pertinent. ROS: 16:28 Constitutional: Negative for fever, chills, and weight loss, Eyes: Negative for injury, chayito pain, redness, and discharge, ENT: Negative for injury, pain, and discharge, Neck: Negative for injury, pain, and swelling, Abdomen/GI: Negative for abdominal pain, nausea, vomiting, diarrhea, and constipation, Back: Negative for injury and pain, : Negative for injury, bleeding, discharge, and swelling, MS/Extremity: Negative for injury and deformity, Skin: Negative for injury, rash, and discoloration, Neuro: Negative for headache, weakness, numbness, tingling, and seizure, Psych: Negative for depression, anxiety, suicide ideation, homicidal ideation, and hallucinations, Allergy/Immunology: Negative for hives, rash, and allergies, Endocrine: Negative for neck swelling, polydipsia, polyuria, polyphagia, and marked weight changes, Hematologic/Lymphatic: Negative for swollen nodes, abnormal bleeding, and unusual bruising. 16:28 Cardiovascular: Positive for chest pain. 16:28 Respiratory: Positive for shortness of breath, at rest. Exam: 16:28 Constitutional: This is a well developed, well nourished patient who is awake, alert, chayito and in no acute distress. Head/Face: Normocephalic, atraumatic. Eyes: Pupils equal round and reactive to light, extra-ocular motions intact. Lids and lashes normal. Conjunctiva and sclera are non-icteric and not injected. Cornea within normal limits. Periorbital areas with no swelling, redness, or edema. ENT: Nares patent. No nasal discharge, no septal abnormalities noted. Tympanic membranes are normal and external auditory canals are clear. Oropharynx with no redness, swelling, or masses, exudates, or evidence of obstruction, uvula midline. Mucous membranes moist. Neck: Trachea midline, no thyromegaly or masses palpated, and no cervical lymphadenopathy. Supple, full range of motion without nuchal rigidity, or vertebral point tenderness. No Meningismus. Chest/axilla: Normal chest wall appearance and motion. Nontender with no deformity. No lesions are appreciated. Cardiovascular: Regular rate and rhythm with a normal S1 and S2. No gallops, murmurs, or rubs. Normal PMI, no JVD. No pulse deficits. Respiratory: Lungs have equal breath sounds bilaterally, clear to auscultation and percussion. No rales, rhonchi or wheezes noted. No increased work of breathing, no retractions or nasal flaring. Abdomen/GI: Soft, non-tender, with normal bowel sounds. No distension or tympany. No guarding or rebound. No evidence of tenderness throughout. Back: No spinal tenderness. No costovertebral tenderness. Full range of motion. Skin: Warm, dry with normal turgor. Normal color with no rashes, no lesions, and no evidence of cellulitis. MS/ Extremity: Pulses equal, no cyanosis. Neurovascular intact. Full, normal range of motion. Neuro: Awake and alert, GCS 15, oriented to person, place, time, and situation. Cranial nerves II-XII grossly intact. Motor strength 5/5 in all extremities. Sensory grossly intact. Cerebellar exam normal. Normal gait. Psych: Awake, alert, with orientation to person, place and time. Behavior, mood, and affect are within normal limits. 16:28 Musculoskeletal/extremity: DVT Exam: No signs of deep vein thrombosis. no pain, no swelling, no tenderness, negative Homans' sign noted on exam, no appreciated bluish discoloration, no erythema, no increased warmth. 18:31 ECG was reviewed by the Attending Physician. chayito Vital Signs: 15:43 BP 147 / 83; Pulse 71; Resp 16; Temp 97.8; Pulse Ox 98% ; Weight 72.57 kg; Height 4 ft. sv 11 in. (149.86 cm); 17:22 BP 136 / 82; Pulse 62; Resp 17; Pulse Ox 100% on R/A; tw2 18:25 BP 122 / 77; Pulse 68; Resp 15; Pulse Ox 100% ; jl7 15:43 Body Mass Index 32.31 (72.57 kg, 149.86 cm) sv MDM: 16:17 Patient medically screened. chayito 16:39 Differential diagnosis: abnormal EKG, acute myocardial infarction, coronary artery chayito disease congestive heart failure esophagitis, gastroesophageal reflux disease (GERD), hiatal hernia, pancreatitis, stable angina, unstable angina, pulmonary edema, Pulmonary Embolism Unstable Angina. Antibiotic administration: Not indicated. HEART Score: History: Slightly Suspicious (0), ECG: Age: > or = 65 years (2), Risk Factors: 1 or 2 risk factors (1), [Hypertension] [+ Family HX] Troponin: < or = 1 x Normal Limit (0). The patient was not given aspirin in the Emergency Department. Patient reports taking aspirin within the past 24 hours. The patient's Wells Deep Vein Thrombosis Score was calculated as follows: Total Score: 0-2 Pts- Low Risk. The patient's pulmonary embolism risk score was calculated as follows: Total Score: 0-2 points. This patient was found to be at low risk for a pulmonary embolism by using the Well's assessment criteria Total Score: 0-2 points. This patient was found to be at low risk for a pulmonary embolism by using the Well's assessment criteria. KATY Risk Score: 1 - patient's age is greater or equal to 65 years, 1- Known CAD, TOTAL SCORE = 2. Immunization status: Pneumococcal vaccine: within last 5 years. Data reviewed: vital signs, nurses notes, lab test result(s), EKG, radiologic studies, CT scan, doppler, plain films. 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 Test interpretation: by ED physician or midlevel provider: ECG, plain radiologic studies. 17:44 ED course: [facility] [place]. [facility] 12/18 16:18 Order name: Basic Metabolic Panel; Complete Time: 17:44 [facility] 12/18 16:18 Order name: CBC with Diff; Complete Time: 17:24 [facility] 12/18 16:18 Order name: LFT's; Complete Time: 17:44 [facility] 12/18 16:18 Order name: Magnesium; Complete Time: 17:44 [facility] 12/18 16:18 Order name: NT PRO-BNP; Complete Time: 17:44 [facility] 12/18 16:18 Order name: Troponin (emerg Dept Use Only); Complete Time: 17:44 [facility] 12/18 16:18 Order name: XRAY Chest (1 view) [facility] 12/18 16:27 Order name: CT Chest For PE Angio [facility] 12/18 16:28 Order name: US Extremity Venous W Compression Mao [facility] 12/18 16:38 Order name: Lipase; Complete Time: 17:24 [facility] 12/18 18:24 Order name: Urine Dipstick--Ancillary (enter results) 12/18 16:18 Order name: EKG; Complete Time: 16:19 [facility] 12/18 16:18 Order name: Cardiac monitoring; Complete Time: 16:57 [facility] 12/18 16:18 Order name: EKG - Nurse/Tech; Complete Time: 18:24 [facility] 12/18 16:18 Order name: IV Saline Lock; Complete Time: 16:57 [facility] 12/18 16:18 Order name: Labs collected and sent; Complete Time: 16:57 [facility] 12/18 16:18 Order name: O2 Per Protocol; Complete Time: 16:57 [facility] 12/18 16:18 Order name: O2 Sat Monitoring; Complete Time: 16:57 [facility] 12/18 17:24 Order name: Urine Dipstick-Ancillary (obtain specimen); Complete Time: 18:24 [facility] EC:31 Rate is 62 beats/min. Rhythm is regular. QRS Sims is Normal. ME interval is normal. QRS chayito interval is normal. QT interval is normal. No Q waves. T waves are Normal. No ST changes noted. Clinical impression: Normal ECG and No evidence of ischemia. Interpreted by me. Reviewed by me. Administered Medications: 17:00 Drug: NS 0.9% 500 ml Route: IV; Rate: bolus; Site: right wrist; jl7 17:04 Drug: SOLU-Medrol 125 mg Route: IVP; Site: right wrist; jl7 17:37 Follow up: Response: No adverse reaction jl7 17:06 Drug: Pepcid 40 mg Route: IVP; Site: right wrist; jl7 17:37 Follow up: Response: No adverse reaction jl7 17:06 Drug: Benadryl 25 mg Route: IVP; Site: right wrist; jl7 17:37 Follow up: Response: No adverse reaction 7 17:08 Drug: NS 0.9% 1000 ml Route: IV; Rate: 125 ml/hr; Site: right wrist; jl7 17:25 Drug: Benadryl 25 mg Route: IVP; Site: right wrist; jl7 17:37 Follow up: Response: No adverse reaction jl7 18:49 Drug: Aspirin 81 mg Route: PO; tw2 19:00 Follow up: Response: No adverse reaction jl7 18:50 Drug: ToPROL XL 25 mg Route: PO; tw2 18:50 Follow up: Response: Medication administered at discharge. 7 Disposition: 12/19/19 18:17 Discharged to Home. Impression: Chest pain, unspecified, Thoracic aortic aneurysm, without rupture - ascending 4 cm AP diameter, Essential (primary) hypertension. - Condition is Stable. - Discharge Instructions: Thoracic Aortic Aneurysm, Nonspecific Chest Pain, Hypertension, Nonspecific Chest Pain, [id number], Hypertension, Pear-ke-Ddkg, Aspirin and Your Heart. - Prescriptions for Toprol XL 25 mg Oral Tablet - take 1 tablet by ORAL route once daily; 20 tablet. - Medication Reconciliation Form, Thank You Letter, Antibiotic Education, Prescription Opioid Use form. - Follow up: Private Physician; When: 2 - 3 days; Reason: Recheck today's complaints, Continuance of care, Re-evaluation by your physician. Follow up: Jose A Mancilla; When: 2 - 3 days; Reason: Recheck today's complaints, Continuance of care, Re-evaluation by your physician. - Problem is new. - Symptoms have improved. Signatures: Dispatcher [employer] EDCrystal Mcdowell, RN RN Niraj Manzanares MD MD cha Wise, Tara RN RN tw2 Bennett Colby RN RN jl7 Corrections: (The following items were deleted from the chart) 18:38 18:17 12/19/2019 18:17 Discharged to Home. Impression: Chest pain, unspecified; chayito Thoracic aortic aneurysm, without rupture - ascending 4 cm AP diameter. Condition is Stable. Discharge Instructions: Nonspecific Chest Pain, Nonspecific Chest Pain, [id number], Aspirin and Your Heart. Forms are Medication Reconciliation Form, Thank You Letter, Antibiotic Education, Prescription Opioid Use. Follow up: Private Physician; When: 2 - 3 days; Reason: Recheck today's complaints, Continuance of care, Re-evaluation by your physician. Follow up: Jose A Mancilla; When: 2 - 3 days; Reason: Recheck today's complaints, Continuance of care, Re-evaluation by your physician. Problem is new. Symptoms have improved. chayito 18:51 18:38 12/19/2019 18:17 Discharged to Home. Impression: Chest pain, unspecified; tw2 Thoracic aortic aneurysm, without rupture - ascending 4 cm AP diameter; Essential (primary) hypertension. Condition is Stable. Discharge Instructions: Nonspecific Chest Pain, Nonspecific Chest Pain, Kcfi-kh-[id number], Aspirin and Your Heart, Thoracic Aortic Aneurysm. Forms are Medication Reconciliation Form, Thank You Letter, Antibiotic Education, Prescription Opioid Use. Follow up: Private Physician; When: 2 - 3 days; Reason: Recheck today's complaints, Continuance of care, Re-evaluation by your physician. Follow up: Jose A Mancilla; When: 2 - 3 days; Reason: Recheck today's complaints, Continuance of care, Re-evaluation by your physician. Problem is new. Symptoms have improved. chayito
--- NOTE | 2019-12-19 21:59 | ER ---
Nurse's Notes [facility] Name: Rosy Swann Age: 74 yrs Sex: Female : 1945 Arrival Date: 12/19/2019 Time: 15:35 Bed 4 Private MD: Diagnosis: Chest pain, unspecified;Thoracic aortic aneurysm, without rupture-ascending 4 cm AP diameter;Essential (primary) hypertension Presentation: 12/18 15:38 Chief complaint: Patient states: labs were drawn here and her PCP told her to come to the ER to r/o PE. Pt reports she has been having pain left side is hurting and SOB. Coronavirus screen: Client denies travel out of the [place] in the last 14 days. Ebola Screen: No symptoms or risks identified at this time. Risk Assessment: Do you want to hurt yourself or someone else? Patient reports no desire to harm self or others. Onset of symptoms was December 19, 2019. 15:38 Method Of Arrival: Ambulatory sv 15:38 Acuity: YANG 2 sv Triage Assessment: 15:38 General: Appears in no apparent distress. comfortable, well developed, Behavior is sv calm, cooperative, appropriate for age. Pain: Denies pain. Neuro: Level of Consciousness is awake, alert, obeys commands, Oriented to person, place, time, situation, Gait is steady. Respiratory: Reports shortness of breath on exertion Respiratory effort is even, unlabored, Respiratory pattern is regular, symmetrical. Derm: Skin is normal. Historical: - Allergies: 15:42 Iodine; sv - PMHx: 15:42 ADY; aortic aneurysm; Asthma; Arthritis; sv 15:42 DVT; sv 15:43 CVA; Pre [place]; sv 15:45 Pancreatitis; sv - PSHx: 15:42 Knee surgery; Tubal ligation; Angioplasty; sv - Immunization history:: Adult Immunizations. - Social history:: Smoking status: . - Family history:: not pertinent. Screenin:30 Abuse screen: Denies threats or abuse. Denies injuries from another. Nutritional jl7 screening: No deficits noted. Tuberculosis screening: No symptoms or risk factors identified. Fall Risk IV access (20 points). Total Calvillo Fall Scale indicates No Risk (0-24 pts). Assessment: 16:30 General: Appears in no apparent distress. uncomfortable, Behavior is calm, cooperative, jl7 appropriate for age. Pain: Complains of pain in back Pain currently is 4 out of 10 on a pain scale. Neuro: Level of Consciousness is awake, alert, obeys commands, Oriented to person, place, time, situation. Cardiovascular: Patient's skin is warm and dry. Respiratory: Airway is patent Respiratory effort is even, unlabored, Respiratory pattern is regular, symmetrical. Derm: Skin is pink, warm \T\ dry. 17:30 Reassessment: Patient appears in no apparent distress at this time. No changes from jl7 previously documented assessment. Patient and/or family updated on plan of care and expected duration. Pain level reassessed. Patient is alert, oriented x 3, equal unlabored respirations, skin warm/dry/pink. Vital Signs: 15:43 BP 147 / 83; Pulse 71; Resp 16; Temp 97.8; Pulse Ox 98% ; Weight 72.57 kg; Height 4 ft. sv 11 in. (149.86 cm); 17:22 BP 136 / 82; Pulse 62; Resp 17; Pulse Ox 100% on R/A; tw2 18:25 BP 122 / 77; Pulse 68; Resp 15; Pulse Ox 100% ; jl7 15:43 Body Mass Index 32.31 (72.57 kg, 149.86 cm) sv ED Course: 15:35 Patient arrived in ED. as 15:38 Arm band placed on. sv 15:40 Triage completed. sv 16:15 Bennett Colby, RN is Primary Nurse. jl7 16:17 Niraj Magallanes MD is Attending Physician. chayito 16:30 Patient has correct armband on for positive identification. Placed in gown. Bed in low jl7 position. Call light in reach. Side rails up X2. lunchroom monitor on. Pulse ox on. NIBP on. Warm blanket given. 16:30 Initial lab(s) drawn, by dc, sent to lab. Inserted saline lock: 22 gauge in right jl7 forearm, using aseptic technique. Blood collected. 16:42 XRAY Chest (1 view) In Process Unspecified. EDMS 17:27 US Extremity Venous W Compression Mao In Process Unspecified. EDMS 18:15 Jose A Mancilla MD is Referral Physician. chayito 18:15 EKG done, by ED staff, reviewed by Niraj Magallanes MD. jl7 18:50 No provider procedures requiring assistance completed. IV discontinued, intact, tw2 bleeding controlled, No redness/swelling at site. Pressure dressing applied. Administered Medications: 17:00 Drug: NS 0.9% 500 ml Route: IV; Rate: bolus; Site: right wrist; jl7 17:04 Drug: SOLU-Medrol 125 mg Route: IVP; Site: right wrist; jl7 17:37 Follow up: Response: No adverse reaction jl7 17:06 Drug: Pepcid 40 mg Route: IVP; Site: right wrist; jl7 17:37 Follow up: Response: No adverse reaction jl7 17:06 Drug: Benadryl 25 mg Route: IVP; Site: right wrist; jl7 17:37 Follow up: Response: No adverse reaction jl7 17:08 Drug: NS 0.9% 1000 ml Route: IV; Rate: 125 ml/hr; Site: right wrist; jl7 17:25 Drug: Benadryl 25 mg Route: IVP; Site: right wrist; jl7 17:37 Follow up: Response: No adverse reaction jl7 18:49 Drug: Aspirin 81 mg Route: PO; tw2 19:00 Follow up: Response: No adverse reaction jl7 18:50 Drug: ToPROL XL 25 mg Route: PO; tw2 18:50 Follow up: Response: Medication administered at discharge. 7 Outcome: 18:17 Discharge ordered by . [facility] 18:50 Discharged to home ambulatory. tw2 18:50 Condition: stable 18:50 Discharge instructions given to patient, Instructed on discharge instructions, follow up and referral plans. medication usage, Demonstrated understanding of instructions, follow-up care, medications, Prescriptions given X 1. 18:51 Patient left the ED. tw2 Signatures: Dispatcher [employer] EDMS Crystal Moeller RN RN sv Anderson, Corey, MD MD cha Martinez, Amelia as Wise, Tara, RN RN tw2 Bennett Colby RN RN jl7 Corrections: (The following items were deleted from the chart) 15:45 15:43 Resp 16bpm; Temp 97.8F; 72.57 kg; Height 4 ft. 11 in.; BMI: 32.3; sv sv 15:48 15:38 Acuity: YANG 3 sv sv
[2019-12-19 22:33] LABS: Urine Blood NEGATIVE (NEG); Urine Glucose NEGATIVE (NEG); Urine Protein NEGATIVE (NEG); Urine pH 6.5 (5.0-7.0)
[2019-12-21 02:34] VITALS: TEMP 97.8
[2019-12-21 02:35] VITALS: BP 122/77; O2SAT 100
--- NOTE | 2019-12-21 06:55 | EKG ---
Test Date: 2019-12-19 Test Time: 18:18:59 Security Rover: PENNY MEASUREMENT RESULTS: Intervals: Rate: 62 MD: 178 QRSD: 84 QT: 440 QTc: 446 [place]: P: 26 MD: 178 QRS: -10 T: 27 INTERPRETIVE STATEMENTS: Normal sinus rhythm Possible Anterior infarct, age undetermined Abnormal ECG No previous ECG available for comparison Electronically Signed On 12-21-19 06:53:26 CDT by Osvaldo Medina
== END 2019-12-19 18:51 | disposition home or self-care (01) ==
LOC: ER 15:32
DX: I71.2 Thoracic aortic aneurysm, without rupture (principal); I10 Essential (primary) hypertension; Z86.73 Personal history of transient ischemic attack (TIA), and cerebral infarction without residual deficits; Z91.048 Other nonmedicinal substance allergy status
CPT/HCPCS: 93005; 85025; 80048; 36415; 83735; 82565; 80076; 81003; 84484; 83690; 83880; 71275; 71045; 93970; 96375; 96374; 99284; Q9967; J1200; J7030; J2930